=== PATIENT | female | born 1950 | race Caucasian/White ===

== ENCOUNTER → 2017-01-01 | Outpatient (CLI) | payer MEDICARE, OTHER ==
--- NOTE | 2017-01-01 13:15 | US ---
EXAMINATION TYPE: US gallbladder DATE OF EXAM: 01/01/2017 COMPARISON: CT 2016 CLINICAL HISTORY: RUQ Abd Pain R10.11. N/V EXAM MEASUREMENTS: Liver Length: 10.8 cm Gallbladder Wall: 0.1 cm CBD: 0.3 cm Right Kidney: 9.3 x 5.2 x 4.1 cm Liver is homogeneous. There are no gallstones. Pancreatic tail limited by bowel gas. Evidence for sonographic Finn's sign: no CBD: wnl Right Kidney: echogenic, shadowing foci in lateral right kidney = 0.5 cm IMPRESSION: 1. Nonobstructing 5 mm right renal calculus.
--- NOTE | 2017-01-01 14:54 | NM ---
Nuclear medicine hepatobiliary scan. HISTORY: Pain. Her graft comparison: 12/05/2014 FINDINGS: The patient received 8 ounces and sure plus and 5.3 mCi of Technetium 99m Choletec. There is normal hepatic extraction. The gallbladder is seen by 25 minutes. There is biliary to tony l clearance by 30 minutes. Ejection fraction is 89%. IMPRESSION: 1. No evidence of cholecystitis. 2. Ejection fraction of 89%. This can occasionally be seen with hyperdynamic gallbladder. Correlate gabriela brown
== END | disposition home or self-care (01) ==
LOC: RADUSMAIN 12:09
PROVIDERS: ATTEND Surgery
DX: N20.0 Calculus of kidney (principal)
CPT/HCPCS: 76705; 78226; A9537

== ENCOUNTER 2017-02-04 07:45 | Day surgery (SDC) | payer MEDICARE, OTHER ==
[2017-01-31 10:46] VITALS: BMI 13.6
[~2017-02-04 07:45] MED LIST: LACTATED RINGERS 1,000 ML IV SCH
[2017-02-04] MEDS ORDERED: LIDOCAINE 1% 20 ML VIAL (10MG/ML) FOR IV START INTRADERMA ONE (07:56)
[2017-02-04 07:59] VITALS: TEMP 98
[2017-02-04] MEDS ORDERED: LACTATED RINGERS 1,000 ML IV ONE (07:59)
[2017-02-04] MEDS ORDERED: PROPOFOL 10 MG/ML 20 ML VIAL IV ONE (08:54)
[2017-02-04] MEDS ORDERED: GLYCOPYRROLATE 0.2 MG/ML 2 ML VIAL ONE (08:54)
[2017-02-04] MEDS ORDERED: LIDOCAINE 1% INJ 10MG/ML (20 ML MDV) ONE (08:54)
--- NOTE | 2017-02-04 09:31 | P.PCN ---
Date of Procedure: 02/04/17 Preoperative Diagnosis: Postoperative Diagnosis: Procedure(s) Performed: Procedure: Esophagogastroduodenoscopy and biopsy. Preoperative diagnosis: Abdominal pain and weight loss. Postoperative diagnosis: 1. Small sliding hiatal hernia with no obvious esophagitis or complicated reflux disease. 2. Mild antral gastritis with no ulcers or gastric outlet obstruction. 3. Multiple biopsies obtained from the duodenum antrum and esophagus. Preparation sedation: Was provided by anesthesia. Brief clinical history: The patient is a 66-year-old female who is referred for this evaluation because of severe upper abdominal pains and weight loss. The patient has history of reflux and dysphagia. Her last upper endoscopy was in November 2013. Procedure: With the patient on her left lateral decubitus position and after informed consent and adequate sedation, I passed the Olympus-GIF 160 video upper endoscope through the cricopharyngeus down the esophagus. GE junction was around 39-40 cm from the incisors and there was a small sliding hiatal hernia. The esophagus did not show any obvious esophagitis or complicated reflux disease. The endoscope was then passed into the stomach which was insufflated with air and inspected in detail including the retroflex view in the cardia. There was minimal mottling and erythema in the antrum but no ulcers or erosions. Pyloric channel, duodenal bulb, post bulbar area and descending duodenum appeared within normal limits. I obtained multiple biopsies , antrum and esophagus then the endoscope was withdrawn. The patient tolerated the procedure well. Plan: The patient was reassured. Will await biopsy results. She will follow- up with you as planned and further plans can be made based on her course and biopsy results. Implants: Indications for Procedure: Operative Findings: Description of Procedure:
[2017-02-04 09:32] VITALS: BP 112/54; PULSE 66; RESP 15
== END 2017-02-04 09:50 | disposition home or self-care (01) ==
LOC: ORWHC2ENDO 07:45
DX: K29.50 Unspecified chronic gastritis without bleeding (principal); K21.0 Gastro-esophageal reflux disease with esophagitis; F17.200 Nicotine dependence, unspecified, uncomplicated; F41.9 Anxiety disorder, unspecified; K44.9 Diaphragmatic hernia without obstruction or gangrene; R63.4 Abnormal weight loss; Z79.899 Other long term (current) drug therapy; Z88.6 Allergy status to analgesic agent
CPT/HCPCS: 88305; 88342; 43239; J2001; J2704

== ENCOUNTER 2017-03-18 07:13 | Day surgery (SDC) | payer MEDICARE, OTHER ==
[2017-03-17 09:42] VITALS: BMI 14.0
[~2017-03-18 07:13] MED LIST changes: +LIDOCAINE 1% 20 ML VIAL (10MG/ML) FOR IV START INTRADERMA PRN
[2017-03-18 07:46] VITALS: TEMP 98.1
[2017-03-18] MEDS ORDERED: PROPOFOL 10 MG/ML 20 ML VIAL IV ONE (08:12)
--- NOTE | 2017-03-18 08:36 | P.OP ---
Date of Procedure: 03/18/17 Preoperative Diagnosis: Weight loss, constipation Postoperative Diagnosis: Normal colonoscopy Procedure(s) Performed: Colonoscopy Anesthesia: MAC Estimated Blood Loss (ml): 0 IV fluids (ml): 100 Pathology: none sent Condition: stable Disposition: PACU Indications for Procedure: Weight loss constipation Operative Findings: Normal colonoscopy Description of Procedure: Patient was taken to the endoscopy suite and following sedation rectal exam was performed. Patient was noted to have good sphincter tone no masses. Colonoscope was passed through the anus into the rectum. Was passed up through the sigmoid colon and left colon to the splenic flexure. Was passed through the transverse colon hepatic flexure right colon down to the area of the cecum. Circumferential observation mucosa did not reveal any lesions of concern in the cecum or right colon. No lesions of concern in the transverse colon. As the scope was withdrawn no lesions of concern were noted in the left colon or sigmoid colon. The scope was brought down to the rectum where it was retroflexed. No lesions of concern were identified. Some perianal internal skin tags were noted, but no lesions of concern. No space-occupying lesion in the colon to account for constipation was noted. Impression/plan: 1. Tortuous sigmoid colon Plan: 1. Repeat scope 7-10 years
--- NOTE | 2017-03-18 08:37 | P.DS ---
Providers Attending physician: Lizabeth Long Primary care physician: Nicolás Rose Plan - Discharge Summary New Discharge Prescriptions: No Action Levothyroxine Sodium [Synthroid] 50 mcg PO HS ALPRAZolam [Xanax] 0.5 mg PO BID PRN PRN Reason: Anxiety Estradiol [Estradiol] 1 patch TOPICAL MOFR Hydrocodone/Acetaminophen [[place] 7.5-325] 1 tab PO Q6HR PRN PRN Reason: Pain Omeprazole [PriLOSEC] 40 mg PO AC-BRKFST Multivit with Calcium,Iron,Min [Women's Daily Multivitamin] 1 each PO DAILY Cholecalciferol [Vitamin D3] 1,000 unit PO DAILY Bisacodyl [Dulcolax] 10 mg PO DAILY PRN PRN Reason: Constipation L.acidoph,Paracasei, B.lactis [Probiotic] 1 each PO DAILY Docusate [Colace] 100 mg PO TID Magnesium Oxide [Mag-Ox] 250 mg PO DAILY Discharge Medication List ALPRAZolam [Xanax] 0.5 mg PO BID PRN 11/26/13 [History] Levothyroxine Sodium [Synthroid] 50 mcg PO HS 11/26/13 [History] Estradiol [Estradiol] 1 patch TOPICAL MOFR 08/02/15 [History] Hydrocodone/Acetaminophen [[place] 7.5-325] 1 tab PO Q6HR PRN 09/12/15 [History] Multivit with Calcium,Iron,Min [Women's Daily Multivitamin] 1 each PO DAILY [History] Omeprazole [PriLOSEC] 40 mg PO AC-BRKFST 09/12/15 [History] Bisacodyl [Dulcolax] 10 mg PO DAILY PRN 01/31/17 [History] Cholecalciferol [Vitamin D3] 1,000 unit PO DAILY 01/31/17 [History] Docusate [Colace] 100 mg PO TID 01/31/17 [History] L.acidoph,Paracasei, B.lactis [Probiotic] 1 each PO DAILY 01/31/17 [History] Magnesium Oxide [Mag-Ox] 250 mg PO DAILY 03/17/17 [History] Discharge Disposition: HOME SELF-CARE
[2017-03-18 09:03] VITALS: BP 92/56; PULSE 49; RESP 18
== END 2017-03-18 09:09 | disposition home or self-care (01) ==
LOC: ORWHC2ENDO 07:13
PROVIDERS: ATTEND Surgery
DX: R10.9 Unspecified abdominal pain (principal); K59.00 Constipation, unspecified; R63.4 Abnormal weight loss; K56.2 Volvulus; F41.9 Anxiety disorder, unspecified; K64.4 Residual hemorrhoidal skin tags; F17.200 Nicotine dependence, unspecified, uncomplicated; Z88.6 Allergy status to analgesic agent; Z88.5 Allergy status to narcotic agent; K21.9 Gastro-esophageal reflux disease without esophagitis; M47.9 Spondylosis, unspecified; M19.90 Unspecified osteoarthritis, unspecified site; Z79.899 Other long term (current) drug therapy
CPT/HCPCS: 45378; J2704

== ENCOUNTER → 2017-04-02 | Outpatient (CLI) | payer MEDICARE, OTHER ==
--- NOTE | 2017-04-02 15:09 | US ---
EXAMINATION TYPE: US pelvis complete transvag DATE OF EXAM: 04/02/2017 COMPARISON: 05/21/2011 CT abdomen pelvis. CLINICAL HISTORY: R19.0 Pelvic Mass. known left pelvic mass x 6 years TECHNIQUE: TA/TV Date of LMP: 20+yrs ago EXAM MEASUREMENTS: Uterus: Surgically absent Endometrial Stripe: Surgically absent Right Ovary: not seen due to bowel gas Left Ovary: 2.3 x 1.5 x 1.9cm 1. Uterus: Surgically absent 2. Endometrium: Surgically absent 3. Right Ovary: not seen due to bowel gas 4. Left Ovary: possible ovarian tissue measuring 2.3 x 1.5 x 1.9cm, with 1.3cm cystic component 5. Bilateral Adnexa: 3.4cm solid appearing mass noted within left adnexa, unsure if related to ovary or just adjacent to 6. Posterior cul-de-sac: wnl IMPRESSION: 1. No interval increase in size of the known hypoechoic left adnexal mass measuring 2.3 x 1.5 x 1.9 c m and previously measuring up to 3.[address] abdomen pelvis dated 05/21/2011. This could represe nt a complex pelvic inclusion cyst in a patient with a history of hysterectomy or endometrioma. Other etiologies are possible however this is favored to be benign given its stability over time. 2. Nonvisualization of the right ovary. This may be surgically absent or obscured by overlying bowel gas.
== END | disposition home or self-care (01) ==
LOC: RADUSWWP 14:07
PROVIDERS: ATTEND Family Medicine
DX: R19.00 Intra-abdominal and pelvic swelling, mass and lump, unspecified site (principal)
CPT/HCPCS: 76830; 76856

== ENCOUNTER → 2017-10-08 | Outpatient (CLI) | payer MEDICARE, OTHER ==
--- NOTE | 2017-10-08 17:09 | US ---
EXAMINATION TYPE: US thyroid st tissue head/neck DATE OF EXAM: 10/08/2017 COMPARISON: NONE CLINICAL HISTORY: E04.1 THYROID NODULE. thyroidectomy, patients feel a lump mid neck superior to thyr oid bed, difficulty swallowing GLAND SIZE: Right Lobe: Surgically absent Left Lobe: Surgically absent NODULES RIGHT: # of nodules measured on right: surgically absent LEFT: # of nodules measured on left: surgically absent Possible homogeneous solid area within patient's area of concern (mid neck, superior to thyroid bed) = 2.6cm IMPRESSION: Patient has had a thyroidectomy. There is a elongated oval-shaped 2.5 x 1 cm solid area in the area o f a lump. Clinical significance is not clear. This could be some residual thyroid tissue. This could be an elongated lymph node.
== END | disposition home or self-care (01) ==
LOC: RADUSWWP 16:31
PROVIDERS: ATTEND Family Medicine
DX: E04.8 Other specified nontoxic goiter (principal)
CPT/HCPCS: 76536

== ENCOUNTER → 2017-10-24 | Outpatient (CLI) | payer MEDICARE, OTHER ==
[2017-10-24 08:25] LABS: Blood Urea Nitrogen 5 mg/dL (7-17)
--- NOTE | 2017-10-24 09:55 | CT ---
EXAMINATION TYPE: CT soft tissue neck w con DATE OF EXAM: 10/24/2017 COMPARISON: Ultrasound thyroid gland dated 10/08/2017 HISTORY: Thyroid nodule CT DLP: 340 mGycm CONTRAST: CT scan of the neck is performed with IV Contrast, patient injected with 100 ml mL of Isovue 300. Contrast enhanced CT of the neck was performed from the skull base through the lung apices. AIRWAY: The supraglottic, glottic, and subglottic portions of the airway appear patent and free of mass. SALIVARY GLANDS: The submandibular and parotid glands are free of mass or inflammatory process. THYROID GLAND: Noted are changes of thyroidectomy. Superior to the right thyroid fossa there is bryan gated enhancing tissue noted to measure 1.9 x 2.6 cm. Anteriorly within the subcutaneous region there is additional enhancing elongated nodule measuring approximately 2.6 x 1.1 cm. The nodules are outsi de of the thyroid fossae and therefore may reflect adenopathy. Lesions of other etiology not excluded . Within the thyroid fossa bilaterally there is trace tiny amount of residual thyroid tissue noted on the left measuring 10 x 3 mm and on the right measuring approximately 5 mm. LYMPH NODES: No adenopathy seen greater than 1cm. LUNG APICES: Upper lobe emphysematous changes identified. OTHER: Vascular structures are patent. No significant degenerative change of the cervical spine. N o abscess seen. IMPRESSION: 1. Changes of total thyroidectomy with small foci of residual thyroid tissue remaining within the thy roid fossa bilaterally. 2. Outside of the thyroid fossa there is elongated enhancing nodule seen which may reflect adenopathy . Lesions of other etiology are difficult to exclude.
== END | disposition home or self-care (01) ==
LOC: RADCTMAIN 07:52
PROVIDERS: ATTEND Surgery
DX: E04.1 Nontoxic single thyroid nodule (principal); E89.0 Postprocedural hypothyroidism
CPT/HCPCS: 82565; 84520; 70491; 36415; Q9967

== ENCOUNTER 2017-10-27 12:13 | Day surgery (SDC) | payer MEDICARE, OTHER ==
[2017-10-27 12:40] VITALS: BP 111/53; PULSE 73; RESP 20; TEMP 98.4
--- NOTE | 2017-10-27 13:35 | US ---
ULTRASOUND GUIDED FNA THYROID /neck BIOPSY: CLINICAL HISTORY: Right neck, thyroid mass FINDINGS: The procedure was explained to the patient. The risks, complications, benefits and alternatives were discussed and any questions were answered. Informed consent was obtained. Patient was placed supin e on the ultrasound table and prepped and draped in the usual sterile fashion. Utilizing a 25 gauge needle, five passes were made into the requested right neck mass. Patient was stable throughout the procedure. Pathology is pending. All elements of maximal barrier technique were utilized. IMPRESSION: 1. Successful ultrasound guided FNA thyroid, neck biopsy.
== END 2017-10-27 13:35 | disposition home or self-care (01) ==
LOC: RADPROMAIN 12:13
PROVIDERS: ATTEND Surgery
DX: E04.1 Nontoxic single thyroid nodule (principal)
CPT/HCPCS: 10022; 76942; 88173; 88305

== ENCOUNTER → 2018-01-15 | Outpatient (CLI) | payer MEDICARE, OTHER ==
--- NOTE | 2018-01-15 11:20 | BD ---
EXAMINATION TYPE: Axial Bone Density DATE OF EXAM: 01/15/2018 COMPARISON: 10.05.2012 CLINICAL HISTORY: 67 YR OLD FEMALE....ICD-10 CODE: Z78.0 ASYMPTOMATIC MENOPAUSAL STATE Height: 61.5 Weight: 74 FRAX RISK QUESTIONS: Current Tobacco Use: YES, PAC DAY RISK FACTORS HISTORY OF: Active: YES TRY TO BE Diet low in dairy products/other sources of calcium: YES Postmenopausal woman: YES AT AGE 45 Take estrogen and/or progesterone medications: IN PAST FOR 11 YRS, NONE NOW Lost more than 2 inches in height since high school: PT STATES YES MEDICATIONS: Thyroid Medications: YES, SYNTHROID FOR ABOUT 10 YRS Additional Medications: CLONOPIN, XANAX, VIT D, REFLUX MEDS, Additional History: ARTHRITIS, ANXIETY EXAM MEASUREMENTS: Bone mineral densitometry was performed using the [employer] System. Bone mineral density as measured about the Lumbar spine is: ----- L1-L4(G/cm2): 1.143 T Score Values are as follows: ----- L1: -1.8 ----- L2: -0.8 ----- L3: -0.7 ----- L4: 1.5 ----- L1-L4: -0.3 Bone mineral density has: Increased 0.7% since study of: 10.05.2012 Bone mineral density about the R hip (g/cm2): 0.683 Bone mineral density about the L hip (g/cm2): 0.689 T Score values are as follows: -----R Neck: -2.6 -----L Neck: -2.6 -----R Total: -2.6 -----L Total: -2.5 Bone mineral density has: Decreased -10.8% since study of: 10.05.2012 FRAX%s: THERE IS A 9.9% CHANCE OF A MAJOR OSTEOPOROTIC FX AND A 5.3% FOR HIP FX.....PROBABILITY OF FX IN 10 YRS TIME IMPRESSION: Osteoporosis (T Score less than -2.5). There is increased fracture risk and therapy is usually indicated based on age. Re-Screen 1-2 years. NOTE: T-SCORE=SD OF THE YOUNG ADULT MEAN.
--- NOTE | 2018-01-19 09:52 | MM ---
Reason for exam: screening (asymptomatic). Last mammogram was performed 5 years and 3 months ago. History: Patient is postmenopausal. Taking estrogen for 11 years. Physical Findings: A clinical breast exam by your physician is recommended on an annual basis and results should be correlated with mammographic findings. MG Screening Mammo w CAD Bilateral CC and MLO view(s) were taken. Prior study comparison: February 08, 2016, mammogram. October 05, 2012, bilateral digital screening mammo w/CAD. The breast tissue is extremely dense which could obscure a lesion on mammography. Benign appearing bilateral calcifications. No suspicious abnormality. Stable anterior depth medial right asymmetry back to 02/08/16. No significant changes when compared with prior studies. ASSESSMENT: Benign, BI-RAD 2 RECOMMENDATION: Routine screening mammogram of both breasts in 1 year.
== END | disposition home or self-care (01) ==
LOC: RADMAMWWP 10:17
PROVIDERS: ATTEND Family Medicine
DX: Z12.31 Encounter for screening mammogram for malignant neoplasm of breast (principal); M81.0 Age-related osteoporosis without current pathological fracture; Z78.0 Asymptomatic menopausal state
CPT/HCPCS: 77067; 77080

== ENCOUNTER → 2018-02-26 | Outpatient (CLI) | payer MEDICARE, OTHER ==
--- NOTE | 2018-02-26 10:59 | XR ---
EXAMINATION TYPE: XR chest 2V DATE OF EXAM: 02/26/2018 COMPARISON: 08/02/2015 TECHNIQUE: PA and lateral views submitted. HISTORY: Cough FINDINGS: The lungs are clear and there is no pneumothorax, pleural effusion, or focal pneumonia. Hyperinflati on suggests COPD. Is a vague nodular density in the left upper lobe. Hypertrophic change of the spine noted. IMPRESSION: 1. COPD with questionable 1 cm pulmonary nodule. Recommend CT scan of the chest..
== END | disposition home or self-care (01) ==
LOC: RADXRMAIN 10:12
PROVIDERS: ATTEND Family Medicine
DX: J44.1 Chronic obstructive pulmonary disease with (acute) exacerbation (principal)
CPT/HCPCS: 71046

== ENCOUNTER → 2018-03-05 | Outpatient (CLI) | payer MEDICARE, OTHER ==
[2018-03-05 08:45] LABS: Blood Urea Nitrogen 7 mg/dL (7-17)
--- NOTE | 2018-03-05 12:13 | CT ---
EXAMINATION TYPE: CT chest w con DATE OF EXAM: 03/05/2018 COMPARISON: Radiograph 02/26/2018 HISTORY: 67-year-old female solitary Pulmonary nodule TECHNIQUE: Contiguous axial scanning of the chest after the administration of 100 mL of Isovue 300. Coronal/sagittal reconstructions performed. CT DLP: 228mGycm. Automatic exposure control utilized for a dose reduction. FINDINGS: Heart normal size without pericardial effusion. Aorta normal caliber with conventional branching anatomy. No thoracic lymphadenopathy by CT size criteria. Biapical pleural parenchymal scarring with moderate centrilobular emphysema. There is some strandy at electasis or scarring at the anterior lung bases. No consolidation or pleural effusion. Mild diffuse bronchial wall thickening. Some retained secretions/debris in the lower lobe segmental branches. No s uspicious pulmonary nodule or mass. Visualized upper abdomen shows normal mottled enhancement of the spleen on arterial phase imaging. Bones: Mild degenerative disc disease mid to lower thoracic spine. IMPRESSION: 1. COPD with moderate emphysema. 2. Biapical pleural parenchymal scarring and some strandy scarring also at the anterior lung bases. N o suspicious pulmonary nodule or mass. If the patient qualifies, consider annual lung cancer screenin g CT.
== END | disposition home or self-care (01) ==
LOC: RADCTMAIN 08:08
PROVIDERS: ATTEND Family Medicine
DX: J43.9 Emphysema, unspecified (principal); J98.4 Other disorders of lung
CPT/HCPCS: 82565; 84520; 71260; 36415; Q9967

== ENCOUNTER 2018-03-24 02:07 | Emergency (ER) | payer MEDICARE, OTHER ==
[2018-03-24 02:15] VITALS: BP 123/62; PULSE 70; RESP 18; TEMP 97.9
[2018-03-24] MEDS ORDERED: KETOROLAC 30 MG/ML 1 ML VIAL IM STA (02:34)
[2018-03-24] MEDS ORDERED: ORPHENADRINE 30 MG/ML 2 ML VIAL IM STA (02:34)
--- NOTE | 2018-03-24 02:36 | ED ---
Neck Injury/Pain HPI - General Mode of arrival: ambulatory Limitations: no limitations <Kailee Carson - Last Filed: 03/24/18 03:33> <Christi Prasad - Last Filed: 03/24/18 03:53> - General Chief Complaint: Neck Pain/Injury Stated Complaint: neck pain,stiffness Time Seen by Provider: 03/24/18 02:28 - History of Present Illness Initial Comments: 67-year-old female patient presents to the emergency department today for evaluation of right-sided neck pain. Patient states that she woke from sleep this evening with the pain present. Patient states that the pain increases whenever she attempts to turn her head from [id number]. Patient states that when she turns her head the pain radiates down into her right shoulder. Patient denies any pain radiation down her arms. Denies any numbness or tingling to her arms. She denies any neck injury. Patient states that she does have degenerative disc disease and does take [place] at home for her pain control. States that the medicine is not helping. Patient denies any headache , blurred vision, double vision, fever, chills, or rash. Patient denies any recent shortness breath, chest pain, sweats, abdominal pain, nausea, vomiting, diarrhea, constipation, back pain, dizziness, weakness, hematuria, dysuria, urinary urgency, urinary frequency, headache, visual changes, or any other complaints. (Kailee Carson) - Related Data Home Medications Medication Instructions Recorded Confirmed ALPRAZolam [Xanax] 0.5 mg PO BID PRN 11/26/13 10/27/17 Levothyroxine Sodium [Synthroid] 50 mcg PO HS 11/26/13 10/27/17 Estradiol 1 patch TOPICAL MOFR 08/02/15 10/27/17 Hydrocodone/Acetaminophen [[place] 1 tab PO Q6HR PRN 09/12/15 10/27/17 7.5-325] Multivit with Calcium,Iron,Min 1 each PO DAILY 09/12/15 10/27/17 [Women's Daily Multivitamin] Omeprazole [PriLOSEC] 40 mg PO AC-BRKFST 09/12/15 10/27/17 Cholecalciferol [Vitamin D3] 1,000 unit PO DAILY 01/31/17 10/27/17 Docusate [Colace] 100 mg PO TID 01/31/17 10/27/17 Magnesium Oxide [Mag-Ox] 250 mg PO DAILY 03/17/17 10/27/17 Previous Rx's Medication Instructions Recorded Cyclobenzaprine [Flexeril] 5 mg PO TID #15 tablet 03/24/18 Ibuprofen 400 mg PO Q6H #30 tablet 03/24/18 Allergies Allergy/AdvReac Type Severity Reaction Status Date / Time acetaminophen Allergy Vomiting Verified 03/24/18 02:15 [From Tylenol-Codeine #3] codeine Allergy Vomiting Verified 03/24/18 02:15 [From Tylenol-Codeine #3] tramadol Allergy Vomiting Verified 03/24/18 02:15 ibuprofen AdvReac Nausea & Verified 03/24/18 02:15 Vomiting Review of Systems ROS Other: All systems not noted in ROS Statement are negative. <Kailee Carson M - Last Filed: 03/24/18 03:33> ROS Other: All systems not noted in ROS Statement are negative. <Christi Prasad - Last Filed: 03/24/18 03:53> ROS Statement: Those systems with pertinent positive or pertinent negative responses have been documented in the HPI. Past Medical History Past Medical History: Blood Disorder, Cancer, GERD/Reflux, Musculoskeletal Disorder, Osteoarthritis (OA), Thyroid Disorder Additional Past Medical History / Comment(s): tinnitus, weight loss unable to regain weight since thyroid removed, low BP, hiatal hernia, diverticulitis, constipation, degenerative disk in neck, anemia, thalassemia, osteoporosis, thyroid cancer, nodule is thyroid bed History of Any Multi-Drug Resistant Organisms: None Reported Past Surgical History: Appendectomy, Hysterectomy, Tubal Ligation Additional Past Surgical History / Comment(s): THYROIDECTOMY, Past Anesthesia/Blood Transfusion Reactions: No Reported Reaction Past Psychological History: No Psychological Hx Reported Smoking Status: Current every day smoker Past Alcohol Use History: Rare Past Drug Use History: None Reported - Past Family History Father Sister(s) Family Medical History: Unable to Obtain Father Family Medical History: Blood Disorder, Cancer Additional Family Medical History / Comment(s): thalassemia Son(s) Family Medical History: Pulmonary Embolus Brother(s) Family Medical History: Blood Disorder, Cancer Additional Family Medical History / Comment(s): THALASSEMIA Daughter(s) Family Medical History: Blood Disorder Additional Family Medical History / Comment(s): THALASSEMIA <AnnelJorge mejíaina M - Last Filed: 03/24/18 03:33> General Exam Limitations: no limitations General appearance: alert, in no apparent distress, other (This is a well- developed, thin appearing adult female patient in no acute distress. Vital signs upon presentation are temperature 97.9F, pulse 70, respirations 18, blood pressure 123/62, pulse ox 95% on room air.) Eye exam: Present: normal appearance, PERRL, EOMI. Absent: scleral icterus, conjunctival injection, periorbital swelling ENT exam: Present: normal exam, normal oropharynx, mucous membranes moist Neck exam: Present: normal inspection, tenderness (Right-sided muscular tenderness). Absent: meningismus, lymphadenopathy Respiratory exam: Present: normal lung sounds bilaterally. Absent: respiratory distress, wheezes, rales, rhonchi, stridor Cardiovascular Exam: Present: regular rate, normal rhythm, normal heart sounds. Absent: systolic murmur, diastolic murmur, rubs, gallop, clicks GI/Abdominal exam: Present: soft, normal bowel sounds. Absent: distended, tenderness, guarding, rebound, rigid Neurological exam: Present: alert, oriented X3, CN II-XII intact Psychiatric exam: Present: normal affect, normal mood Skin exam: Present: warm, dry, intact, normal color. Absent: rash <Kailee Carson M - Last Filed: 03/24/18 03:33> Vital Signs 03/24/18 02:12 Temperature 97.9 F Pulse Rate 70 Respiratory 18 Rate Blood Pressure 123/62 O2 Sat by Pulse 95 Oximetry Medical Decision Making <Kailee Carson M - Last Filed: 03/24/18 03:33> <Christi Prasad P - Last Filed: 03/24/18 03:53> - Medical Decision Making 67-year-old female patient presented to the emergency department today for evaluation of right-sided neck pain that worsens with any type of movement. Patient had no radiation of pain down her arms. No numbness or tingling to her arms. Patient denies any fevers or chills. Vital signs are stable. Patient symptoms are consistent with muscle spasm. She'll be treated with anti- inflammatories and muscle relaxers. She is instructed to apply warm moist he perform gentle range of motion exercises. She is instructed to follow-up with her primary care physician for recheck in 1-2 days. She verbalizes understanding and agrees with this plan. (Kailee Carson) I was available for consultation in the emergency department. The history and physical exam were done by the midlevel provider. I was consulted for this patient's care. I reviewed the case with the midlevel provider and based on their presentation of the patient, I agree with the assessment, medical decision making and plan of care as documented. (Christi Prasad) Disposition Is patient prescribed a controlled substance at d/c from ED?: No Time of Disposition: 02:36 <Kailee Carson - Last Filed: 03/24/18 03:33> <Christi Prasad - Last Filed: 03/24/18 03:53> Clinical Impression: Muscle spasms of neck Disposition: HOME SELF-CARE Condition: Good Instructions: Muscle Spasm (ED) Additional Instructions: Apply warm moist heat to the neck 20 minutes at a time at least 4 times daily. Perform gentle range of motion exercises. Take medications as directed. Take ibuprofen with food to prevent nausea. Return here immediately for any new, worsening, or concerning symptoms. Prescriptions: Cyclobenzaprine [Flexeril] 5 mg PO TID #15 tablet Ibuprofen 400 mg PO Q6H #30 tablet Referrals: Nicolás Rose MD [Primary Care Provider] - 1-2 days
== END 2018-03-24 02:44 | disposition home or self-care (01) ==
LOC: EC 02:07
DX: M62.838 Other muscle spasm (principal); K21.9 Gastro-esophageal reflux disease without esophagitis; E07.9 Disorder of thyroid, unspecified; D64.9 Anemia, unspecified; F17.200 Nicotine dependence, unspecified, uncomplicated; Z85.850 Personal history of malignant neoplasm of thyroid; Z79.3 Long term (current) use of hormonal contraceptives; Z79.899 Other long term (current) drug therapy; Z88.5 Allergy status to narcotic agent; Z88.6 Allergy status to analgesic agent
CPT/HCPCS: 99283; 96372 ×2; J2360; J1885

== ENCOUNTER → 2018-04-07 | Outpatient (CLI) | payer MEDICARE, OTHER ==
--- NOTE | 2018-04-07 12:13 | XR ---
Two-view spine HISTORY: Cervical disc displacement, back and neck pain Frontal and lateral views are obtained the cervical, thoracic, lumbar spine. 10 images. Correlation to plain film 11/29/2015, 10/13/2015, MR cervical spine 12/18/2012 Anterolisthesis grade 1 C3-4, C4-5, retrolisthesis grade 1 C6-7. Anterolisthesis grade 1 C7-T1. There is multilevel spondylosis. Cervical vertebral bodies show preserved height and bone mineralization. There is reversal of normal cervical lordosis. Multilevel facet arthropathy change present. There is spondylosis with loss of disc height greatest at C5-6 and C6-7. Carotid artery calcifications are todd pected. Thoracic spine shows vertebral bodies show preserved height and alignment. There is multilevel spondy losis. Mild loss of disc height at the intervertebral levels in the midthoracic spine. Gentle spinal curvature. Lumbar spine shows mild spinal curvature. Minimal retrolisthesis grade 1 L5-S1. There is associated l oss of disc height L5-S1, L4-5 with associated vacuum phenomenon. There is endplate sclerosis, multil evel spondylosis. Calcification is present in the aortoiliac distribution. Sclerosis present in the p osterior elements compatible with facet arthropathy. IMPRESSION: Degenerative disc disease. Reversal of normal cervical lordosis could be due to muscle sp asm. Facet arthropathy. Additional findings above.
== END | disposition home or self-care (01) ==
LOC: RADXRMAIN 09:47
PROVIDERS: ATTEND Family Medicine
DX: M43.13 Spondylolisthesis, cervicothoracic region (principal); M50.322 Other cervical disc degeneration at C5-C6 level; M47.812 Spondylosis without myelopathy or radiculopathy, cervical region; M46.92 Unspecified inflammatory spondylopathy, cervical region; M51.37 Other intervertebral disc degeneration, lumbosacral region; M47.814 Spondylosis without myelopathy or radiculopathy, thoracic region; M51.34 Other intervertebral disc degeneration, thoracic region; M47.816 Spondylosis without myelopathy or radiculopathy, lumbar region; M46.96 Unspecified inflammatory spondylopathy, lumbar region
CPT/HCPCS: 72082

== ENCOUNTER → 2018-04-13 | Outpatient (CLI) | payer MEDICARE, OTHER ==
--- NOTE | 2018-04-14 07:31 | US ---
EXAMINATION TYPE: US carotid duplex BILAT DATE OF EXAM: 04/13/2018 COMPARISON: NONE CLINICAL HISTORY: I65.23 Carotid Stenosis. EXAM MEASUREMENTS: RIGHT: Peak Systolic Velocity (PSV) cm/sec ----- Right CCA: 82.3 ----- Right ICA: 104.0 ----- Right ECA: 67.7 ICA/CCA ratio: 1.3 RIGHT: End Diastole cm/sec ----- Right CCA: 15.4 ----- Right ICA: 28.5 ----- Right ECA: 12.5 LEFT: Peak Systolic Velocity (PSV) cm/sec ----- Left CCA: 74.8 ----- Left ICA: 93.4 ----- Left ECA: 78.8 ICA/CCA ratio: 1.2 LEFT: End Diastole cm/sec ----- Left CCA: 12.7 ----- Left ICA: 27.2 ----- Left ECA: 8.7 VERTEBRALS (direction of flow): Right Vertebral: Antegrade Left Vertebral: Antegrade Rhythm: Normal Moderate amount of plaque visualized in bilateral bulbs, no elevated velocities, no significant steno sis. IMPRESSION: Moderate degree of grayscale atheromatous plaquing with no sonographically evident hemod ynamically significant stenosis within either visualized carotid arterial system.
== END | disposition home or self-care (01) ==
LOC: RADUSWWP 16:43
PROVIDERS: ATTEND Family Medicine
DX: I65.23 Occlusion and stenosis of bilateral carotid arteries (principal)
CPT/HCPCS: 93880

== ENCOUNTER → 2018-04-29 | Outpatient (CLI) | payer MEDICARE, OTHER ==
--- NOTE | 2018-04-29 07:32 | MR ---
EXAMINATION TYPE: MR lumbar spine wo con DATE OF EXAM: 04/29/2018 COMPARISON: Spine x-ray April 07, 2018 HISTORY: Intervertebral disc degeneration, lumbar per order. Pain for a long time in back causing sai n into bilateral thighs and buttocks per patient. TECHNIQUE: Multiplanar, multisequence imaging of the lumbar spine is performed without IV contrast. FINDINGS: Sagittal images of the lumbar spine show vertebral body heights to appear satisfactory. The re is subtle grade 1 retrolisthesis of L5 on S1 redemonstrated. Multilevel disc desiccation is presen t. There is fairly moderate multilevel disc space narrowing most prominent at L4-L5 and L5-S1 levels with heterogeneous Modic type I endplate changes. There is mild to moderate multilevel anterior spurr ing at these levels. Multilevel posterior disc herniations are seen on sagittal images most prominent L4-L5 level. The conus medullaris is normal in position and signal ending mid L1 level. Hemangioma noted at L3 vertebral body level anterior right aspect sagittal image 9. Axial images show the T12-L1 and L1-L2 levels to appear within normal limits. Axial images at L2-L3 level show mild broad based posterior disc protrusion mildly effacing anterior thecal sac, bilateral neural foramina are patent on axial image 18. Axial images at the L3-L4 level shows mild/moderate broad disc bulge mildly effacing anterior thecal sac with mild facet degenerative changes and ligamentum flavum hypertrophy mildly effacing posterior lateral thecal sac on axial image 13. There is mild bilateral anterior inferior neural foraminal narr owing, right greater than left. Axial images at L4-L5 level show moderate ligamentum flavum hypertrophy and facet degenerative change s bilaterally with effacement of posterior lateral thecal sac. There is moderate broad disc bulge wit h left foraminal/lateral broad-based disc protrusion component effacing anterior thecal sac. There is moderate to severe left-sided neural foraminal narrowing. There is mild to moderate right-sided neur al foraminal narrowing. Axial images at the L5-S1 level show mild to moderate right greater than left facet degenerative bender ges and ligamentum flavum hypertrophy with effacement of the posterior lateral thecal sac. There is s pondylolisthesis and mild broad disc bulge minimally effacing anterior thecal sac. There is advanced right and moderate left-sided neural foraminal narrowing. Encroachment on right L5 nerve is felt pres ent sagittal image 11. There is 9 mm T2 hyperintense lesion lateral left kidney axial image 18 and 5 mm T2 hyperintense lesi ons laterally right kidney axial image 8 favoring simple renal cysts. IMPRESSION: Multilevel degenerative changes in the mid to lower lumbar spine as detailed above, findi ngs most prominent at L4-L5 and L5-S1 levels.
== END | disposition home or self-care (01) ==
LOC: RADMRIMAIN 06:41
PROVIDERS: ATTEND Family Medicine
DX: M48.07 Spinal stenosis, lumbosacral region (principal); M99.73 Connective tissue and disc stenosis of intervertebral foramina of lumbar region; M51.26 Other intervertebral disc displacement, lumbar region; M43.17 Spondylolisthesis, lumbosacral region; M47.816 Spondylosis without myelopathy or radiculopathy, lumbar region
CPT/HCPCS: 72148

== ENCOUNTER → 2018-06-01 | Outpatient (CLI) | payer MEDICARE, OTHER ==
[2018-05-29 15:44] VITALS: BMI 13.2
[2018-06-01 13:14] VITALS: BP 117/74; PULSE 64; RESP 16
--- NOTE | 2018-06-01 13:59 | P.PAINCN ---
History of Present Illness - Reason for Consult Consult date: 06/01/18 Low back pain Requesting physician: Nicolás Rose - Chief Complaint Low back pain - History of Present Illness Caden is a 67-year-old female who presents today as a new patient consult from Dr. Rose. He is sent her over here for potential lumbar epidural steroid injection. Marilin reports she's had pain for many years in her lumbar spine. She reports over the past year her pain is becoming worse. She has been on narcotic therapy for a few years and is interested in continuing her medications. She reports that she has pain in her lumbar spine going into her buttocks and down her leg that time. She reports she is on disability for her cervical spine pain. She's not had any back or neck surgery. She reports that pain in her lumbar spine into her legs with very limited mobility in all ranges of motion. She denies any weakness in her lower extremities. She lives at home with her sister. She continues use Elverson 7.5 mg 3 times per day. She denies any side effects from the medication regimen. She is not in any physical therapy. She has not had any injections. Review of Systems 12 point review of systems is done is negative except as noted in the HPI Past Medical History Past Medical History: Blood Disorder, Cancer, GERD/Reflux, Musculoskeletal Disorder, Osteoarthritis (OA), Thyroid Disorder Additional Past Medical History / Comment(s): tinnitus, weight loss-unable to regain weight since thyroid removed, low BP, hiatal hernia, diverticulitis, constipation, degenerative disk in neck, anemia, thalassemia, osteoporosis, thyroid cancer, nodule in thyroid bed?, low back pain History of Any Multi-Drug Resistant Organisms: None Reported Past Surgical History: Appendectomy, Hysterectomy, Tubal Ligation Additional Past Surgical History / Comment(s): THYROIDECTOMY Past Anesthesia/Blood Transfusion Reactions: No Reported Reaction Smoking Status: Current every day smoker - Past Family History Father Sister(s) Family Medical History: Unable to Obtain Father Family Medical History: Blood Disorder, Cancer Additional Family Medical History / Comment(s): thalassemia Son(s) Family Medical History: Pulmonary Embolus Brother(s) Family Medical History: Blood Disorder, Cancer Additional Family Medical History / Comment(s): THALASSEMIA Daughter(s) Family Medical History: Blood Disorder Additional Family Medical History / Comment(s): THALASSEMIA Medications and Allergies Home Medications Medication Instructions Recorded Confirmed Type Levothyroxine Sodium [Synthroid] 25 mcg PO HS 11/26/13 06/01/18 History Estradiol 1 patch TOPICAL MOFR 08/02/15 06/01/18 History Hydrocodone/Acetaminophen [Elverson 1 tab PO Q6HR PRN 09/12/15 06/01/18 History 7.5-325] Multivit with Calcium,Iron,Min 1 each PO DAILY 09/12/15 06/01/18 History [Women's Daily Multivitamin] Omeprazole [PriLOSEC] 40 mg PO AC-BRKFST 09/12/15 06/01/18 History Cholecalciferol [Vitamin D3] 1,000 unit PO DAILY 01/31/17 06/01/18 History Docusate [Colace] 100 mg PO TID 01/31/17 06/01/18 History Magnesium Oxide [Mag-Ox] 250 mg PO DAILY 03/17/17 06/01/18 History clonazePAM [KlonoPIN] 0.5 mg PO BID PRN 05/29/18 06/01/18 History Allergies Allergy/AdvReac Type Severity Reaction Status Date / Time acetaminophen Allergy Vomiting Verified 06/01/18 12:53 [From Tylenol-Codeine #3] codeine Allergy Vomiting Verified 06/01/18 12:53 [From Tylenol-Codeine #3] tramadol Allergy Vomiting Verified 06/01/18 12:53 ibuprofen AdvReac Nausea & Verified 06/01/18 12:53 Vomiting Physical Exam Vitals: Vital Signs Pulse Resp BP Pulse Ox 06/01/18 13:10 64 16 117/74 94 L General: Cachectic, Awake and alert oriented 3 no distress Respiratory exam: No audible wheezing no accessory muscle usage Cardiovascular exam: regular rate, palpable bilateral pulses, no lower extremity edema Abdominal exam: No distention nontender to palpation Cervical spine: Normal alignment, Spurling's negative, facet loading negative Lumbar spine: Decreased lumbar lordosis, nontender to palpation, alignment is normal. Straight leg raise is positive bilateral. Facet loading is negative bilateral is very limited range of motion with flexion and extension as well as lateral sidebending in all planes Sacroiliac joints: Nontender to palpation, SARAH is negative, Gaenselon negative Neuro exam: Normal sensation in bilateral upper extremities, deep tendon reflexes are 1+ + bilateral upper extremities. Normal sensation in bilateral lower extremities. Deep tendon reflexes are 1+ + in lower extremities Psych exam: Cooperative, appropriate mood Results Comments: MRI lumbar spine shows multilevel degeneration as well as disc bulging. She has neuroforaminal stenosis at L4 5 and L5-S1 levels. Assessment and Plan Assessment: #1 lumbar radiculopathy #2 degenerative disc disease #3 neural foraminal stenosis Plan: I discussed the patient the risks benefits and alternatives to having epidural steroid injections. I advised the patient it the epidural steroid injection will likely not improve her overall function or long-term benefit spell may help in assisting her with pain. I advised the patient is continuing exercising regularly and should enter formal course of physical therapy. I advised that the injection may help with her pain temporarily and the patient is agreement and wants to move. We'll schedule patient for an L4-L5 lumbar epidural steroid injection forward with the injection PQRS Measure Charge Sheet PQRS Narrative: Smoking Status Current every day smoker Do You Want the Pneumonia Vaccine Up to Date Vaccine AT THIS TIME? Blood Pressure 117/74 Pain Intensity [Lower Medial 10 Back] Scale Used Numeric (1 - 10) Hx Alcohol Use (MH) Yes: RARE. Home Medications: Ambulatory Orders Levothyroxine Sodium [Synthroid] 25 mcg PO HS 11/26/13 Estradiol 1 patch TOPICAL MOFR 08/02/15 Hydrocodone/Acetaminophen [Elverson 7.5-325] 1 tab PO Q6HR PRN 09/12/15 Multivit with Calcium,Iron,Min [Women's Daily Multivitamin] 1 each PO DAILY Omeprazole [PriLOSEC] 40 mg PO AC-BRKFST 09/12/15 Cholecalciferol [Vitamin D3] 1,000 unit PO DAILY 01/31/17 Docusate [Colace] 100 mg PO TID 01/31/17 Magnesium Oxide [Mag-Ox] 250 mg PO DAILY 03/17/17 clonazePAM [KlonoPIN] 0.5 mg PO BID PRN 05/29/18
== END ==
LOC: PNWHC3 12:33
PROVIDERS: ATTEND Hospitalist
DX: M99.73 Connective tissue and disc stenosis of intervertebral foramina of lumbar region (principal); M51.16 Intervertebral disc disorders with radiculopathy, lumbar region; F17.200 Nicotine dependence, unspecified, uncomplicated; Z79.899 Other long term (current) drug therapy; Z88.8 Allergy status to other drugs, medicaments and biological substances; Z88.5 Allergy status to narcotic agent; Z88.6 Allergy status to analgesic agent; E07.9 Disorder of thyroid, unspecified
CPT/HCPCS: 99211

== ENCOUNTER 2018-06-09 07:52 | Day surgery (SDC) | payer MEDICARE, OTHER ==
[2018-06-09 08:52] VITALS: RESP 16; TEMP 97
[2018-06-09] MEDS: SODIUM CHLORIDE 0.9% 500 ML 500 ML IV SCH ×2 (08:54→08:56)
[2018-06-09] MEDS ORDERED: LIDOCAINE 1% 20 ML VIAL (10MG/ML) FOR IV START INTRADERMA ONE (08:55)
--- NOTE | 2018-06-09 09:38 | P.PCN ---
Date of Procedure: 06/09/18 Pathology: none sent Condition: stable Disposition: PACU Description of Procedure: PREOPERATIVE DIAGNOSIS: 1-Lumbar radiculopathy 2- Lumber Degenerative Disc Diseases. POSTOPERATIVE DIAGNOSIS: 1-Lumbar radiculopathy. 2-Lumbar Degenerative Disc Diseases PROCEDURE 1. Lumbar epidural steroid injection under fluoroscopic guidance at the L4- 5level. 2. Lumbar epidurogram. ANESTHESIA: Local with 1% lidocaine; and IV moderate conscious sedation with Versed 1 mg and fentanyl 50 mcg EBL: Minimal PROCEDURE INDICATION: The patient with low back pain and radiculitis symptoms unresponsive to conservative treatment. Fluoroscopy was used to optimize visualization of the needle placement and to maximize safety. PROCEDURE DESCRIPTION / TECHNIQUE: The patient was seen and identified in the preoperative area. Risks, benefits , complications including but not limited to infections ,bleeding ,allergic reaction to the medications ,nerve damage and not complete pain relief , and alternatives were discussed with the patient. The patient agreed to proceed with the procedure and signed the consent. IV was started, and vital signs were stable. Patient was taken to the OR and time out was completed. The patient was placed in the prone position on procedure table and a pillow was placed under the abdomen to reduce lumbar lordosis. The lumbosacral area was prepped and draped in the usual sterile fashion with ChloraPrep.Patient was closely monitored during the procedure. Conscious sedation was used during the procedure to decrease patients anxiety. Vital signs were monitered during the entire procedure. Using anterior-posterior fluoroscopy, the L4-5 interlaminar space was identified and the skin over this site was marked and then infiltrated with 1% lidocaine subcutaneously. Subsequently, a 20-gauge Tuohy epidural needle was inserted and advanced toward the epidural space using the Loss of resistance to air technique and guided by AP and lateral fluoroscopy. The epidural space was found at about 4.2 cm from skin .The correct needle position in the epidural space was verified with the injection of 1 mL of the water soluble contrast dye Omnipaque 180 contrast and observing an excellent epidurogram with the epidural spread of the dye, after negative aspiration for blood and CSF and in the absence of paresthesias. Again after negative aspiration, a 7 ml mixture containing 40 mg of Kenalog and 5 ml of preservative free Normal Saline , and 2 ml of preservative free ropivacaine 0.5% solution was injected and a washout of epidurogram was seen. Needle was withdrawn intact, skin was cleansed , and bandages were applied. patient tolerated procedure well and was transferred to PACU in stable condition. COMPLICATIONS: None
[2018-06-09] MEDS ORDERED: IV FLUID CONTINUATION 1,000 ML IV ONE (09:42)
[2018-06-09 10:00] VITALS: BP 119/52; PULSE 57
--- NOTE | 2018-06-09 13:11 | FL ---
Fluoroscopy HISTORY: Pain 5 seconds fluoroscopy time supplied to the referring clinician. 2 intraoperative C-arm images docume nt the procedure. See dictated report from anesthesia.
== END 2018-06-09 10:17 | disposition home or self-care (01) ==
LOC: ORPAIN 07:52
PROVIDERS: ATTEND Anesthesiology
DX: M51.16 Intervertebral disc disorders with radiculopathy, lumbar region (principal); Z88.6 Allergy status to analgesic agent; Z88.5 Allergy status to narcotic agent
CPT/HCPCS: 62323; J2250; J3301; J3010; Q9966

== ENCOUNTER 2018-07-01 08:58 | Day surgery (SDC) | payer MEDICARE, OTHER ==
[2018-06-25 14:09] VITALS: BMI 13.2
[~2018-07-01 08:58] MED LIST changes: -LACTATED RINGERS 1,000 ML IV SCH; -LIDOCAINE 1% 20 ML VIAL (10MG/ML) FOR IV START INTRADERMA PRN; +SODIUM CHLORIDE 0.9% 500 ML 500 ML IV SCH
[2018-07-01 09:46] VITALS: TEMP 97
[2018-07-01] MEDS ORDERED: LACTATED RINGERS 1,000 ML IV ONE (09:51)
[2018-07-01] MEDS ORDERED: LIDOCAINE 1% 20 ML VIAL (10MG/ML) FOR IV START INTRADERMA ONE (09:52)
--- NOTE | 2018-07-01 10:46 | P.PCN ---
Date of Procedure: 07/01/18 Surgeon: Maury Mcknight Pathology: none sent Condition: stable Disposition: PACU Description of Procedure: PREOPERATIVE DIAGNOSIS: Lumber Degenerative Disc Diseases. POSTOPERATIVE DIAGNOSIS: Lumbar Degenerative Disc Diseases PROCEDURE 1. Lumbar epidural steroid injection under fluoroscopic guidance at the L4- 5level. 2. Lumbar epidurogram. ANESTHESIA: Local with 1% lidocaine; and IV moderate conscious sedation with Versed 1 mg and fentanyl 50 mcg EBL: Minimal PROCEDURE INDICATION: The patient with low back pain and radiculitis symptoms unresponsive to conservative treatment. Fluoroscopy was used to optimize visualization of the needle placement and to maximize safety. PROCEDURE DESCRIPTION / TECHNIQUE: The patient was seen and identified in the preoperative area. Risks, benefits , complications including but not limited to infections ,bleeding ,allergic reaction to the medications ,nerve damage and not complete pain relief , and alternatives were discussed with the patient. The patient agreed to proceed with the procedure and signed the consent. IV was started, and vital signs were stable. Patient was taken to the OR and time out was completed. The patient was placed in the prone position on procedure table and a pillow was placed under the abdomen to reduce lumbar lordosis. The lumbosacral area was prepped and draped in the usual sterile fashion with ChloraPrep.Patient was closely monitored during the procedure. Conscious sedation was used during the procedure to decrease patients anxiety. Vital signs were monitered during the entire procedure. Using anterior-posterior fluoroscopy, the L4-5 interlaminar space was identified and the skin over this site was marked and then infiltrated with 1% lidocaine subcutaneously. Subsequently, a 20-gauge Tuohy epidural needle was inserted and advanced toward the epidural space using the Loss of resistance to air technique and guided by AP and lateral fluoroscopy. The epidural space was found at about 4.3 cm from skin .The correct needle position in the epidural space was verified with the injection of 1 mL of the water soluble contrast dye Omnipaque 180 contrast and observing an excellent epidurogram with the epidural spread of the dye, after negative aspiration for blood and CSF and in the absence of paresthesias. Again after negative aspiration, a 7 ml mixture containing 40 mg of Kenalog and 5 ml of preservative free Normal Saline , and 2 ml of preservative free ropivacaine 0.5% solution was injected and a washout of epidurogram was seen. Needle was withdrawn intact, skin was cleansed , and bandages were applied. patient tolerated procedure well and was transferred to PACU in stable condition. COMPLICATIONS: None
[2018-07-01] MEDS ORDERED: IV FLUID CONTINUATION 1,000 ML IV ONE (10:50)
[2018-07-01 10:56] VITALS: RESP 18
[2018-07-01 11:09] VITALS: BP 119/59; PULSE 67
--- NOTE | 2018-07-01 15:31 | FL ---
EXAMINATION TYPE: FL guided pain mgmt statistic DATE OF EXAM: 07/01/2018 HISTORY: Flouroscopy time 3 seconds of fluoroscopy provided. IMPRESSION: 1. Fluoroscopy time.
== END 2018-07-01 11:27 | disposition home or self-care (01) ==
LOC: ORPAIN 08:58
PROVIDERS: ATTEND Anesthesiology
DX: M51.16 Intervertebral disc disorders with radiculopathy, lumbar region (principal); E03.9 Hypothyroidism, unspecified; K21.9 Gastro-esophageal reflux disease without esophagitis; Z88.5 Allergy status to narcotic agent; Z88.6 Allergy status to analgesic agent
CPT/HCPCS: 62323; J2250; J3301; J3010; Q9966

== ENCOUNTER → 2018-08-07 | Outpatient (CLI) | payer MEDICARE ==
[2018-08-07 10:36] LABS: Blood Urea Nitrogen 7 mg/dL (7-17)
--- NOTE | 2018-08-07 12:19 | CT ---
EXAMINATION TYPE: CT soft tissue neck wo/w con DATE OF EXAM: 08/07/2018 HISTORY: Lump on throat marked by BB with difficulty swallowing COMPARISON: CT neck October 24, 2017 CT DLP: 645.8 mGycm. Automated Exposure Control for Dose Reduction was Utilized. TECHNIQUE: CT scan of the neck is performed without and with IV Contrast, patient injected with 100 mL of Isovue 300, axial images are obtained, coronal and sagittal reformatted images are reviewed. FINDINGS: Airway: Moderate underlying emphysematous change is present. There is mild to moderate biapical pleur al/parenchymal scarring. An azygos lobe/fissure is seen. Normal Thyroid gland is not identified simil ar to prior with similar residual tissue left and right thyroid lobe slightly larger on left axial im age 44. No significant change from prior. Metallic BP is placed at level of palpable abnormality with heterogeneous oval-shaped hyperdense enha ncing tissue measuring 1.2 x 0.8 x 1.4 cm axial image 49 and coronal image 19 not significantly mcdonough ed from prior exam. Adjacent smaller hyperdense enhancing lesions right neck are redemonstrated not s ignificantly changed. Parotid/submandibular glands: No gross abnormality seen. Carotid/Vascular Structures: Mild to moderate calcified plaque bilateral carotid bulb level is redemo nstrated. Osseous Structures: There is straightening of cervical spine with grade 1 retrolisthesis of C5 on C6 and C6 on C7 with moderate disc space narrowing at these levels redemonstrated. Other: No new greater than 1 cm adenopathy. There is more prominent blurring of fat planes on current study suggesting diffuse soft tissue anasarca. IMPRESSION: Overall stable findings from prior CT, suspicion for recurrent thyroid carcinoma with sup erior enhancing nodularity extending to right of midline relative to the level of the thyroid fossa w here there is stable tiny amount of residual tissue. Correlate clinically. Overall I see no significa nt change from prior CT.
== END | disposition home or self-care (01) ==
LOC: RADCTMAIN 10:07
PROVIDERS: ATTEND Family Medicine
DX: E04.1 Nontoxic single thyroid nodule (principal)
CPT/HCPCS: 82565; 84520; 70492; 36415; Q9967

== ENCOUNTER 2018-11-04 10:48 | Day surgery (SDC) | payer MEDICARE, OTHER ==
[2018-11-02 13:13] VITALS: BMI 13.8
[~2018-11-04 10:48] MED LIST changes: +DEXAMETHASONE SOD PHOSPHATE 4 MG/ML 1 ML VIAL IV ONE; +FAMOTIDINE 20 MG/2 ML VIAL IV ONE; +HYDROmorphone 0.5 MG/0.5 ML SYRINGE IVP PRN; +LACTATED RINGERS 1,000 ML IV SCH; +ONDANSETRON 4 MG/2 ML VIAL IVP ONE; +SCOPOLAMINE 1.5MG/72HR PATCH TRANSDERM ONE; -SODIUM CHLORIDE 0.9% 500 ML 500 ML IV SCH
[2018-11-04] MEDS ORDERED: LIDOCAINE 1% 20 ML VIAL (10MG/ML) FOR IV START INTRADERMA ONE (11:53)
[2018-11-04] MEDS ORDERED: PROPOFOL 10 MG/ML 20 ML VIAL IV ONE (13:35)
[2018-11-04] MEDS ORDERED: MIDAZOLAM 2 MG/2 ML VIAL ONE (13:35)
[2018-11-04] MEDS ORDERED: LIDOCAINE 1% INJ 10MG/ML (20 ML MDV) ONE (13:35)
[2018-11-04] MEDS ORDERED: ePHEDrine SULFATE/0.9% NACL/PF 50 MG/5 ML SYRINGE IV ONE (13:35)
[2018-11-04] MEDS ORDERED: fentaNYL (PF) 50 MCG/ML 2 ML AMP ONE (13:35)
[2018-11-04] MEDS ORDERED: SUCCINYLCHOLINE CHLORIDE 100 MG/5 ML SYR IV ONE (13:35)
[2018-11-04] MEDS ORDERED: LIDOCAINE 1%-EPI 1:100,000 20 ML VIAL SQ ONE (14:02)
[2018-11-04] MEDS ORDERED: BACITRACIN 500 UNIT/GM OINT 28.4 GM TUBE TOPICAL ONE (14:26)
--- NOTE | 2018-11-04 14:30 | P.OP ---
Date of Procedure: 11/04/18 Preoperative Diagnosis: Anterior neck mass/thyroid mass Postoperative Diagnosis: Same Procedure(s) Performed: Partial thyroidectomy Anesthesia: KEVIN Surgeon: Sonu Garcia Estimated Blood Loss (ml): 3 Pathology: other (Anterior neck nodule) Condition: stable Disposition: PACU Indications for Procedure: This 67-year-old white female with a remote history of thyroidectomy. She developed and anterior neck nodule in the midline above the thyroid over a year ago. Needle biopsy showed Hurthle cells with no malignant cells but she does feel that she is symptomatic and would like this excised Operative Findings: Midline subcutaneous nodule overlying the superior aspect of the thyroid cartilage consistent with thyroid tissue grossly which was well encapsulated, likely pyramidal lobe approximate 1.5 cm Description of Procedure: The patient was brought in after suite and placed in a supine position. Patient underwent induction of general anesthesia with oral endotracheal intubation with a NIM II nerve monitoring endotracheal tube without difficulty. The patient was prepped and draped in usual aseptic fashion. The nerve monitor was brought to the monitor itself and was working well with good waveforms and alarms on tapping the larynx bilaterally. 1% lidocaine with 1 100,000 epinephrine was infused use the overlying the lesion itself. This was left to work for 7 minutes vasoconstrictive effect. A midline transverse incision was made proximal by 2.5 cm directly over the nodule and carried through the skin and subcutaneous tissue to the strap muscles. The strap muscles were dissected from the lesion which was in the midline. The lesion itself was then dissected from the underlying tissue which was overlying the superior thyroid cartilage in the midline- this was dissected grossly entirely. This was located superior and medial to the suspensory ligament and therefore the recurrent laryngeal themselves were not directly dissected. There was no alerts from the nerve monitor throughout the case. The lesion was then excised from the surrounding tissue grossly entirely. There was excellent hemostasis and the wound was small as well as superficial therefore no drain was required. The strap muscles were reapproximated in the midline with 4-0 Vicryl suture subcutaneous layer were closed with inverted interrupted 4-0 Vicryl suture and the skin closed with running locking 5-0 Prolene suture. Bacitracin ointment and a sterile placed the patient was then allowed to emerge from anesthesia having tolerated procedure well was extubated operative suite and transferred to postop recovery area in satisfactory condition. Note that the nerve stimulator was utilized 0.5 mA to stimulate the recurrent laryngeal nerves prior to closure and the nerves stimulated well.
[2018-11-04 14:45] VITALS: TEMP 97.7
[2018-11-04 16:04] VITALS: BP 116/56; PULSE 82; RESP 18
== END 2018-11-04 16:19 | disposition home or self-care (01) ==
LOC: OR 10:48
PROVIDERS: ATTEND Otolaryngology
DX: E04.1 Nontoxic single thyroid nodule (principal); F17.210 Nicotine dependence, cigarettes, uncomplicated; M50.30 Other cervical disc degeneration, unspecified cervical region; K21.9 Gastro-esophageal reflux disease without esophagitis; G89.29 Other chronic pain; E07.9 Disorder of thyroid, unspecified; Z88.6 Allergy status to analgesic agent; Z88.5 Allergy status to narcotic agent; Z79.890 Hormone replacement therapy; Z79.891 Long term (current) use of opiate analgesic; Z79.899 Other long term (current) drug therapy; Z82.49 Family history of ischemic heart disease and other diseases of the circulatory system; Z84.89 Family history of other specified conditions
CPT/HCPCS: 88305

== ENCOUNTER → 2018-12-02 | Outpatient (CLI) | payer MEDICARE, OTHER ==
--- NOTE | 2018-12-02 13:03 | US ---
EXAMINATION TYPE: US pelvic complete DATE OF EXAM: 12/02/2018 COMPARISON: CT dated 05/21/2011 and pelvic ultrasound dated 04/02/2017 CLINICAL HISTORY: left ovarian cyst N83.0. History of left ovarian mass, 4, para 4, hysterect brendan TECHNIQUE: Transabdominal sonographic images of the pelvis were acquired. Transvaginal sonographic i mages were medically necessary to better assess the following anatomy: ovaries Date of LMP: 20+ years ago EXAM MEASUREMENTS: Uterus: surgically absent Endometrial Stripe: surgically absent Right Ovary: 1.9 x 1.2 x 1.2 cm Left Ovary: 1.5 x 1.0 x 1.0 cm 1. Uterus: surgically absent 2. Endometrium: surgically absent 3. Right Ovary: 1.1 x 0.8 x 0.8cm cystic area 4. Left Ovary: 1.0 x 0.7 x 0.8cm cystic area 5. Bilateral Adnexa: 2.8 x 2.8 x 3.2cm hypoechoic solid appearing mass within left adnexa, possible ovarian mass vs. adjacent to left ovary . This previously measured up to 3.4 cm on the exam of 017 and 3.6 cm in 2010. Overall this is stable given differences in technique and likely obliquity. 6. Posterior cul-de-sac: small amount of free fluid IMPRESSION: 1. Continued stability of the left adnexal mass dating back to 2010. Considerations are for endometri benjamín, dermoid, or complex pelvic inclusion cyst in this patient with a history of hysterectomy. 2. Surgical absence of the uterus. 3. Follicular changes of the ovaries.
== END | disposition home or self-care (01) ==
LOC: RADUSWWP 10:57
PROVIDERS: ATTEND Obstetrics & Gynecology
DX: N83.202 Unspecified ovarian cyst, left side (principal); Z90.710 Acquired absence of both cervix and uterus
CPT/HCPCS: 76830; 76856

== ENCOUNTER → 2019-09-10 | Outpatient (CLI) | payer MEDICARE, OTHER ==
--- NOTE | 2019-09-10 09:35 | US ---
EXAMINATION TYPE: US gallbladder DATE OF EXAM: 09/10/2019 COMPARISON: US, NM 01/01/17 CLINICAL HISTORY: Abd pain R10.9. Abdominal pain, Nausea/Vomiting x years EXAM MEASUREMENTS: Liver Length: 10.4 cm Gallbladder Wall: 0.1 cm CBD: 0.5 cm Right Kidney: 9.2 x 5.2 x 3.7 cm Pancreas: wnl Liver: wnl Gallbladder: No stones seen Evidence for sonographic Finn's sign: Yes CBD: wnl Right Kidney: Lower pole cyst = 0.8 x 0.7 x 0.6 cm, Lower/lateral renal calculus = 0.7 cm IMPRESSION: No sonographic evidence of cholelithiasis nor acute cholecystitis. Nonobstructing right r enal calculus measures 7 mm and incidental right renal cyst is seen.
== END ==
LOC: RADUSWWP 08:45
PROVIDERS: ATTEND Family Medicine
DX: N20.0 Calculus of kidney (principal)
CPT/HCPCS: 76705

== ENCOUNTER → 2019-09-23 | Outpatient (CLI) | payer MEDICARE, OTHER ==
--- NOTE | 2019-09-23 14:41 | NM ---
EXAMINATION TYPE: NM hepatobiliary w EF DATE OF EXAM: 09/23/2019 COMPARISON: Gallbladder US 09/10/2019. HISTORY: Diminished appetite and pain with heartburn and reflux-like symptoms for patient. Right uppe r quadrant pain per order. TECHNIQUE: After the intravenous administration of 4.75 mCi Tc 99m Mebrofenin hepatobiliary scintigra phy is performed. Immediate images post injection. FINDINGS: There is less than optimal initial accumulation of tracer by the liver. Reason uncertain. The gallbl adder is visualized within 20 minutes. The small bowel activity the body been well visualized even a fter 60 minutes. At one hour 8 ounces of oral ensure plus is given to mimic CCK and gallbladder ejec tion fraction is calculated at 91 %, not diminished from the normal range. Therefore there is no sci ntigraphic evidence of cystic or common bile duct obstruction to suggest acute cholecystitis or gallb ladder dyskinesia. IMPRESSION: Ejection fraction is 91%, some consider this abnormal or a hyperkinetic response.
== END | disposition home or self-care (01) ==
LOC: RADNMMAIN 12:36
PROVIDERS: ATTEND Family Medicine
DX: R10.11 Right upper quadrant pain (principal)
CPT/HCPCS: 78226; A9537

== ENCOUNTER → 2019-12-09 | Outpatient (CLI) | payer MEDICARE, OTHER ==
[2019-12-09 11:13] LABS: Basophils # (A) 0.1 k/uL (0-0.2); Basophils % (A) 1 %; Eosinophils # (A) 0.8 k/uL (0-0.7); Eosinophils % (A) 11 %; HCT 35.2 % (34.0-46.0); HGB 10.9 gm/dL (11.4-16.0); Hypochromasia Slight; Lymphocytes # (A) 1.6 k/uL (1.0-4.8); Lymphocytes % (A) 23 %; MCV 67.7 fL (80.0-100.0); Mean Platelet Volume 7.4; Microcytosis Marked; Monocytes # (A) 0.4 k/uL (0-1.0); Monocytes % (A) 5 %; Neutrophils % (A) 58 %; Platelet Count 242 k/uL (150-450); RBC 5.21 m/uL (3.80-5.40); RDW 15.7 % (11.5-15.5)
[2019-12-09 16:48] LABS: % Iron Saturation 24.07 (12.00-45.00); African American GFR (CKD) 87.8 (60.0-200.0); Albumin 4.5 g/dL (3.80-4.90); Albumin/Globulin Ratio 1.73 (1.60-3.17); Anion Gap 7.3 mmol/L (4.00-12.00); Calcium 9.5 mg/dL (8.7-10.3); Carbon Dioxide 24.7 mmol/L (21.6-31.8); Globulin 2.6 g/dL (1.6-3.3); Magnesium 1.9 mg/dL (1.5-2.4); Non-African American GFR(CKD) 75.8 (60.0-200.0); Potassium 4.6 mmol/L (3.5-5.5); Total Bilirubin 0.7 mg/dL (0.3-1.2); Total Protein 7.1 g/dL (6.2-8.2)
[2019-12-09 16:56] LABS: Ferritin 243.4 ng/mL (10.0-291.0)
== END | disposition home or self-care (01) ==
LOC: LABWHC1 10:51
PROVIDERS: ATTEND Internal Medicine Gastroenterology
DX: R11.2 Nausea with vomiting, unspecified (principal); D50.9 Iron deficiency anemia, unspecified; E03.9 Hypothyroidism, unspecified
CPT/HCPCS: 36415; 80053; 82728; 83540; 83550; 83735; 84439; 84443; 85025

== ENCOUNTER 2020-01-13 08:59 | Day surgery (SDC) | payer MEDICARE, OTHER ==
[2020-01-07 17:58] VITALS: BMI 14.5
[~2020-01-13 08:59] MED LIST changes: -DEXAMETHASONE SOD PHOSPHATE 4 MG/ML 1 ML VIAL IV ONE; -FAMOTIDINE 20 MG/2 ML VIAL IV ONE; -HYDROmorphone 0.5 MG/0.5 ML SYRINGE IVP PRN; -ONDANSETRON 4 MG/2 ML VIAL IVP ONE; -SCOPOLAMINE 1.5MG/72HR PATCH TRANSDERM ONE
[2020-01-13 09:26] VITALS: TEMP 98
[2020-01-13] MEDS ORDERED: LIDOCAINE 1% (10MG/ML) FOR IV START INTRADERMA ONE (09:29)
[2020-01-13] MEDS ORDERED: LIDOCAINE 1% INJ 10MG/ML (20 ML MDV) ONE (09:53)
[2020-01-13] MEDS ORDERED: PROPOFOL 10 MG/ML 20 ML VIAL IV ONE (09:53)
--- NOTE | 2020-01-13 10:14 | P.PCN ---
Date of Procedure: 01/13/20 Description of Procedure: BRIEF HISTORY: Patient is a 69-year-old female presenting for outpatient esophagogastroduodenoscopy for evaluation of nausea and vomiting. Previous EGD with findings of gastritis and small hiatal hernia. Reports frequent episodes of nausea and vomiting. PROCEDURE PERFORMED: Esophagogastroduodenoscopy with biopsy. PREOPERATIVE DIAGNOSIS: Nausea and vomiting. ESTIMATED BLOOD LOSS: Minimal. IV sedation per anesthesia. PROCEDURE: After informed consent was obtained, the patient was brought into the endoscopy unit. IV sedation was administered by Anesthesia under continuous monitoring. Initially the Olympus GIF-190 video endoscope was inserted into the mouth. Esophagus intubated without any difficulty. It was gradually advanced into the stomach and duodenum and carefully examined. The bulb and the second part of the duodenum appeared normal, with biopsies taken to rule out celiac sprue. The scope at this time was withdrawn to the stomach, adequately insufflated with air, and upon careful examination, mucosa of the antrum, body, cardia and the fundus appeared normal, except for some erythema and irritation in the antrum and body suggestive of moderate gastritis with biopsies taken. The scope was then withdrawn into the esophagus. The GE junction was located at 39 cm from the incisors, with a 2 cm hiatal hernia noted. Z line appeared somewhat irregular with biopsies taken of the GE junction to rule out Mckeon's esophagus and of the midesophagus taken to rule out reflux esophagitis. The esophagus appeared normal. There were no erosions or ulcerations seen and the patient tolerated the procedure well. IMPRESSION: 1. Moderate gastritis of antrum body, biopsied. 2. Irregular Z line, GE junction biopsy to rule out short segment Mckeon's esophagus. 3. Biopsies of the duodenum and midesophagus. 4. Small hiatal hernia. RECOMMENDATIONS: The findings of this examination were discussed with the patient. Okay to resume diet. Continue PPI therapy. Okay to resume other medications. Await pathology from biopsies. Follow up in the gastroenterology clinic on 01/20/2020 as previously scheduled.
[2020-01-13 10:19] VITALS: RESP 16
[2020-01-13 10:31] VITALS: BP 115/60; PULSE 63
== END 2020-01-13 10:51 | disposition home or self-care (01) ==
LOC: ORWHC2ENDO 08:59
PROVIDERS: ATTEND Internal Medicine
DX: K44.9 Diaphragmatic hernia without obstruction or gangrene (principal); K29.50 Unspecified chronic gastritis without bleeding; E89.0 Postprocedural hypothyroidism; K21.9 Gastro-esophageal reflux disease without esophagitis; D56.9 Thalassemia, unspecified; Z88.5 Allergy status to narcotic agent; Z79.890 Hormone replacement therapy; Z79.899 Other long term (current) drug therapy; Z79.891 Long term (current) use of opiate analgesic; Z90.710 Acquired absence of both cervix and uterus; Z90.49 Acquired absence of other specified parts of digestive tract; Z98.890 Other specified postprocedural states; Z88.6 Allergy status to analgesic agent; Z87.891 Personal history of nicotine dependence; Z87.442 Personal history of urinary calculi; Z85.850 Personal history of malignant neoplasm of thyroid; Z85.44 Personal history of malignant neoplasm of other female genital organs
CPT/HCPCS: 88305; 43239; J2001; J2704

== ENCOUNTER 2020-01-20 08:19 | Day surgery (SDC) | payer MEDICARE, OTHER ==
[2020-01-18 15:35] VITALS: BMI 14.5
[~2020-01-20 08:19] MED LIST changes: +Pre Op ABX Message 1 EACH MISC MISCELLANE ONE; +fentaNYL (PF) 50 MCG/ML 2 ML AMP IV PRN
--- NOTE | 2020-01-20 08:38 | P.GSHP ---
History of Present Illness H&P Date: 01/20/20 CHIEF COMPLAINT: Painful lesions along the left groin HISTORY OF PRESENT ILLNESS: The patient is a 69 year-old female with history of cystic mass along the left groin. She presents for excision. PAST MEDICAL HISTORY: Please see list. PAST SURGICAL HISTORY: Please see list. MEDICATIONS: Please see list. ALLERGIES: Please see list. SOCIAL HISTORY: No illicit drug use FAMILY HISTORY: No reports of Crohn disease or ulcerative colitis. REVIEW OF ORGAN SYSTEMS: CONSTITUTIONAL: No reports of fevers or chills. GI: Denies any blood in stools or constipation. PHYSICAL EXAM: VITAL SIGNS: Stable Musculoskeletal: Approximately 3 cm mass along the left groin. GENERAL: Well developed and in no acute distress. Pleasant. HEENT: No sclera icterus. Extraocular movements grossly intact. Moist buccal mucosa. Head is atraumatic, normocephalic. Hears conversational speech. No nasal drainage. NECK: Supple without lymphadenopathy. No JV distention. CHEST: Non-labored respirations and equal bilateral excursions. CARDIOVASCULAR: Regular rate and rhythm. Palpable 2+ radial pulses. ABDOMEN: Soft. Non-tender. Nondistended. NEUROLOGIC: No focal or lateralizing signs. PSYCH: Appropriate affect. Alert and oriented to person, place and time. ASSESSMENT: 1. Left groin mass PLAN: 1. Will proceed of excision of left groin mass. Benefits and risks of infection due to location of lesion also reviewed 2. DVT prophylaxis. 3. Antibiotic prophylaxis. 4. Time of recovery, at least 2 weeks Past Medical History Past Medical History: Blood Disorder, Cancer, GERD/Reflux, Musculoskeletal Disorder, Osteoarthritis (OA), Thyroid Disorder Additional Past Medical History / Comment(s): Weight loss-unable to regain weight since thyroid removed, low BP, hiatal hernia, constipation, DDD in neck & spine, anemia, thalassemia, osteoporosis, thyroid cancer 2010. Cyst on kidney, and kidney stone. Lt ovarian mass. Cancer lt vulva, recurrent. C/O abd pain, N/V, sl dysphagia. History of Any Multi-Drug Resistant Organisms: None Reported Past Surgical History: Appendectomy, Hysterectomy, Tubal Ligation Additional Past Surgical History / Comment(s): THYROIDECTOMY, x2. EGD, Colonoscopy. Exc cancer vulva Rt side. Past Anesthesia/Blood Transfusion Reactions: Motion Sickness Smoking Status: Current every day smoker - Past Family History Father Sister(s) Family Medical History: Unable to Obtain Father Family Medical History: Blood Disorder, Cancer Additional Family Medical History / Comment(s): thalassemia Son(s) Family Medical History: Pulmonary Embolus Brother(s) Family Medical History: Blood Disorder, Cancer Additional Family Medical History / Comment(s): THALASSEMIA Daughter(s) Family Medical History: Blood Disorder Additional Family Medical History / Comment(s): THALASSEMIA Medications and Allergies Home Medications Medication Instructions Recorded Confirmed Type Levothyroxine Sodium [Synthroid] 50 mcg PO HS 11/26/13 01/18/20 History estradioL [Estradiol] 1 patch TOPICAL SUWE 08/02/15 01/18/20 History Omeprazole [PriLOSEC] 40 mg PO AC-BRKFST 09/12/15 01/18/20 History Cholecalciferol [Vitamin D3] 2,000 unit PO DAILY 01/31/17 01/18/20 History Magnesium Oxide [Mag-Ox] 400 mg PO DAILY 03/17/17 01/18/20 History clonazePAM [KlonoPIN] 0.5 mg PO DAILY 05/29/18 01/18/20 History Levothyroxine Sodium [Levoxyl] 100 mcg PO SA 06/25/18 01/18/20 History Dicyclomine [Bentyl] 20 mg PO QID PRN 11/02/18 01/18/20 History Docusate Sodium [Dok] 100 mg PO TID 01/07/20 01/18/20 History HYDROcodone/APAP 10-325MG [[place] 1 tab PO QID PRN 01/07/20 01/18/20 History 10-325] Multivitamin [Multivitamins Adult 3 each PO DAILY 01/07/20 01/18/20 History Gummies] [place]-3 Fatty Acids/Fish Oil [Fish 1 each PO DAILY 01/07/20 01/18/20 History Oil 1,000 mg Softgel] Ondansetron HCl [Zofran] 4 mg PO Q8H PRN 01/07/20 01/18/20 History Allergies Allergy/AdvReac Type Severity Reaction Status Date / Time acetaminophen Allergy Vomiting Verified 01/18/20 15:11 [From Tylenol-Codeine #3] codeine Allergy Vomiting Verified 01/18/20 15:11 [From Tylenol-Codeine #3] tramadol Allergy Vomiting Verified 01/18/20 15:11 ibuprofen AdvReac Nausea & Verified 01/18/20 15:11 Vomiting
[2020-01-20] MEDS ORDERED: ACETAMINOPHEN TAB 325 MG TAB PO STA (08:40)
[2020-01-20] MEDS ORDERED: ACETAMINOPHEN TAB 325 MG TAB ONE (09:21)
[2020-01-20] MEDS ORDERED: ePHEDrine SULFATE/0.9% NACL/PF 50 MG/5 ML SYRINGE IV ONE (09:58)
[2020-01-20] MEDS ORDERED: PROPOFOL 10 MG/ML 20 ML VIAL IV ONE (09:58)
[2020-01-20] MEDS ORDERED: fentaNYL (PF) 50 MCG/ML 2 ML AMP ONE (09:58)
[2020-01-20] MEDS ORDERED: LIDOCAINE 1% INJ 10MG/ML (20 ML MDV) ONE (09:58)
[2020-01-20] MEDS ORDERED: SUCCINYLCHOLINE CHLORIDE 100 MG/5 ML SYR IV ONE (09:58)
[2020-01-20] MEDS ORDERED: MIDAZOLAM 2 MG/2 ML VIAL ONE (09:58)
[2020-01-20] MEDS ORDERED: BUPIVACAIN-EPI 0.25%-1:200,000 30 ML VIAL SQ ONE (10:31)
[2020-01-20] MEDS ORDERED: LACTATED RINGERS 1,000 ML IV ONE (10:57)
[2020-01-20 11:17] VITALS: TEMP 97
[2020-01-20 11:41] VITALS: RESP 16
--- NOTE | 2020-01-20 11:41 | P.OP ---
Date of Procedure: 01/20/20 Description of Procedure: SURGEON: ELVIA JEFF MD CHISELER HEAD: NONE. PREOPERATIVE DIAGNOSES: 1. Left inner thigh subcutaneous tumor, 6 cm 2. Underweight, BMI 14.6 3. Chronic pain syndrome 4. Generalized anxiety disorder 5. Gastroesophageal reflux disease 6. Hypothyroidism POSTOPERATIVE DIAGNOSES: 1. Left inner thigh subcutaneous tumor, 6 cm x 3 cm 2. Underweight, BMI 14.6 3. Chronic pain syndrome 4. Generalized anxiety disorder 5. Gastroesophageal reflux disease 6. Hypothyroidism OPERATION: 1. Excision of left inner thigh subcutaneous tumor, 6 x 3 cm. 2. Intermediate closure of left groin incision, 6 cm. ANESTHESIA: MAC with local ESTIMATED BLOOD LOSS: 5 mL. SPECIMENS REMOVED: 1. Left inner thigh subcutaneous tumor COMPLICATIONS: None. INDICATIONS: The patient is a 69-year-old female who presents with left inner thigh subcutaneous tumor. Surgical options, including excision was discussed. Benefits and risks were described. Informed consent was obtained. DESCRIPTION OF PROCEDURE: Patient was brought into the operating room, laid in left lateral decubitus position. After adequate IV sedation, the left lower leg was prepped and draped in standard sterile fashion using ChloraPrep. A timeout protocol was confirmed with the surgical team regarding patient's name including procedures to be performed. Preoperative medications was administered. Next, a local field block was administered. The left inner thigh mass was measured using a ruler with borders marked with indelible marker. A longitudinal incision along the skin tension lines of 6 cm in size was made into the dermis followed by circumferential dissection using electro-Bovie cautery into the subcutaneous tissue. The tumor was expressed from the wound and dissected free from surrounding tissues. Hemostasis was checked with electrocautery cautery. The skin was cleansed. The wound was closed in multiple layers including 3-0 Vicryl for the deep subcutaneous tissue in interrupted fashion. The skin was closed using 4-0 Monocryl. Exofin tape including liquid glue was used as the final third layer. Optifoam dressing was placed. At the end of the procedure, needle, sponge, and instrument count had been verified correct by the nursing surgical services director. The patient was taken to the postanesthesia care unit in stable condition. FINDINGS: 1. Left inner thigh excision, 6 x 3 cm subcutaneous tissue Plan - Discharge Summary Discharge Rx Participant: No New Discharge Prescriptions: Continue RX: Levothyroxine Sodium [Synthroid] 50 mcg PO HS RX: estradioL [Estradiol 0.025 MG Patch] 1 patch TOPICAL RX: Omeprazole [PriLOSEC] 40 mg PO [facility] RX: Cholecalciferol [Vitamin D3 (25 Mcg = 1000 Iu)] 2,000 unit PO DAILY RX: Magnesium Oxide [Mag-Ox] 400 mg PO DAILY RX: clonazePAM [KlonoPIN] 0.5 mg PO DAILY RX: Levothyroxine Sodium [Levoxyl] 100 mcg PO SA RX: Dicyclomine [Bentyl] 20 mg PO QID PRN PRN Reason: abdominal pain RX: HYDROcodone/APAP 10-325MG [[place] 10-325] 1 tab PO QID PRN PRN Reason: Pain RX: [place]-3 Fatty Acids/Fish Oil [Fish Oil 1,000 mg Softgel] 1 each PO DAILY RX: Multivitamin [Multivitamins Adult Gummies] 3 each PO DAILY RX: Docusate Sodium [Dok] 100 mg PO TID RX: Ondansetron HCl [Zofran] 4 mg PO Q8H PRN PRN Reason: Nausea And Vomiting Discharge Medication List RX: Levothyroxine Sodium [Synthroid] 50 mcg PO HS 11/26/13 [History] RX: estradioL [Estradiol 0.025 MG Patch] 1 patch TOPICAL SUWE 08/02/15 [History] RX: Omeprazole [PriLOSEC] 40 mg PO [facility] 09/12/15 [History] RX: Cholecalciferol [Vitamin D3 (25 Mcg = 1000 Iu)] 2,000 unit PO DAILY 01/31/17 [History] RX: Magnesium Oxide [Mag-Ox] 400 mg PO DAILY 03/17/17 [History] RX: clonazePAM [KlonoPIN] 0.5 mg PO DAILY 05/29/18 [History] RX: Levothyroxine Sodium [Levoxyl] 100 mcg PO SA 06/25/18 [History] RX: Dicyclomine [Bentyl] 20 mg PO QID PRN 11/02/18 [History] RX: Docusate Sodium [Dok] 100 mg PO TID 01/07/20 [History] RX: HYDROcodone/APAP 10-325MG [[place] 10-325] 1 tab PO QID PRN 01/07/20 [History] RX: Multivitamin [Multivitamins Adult Gummies] 3 each PO DAILY 01/07/20 [History] RX: [place]-3 Fatty Acids/Fish Oil [Fish Oil 1,000 mg Softgel] 1 each PO DAILY 01/07/20 [History] RX: Ondansetron HCl [Zofran] 4 mg PO Q8H PRN 01/07/20 [History] Follow up Appointment(s)/Referral(s): Elvia Jeff MD [STAFF PHYSICIAN] - 01/27/20 Patient Instructions/Handouts: Excision of Skin Lesion (DC) Activity/Diet/Wound Care/Special Instructions: Take your [place] as needed for pain. DO NOT REMOVE DRESSING!. Keep area dry. Pat dry after showering. NO BATH TUB SOAKS! DRESSING TO BE REMOVED IN THE OFFICE, FridayDecember Discharge Disposition: HOME SELF-CARE
[2020-01-20 12:12] VITALS: BP 131/60; PULSE 60
== END 2020-01-20 12:30 | disposition home or self-care (01) ==
LOC: OR 08:19
PROVIDERS: ATTEND Surgery Plastic and Reconstructive Surgery
DX: D17.24 Benign lipomatous neoplasm of skin and subcutaneous tissue of left leg (principal); F41.1 Generalized anxiety disorder; G89.4 Chronic pain syndrome; K21.9 Gastro-esophageal reflux disease without esophagitis; R63.6 Underweight; M19.90 Unspecified osteoarthritis, unspecified site; D64.9 Anemia, unspecified; D56.9 Thalassemia, unspecified; M81.0 Age-related osteoporosis without current pathological fracture; E89.0 Postprocedural hypothyroidism; F17.200 Nicotine dependence, unspecified, uncomplicated; M50.30 Other cervical disc degeneration, unspecified cervical region; Z68.1 Body mass index [BMI] 19.9 or less, adult; Z88.5 Allergy status to narcotic agent; Z88.6 Allergy status to analgesic agent; Z90.710 Acquired absence of both cervix and uterus; Z79.890 Hormone replacement therapy; Z79.899 Other long term (current) drug therapy; Z85.850 Personal history of malignant neoplasm of thyroid; Z87.442 Personal history of urinary calculi; Z85.44 Personal history of malignant neoplasm of other female genital organs; Z98.51 Tubal ligation status; Z90.49 Acquired absence of other specified parts of digestive tract; Z80.9 Family history of malignant neoplasm, unspecified; Z82.49 Family history of ischemic heart disease and other diseases of the circulatory system
CPT/HCPCS: 88304; 27337; J2250; J0690; J2001; J3010; J0330; J2704

== ENCOUNTER → 2020-02-15 | Day surgery (SDC) | payer MEDICARE, OTHER ==
[2020-02-08 12:59] VITALS: BMI 14.5
[~2020-02-15] MED LIST changes: +BUPIVACAINE (PF) 0.25% 30 ML VIAL SQ ONE; +DEXAMETHASONE SOD PHOSPHATE 10 MG/ML 1 ML VIAL IV ONE; +HYDROmorphone 0.5 MG/0.5 ML SYRINGE IVP PRN; +LACTATED RINGERS 1,000 ML IV ONE; +LIDOCAINE 1% (10MG/ML) FOR IV START INTRADERMA PRN; +MIDAZOLAM 2 MG/2 ML VIAL IV PRN; +MIDAZOLAM 2 MG/2 ML VIAL ONE; +ONDANSETRON 4 MG/2 ML VIAL IVP ONE; +ONDANSETRON 4 MG/2 ML VIAL ONE; +PROPOFOL 10 MG/ML 20 ML VIAL IV ONE; +ePHEDrine SULFATE/0.9% NACL/PF 50 MG/5 ML SYRINGE IV ONE; -fentaNYL (PF) 50 MCG/ML 2 ML AMP IV PRN; +fentaNYL (PF) 50 MCG/ML 2 ML AMP ONE
--- NOTE | 2020-02-15 07:26 | P.HPOB ---
History of Present Illness H&P Date: 02/15/20 Chief Complaint: Vulvar intraepithelial lesion Caden is a 69-year-old female with history of vulvar intraepithelial neoplasia. She is had several biopsies done and was referred to [facility] oncology but she refused to continue going. Recurrence has been noted previously and she was tried on Aldara in an attempt to eliminate the disease process, but this also did not work well as she did not tolerate the medication. We are planning to do a local excision of this lesion at approximately 5:00 on her vulvar area to hopefully eradicate it. Risks including bleeding and infection as well as potential for further surgery. She is aware amniotic [place] oncologist and I am going to do the best I can to try and eliminate the disease process but as I had previously done I recommended her going to [place] oncologist she simply declines. On physical exam vital signs are stable and afebrile. She was cleared by her primary care provider for surgery yesterday. She is a very pleasant 69-year-old female who appears older than her stated age. Her heart otherwise was regular, lungs clear and her abdomen was soft. No other BATTERY CHARGER issues have been identified beyond the MARY at approximately 5:00. Assessment MARY Plan local excision. Past Medical History Past Medical History: Blood Disorder, Cancer, GERD/Reflux, Musculoskeletal Disorder, Osteoarthritis (OA), Thyroid Disorder Additional Past Medical History / Comment(s): tinnitus, weight loss-unable to regain weight since thyroid removed, low BP, hiatal hernia, constipation, degenerative disk in neck, anemia, thalassemia, osteoporosis, thyroid cancer 8 yrs. ago, nodule in thyroid bed?, dysphagia due to this nodule/lump per pt., low back pain, VULVA CANCER History of Any Multi-Drug Resistant Organisms: None Reported Past Surgical History: Appendectomy, Hysterectomy, Tubal Ligation Additional Past Surgical History / Comment(s): THYROIDECTOMY, EGD-01/13/20, EXCISION 6X3 CM SUBQ TUMOR LT INNER THIGH Past Anesthesia/Blood Transfusion Reactions: No Reported Reaction Smoking Status: Current every day smoker - Past Family History Father Sister(s) Family Medical History: Unable to Obtain Father Family Medical History: Blood Disorder, Cancer Additional Family Medical History / Comment(s): thalassemia Son(s) Family Medical History: Pulmonary Embolus Brother(s) Family Medical History: Blood Disorder, Cancer Additional Family Medical History / Comment(s): THALASSEMIA Daughter(s) Family Medical History: Blood Disorder Additional Family Medical History / Comment(s): THALASSEMIA Medications and Allergies Home Medications Medication Instructions Recorded Confirmed Type Levothyroxine Sodium [Synthroid] 50 mcg PO SUMOTUWETHFR 11/26/13 02/15/20 History estradioL [Estradiol 0.025 MG 1 patch TOPICAL SUWE 08/02/15 02/15/20 History Patch] Omeprazole [PriLOSEC] 40 mg PO AC-BRKFST 09/12/15 02/15/20 History Cholecalciferol [Vitamin D3 (25 2,000 unit PO DAILY 01/31/17 02/15/20 History Mcg = 1000 Iu)] clonazePAM [KlonoPIN] 0.5 mg PO HS 05/29/18 02/15/20 History Levothyroxine Sodium [Levoxyl] 100 mcg PO SA 06/25/18 02/15/20 History Dicyclomine [Bentyl] 20 mg PO QID PRN 11/02/18 02/15/20 History Docusate Sodium [Dok] 100 mg PO TID 01/07/20 02/15/20 History HYDROcodone/APAP 10-325MG [[place] 1 tab PO QID PRN 01/07/20 02/15/20 History 10-325] Multivitamin [Multivitamins Adult 3 each PO DAILY 01/07/20 02/15/20 History Gummies] [place]-3 Fatty Acids/Fish Oil [Fish 1 each PO DAILY 01/07/20 02/15/20 History Oil 1,000 mg Softgel] Ondansetron HCl [Zofran] 4 mg PO Q8H PRN 01/07/20 02/15/20 History Allergies Allergy/AdvReac Type Severity Reaction Status Date / Time codeine Allergy Vomiting Verified 02/15/20 06:53 [From Tylenol-Codeine #3] tramadol Allergy Vomiting Verified 02/15/20 06:53 ibuprofen AdvReac Nausea & Verified 02/15/20 06:53 Vomiting Exam Osteopathic Statement: *. No significant issues noted on an osteopathic structural exam other than those noted in the History and Physical/Consult. Vital Signs Temp Pulse Resp BP Pulse Ox 02/15/20 07:12 97.0 F L 63 15 122/56 94 L Intake and Output 02/14/20 02/15/20 02/15/20 22:59 06:59 14:59 Other: Weight 37.21 kg
--- NOTE | 2020-02-15 08:13 | P.OP ---
Date of Procedure: 02/15/20 Preoperative Diagnosis: Vulvar intraepithelial neoplasia Postoperative Diagnosis: Same Procedure(s) Performed: Wide local excision Anesthesia: MAC Surgeon: Faustino Manley Estimated Blood Loss (ml): 2 Pathology: other (Vulvar excision) Condition: stable Disposition: same day Operative Findings: Pathology pending Description of Procedure: Lucas was taken to the operating suite where a general anesthetic was found be adequate. She was prepped and draped in the normal sterile fashion placed in the dorsal lithotomy position. Initially quarter percent lidocaine was injected under the area at 5:00 and using a 15 blade and a elliptical excision technique making sure we were outside the boundaries of the lesion a wide local excision was done. As she's had previous excisions the skin was not very stretchy so she very wide margin was not really able to be done. Once the excision was completed 4-0 Vicryl was used to reapproximate skin in a running fashion. Plan - Discharge Summary Discharge Rx Participant: No New Discharge Prescriptions: No Action Levothyroxine Sodium [Synthroid] 50 mcg PO SUMOTUWETHFR estradioL [Estradiol 0.025 MG Patch] 1 patch TOPICAL SUWE Omeprazole [PriLOSEC] 40 mg PO AC-BRKFST Cholecalciferol [Vitamin D3 (25 Mcg = 1000 Iu)] 2,000 unit PO DAILY clonazePAM [KlonoPIN] 0.5 mg PO HS Levothyroxine Sodium [Levoxyl] 100 mcg PO SA Dicyclomine [Bentyl] 20 mg PO QID PRN PRN Reason: abdominal pain HYDROcodone/APAP 10-325MG [[place] 10-325] 1 tab PO QID PRN PRN Reason: Pain [place]-3 Fatty Acids/Fish Oil [Fish Oil 1,000 mg Softgel] 1 each PO DAILY Multivitamin [Multivitamins Adult Gummies] 3 each PO DAILY Docusate Sodium [Dok] 100 mg PO TID Ondansetron HCl [Zofran] 4 mg PO Q8H PRN PRN Reason: Nausea And Vomiting Discharge Medication List Levothyroxine Sodium [Synthroid] 50 mcg PO SUMOTUWETHFR 11/26/13 [History] estradioL [Estradiol 0.025 MG Patch] 1 patch TOPICAL SUWE 08/02/15 [History] Omeprazole [PriLOSEC] 40 mg PO AC-BRKFST 09/12/15 [History] Cholecalciferol [Vitamin D3 (25 Mcg = 1000 Iu)] 2,000 unit PO DAILY 01/31/17 [History] clonazePAM [KlonoPIN] 0.5 mg PO HS 05/29/18 [History] Levothyroxine Sodium [Levoxyl] 100 mcg PO SA 06/25/18 [History] Dicyclomine [Bentyl] 20 mg PO QID PRN 11/02/18 [History] Docusate Sodium [Dok] 100 mg PO TID 01/07/20 [History] HYDROcodone/APAP 10-325MG [[place] 10-325] 1 tab PO QID PRN 01/07/20 [History] Multivitamin [Multivitamins Adult Gummies] 3 each PO DAILY 01/07/20 [History] [place]-3 Fatty Acids/Fish Oil [Fish Oil 1,000 mg Softgel] 1 each PO DAILY 01/07/20 [History] Ondansetron HCl [Zofran] 4 mg PO Q8H PRN 01/07/20 [History] Follow up Appointment(s)/Referral(s): Faustino Manley DO [Doctor of Osteopathic Medicine] - 1 Week Activity/Diet/Wound Care/Special Instructions: Pelvic rest. Wash and pat dry area 1-2 times per day Discharge Disposition: HOME SELF-CARE
[2020-02-15 08:18] VITALS: TEMP 97
[2020-02-15 08:51] VITALS: PULSE 62
[2020-02-15 09:02] VITALS: BP 131/62; RESP 16
--- NOTE | 2020-02-17 07:44 | CDI ---
Date: 02/17/2020 CDS/Label Press Operator Name: Gus Sherman Phone: If you have question, contact Audra Newell, Youth Nutritional Monitor at [phone] M-F 8:30 am to 6pm. Patient Name: FRAN ADEN Admit Date: 02/15/2020 Discharge Date: 02/15/2020 ATTENTION: The Clinical Documentation Specialists (CDI) and [facility] Coding Staff appreciate your assistance in clarifying documentation. Please respond to the clarification below the line at the bottom and electronically sign. The CDI & [facility] Coding staff will review the response and follow-up if needed. Please note: Queries are made part of the Legal Health Record. If you have any questions, please contact the author of this message via ITS or call the Youth Nutritional Monitor. Dear Faustino Virk DO, As per your Operative note documentation Excision of vulvar lesion was performed. Please document the size of the excised lesion to select the appropriate CPT based on the measurement. ____x_ Place X here if this finding has no clinical significance, is not applicable or if you are not able to provide any additional documentation. [facility]
== END | disposition home or self-care (01) ==
LOC: OR 06:13
PROVIDERS: ATTEND Obstetrics & Gynecology
DX: R23.8 Other skin changes (principal); D07.1 Carcinoma in situ of vulva; K21.9 Gastro-esophageal reflux disease without esophagitis; E89.0 Postprocedural hypothyroidism; M19.90 Unspecified osteoarthritis, unspecified site; D56.9 Thalassemia, unspecified; D64.9 Anemia, unspecified; Z82.49 Family history of ischemic heart disease and other diseases of the circulatory system; M81.0 Age-related osteoporosis without current pathological fracture; F17.200 Nicotine dependence, unspecified, uncomplicated; Z85.44 Personal history of malignant neoplasm of other female genital organs; Z88.5 Allergy status to narcotic agent; Z88.6 Allergy status to analgesic agent; Z90.710 Acquired absence of both cervix and uterus; Z90.49 Acquired absence of other specified parts of digestive tract; Z98.51 Tubal ligation status; Z98.890 Other specified postprocedural states; Z85.850 Personal history of malignant neoplasm of thyroid; Z79.890 Hormone replacement therapy; Z79.3 Long term (current) use of hormonal contraceptives; Z79.891 Long term (current) use of opiate analgesic; Z79.899 Other long term (current) drug therapy; Z80.9 Family history of malignant neoplasm, unspecified
CPT/HCPCS: 11422; 88305; J2250; J1100; J2405; J3010; J2704

== ENCOUNTER 2020-07-14 06:55 | Day surgery (SDC) | payer MEDICARE, OTHER ==
[2020-07-10 09:40] VITALS: BMI 14.0
--- NOTE | 2020-07-13 18:59 | P.GSHP ---
History of Present Illness H&P Date: 07/14/20 CHIEF COMPLAINT: Cholecystitis HISTORY OF PRESENT ILLNESS: The patient is a 69-year-old female who presents with history of epigastric including right upper quadrant abdominal pain. She underwent diagnostic studies for her gallbladder. Separately her clinical picture was consistent with cholecystitis. Now she presents for surgical intervention. PAST MEDICAL HISTORY: Please see list PAST SURGICAL HISTORY: Please see list MEDICATIONS: Please see list ALLERGIES: Please see list SOCIAL HISTORY: Please see list FAMILY HISTORY: Please see list REVIEW OF ORGAN SYSTEMS: CONSTITUTIONAL: No reports of fevers or chills. HEENT: Denies any troubles with the vision or hearing. SKIN: No skin cancer. PHYSICAL EXAM: VITAL SIGNS: Afebrile vital signs stable GENERAL: Well-developed pleasant in no acute distress. HEENT: No scleral icterus. Extraocular movements grossly intact. Moist buccal mucosa. NECK: Supple without lymphadenopathy. CHEST: Unlabored respirations. Equal bilateral excursions. CARDIOVASCULAR: Regular rate regular rhythm rhythm. Distal 2+ pulses. ABDOMEN: Soft, nondistended. Tender along the epigastrium and right upper quadrant. MUSCULOSKELETAL: No clubbing, cyanosis, or edema. NEURO: Cranial nerves II to XII within normal limits. No focal or lateralizing signs. PSYCH: Alert and oriented to person, place and time. SKIN: Well-perfused good skin turgor. ASSESSMENT: 1. Epigastric and right upper quadrant abdominal pain 2. Chronic cholecystitis PLAN: 1. Will need a robotic cholecystectomy possible open. Benefits and risks were described. 2. Heparin for DVT prophylaxis 5000 units. 3. Antibiotic prophylaxis. Past Medical History Past Medical History: Blood Disorder, Cancer, GERD/Reflux, Musculoskeletal Disorder, Osteoarthritis (OA), Thyroid Disorder Additional Past Medical History / Comment(s): Weight loss-unable to regain weight since thyroid removed, low BP, hiatal hernia, constipation, DDD in neck & spine, anemia, thalassemia, osteoporosis, thyroid cancer 2010. Cyst on kidney, and kidney stone. Lt ovarian mass. Hx of Cancer puneet vulva, recurrent. C/O abd pain, N/V, sl dysphagia. History of Any Multi-Drug Resistant Organisms: None Reported Past Surgical History: Appendectomy, Hysterectomy, Tubal Ligation Additional Past Surgical History / Comment(s): THYROIDECTOMY, x2. EGD, Colonoscopy. Exc cancer vulva puneet side. Past Anesthesia/Blood Transfusion Reactions: Motion Sickness Smoking Status: Current every day smoker - Past Family History Father Sister(s) Family Medical History: Unable to Obtain Father Family Medical History: Blood Disorder, Cancer Additional Family Medical History / Comment(s): thalassemia Son(s) Family Medical History: Pulmonary Embolus Brother(s) Family Medical History: Blood Disorder, Cancer Additional Family Medical History / Comment(s): THALASSEMIA Daughter(s) Family Medical History: Blood Disorder Additional Family Medical History / Comment(s): THALASSEMIA Medications and Allergies Home Medications Medication Instructions Recorded Confirmed Type Levothyroxine Sodium [Synthroid] 50 mcg PO MOTUWETHFRSA 11/26/13 07/10/20 History estradioL [Estradiol 0.025 MG 1 patch TOPICAL SUWE 08/02/15 07/10/20 History Patch] Omeprazole [PriLOSEC] 40 mg PO AC-BRKFST 09/12/15 07/10/20 History Cholecalciferol [Vitamin D3 (25 2,000 unit PO DAILY 01/31/17 07/10/20 History Mcg = 1000 Iu)] clonazePAM [KlonoPIN] 0.5 mg PO HS 05/29/18 07/10/20 History Levothyroxine Sodium [Levoxyl] 100 mcg PO MUSA 06/25/18 07/10/20 History Dicyclomine [Bentyl] 20 mg PO QID PRN 11/02/18 07/10/20 History Docusate Sodium [Dok] 100 mg PO TID 01/07/20 07/10/20 History HYDROcodone/APAP 10-325MG [[place] 1 tab PO QID PRN 01/07/20 07/10/20 History 10-325] Multivitamin [Multivitamins Adult 3 each PO DAILY 01/07/20 07/10/20 History Gummies] [place]-3 Fatty Acids/Fish Oil [Fish 1 each PO DAILY 01/07/20 07/10/20 History Oil 1,000 mg Softgel] Ondansetron HCl [Zofran] 4 mg PO Q8H PRN 01/07/20 07/10/20 History Allergies Allergy/AdvReac Type Severity Reaction Status Date / Time codeine Allergy Vomiting Verified 07/10/20 09:33 [From Tylenol-Codeine #3] tramadol Allergy Vomiting Verified 07/10/20 09:33 ibuprofen AdvReac Nausea & Verified 07/10/20 09:33 Vomiting
[~2020-07-14 06:55] MED LIST changes: -BUPIVACAINE (PF) 0.25% 30 ML VIAL SQ ONE; -DEXAMETHASONE SOD PHOSPHATE 10 MG/ML 1 ML VIAL IV ONE; +HEPARIN SODIUM,PORCINE 5,000 UNIT/ML 1 ML VIAL SQ PRN; -HYDROmorphone 0.5 MG/0.5 ML SYRINGE IVP PRN; -LACTATED RINGERS 1,000 ML IV ONE; -LACTATED RINGERS 1,000 ML IV SCH; -LIDOCAINE 1% (10MG/ML) FOR IV START INTRADERMA PRN; -MIDAZOLAM 2 MG/2 ML VIAL IV PRN; -MIDAZOLAM 2 MG/2 ML VIAL ONE; -ONDANSETRON 4 MG/2 ML VIAL IVP ONE; -ONDANSETRON 4 MG/2 ML VIAL ONE; -PROPOFOL 10 MG/ML 20 ML VIAL IV ONE; -Pre Op ABX Message 1 EACH MISC MISCELLANE ONE; -ePHEDrine SULFATE/0.9% NACL/PF 50 MG/5 ML SYRINGE IV ONE; -fentaNYL (PF) 50 MCG/ML 2 ML AMP ONE
[2020-07-14] MEDS ORDERED: GABAPENTIN 300 MG CAP PO STA (07:38)
[2020-07-14] MEDS ORDERED: INDOCYANINE GREEN 25 MG VIAL IV STA (07:38)
[2020-07-14] MEDS ORDERED: HYDROmorphone 0.5 MG/0.5 ML SYRINGE IVP PRN (07:38)
[2020-07-14] MEDS ORDERED: ACETAMINOPHEN TAB 325 MG TAB PO STA (07:38)
[2020-07-14] MEDS ORDERED: ONDANSETRON 4 MG/2 ML VIAL IVP ONE (07:38)
[2020-07-14] MEDS ORDERED: DEXAMETHASONE SOD PHOSPHATE 4 MG/ML 1 ML VIAL IV ONE (07:38)
[2020-07-14] MEDS: LACTATED RINGERS 1,000 ML IV SCH ×2 (08:00→12:43)
[2020-07-14] MEDS ORDERED: LIDOCAINE 1% (10MG/ML) FOR IV START INTRADERMA ONE (08:00)
[2020-07-14 08:16] LABS: Basophils # (A) 0.1 k/uL (0-0.2); Basophils % (A) 1 %; Eosinophils # (A) 0.8 k/uL (0-0.7); Eosinophils % (A) 15 %; HCT 37.1 % (34.0-46.0); HGB 11.8 gm/dL (11.4-16.0); Lymphocytes # (A) 1.1 k/uL (1.0-4.8); Lymphocytes % (A) 20 %; MCH 21.5 pg (25.0-35.0); MCHC 31.9 g/dL (31.0-37.0); MCV 67.4 fL (80.0-100.0); Mean Platelet Volume 6.3; Microcytosis Marked; Monocytes # (A) 0.2 k/uL (0-1.0); Monocytes % (A) 4 %; Neutrophils # (A) 3.3 k/uL (1.3-7.7); Neutrophils % (A) 59 %; Platelet Count 236 k/uL (150-450); Poikilocytosis Slight; RDW 15.6 % (11.5-15.5); WBC 5.7 k/uL (3.8-10.6)
[2020-07-14 08:22] LABS: ALT 12 U/L (4-34); AST 28 U/L (14-36); African American GFR (CKD) >90 (>60 ml/min/1.73 sqM); Albumin 4.3 g/dL (3.5-5.0); Alkaline Phosphatase 39 U/L (38-126); Anion Gap 4 mmol/L; Blood Urea Nitrogen 7 mg/dL (7-17); Calcium 9.4 mg/dL (8.4-10.2); Carbon Dioxide 29 mmol/L (22-30); Chloride 102 mmol/L (98-107); Glucose 78 mg/dL (74-99); Non-African American GFR(CKD) 82 (>60 ml/min/1.73 sqM); Potassium 4.7 mmol/L (3.5-5.1); Sodium 135 mmol/L (137-145); Total Bilirubin 0.9 mg/dL (0.2-1.3); Total Protein 7.6 g/dL (6.3-8.2)
[2020-07-14] MEDS ORDERED: LIDOCAINE 1% INJ 10MG/ML (20 ML MDV) ONE (08:45)
[2020-07-14] MEDS ORDERED: ePHEDrine SULFATE/0.9% NACL/PF 50 MG/5 ML SYRINGE IV ONE (08:45)
[2020-07-14] MEDS ORDERED: GLYCOPYRROLATE 0.2 MG/ML 2 ML VIAL ONE (08:45)
[2020-07-14] MEDS ORDERED: MIDAZOLAM 2 MG/2 ML VIAL ONE (08:45)
[2020-07-14] MEDS ORDERED: PROPOFOL 10 MG/ML 20 ML VIAL IV ONE (08:45)
[2020-07-14] MEDS ORDERED: HYDROmorphone (PF) 1 MG/ML ONE (08:45)
[2020-07-14] MEDS ORDERED: ROCURONIUM 10 MG/ML (10 ML VIAL) IV ONE (08:45)
[2020-07-14] MEDS ORDERED: fentaNYL (PF) 50 MCG/ML 2 ML AMP ONE (08:45)
[2020-07-14] MEDS ORDERED: INDOCYANINE GREEN 25 MG VIAL IV ONE (08:45)
[2020-07-14] MEDS ORDERED: WATER FOR INJECTION, STERILE 10 ML VIAL IV ONE (08:45)
[2020-07-14] MEDS ORDERED: NEOSTIGMINE 1 MG/ML 10 ML VIAL ONE (08:45)
[2020-07-14] MEDS ORDERED: SUCCINYLCHOLINE CHLORIDE 100 MG/5 ML SYR IV ONE (08:45)
[2020-07-14] MEDS ORDERED: LIDOCAINE 1%-EPI 1:100,000 20 ML VIAL SQ ONE (08:52)
[2020-07-14] MEDS ORDERED: SIMETHICONE 80 MG CHEWABLE PO PRN (10:00)
--- NOTE | 2020-07-14 10:06 | P.OP ---
Date of Procedure: 07/14/20 Description of Procedure: SURGEON: ELVIA JEFF MD PREOPERATIVE DIAGNOSES: 1. Chronic cholecystitis 2. Right upper quadrant abdominal pain 3. Chronic pain syndrome 4. Vulvular cancer 5. Hypothyroidism 6. Thalassemia 7. Thyroid cancer history 8. Osteoporosis 9. Underweight, BMI 14.2 10. Hypotension. 11. Family history gallbladder disease. POSTOPERATIVE DIAGNOSES: 1. Chronic cholecystitis 2. Right upper quadrant abdominal pain 3. Chronic pain syndrome 4. Vulvular cancer 5. Hypothyroidism 6. Thalassemia 7. Thyroid cancer history 8. Osteoporosis 9. Underweight, BMI 14.2 10. Hypotension. 11. Peritoneal, pericholecystitc adhesions, right upper quadrant 12. Family history gallbladder disease. OPERATION: 1. Robotic-assisted da Brandon Xi laparoscopic cholecystectomy, multiport with FIREFLY 2. Robotic-assisted da Brandon Xi laparoscopic lysis of adhesions ESTIMATED BLOOD LOSS: 5 mL. SPECIMENS REMOVED: Gallbladder. COMPLICATIONS: None. OPERATIVE FINDINGS: 1. Moderate scarring over entire gallbladder with peritoneal adhesions, pericholecystic with features of chronic cholecystitis INDICATIONS: The patient is a 69-year-old female who presents with right upper quadrant abdominal pain and chronic cholecystitis. Robotic assisted laparoscopic approach was described. Benefits and risks of the procedure including but not limited to bleeding, infection, injury to the biliary tree was described. Informed consent was obtained. DESCRIPTION OF PROCEDURE: Patient was brought to the operating room, placed in supine position. After general induction, the abdomen had been prepped and draped in standard sterile fashion. The robotic da Brandon XI system was primed. After a timeout protocol was performed, the patient had been prepped and draped in standard sterile fashion. The patient was injected with indocyanine green. A 5 mm 0 degrees laparoscopic trocar entry was performed along the left upper quadrant. The abdomen insufflated to 15 mmHg pressure which was tolerated well. Diagnostic laparoscopy demonstrated no injury to bowel viscera or mesentery. The liver surface was unremarkable. Next, two 8 mm robotic ports were placed along the right upper abdomen. The camera 8-mm port was maintained along the epigastrium. Another 8 mm port was placed along the left upper abdominal wall after exchanging the 5 mm port. Please note that the ports were placed at least 10 to 15 cm away from the target anatomy of the gallbladder. The robot was docked along the left lateral abdomen. The patient was repositioned in reverse Trendelenburg position. Using a grasper for arm 3, a grasper for arm 4, including hook cautery for arm 1, the robotic system was docked and primed as described. Instruments were interchanged by the rehabilitation assistant including hook cautery, Bovie cautery and clip appliers. I had sat at the console. The gallbladder was scarred with peritoneal adhesions. Lysis of adhesions was performed to free the gallbladder from the surrounding tissues. Next attention was brought to the infundibulum and cystic structures. The infundibulum and cystic duct were dissected free from surrounding tissues. The cystic duct was isolated. FIREFLY was used to identify the cystic artery and cystic structures. A critical view of safety was obtained. Large PLASTIC clips were used throughout the entire case. Using a clip temperature control inspector, 2 clips were placed at the junction of the infundibulum and cystic duct. The cystic duct was divided between clips. Next, the cystic artery was similarly clipped and cauterized. Electro-Bovie cautery was used to remove the gallbladder from the hepatic fossa. Hemostasis was checked and found to be adequate. The robot was undocked. I re-scrubbed into the case. Using a 10 mm Endo Catch bag via the left upper quadrant incision, the specimen was removed from the abdominal cavity. All pneumoperitoneum instruments were evacuated from the abdominal cavity. The incisions were reapproximated using 4-0 Monocryl in an interrupted subcuticular fashion. Fascial defect at the left upper quadrant was closed with 0-Vicryl and Kavon Olson. Please note along the trocar sites, local anesthetic was placed as a field block prior to insertion of all instruments. Liquid glue was applied to the skin. At the end of the procedure needle, sponge, and instrument count had been verified correct by the assembler surgical garment. The patient was transferred to postanesthesia care unit in stable condition. Intraoperative films were shared with the patient's family. Plan - Discharge Summary Discharge Rx Participant: Yes New Discharge Prescriptions: New Acetaminophen [Tylenol] 650 mg PO Q4H #30 tab Simethicone [Gas-X] 125 mg PO AC-TID PRN #20 capsule PRN Reason: Abdominal Distention Continue Levothyroxine Sodium [Synthroid] 50 mcg PO MOTUWETHFRSA estradioL [Estradiol 0.025 MG Patch] 1 patch TOPICAL SUWE Omeprazole [PriLOSEC] 40 mg PO AC-BRKFST Cholecalciferol [Vitamin D3 (25 Mcg = 1000 Iu)] 2,000 unit PO DAILY clonazePAM [KlonoPIN] 0.5 mg PO HS Levothyroxine Sodium [Levoxyl] 100 mcg PO MUSA Dicyclomine [Bentyl] 20 mg PO QID PRN PRN Reason: abdominal pain HYDROcodone/APAP 10-325MG [[place] 10-325] 1 tab PO QID PRN PRN Reason: Pain [place]-3 Fatty Acids/Fish Oil [Fish Oil 1,000 mg Softgel] 1 each PO DAILY Multivitamin [Multivitamins Adult Gummies] 3 each PO DAILY Docusate Sodium [Dok] 100 mg PO TID Ondansetron HCl [Zofran] 4 mg PO Q8H PRN PRN Reason: Nausea And Vomiting Discharge Medication List Levothyroxine Sodium [Synthroid] 50 mcg PO MOTUWETHFRSA 11/26/13 [History] estradioL [Estradiol 0.025 MG Patch] 1 patch TOPICAL SUWE 08/02/15 [History] Omeprazole [PriLOSEC] 40 mg PO AC-BRKFST 09/12/15 [History] Cholecalciferol [Vitamin D3 (25 Mcg = 1000 Iu)] 2,000 unit PO DAILY 01/31/17 [History] clonazePAM [KlonoPIN] 0.5 mg PO HS 05/29/18 [History] Levothyroxine Sodium [Levoxyl] 100 mcg PO MUSA 06/25/18 [History] Dicyclomine [Bentyl] 20 mg PO QID PRN 11/02/18 [History] Docusate Sodium [Dok] 100 mg PO TID 01/07/20 [History] HYDROcodone/APAP 10-325MG [[place] 10-325] 1 tab PO QID PRN 01/07/20 [History] Multivitamin [Multivitamins Adult Gummies] 3 each PO DAILY 01/07/20 [History] [place]-3 Fatty Acids/Fish Oil [Fish Oil 1,000 mg Softgel] 1 each PO DAILY 01/07/20 [History] Ondansetron HCl [Zofran] 4 mg PO Q8H PRN 01/07/20 [History] Acetaminophen [Tylenol] 650 mg PO Q4H #30 tab 07/14/20 [Rx] Simethicone [Gas-X] 125 mg PO AC-TID PRN #20 capsule 07/14/20 [Rx] Follow up Appointment(s)/Referral(s): Elvia Jeff MD [STAFF PHYSICIAN] - 07/18/20 Patient Instructions/Handouts: Laparoscopic Cholecystectomy (DC), Low Fat Diet (DC), *[facility] - Managing Your Pain After Surgery Without Opioids Activity/Diet/Wound Care/Special Instructions: Recommend low-fat diet for the next 2 days. No lifting over 10 pounds in 2 weeks until Jul 28October shower. No bath tub soaks for two weeks until Jul 28 Diet as tolerated. Use Tylenol and ibuprofen or Aleve scheduled for the next 24-48 hours for best pain relief. Use ice along incisions for the today to prevent swelling. Discharge Disposition: HOME SELF-CARE
[2020-07-14 10:19] VITALS: TEMP 97.7
[2020-07-14 11:06] VITALS: RESP 16
[2020-07-14 11:30] VITALS: BP 130/58
[2020-07-14] MEDS ORDERED: HYDROcodone/APAP 10-325MG 1 EACH TAB ONE (11:37)
[2020-07-14] MEDS ORDERED: HYDROcodone/APAP 10-325MG 1 EACH TAB PO ONE (11:40)
[2020-07-14 11:55] VITALS: PULSE 48
== END 2020-07-14 13:07 | disposition home or self-care (01) ==
LOC: OR 06:55
PROVIDERS: ATTEND Surgery Plastic and Reconstructive Surgery
DX: K81.1 Chronic cholecystitis (principal); K66.0 Peritoneal adhesions (postprocedural) (postinfection); G89.4 Chronic pain syndrome; C51.9 Malignant neoplasm of vulva, unspecified; D56.9 Thalassemia, unspecified; M81.0 Age-related osteoporosis without current pathological fracture; R63.6 Underweight; I95.9 Hypotension, unspecified; K21.9 Gastro-esophageal reflux disease without esophagitis; M19.90 Unspecified osteoarthritis, unspecified site; E89.0 Postprocedural hypothyroidism; K44.9 Diaphragmatic hernia without obstruction or gangrene; M50.30 Other cervical disc degeneration, unspecified cervical region; M51.9 Unspecified thoracic, thoracolumbar and lumbosacral intervertebral disc disorder; D64.9 Anemia, unspecified; N28.1 Cyst of kidney, acquired; F17.210 Nicotine dependence, cigarettes, uncomplicated; Z85.850 Personal history of malignant neoplasm of thyroid; Z68.1 Body mass index [BMI] 19.9 or less, adult; Z87.19 Personal history of other diseases of the digestive system; Z87.442 Personal history of urinary calculi; Z87.42 Personal history of other diseases of the female genital tract; Z90.49 Acquired absence of other specified parts of digestive tract; Z90.710 Acquired absence of both cervix and uterus; Z98.51 Tubal ligation status; Z98.890 Other specified postprocedural states; Z87.898 Personal history of other specified conditions; Z79.890 Hormone replacement therapy; Z79.899 Other long term (current) drug therapy; Z79.891 Long term (current) use of opiate analgesic; Z88.5 Allergy status to narcotic agent; Z88.6 Allergy status to analgesic agent; Z83.79 Family history of other diseases of the digestive system; Z83.2 Family history of diseases of the blood and blood-forming organs and certain disorders involving the immune mechanism; Z80.9 Family history of malignant neoplasm, unspecified; Z82.5 Family history of asthma and other chronic lower respiratory diseases
CPT/HCPCS: 88304; 80053; 85025; 47562; J2250; J1644; J1100; J2710; J0690; J2405; J2001; J3010; J1170 ×2; J0330; J2704

== ENCOUNTER 2020-09-21 07:34 | Day surgery (SDC) | payer MEDICARE, OTHER ==
[2020-09-18 14:48] VITALS: BMI 14.0
[~2020-09-21 07:34] MED LIST changes: -HEPARIN SODIUM,PORCINE 5,000 UNIT/ML 1 ML VIAL SQ PRN; +LACTATED RINGERS 1,000 ML IV SCH; +LIDOCAINE 1% (10MG/ML) FOR IV START INTRADERMA PRN
--- NOTE | 2020-09-21 07:38 | P.GSHP ---
History of Present Illness H&P Date: 09/21/20 CHIEF COMPLAINT: Colon screen HISTORY OF PRESENT ILLNESS: The patient is a 69-year-old female who presents for colon screen. Lower endoscopy was offered for further evaluation and management. PAST MEDICAL HISTORY: Please see list. PAST SURGICAL HISTORY: Please see list. MEDICATIONS: Please see list. ALLERGIES: Please see list. SOCIAL HISTORY: No illicit drug use FAMILY HISTORY: No reports of Crohn disease or ulcerative colitis. REVIEW OF ORGAN SYSTEMS: CONSTITUTIONAL: No reports of fevers or chills. PHYSICAL EXAM: VITAL SIGNS: Stable GENERAL: Well-developed pleasant in no acute distress. HEENT: No scleral icterus. Extraocular movements grossly intact. Moist buccal mucosa. NECK: Supple without lymphadenopathy. CHEST: Unlabored respirations. Equal bilateral excursions. CARDIOVASCULAR: Regular rate and rhythm. Distal 2+ pulses. ABDOMEN: Soft, nontender, nondistended. MUSCULOSKELETAL: No clubbing, cyanosis, or edema. ASSESSMENT: 1. Colon screen. PLAN: 1. Recommend proceeding with a lower endoscopy Past Medical History Past Medical History: Blood Disorder, Cancer, GERD/Reflux, Musculoskeletal Disorder, Osteoarthritis (OA), Thyroid Disorder Additional Past Medical History / Comment(s): Weight loss-unable to regain weight since thyroid removed, low BP, hiatal hernia, constipation, DDD in neck & spine, anemia, thalassemia, osteoporosis, thyroid cancer 2010. Cyst on kidney, and kidney stone. Lt ovarian mass. Hx of Cancer puneet vulva, recurrent. C/O abd pain, N/V, sl dysphagia. History of Any Multi-Drug Resistant Organisms: None Reported Past Surgical History: Appendectomy, Cholecystectomy, Hysterectomy, Tubal Ligation Additional Past Surgical History / Comment(s): THYROIDECTOMY, x2. EGD, Colonoscopy. Exc cancer vulva puneet side. Past Anesthesia/Blood Transfusion Reactions: No Reported Reaction Smoking Status: Current every day smoker - Past Family History Father Sister(s) Family Medical History: Unable to Obtain Father Family Medical History: Blood Disorder, Cancer Additional Family Medical History / Comment(s): thalassemia Son(s) Family Medical History: Pulmonary Embolus Brother(s) Family Medical History: Blood Disorder, Cancer Additional Family Medical History / Comment(s): THALASSEMIA Daughter(s) Family Medical History: Blood Disorder Additional Family Medical History / Comment(s): THALASSEMIA Medications and Allergies Home Medications Medication Instructions Recorded Confirmed Type Levothyroxine Sodium [Synthroid] 50 mcg PO MOTUWETHFRSA 11/26/13 09/18/20 History estradioL [Estradiol 0.025 MG 1 patch TOPICAL SUWE 08/02/15 09/18/20 History Patch] Omeprazole [PriLOSEC] 40 mg PO AC-BRKFST 09/12/15 09/18/20 History Cholecalciferol [Vitamin D3 (25 2,000 unit PO DAILY 01/31/17 09/18/20 History Mcg = 1000 Iu)] clonazePAM [KlonoPIN] 0.5 mg PO HS 05/29/18 09/18/20 History Levothyroxine Sodium [Levoxyl] 100 mcg PO MUSA 06/25/18 09/18/20 History Dicyclomine [Bentyl] 20 mg PO QID PRN 11/02/18 09/18/20 History Docusate Sodium [Dok] 100 mg PO TID 01/07/20 09/18/20 History HYDROcodone/APAP 10-325MG [[place] 1 tab PO QID PRN 01/07/20 09/18/20 History 10-325] Multivitamin [Multivitamins Adult 2 each PO DAILY 01/07/20 09/18/20 History Gummies] [place]-3 Fatty Acids/Fish Oil [Fish 1 each PO DAILY 01/07/20 09/18/20 History Oil 1,000 mg Softgel] Ondansetron HCl [Zofran] 4 mg PO Q8H PRN 01/07/20 09/18/20 History Simethicone [Gas-X] 125 mg PO AC-TID PRN #20 capsule 07/14/20 09/18/20 Rx Allergies Allergy/AdvReac Type Severity Reaction Status Date / Time codeine Allergy Vomiting Verified 09/18/20 14:35 [From Tylenol-Codeine #3] tramadol Allergy Vomiting Verified 09/18/20 14:35 ibuprofen AdvReac Nausea & Verified 09/18/20 14:35 Vomiting
[2020-09-21] MEDS ORDERED: LIDOCAINE 1% INJ 10MG/ML (20 ML MDV) ONE (08:25)
[2020-09-21] MEDS ORDERED: PROPOFOL 10 MG/ML 20 ML VIAL IV ONE (08:25)
[2020-09-21 08:27] VITALS: RESP 16; TEMP 98.3
[2020-09-21 09:10] VITALS: BP 141/65; PULSE 56
--- NOTE | 2020-09-21 09:21 | P.PCN ---
Date of Procedure: 09/21/20 Description of Procedure: PREOPERATIVE DIAGNOSIS: Change in bowel habits with constipation and diarrhea Unintentional weight loss Underweight POSTOPERATIVE DIAGNOSIS: Transverse colon polyp Diverticulosis, sigmoid Instrument colonic volvulus OPERATION: Colonoscopy to the ileocecal valve and appendiceal orifice, cecum Colonoscopy with cold forceps biopsy SURGEON: Elvia Jeff MD. ANESTHESIA: MAC. INDICATIONS: The patient is an 68-year-old male who presents with change in bowel habits. Benefits and risks were described and informed consent was obtained. DESCRIPTION OF PROCEDURE: The patient had undergone Suprep. The patient had been brought into the operating room and laid in the left lateral decubitus position. After adequate intravenous sedation, the rectum was examined with 2% lidocaine jelly. External hemorrhoids were encountered. The rectal tone was within normal limits. No le sions were palpated in the rectal vault. An Olympus colonoscope was advanced until the cecum, ileocecal valve and appendiceal orifice were clearly viewed. The prep was fair. Sigmoid diverticulosis was encountered. Colonic polyps were found and removed. No evidence of focal colitis was found. Retroflexion of the scope demonstrated grade 2 internal hemorrhoids without active bleeding or inflammation. The colon was desufflated. The patient had tolerated the procedure well. Withdrawal time was over 6 minutes. FINDINGS: Aronchick preparation quality scale 1 (1-5) Internal hemorrhoids, grade 2 External hemorrhoids, grade 2 No arteriovenous malformations. Sigmoid diverticulosis Removal of 1 polyp: - Cold forceps biopsy distal transverse colon, 5 mm polyp. No focal colitis. RECOMMENDATIONS: Repeat colonoscopy 5 years, 2025 Plan - Discharge Summary Discharge Rx Participant: No New Discharge Prescriptions: Continue Levothyroxine Sodium [Synthroid] 50 mcg PO MOTUWETHFRSA estradioL [Estradiol 0.025 MG Patch] 1 patch TOPICAL SUWE Omeprazole [PriLOSEC] 40 mg PO AC-BRKFST Cholecalciferol [Vitamin D3 (25 Mcg = 1000 Iu)] 2,000 unit PO DAILY clonazePAM [KlonoPIN] 0.5 mg PO HS Levothyroxine Sodium [Levoxyl] 100 mcg PO MUSA Dicyclomine [Bentyl] 20 mg PO QID PRN PRN Reason: abdominal pain HYDROcodone/APAP 10-325MG [[place] 10-325] 1 tab PO QID PRN PRN Reason: Pain [place]-3 Fatty Acids/Fish Oil [Fish Oil 1,000 mg Softgel] 1 each PO DAILY Multivitamin [Multivitamins Adult Gummies] 2 each PO DAILY Docusate Sodium [Dok] 100 mg PO TID Ondansetron HCl [Zofran] 4 mg PO Q8H PRN PRN Reason: Nausea And Vomiting Simethicone [Gas-X] 125 mg PO AC-TID PRN #20 capsule PRN Reason: Abdominal Distention Discharge Medication List Levothyroxine Sodium [Synthroid] 50 mcg PO MOTUWETHFRSA 11/26/13 [History] estradioL [Estradiol 0.025 MG Patch] 1 patch TOPICAL SUWE 08/02/15 [History] Omeprazole [PriLOSEC] 40 mg PO AC-BRKFST 09/12/15 [History] Cholecalciferol [Vitamin D3 (25 Mcg = 1000 Iu)] 2,000 unit PO DAILY 01/31/17 [History] clonazePAM [KlonoPIN] 0.5 mg PO HS 05/29/18 [History] Levothyroxine Sodium [Levoxyl] 100 mcg PO MUSA 06/25/18 [History] Dicyclomine [Bentyl] 20 mg PO QID PRN 11/02/18 [History] Docusate Sodium [Dok] 100 mg PO TID 01/07/20 [History] HYDROcodone/APAP 10-325MG [[place] 10-325] 1 tab PO QID PRN 01/07/20 [History] Multivitamin [Multivitamins Adult Gummies] 2 each PO DAILY 01/07/20 [History] [place]-3 Fatty Acids/Fish Oil [Fish Oil 1,000 mg Softgel] 1 each PO DAILY 01/07/20 [History] Ondansetron HCl [Zofran] 4 mg PO Q8H PRN 01/07/20 [History] Simethicone [Gas-X] 125 mg PO AC-TID PRN #20 capsule 07/14/20 [Rx] Follow up Appointment(s)/Referral(s): Elvia Jeff MD [STAFF PHYSICIAN] - 09/26/20 Patient Instructions/Handouts: *[facility] - (Anesthesia) Endoscopy Discharge Instructions, Diverticulosis (DC), Colorectal Polyps (DC), Diverticulosis Diet (GEN), Colonoscopy (DC) Activity/Diet/Wound Care/Special Instructions: Repeat colonoscopy in 5 years, 2025 Discharge Disposition: HOME SELF-CARE
== END 2020-09-21 09:35 | disposition home or self-care (01) ==
LOC: ORWHC2ENDO 07:34
PROVIDERS: ATTEND Surgery Plastic and Reconstructive Surgery
DX: K63.5 Polyp of colon (principal); K57.30 Diverticulosis of large intestine without perforation or abscess without bleeding; K64.1 Second degree hemorrhoids; K21.9 Gastro-esophageal reflux disease without esophagitis; K56.2 Volvulus; R63.6 Underweight; Z68.1 Body mass index [BMI] 19.9 or less, adult; M19.90 Unspecified osteoarthritis, unspecified site; I95.9 Hypotension, unspecified; K46.9 Unspecified abdominal hernia without obstruction or gangrene; M50.30 Other cervical disc degeneration, unspecified cervical region; F17.200 Nicotine dependence, unspecified, uncomplicated; D56.9 Thalassemia, unspecified; M81.0 Age-related osteoporosis without current pathological fracture; Z85.850 Personal history of malignant neoplasm of thyroid; Z87.442 Personal history of urinary calculi; Z87.448 Personal history of other diseases of urinary system; Z85.89 Personal history of malignant neoplasm of other organs and systems; Z90.49 Acquired absence of other specified parts of digestive tract; Z90.710 Acquired absence of both cervix and uterus; Z98.51 Tubal ligation status; Z90.89 Acquired absence of other organs; E89.0 Postprocedural hypothyroidism; Z83.2 Family history of diseases of the blood and blood-forming organs and certain disorders involving the immune mechanism; Z82.49 Family history of ischemic heart disease and other diseases of the circulatory system; Z80.9 Family history of malignant neoplasm, unspecified; Z79.890 Hormone replacement therapy; Z79.891 Long term (current) use of opiate analgesic; Z79.899 Other long term (current) drug therapy; Z88.6 Allergy status to analgesic agent; Z88.5 Allergy status to narcotic agent
CPT/HCPCS: 88305; 45380; J2001; J2704

== ENCOUNTER → 2020-10-06 | Outpatient (CLI) | payer MEDICARE, OTHER ==
--- NOTE | 2020-10-06 15:49 | FL ---
EXAMINATION TYPE: FL barium enema DATE OF EXAM: 10/06/2020 COMPARISON: None HISTORY: Volvulus TECHNIQUE: Single contrast technique is performed utilizing barium. FINDINGS: Fluoroscopy time: 1 minute 8 seconds Images: 25 Shift Engineer view: Abundant air is present through the bowel. There is good postevacuation response. Contrast refluxes through the colon to the the apparent cecum. The appendix is not identified. Reflux into the terminal ileum is not clearly identified. There is some redundancy within the sigmoid colon and within the transverse colon. No suspicious area of circumferential narrowing is evident. No persistent filling defects are identif ied. IMPRESSION: 1. Normal-appearing single contrast lower GI
== END | disposition home or self-care (01) ==
LOC: RADFLMAIN 10:18
PROVIDERS: ATTEND Surgery Plastic and Reconstructive Surgery
DX: K56.2 Volvulus (principal)
CPT/HCPCS: 74270

== ENCOUNTER → 2020-12-12 | Outpatient (CLI) | payer MEDICARE, OTHER ==
[2020-12-12 11:23] LABS: HCT 30.4 % (34.0-46.0); HGB 9.5 gm/dL (11.4-16.0); Hypochromasia Slight; MCHC 31.3 g/dL (31.0-37.0); Mean Platelet Volume 6.4; Microcytosis Marked; Platelet Count 278 k/uL (150-450); Poikilocytosis Slight; RBC 4.54 m/uL (3.80-5.40); RDW 15.3 % (11.5-15.5); WBC 6.9 k/uL (3.8-10.6)
[2020-12-12 11:51] LABS: ALT 10 U/L (4-34); AST 25 U/L (14-36); African American GFR (CKD) >90 (>60 ml/min/1.73 sqM); Albumin 4.1 g/dL (3.5-5.0); Alkaline Phosphatase 42 U/L (38-126); Anion Gap 6 mmol/L; Blood Urea Nitrogen 9 mg/dL (7-17); Calcium 9.3 mg/dL (8.4-10.2); Carbon Dioxide 29 mmol/L (22-30); Chloride 92 mmol/L (98-107); Glucose 61 mg/dL (74-99); Non-African American GFR(CKD) >90 (>60 ml/min/1.73 sqM); Potassium 4.7 mmol/L (3.5-5.1); Sodium 127 mmol/L (137-145); Total Bilirubin 0.4 mg/dL (0.2-1.3)
== END | disposition home or self-care (01) ==
LOC: LABPAT 10:29
PROVIDERS: ATTEND Surgery Plastic and Reconstructive Surgery
DX: Z01.812 Encounter for preprocedural laboratory examination (principal)
CPT/HCPCS: 36415; 80053; 85027

== ENCOUNTER 2020-12-18 16:13 | Inpatient (IN) | payer MEDICARE, OTHER ==
--- NOTE | 2020-12-18 19:23 | XR ---
EXAMINATION TYPE: XR KUB DATE OF EXAM: 12/18/2020 COMPARISON: NONE HISTORY: Abdominal pain TECHNIQUE: Single view FINDINGS: There is no sign of intestinal obstruction or pneumoperitoneum. Fecal pattern is normal. Th ere is no evidence of a mass. There are no pathologic calcifications over the kidneys. Lung bases are clear. IMPRESSION: Nonacute abdomen.
[2020-12-18] MEDS ORDERED: NALOXONE 0.4 MG/ML 1 ML VIAL IV PRN (19:29)
[2020-12-18] MEDS ORDERED: ONDANSETRON 4 MG/2 ML VIAL IVP PRN (19:29)
[2020-12-18] MEDS ORDERED: HYDROmorphone 2 MG TAB PO PRN (19:29)
--- NOTE | 2020-12-18 19:29 | ED ---
Abdominal Pain HPI - General Chief Complaint: Abdominal Pain Stated Complaint: Sent by /Bowel Impaction Time Seen by Provider: 12/18/20 17:42 Source: patient, RN notes reviewed Mode of arrival: ambulatory Limitations: no limitations - History of Present Illness Initial Comments: This is a 68-year-old female who presents with complaints of intermittent abdominal pain decreased appetite and decreased oral intake some weakness. She was seen by Dr. Becker and sent here for further evaluation. There is a planned surgery in 4 days. She denies any fevers chills or sweats she is demonstrating failure to thrive. MD Complaint: abdominal pain - Related Data Home Medications Medication Instructions Recorded Confirmed Levothyroxine Sodium [Synthroid] 50 mcg PO MOTUWETHFRSA 11/26/13 09/21/20 estradioL [Estradiol 0.025 MG 1 patch TOPICAL SUWE 08/02/15 09/21/20 Patch] Omeprazole [PriLOSEC] 40 mg PO AC-BRKFST 09/12/15 09/21/20 Cholecalciferol [Vitamin D3 (25 2,000 unit PO DAILY 01/31/17 09/21/20 Mcg = 1000 Iu)] clonazePAM [KlonoPIN] 0.5 mg PO HS 05/29/18 09/21/20 Levothyroxine Sodium [Levoxyl] 100 mcg PO MUSA 06/25/18 09/21/20 Dicyclomine [Bentyl] 20 mg PO QID PRN 11/02/18 09/21/20 Docusate Sodium [Dok] 100 mg PO TID 01/07/20 09/21/20 HYDROcodone/APAP 10-325MG [[place] 1 tab PO QID PRN 01/07/20 09/21/20 10-325] Multivitamin [Multivitamins Adult 2 each PO DAILY 01/07/20 09/21/20 Gummies] [place]-3 Fatty Acids/Fish Oil [Fish 1 each PO DAILY 01/07/20 09/21/20 Oil 1,000 mg Softgel] Ondansetron HCl [Zofran] 4 mg PO Q8H PRN 01/07/20 09/21/20 Previous Rx's Medication Instructions Recorded Simethicone [Gas-X] 125 mg PO AC-TID PRN #20 capsule 01/15/21 Allergies Allergy/AdvReac Type Severity Reaction Status Date / Time codeine Allergy Vomiting Verified 12/18/20 17:18 [From Tylenol-Codeine #3] tramadol Allergy Vomiting Verified 12/18/20 17:18 ibuprofen AdvReac Nausea & Verified 12/18/20 17:18 Vomiting Review of Systems ROS Statement: Those systems with pertinent positive or pertinent negative responses have been documented in the HPI. ROS Other: All systems not noted in ROS Statement are negative. Past Medical History Past Medical History: Blood Disorder, Cancer, GERD/Reflux, Musculoskeletal Disorder, Osteoarthritis (OA), Thyroid Disorder Additional Past Medical History / Comment(s): Weight loss-unable to regain weight since thyroid removed, low BP, hiatal hernia, constipation, DDD in neck & spine, anemia, thalassemia, osteoporosis, thyroid cancer 2010. Cyst on kidney, and kidney stone. Lt ovarian mass. Hx of Cancer puneet vulva, recurrent. C/O abd pain, N/V, sl dysphagia. History of Any Multi-Drug Resistant Organisms: None Reported Past Surgical History: Appendectomy, Cholecystectomy, Hysterectomy, Tubal Ligation Additional Past Surgical History / Comment(s): THYROIDECTOMY, x2. EGD, Colonoscopy. Exc cancer vulva puneet side. Past Anesthesia/Blood Transfusion Reactions: No Reported Reaction Past Psychological History: No Psychological Hx Reported Smoking Status: Current every day smoker - Past Family History Father Sister(s) Family Medical History: Unable to Obtain Father Family Medical History: Blood Disorder, Cancer Additional Family Medical History / Comment(s): thalassemia Son(s) Family Medical History: Pulmonary Embolus Brother(s) Family Medical History: Blood Disorder, Cancer Additional Family Medical History / Comment(s): THALASSEMIA Daughter(s) Family Medical History: Blood Disorder Additional Family Medical History / Comment(s): THALASSEMIA General Exam - General Exam Comments Initial Comments: This is a well-developed asthenic appearing female was awake alert oriented 3 Limitations: no limitations General appearance: alert, in no apparent distress Head exam: Present: atraumatic, normocephalic, normal inspection Eye exam: Present: normal appearance, PERRL, EOMI. Absent: scleral icterus, conjunctival injection, periorbital swelling ENT exam: Present: mucous membranes dry Neck exam: Present: normal inspection. Absent: tenderness, meningismus, lymphadenopathy Respiratory exam: Present: normal lung sounds bilaterally. Absent: respiratory distress, wheezes, rales, rhonchi, stridor Cardiovascular Exam: Present: regular rate, normal rhythm, normal heart sounds. Absent: systolic murmur, diastolic murmur, rubs, gallop, clicks GI/Abdominal exam: Present: soft, tenderness (Mild tenderness palpation no guarding rebound masses or bruits), normal bowel sounds. Absent: distended, guarding, rebound, rigid Rectal exam: Present: deferred Extremities exam: Present: normal inspection, full ROM, normal capillary refill. Absent: tenderness, pedal edema, joint swelling, calf tenderness Back exam: Present: normal inspection Neurological exam: Present: alert, oriented X3, CN II-XII intact Psychiatric exam: Present: normal affect, normal mood Skin exam: Present: warm, dry, intact, normal color. Absent: rash Course Vital Signs 12/18/20 17:14 Temperature 98.0 F Pulse Rate 67 Respiratory 18 Rate Blood Pressure 109/64 O2 Sat by Pulse 98 Oximetry Medical Decision Making - Medical Decision Making I did discuss [employer] the patient she'll be admitted for inpatient evaluation and treatment IV fluids pain control. The case as previously discussed with Dr. Becker - Radiology Data Radiology results: report reviewed (Imaging reviewed no acute findings at this time.), image reviewed Disposition Clinical Impression: Abdominal pain, Failure to thrive, Intermittent small bowel obstruction, Dehydration Disposition: ADMITTED IP TO THIS [facility] Condition: Fair Referrals: Nicolás Rose MD [Primary Care Provider] - 1-2 days
[2020-12-18] MEDS: SODIUM CHLORIDE 0.9% 1,000 ML IV SCH (20:27)
[2020-12-18 20:33] LABS: Basophils # (A) 0.1 k/uL (0-0.2); Basophils % (A) 1 %; Eosinophils # (A) 1.3 k/uL (0-0.7); Eosinophils % (A) 16 %; HCT 25.8 % (34.0-46.0); HGB 8.6 gm/dL (11.4-16.0); Lymphocytes # (A) 1.9 k/uL (1.0-4.8); Lymphocytes % (A) 23 %; MCH 21.7 pg (25.0-35.0); MCHC 33.4 g/dL (31.0-37.0); MCV 65.1 fL (80.0-100.0); Mean Platelet Volume 6.4; Microcytosis Marked; Monocytes # (A) 0.3 k/uL (0-1.0); Monocytes % (A) 4 %; Neutrophils # (A) 4.7 k/uL (1.3-7.7); Neutrophils % (A) 57 %; Platelet Count 227 k/uL (150-450); RBC 3.95 m/uL (3.80-5.40); WBC 8.3 k/uL (3.8-10.6)
[2020-12-18 20:44] LABS: ALT 10 U/L (4-34); AST 30 U/L (14-36); African American GFR (CKD) >90 (>60 ml/min/1.73 sqM); Albumin 3.7 g/dL (3.5-5.0); Alkaline Phosphatase 37 U/L (38-126); Amylase 106 U/L (30-110); Anion Gap 5 mmol/L; Blood Urea Nitrogen 20 mg/dL (7-17); Carbon Dioxide 29 mmol/L (22-30); Chloride 96 mmol/L (98-107); Creatine Kinase 37 U/L (30-135); Glucose 90 mg/dL (74-99); Lipase 78 U/L (23-300); Non-African American GFR(CKD) >90 (>60 ml/min/1.73 sqM); Potassium 4.5 mmol/L (3.5-5.1); Sodium 130 mmol/L (137-145); Total Bilirubin 0.5 mg/dL (0.2-1.3); Total Protein 6.6 g/dL (6.3-8.2)
[2020-12-18 21:12] LABS: INR 0.9 (<1.2); Partial Thromboplastin Time 25.4 sec (22.0-30.0); Prothrombin Time 9.9 sec (9.0-12.0)
[2020-12-19] MEDS: SODIUM CHLORIDE 0.9% 1,000 ML IV SCH ×3 (02:44→21:05)
[2020-12-19] MEDS: LEVOTHYROXINE 50 MCG TAB PO SCH (05:17)
[2020-12-19] MEDS: HYDROmorphone 1 MG/ML 1 ML SYRINGE IVP PRN ×5 (06:01→21:06)
--- NOTE | 2020-12-19 07:22 | P.GSHP ---
History of Present Illness H&P Date: 12/18/20 CHIEF COMPLAINT: Abdominal pain HISTORY OF PRESENT ILLNESS: The patient is a 69 year old female with pre- existing history of large bowel obstruction due to sigmoid volvuls who presents with increased abdominal distention including diffuse abdominal pain. She reports moderate to severe constipation. She has been taking laxatives daily without any output. She comes in extremely underweight BMI of less than 15. She reports intractable nausea and vomiting with attempt of eating food. Her appetite is suppressed. She reports minimal passage of flatus. She takes chronic pain meds. Due to the severe pain and worsening symptoms, patient has been admitted for abdominal pain with large bowel obstruction. PAST MEDICAL HISTORY: See list and reviewed PAST SURGICAL HISTORY: See list and reviewed MEDICATIONS: See list and reviewed ALLERGIES: See list and reviewed SOCIAL HISTORY: See list and reviewed FAMILY HISTORY: See list and reviewed REVIEW OF ORGAN SYSTEMS: CONSTITUTIONAL: No fevers or chills. Underweight EYES: Denies any trouble with vision. No glasses. HEENT: No difficulties with hearing. No nosebleeds. Has difficulty swallowing. RESPIRATORY: Has tobacco abuse disorder. CARDIOVASCULAR: History of palpitations. Recent cardiac risk assessment less than 1 month ago. GASTROINTESTINAL: Has severe constipation. No change in bowel habits. GENITOURINARY: History of valvular cancer. History of ovarian mass. NEUROLOGICAL: Denies any numbness or tingling along the distal extremities. No seizure disorders MUSCULOSKELETAL: Has back pain, stiffness or joint arthritis. Has chronic pain. SKIN: No current skin cancer. PSYCHIATRIC: Has depression. Has anxiety ENDOCRINE: Has hypothyroidism disorders. Denies any blood sugar glucose intolerance. HEME/LYMPHATIC: Denies any lumps and bumps around the neck. No recent deep venous thrombosis. Has thalassemia with anemia ALLERGY/IMMUNOLOGY: No immunoglobulin therapy. No immune deficiencies. BREAST: Denies current breast lumps, pain or nipple discharge. PHYSICAL EXAM: VITALS: Reviewed CONSTITUTIONAL: Well developed and in no acute distress. Cachectic. EYES: Conjuctivae without sclera icterus. Extraocular movements grossly intact. HEAD, EARS, NOSE, THROAT: Moist buccal mucosa. Head is atraumatic, n ormocephalic. Hears conversational speech. No nasal drainage. NECK: Supple. No JV distention. No thyroidomegaly. RESPIRATORY: Non-labored respirations and equal bilateral excursions. No gross wheezes. CARDIOVASCULAR: Regular rate and rhythm. Palpable 2+ radial pulses. ABDOMEN: Distended. Diffusely tender. No peritonitis. LYMPH: No neck lymphadenopathy. MUSCULOSKELETAL: Nail and fingers with good capillary refill. No clubbing cyanosis or edema SKIN: Warm and well perfused with good skin turgor. NEUROLOGIC: Cranial nerves II through XII grossly intact. Sensation upper and extremities intact. No focal or lateralizing signs. PSYCH: Appropriate affect. Alert and oriented to person, place and time. Displays appropriate insight. CLINCAL LABS: Reviewed. Hemoglobin less than 10.0 and recent preop labs. Sodium with hyponatremia 130 ASSESSMENT: 1. Diffuse abdominal pain 2. History of large bowel obstruction due to volvulus 3. Hyponatremia 4. Severe constipation 5. Anemia with thalassemia PLAN: 1. Recommend admission due to abdominal pain and large bowel obstruction 2. For anemia, iron panel ordered 3. Type and screen obtained 4. Cardiac risk assessment obtained 5. Recommend CT of abdomen and pelvis were worsening symptoms and large bowel obstruction 6. Medicine consultation for hyponatremia 7. May need enema pending results of computed tomography scan Past Medical History Past Medical History: Blood Disorder, Cancer, GERD/Reflux, Musculoskeletal Disorder, Osteoarthritis (OA), Thyroid Disorder Additional Past Medical History / Comment(s): Weight loss-unable to regain weight since thyroid removed, low BP, hiatal hernia, constipation, DDD in neck & spine, anemia, thalassemia, osteoporosis, thyroid cancer 2010. Cyst on kidney, and kidney stone. Lt ovarian mass. Hx of Cancer puneet vulva, recurrent. C/O abd pain, N/V, sl dysphagia. History of Any Multi-Drug Resistant Organisms: None Reported Past Surgical History: Appendectomy, Cholecystectomy, Hysterectomy, Tubal Ligation Additional Past Surgical History / Comment(s): THYROIDECTOMY, x2. EGD, Colonoscopy. Exc cancer vulva puneet side. Past Anesthesia/Blood Transfusion Reactions: No Reported Reaction Past Psychological History: No Psychological Hx Reported Smoking Status: Current every day smoker - Past Family History Father Sister(s) Family Medical History: Unable to Obtain Father Family Medical History: Blood Disorder, Cancer Additional Family Medical History / Comment(s): thalassemia Son(s) Family Medical History: Pulmonary Embolus Brother(s) Family Medical History: Blood Disorder, Cancer Additional Family Medical History / Comment(s): THALASSEMIA Daughter(s) Family Medical History: Blood Disorder Additional Family Medical History / Comment(s): THALASSEMIA Medications and Allergies Home Medications Medication Instructions Recorded Confirmed Type Levothyroxine Sodium [Synthroid] 50 mcg PO DAILY 11/26/13 12/18/20 History estradioL [Estradiol 0.025 MG 1 patch TOPICAL SUWE 08/02/15 12/18/20 History Patch] Omeprazole [PriLOSEC] 40 mg PO AC-BRKFST 09/12/15 12/18/20 History clonazePAM [KlonoPIN] 0.5 mg PO HS 05/29/18 12/18/20 History HYDROcodone/APAP 10-325MG [[place] 1 tab PO QID PRN 01/07/20 12/18/20 History 10-325] Ondansetron HCl [Zofran] 4 mg PO BID PRN 01/07/20 12/18/20 History Fluticasone Propionate [Flonase 2 spray EA NOSTRIL DAILY 12/18/20 12/18/20 History Allergy Relief] Allergies Allergy/AdvReac Type Severity Reaction Status Date / Time codeine Allergy Vomiting Verified 12/18/20 19:59 [From Tylenol-Codeine #3] tramadol Allergy Vomiting Verified 12/18/20 19:59 ibuprofen AdvReac Nausea & Verified 12/18/20 19:59 Vomiting Surgical - Exam Vital Signs Temp Pulse Resp BP Pulse Ox 98.0 F 67 18 109/64 98 12/18/20 17:14 12/18/20 17:14 12/18/20 17:14 12/18/20 17:14 12/18/20 17:14 Results - Labs 12/18/20 20:19 12/18/20 20:19 Assessment and Plan (1) Large bowel obstruction Current Visit: Yes Status: Acute Code(s): K56.609 - UNSP INTESTNL OBST, UNSP TO PARTIAL VERSUS COMPLETE OBST SNOMED Code(s): 773467861 (2) Anemia Current Visit: Yes Status: Acute Code(s): D64.9 - ANEMIA, UNSPECIFIED SNO MED Code(s): 390690821 (3) Thalassemia Current Visit: Yes Status: Acute Code(s): D56.9 - THALASSEMIA, UNSPECIFIED SNOMED Code(s): 16809540 (4) Constipation Current Visit: Yes Status: Acute Code(s): K59.00 - CONSTIPATION, UNSPECIFIED SNOMED Code(s): 58092112 (5) Generalized abdominal pain Current Visit: Yes Status: Acute Code(s): R10.84 - GENERALIZED ABDOMINAL PAIN SNOMED Code(s): 566929912 (6) Underweight Current Visit: Yes Status: Acute Code(s): R63.6 - UNDERWEIGHT SNOMED Code(s): 643147766 (7) Hyponatremia Current Visit: Yes Status: Acute Code(s): E87.1 - HYPO-OSMOLALITY AND HYPONATREMIA SNOMED Code(s): 19720166
[2020-12-19] MEDS: FLUTICASONE 50MCG/SPRAY NASAL 16GM EA NOSTRIL SCH (08:40)
[2020-12-19] MEDS ORDERED: PANTOPRAZOLE 40 MG/10 ML VIAL IV SCH (09:00)
--- NOTE | 2020-12-19 09:00 | CT ---
EXAMINATION TYPE: CT abdomen pelvis w con DATE OF EXAM: 12/19/2020 COMPARISON: 08/12/2015 HISTORY: Intermittent bowel obstruction, abdominal pain CT DLP: 385.2 mGycm CONTRAST: CT scan of the abdomen and pelvis is performed without Oral Contrast and with IV Contrast, patient in jected with 80 mL of Isovue 300. FINDINGS: LUNG BASES-: No visible nodule. No infiltrate. LIVER/GB: No calcified gallstones. No space occupying hepatic lesion. Biliary tree is of normal ca liber. PANCREAS: No inflammation. No distinct mass. SPLEEN: No splenic enlargement. No lesion seen. ADRENALS: No nodule. No thickening. KIDNEYS/BLADDER: No hydronephrosis. No nephrolithiasis. No distinct renal mass. Urinary bladder g rossly unremarkable. BOWEL: The appendix is surgically absent. Distended loops of jejunum measuring up to 2.[address] ileus. No evidence for small bowel greater than 3 cm. Moderate fecal stasis identified. GENITAL ORGANS: Atrophic uterus versus hysterectomy change. Left ovarian mass persists and is unchang ed and measures 3.5 cm versus 3.7 cm previously. Right ovarian cyst measures 2.2 cm. Consider pelvic ultrasound for further evaluation. LYMPH NODES: No greater than 1cm abdominal or pelvic lymph nodes are appreciated. AORTA: Dense atheromatous change of the abdominal aorta with the distal obstruction difficult to excl ude at the level of the aortic bifurcation. OSSEOUS STRUCTURES: No significant abnormality is seen. OTHER: Small amount of free fluid within the pelvis. IMPRESSION: 1. No evidence for small bowel obstruction. Distended small bowel as noted may reflect ileus of uncer tain etiology. 2. Moderate fecal stasis. 3. Ovarian lesions as discussed above. Consider pelvic ultrasound. 4.Dense atheromatous change of the abdominal aorta with the distal obstruction difficult to exclude a t the level of the aortic bifurcation.
[2020-12-19 14:15] VITALS: BMI 13.8
[2020-12-19 14:38] LABS: Basophils % (A) 1 %; Eosinophils # (A) 0.8 k/uL (0-0.7); Eosinophils % (A) 13 %; HCT 24.1 % (34.0-46.0); Hypochromasia Slight; Lymphocytes # (A) 1.3 k/uL (1.0-4.8); Lymphocytes % (A) 21 %; MCH 22.2 pg (25.0-35.0); MCHC 33.3 g/dL (31.0-37.0); MCV 66.9 fL (80.0-100.0); Mean Platelet Volume 6.9; Microcytosis Marked; Monocytes # (A) 0.3 k/uL (0-1.0); Monocytes % (A) 5 %; Neutrophils # (A) 3.6 k/uL (1.3-7.7); Neutrophils % (A) 59 %; Platelet Count 211 k/uL (150-450); RBC 3.61 m/uL (3.80-5.40); RDW 15.3 % (11.5-15.5)
--- NOTE | 2020-12-19 15:07 | P.PN ---
Subjective Progress Note Date: 12/19/20 CHIEF COMPLAINT: Abdominal pain HISTORY OF PRESENT ILLNESS: The patient is a 69 year old female with pre- existing history of large bowel obstruction due to sigmoid volvuls who presents with increased abdominal distention including diffuse abdominal pain. She reports moderate to severe constipation. She has been taking laxatives daily without any output. She comes in extremely underweight BMI of less than 15. Patient complaining of abdominal pain. She denies any flatus or BM. Denies any nausea or vomiting. She had computed tomography scan of the abdomen and pelvis showing no evidence for small bowel obstruction. Distended small bowel as noted may reflect ileus. Moderate fecal stasis. Ovarian lesions. Patient reports feeling hungry. She's afebrile. WBC 6.0 hemoglobin 8.0 platelets 211 PHYSICAL EXAM: VITAL SIGNS: Reviewed GENERAL: Well-developed in no acute distress. HEENT: No sclera icterus. Extraocular movements grossly intact. Moist buccal mucosa. Head is atraumatic, normocephalic. Hears conversational speech. No nasal drainage. NECK: Supple without lymphadenopathy. CHEST: Non-labored respirations and equal bilateral excursions. CARDIOVASCULAR: Palpable 2+ radial pulses. ABDOMEN: Soft. Mildly distended. Diffuse tenderness. MUSCULOSKELETAL: No clubbing or cyanosis. NEUROLOGIC: No focal or lateralizing signs. Cranial nerves II through XII grossly intact. PSYCH: Appropriate affect. Alert and oriented to person, place and time. SKIN: Well perfused. Good skin turgor. ASSESSMENT: 1. Diffuse abdominal pain likely secondary to constipation and fecal stasis 2. History of large bowel obstruction due to volvulus 3. Hyponatremia 4. Severe constipation 5. Anemia with thalassemia PLAN: -Start patient on lactulose 30 g by mouth daily -Start simethicone drops 4 times a day -Start patient on high protein diet -Continue pain medication as needed -Medicine for management of hyponatremia Physician Brewery Representative note has been reviewed by physician. Signing provider agrees with the documented findings, assessment, and plan of care. Objective - Vital Signs Vital signs: Vital Signs Temp 97.8 F 12/19/20 14:00 Pulse 62 12/19/20 14:00 Resp 19 12/19/20 14:00 BP 125/56 12/19/20 14:00 Pulse Ox 96 12/19/20 14:00 Intake & Output 12/18/20 12/19/2021 18:59 06:59 18:59 Intake Total 1040 Balance 1040 Weight 35.38 kg 35.38 kg 35.38 kg Intake: Intake, IV Titration 1040 Amount Sodium Chloride 0.9% 1, 1040 000 ml @ 130 mls/hr IV . Q7H42M [facility] Rx#:[id number] Other: # Voids 2 - Labs CBC & Chem 7: 12/19/20 13:49 12/18/20 20:19 Labs: Abnormal Lab Results - Last 24 Hours (Table) 12/18/20 12/18/20 12/19/20 Range/Units 20:19 20:19 13:49 RBC 3.61 L (3.80-5.40) m/uL Hgb 8.6 L 8.0 L (11.4-16.0) gm/dL Hct 25.8 L 24.1 L (34.0-46.0) % MCV 65.1 L 66.9 L (80.0-100.0) fL MCH 21.7 L 22.2 L (25.0-35.0) pg Eosinophils # 1.3 H 0.8 H (0-0.7) k/uL Sodium 130 L (137-145) mmol/L Chloride 96 L (98-107) mmol/L BUN 20 H (7-17) mg/dL Alkaline Phosphatase 37 L (38-126) U/L
[2020-12-19 16:20] LABS: Ferritin 328.8 ng/mL (10.0-291.0)
[2020-12-19] MEDS: LACTULOSE 20 GM/30 ML CUP PO SCH (17:09)
[2020-12-19] MEDS: SIMETHICONE 40 MG/0.6 ML DROPS 2,000 MG/30 ML BOTTLE PO SCH ×3 (17:09→21:05)
--- NOTE | 2020-12-19 18:48 | P.CON ---
Consult Note - . Consult date: 12/19/20 Assessment/Plan:: Medical consult-Medical management for hyponatremia HPI- 69-year-old female admitted to the hospital with severe abdominal pain with associated constipation for acute on chronic duration. Patient has significant medical history of pre-existing history of large bowel obstruction due to the sigmoid volvulus. Upon exam this morning, patient complaint of abdominal pain, unable to have a bowel movement. Patient denies fever, chills, shortness of breath, chest pain, palpitations, nausea or diarrhea. Patient continues to endorse abdominal discomfort with constipation. PHYSICAL EXAM: GENERAL: Malnourished, cooperative, and no acute signs of stress HEENT: PERRLA, EOMI, and mucous membranes moist Head is atraumatic, normocephalic. NECK: Supple CHEST:Even and not and unlabored respirations clear auscultation anterior and posterior CARDIOVASCULAR: Palpable 2+ radial pulses. ABDOMEN: Mildly distended. Diffuse tenderness. MUSCULOSKELETAL: Strength 5 out of 5 and all extremities. NEUROLOGIC: No focal deficits Cranial nerves II through XII grossly intact. PSYCH: Appropriate affect. Alert and oriented to person, place and time. SKIN: Skin intact, good turgor, and well perfused Assessment: abdominal pain, ileus constipation blood disorder cancer Gerd osteoarthritis hypothyroidism anemia, thalassemia history of thyroidectomy, from thyroid CA current everyday smoker full code Plan: Hyponatremia, normal saline 75 ML's in our will trend with a.m. labs continue to monitor vitals and diagnostic testing further recommendations to come based on patient's clinical condition thank you for the consult will continue to follow
[2020-12-20] MEDS: clonazePAM 0.5 MG TAB PO PRN (00:03)
[2020-12-20] MEDS: SODIUM CHLORIDE 0.9% 1,000 ML IV SCH (00:52)
[2020-12-20] MEDS: LEVOTHYROXINE 50 MCG TAB PO SCH (06:32)
[2020-12-20] MEDS ORDERED: SODIUM CHLORIDE 0.9% 1,000 ML IV SCH (07:00)
--- NOTE | 2020-12-20 07:18 | XR ---
EXAMINATION TYPE: XR chest 1V portable DATE OF EXAM: 12/20/2020 COMPARISON: 02/26/2018 HISTORY: Short of breath TECHNIQUE: Single frontal view of the chest is obtained. FINDINGS: The lungs are hyperinflated with prominence of the interstitium which appears similar to the prior ex amination. Cardiac silhouette is not enlarged. IMPRESSION: No acute process.
[2020-12-20 07:22] LABS: HCT 23.8 % (34.0-46.0); HGB 7.5 gm/dL (11.4-16.0); Hypochromasia Moderate; MCH 21.4 pg (25.0-35.0); MCHC 31.4 g/dL (31.0-37.0); MCV 68.4 fL (80.0-100.0); Mean Platelet Volume 6.8; Microcytosis Marked; Platelet Count 216 k/uL (150-450); RBC 3.48 m/uL (3.80-5.40); RDW 15.6 % (11.5-15.5); WBC 6.1 k/uL (3.8-10.6)
[2020-12-20] MEDS: HYDROmorphone 1 MG/ML 1 ML SYRINGE IVP PRN ×5 (08:05→22:43)
[2020-12-20] MEDS: LACTULOSE 20 GM/30 ML CUP PO SCH (08:06)
[2020-12-20] MEDS: LORATADINE 10 MG TAB PO SCH (08:06)
[2020-12-20] MEDS: PANTOPRAZOLE 40 MG TABLET PO SCH (08:06)
[2020-12-20 08:07] LABS: ALT 25 U/L (4-34); AST 40 U/L (14-36); African American GFR (CKD) >90 (>60 ml/min/1.73 sqM); Albumin/Globulin Ratio 1.1; Alkaline Phosphatase 62 U/L (38-126); Anion Gap 4 mmol/L; Blood Urea Nitrogen 7 mg/dL (7-17); Calcium 8.2 mg/dL (8.4-10.2); Carbon Dioxide 22 mmol/L (22-30); Chloride 108 mmol/L (98-107); Globulin 2.7 g/dL; Glucose 82 mg/dL (74-99); Magnesium 1.7 mg/dL (1.6-2.3); Non-African American GFR(CKD) >90 (>60 ml/min/1.73 sqM); Potassium 4.3 mmol/L (3.5-5.1); Sodium 134 mmol/L (137-145); Total Bilirubin 0.4 mg/dL (0.2-1.3); Total Protein 5.7 g/dL (6.3-8.2)
[2020-12-20] MEDS: FLUTICASONE 50MCG/SPRAY NASAL 16GM EA NOSTRIL SCH (08:08)
[2020-12-20] MEDS: SIMETHICONE 40 MG/0.6 ML DROPS 2,000 MG/30 ML BOTTLE PO SCH ×4 (08:08→20:29)
[2020-12-20] MEDS: IPRATROPIUM-ALBUTEROL 3 ML NEB INHALATION SCH ×4 (08:10→20:03)
[2020-12-20 09:00] LABS: C Reactive Protein 1.8 mg/dL (<1.0)
[2020-12-20] MEDS ORDERED: FUROSEMIDE 10 MG/ML 2 ML VIAL IV ONE (09:00)
[2020-12-20] MEDS: LACTATED RINGERS 1,000 ML IV SCH (12:22)
--- NOTE | 2020-12-20 13:01 | P.PN ---
Subjective Progress Note Date: 12/20/20 CHIEF COMPLAINT: Abdominal pain HISTORY OF PRESENT ILLNESS: The patient is a 69 year old female with pre- existing history of large bowel obstruction due to sigmoid volvuls who presents with increased abdominal distention including diffuse abdominal pain. Patient reports having a small loose bowel movement and flatus. She denies any nausea or vomiting. She still complaining of abdominal pain. Her pain is controlled. She had some shortness of breath over the night. Chest x-ray has shown concerns for possible fluid overload and atelectasis. Patient did receive a dose of IV Lasix and fluids were decreased per medicine service. They also had a DuoNeb updrafts. She is on 2 L of oxygen satting at 92%. She also reports some nausea. She had decrease in appetite this morning. However, later in the morning she requested food. She is on a regular diet. Afebrile. WBC 6.1 hemoglobin 7.5 platelets 216 sodium 134 magnesium 1.7 CRE1.8 PHYSICAL EXAM: VITAL SIGNS: Reviewed GENERAL: Well-developed in no acute distress. HEENT: No sclera icterus. Extraocular movements grossly intact. Moist buccal mucosa. Head is atraumatic, normocephalic. Hears conversational speech. No nasal drainage. NECK: Supple without lymphadenopathy. CHEST: Non-labored respirations and equal bilateral excursions. CARDIOVASCULAR: Palpable 2+ radial pulses. ABDOMEN: Soft. Mildly distended. Diffuse tenderness. MUSCULOSKELETAL: No clubbing or cyanosis. NEUROLOGIC: No focal or lateralizing signs. Cranial nerves II through XII grossly intact. PSYCH: Appropriate affect. Alert and oriented to person, place and time. SKIN: Well perfused. Good skin turgor. ASSESSMENT: 1. Diffuse abdominal pain likely secondary to constipation and fecal stasis, possible ileus 2. History of large bowel obstruction due to volvulus 3. Hyponatremia 4. Severe constipation 5. Anemia with thalassemia PLAN: -Continue lactulose 30 g by mouth daily -Continue simethicone drops 4 times a day -Continue high protein diet -Continue pain medication as needed -Medicine for management of hyponatremia -Further recommendations forthcoming for surgeon Physician Cracking Still Operator note has been reviewed by physician. Signing provider agrees with the documented findings, assessment, and plan of care. Objective - Vital Signs Vital signs: Vital Signs Temp 97.6 F 12/20/20 07:42 Pulse 91 12/20/20 08:21 Resp 20 12/20/20 08:00 BP 163/67 12/20/20 07:42 Pulse Ox 92 L 12/20/20 07:42 Intake & Output 12/19/20 12/20/20 12/20/20 18:59 06:59 18:59 Intake Total 950 Output Total 1350 Balance 950 -1350 Weight 35.38 kg Intake: Intake, IV Titration 600 Amount Sodium Chloride 0.9% 1, 600 000 ml @ 130 mls/hr IV . Q7H42M [facility] Rx#:[id number] Oral 350 Output: Urine 1350 Other: Voiding Method Toilet Toilet # Voids 3 2 # Bowel Movements 1 - Labs CBC & Chem 7: 12/20/20 06:02 12/20/20 06:02 Labs: Abnormal Lab Results - Last 24 Hours (Table) 12/18/20 12/19/20 12/20/20 Range/Units 20:19 13:49 06:02 RBC 3.61 L 3.48 L (3.80-5.40) m/uL Hgb 8.0 L 7.5 L (11.4-16.0) gm/dL Hct 24.1 L 23.8 L (34.0-46.0) % MCV 66.9 L 68.4 L (80.0-100.0) fL MCH 22.2 L 21.4 L (25.0-35.0) pg RDW 15.6 H (11.5-15.5) % Eosinophils # 0.8 H (0-0.7) k/uL Sodium (137-145) mmol/L Chloride (98-107) mmol/L Calcium (8.4-10.2) mg/dL Iron 43 L (50-170) ug/dL Ferritin 328.8 H (10.0-291.0) ng/mL AST (14-36) U/L C-Reactive Protein (<1.0) mg/dL Total Protein (6.3-8.2) g/dL Albumin (3.5-5.0) g/dL 12/20/20 Range/Units 06:02 RBC (3.80-5.40) m/uL Hgb (11.4-16.0) gm/dL Hct (34.0-46.0) % MCV (80.0-100.0) fL MCH (25.0-35.0) pg RDW (11.5-15.5) % Eosinophils # (0-0.7) k/uL Sodium 134 L (137-145) mmol/L Chloride 108 H (98-107) mmol/L Calcium 8.2 L (8.4-10.2) mg/dL Iron (50-170) ug/dL Ferritin (10.0-291.0) ng/mL AST 40 H (14-36) U/L C-Reactive Protein 1.8 H (<1.0) mg/dL Total Protein 5.7 L (6.3-8.2) g/dL Albumin 3.0 L (3.5-5.0) g/dL
--- NOTE | 2020-12-20 20:24 | P.CON ---
Consult Note - . Consult date: 12/20/20 Assessment/Plan:: Medical consult-Medical management for hyponatremia HPI- 69-year-old female admitted to the hospital with severe abdominal pain with associated constipation for acute on chronic duration. Patient has significant medical history of pre-existing history of large bowel obstruction due to the sigmoid volvulus. Upon evaluation this a.m., patient complaint of dyspnea at rest and exertion with mild to moderate increase in respirations, with associated chest discomfort and fatigue. PHYSICAL EXAM: GENERAL: Malnourished, cooperative, Mild distress noted HEENT: PERRLA, EOMI, and mucous membranes moist Head is atraumatic, normocephalic. NECK: Supple CHEST:Mild labored respirations, course rails throughout anterior and posterior lung christopher CARDIOVASCULAR: Palpable 2+ radial pulses. ABDOMEN: Mildly distended. Diffuse tenderness. MUSCULOSKELETAL: Strength 5 out of 5 and all extremities. NEUROLOGIC: No focal deficits Cranial nerves II through XII grossly intact. PSYCH: Appropriate affect. Alert and oriented to person, place and time. SKIN: Skin intact, Palin diaphoretic Assessment: Dyspnea, possible fluid overload abdominal pain, ileus constipation blood disorder cancer Gerd osteoarthritis hypothyroidism anemia, thalassemia history of thyroidectomy, from thyroid CA current everyday smoker full code Plan: Hyponatremia, Resolving dyspnea hospital fluid overload, reduce IV hydration to 50 ML's/hr, one-time dos e of Lasix 20 mg IV push Repeat a.m. labs, And chest x-ray continue to monitor vitals and diagnostic testing further recommendations to come based on patient's clinical condition thank you for the consult will continue to follow
[2020-12-21] MEDS: clonazePAM 0.5 MG TAB PO PRN (01:13)
[2020-12-21] MEDS: LEVOTHYROXINE 50 MCG TAB PO SCH (05:34)
[2020-12-21 06:02] LABS: Basophils % (A) 1 %; Eosinophils # (A) 0.8 k/uL (0-0.7); Eosinophils % (A) 13 %; HCT 22.8 % (34.0-46.0); HGB 7.5 gm/dL (11.4-16.0); Lymphocytes # (A) 1.3 k/uL (1.0-4.8); Lymphocytes % (A) 21 %; MCH 21.6 pg (25.0-35.0); MCHC 33.1 g/dL (31.0-37.0); MCV 65.2 fL (80.0-100.0); Mean Platelet Volume 6.5; Microcytosis Marked; Monocytes # (A) 0.4 k/uL (0-1.0); Monocytes % (A) 6 %; Neutrophils # (A) 3.6 k/uL (1.3-7.7); Neutrophils % (A) 58 %; Platelet Count 221 k/uL (150-450); Poikilocytosis Slight; RBC 3.49 m/uL (3.80-5.40); RDW 15.8 % (11.5-15.5); WBC 6.2 k/uL (3.8-10.6)
[2020-12-21 06:17] LABS: ALT 19 U/L (4-34); AST 29 U/L (14-36); African American GFR (CKD) >90 (>60 ml/min/1.73 sqM); Albumin/Globulin Ratio 1.2; Alkaline Phosphatase 53 U/L (38-126); Anion Gap 5 mmol/L; Blood Urea Nitrogen 5 mg/dL (7-17); Calcium 8.5 mg/dL (8.4-10.2); Carbon Dioxide 25 mmol/L (22-30); Chloride 105 mmol/L (98-107); Globulin 2.6 g/dL; Glucose 81 mg/dL (74-99); Magnesium 1.6 mg/dL (1.6-2.3); Non-African American GFR(CKD) >90 (>60 ml/min/1.73 sqM); Potassium 3.6 mmol/L (3.5-5.1); Sodium 135 mmol/L (137-145); Total Bilirubin 0.6 mg/dL (0.2-1.3); Total Protein 5.6 g/dL (6.3-8.2)
[2020-12-21] MEDS: HYDROmorphone 1 MG/ML 1 ML SYRINGE IVP PRN ×5 (06:17→20:59)
[2020-12-21] MEDS: FLUTICASONE 50MCG/SPRAY NASAL 16GM EA NOSTRIL SCH (07:42)
[2020-12-21] MEDS: SIMETHICONE 40 MG/0.6 ML DROPS 2,000 MG/30 ML BOTTLE PO SCH ×4 (07:45→21:01)
[2020-12-21] MEDS: LORATADINE 10 MG TAB PO SCH (07:45)
[2020-12-21] MEDS: PANTOPRAZOLE 40 MG TABLET PO SCH (07:45)
[2020-12-21] MEDS: IPRATROPIUM-ALBUTEROL 3 ML NEB INHALATION SCH ×4 (08:05→20:57)
--- NOTE | 2020-12-21 08:19 | XR ---
EXAMINATION TYPE: XR chest 2V DATE OF EXAM: 12/21/2020 COMPARISON: Chest x-ray 12/20/2020, CT 08/07/2018 HISTORY: Shortness of breath TECHNIQUE: Frontal and lateral views of the chest are obtained. FINDINGS: There is no significant interval change. Cardiac mediastinal silhouette shows a similar ap pearance. Interstitium is increased. There is blunting the right costophrenic angle. No evident pneum othorax. Aorta is dense. There are overlying artifacts, suspect an underlying pectus deformity. There is underlying emphysema. IMPRESSION: Correlate for pulmonary venous hypertension and interstitial edema in a patient with pre -existing COPD.
[2020-12-21 08:46] LABS: Anabasine Urine <2.0 ng/mL (<2.0)
[2020-12-21] MEDS: guaiFENesin-DM 600/30MG 1 EACH TAB.ER.12H PO SCH ×2 (10:52→21:01)
[2020-12-21] MEDS: LACTULOSE 20 GM/30 ML CUP PO SCH (10:52)
[2020-12-21] MEDS ORDERED: LIDOCAINE 1% INJ 10MG/ML (20 ML MDV) ONE (12:42)
[2020-12-21] MEDS ORDERED: PROPOFOL 10 MG/ML 20 ML VIAL IV ONE (12:42)
[2020-12-21] MEDS ORDERED: IV FLUID CONTINUATION 1,000 ML IV ONE (12:53)
--- NOTE | 2020-12-21 12:59 | P.PCN ---
Date of Procedure: 12/21/20 Description of Procedure: PREOPERATIVE DIAGNOSIS: Gastrointestinal bleeding Anemia POSTOPERATIVE DIAGNOSIS: Diaphragmatic hiatal hernia Anemia OPERATION: Esophagogastroduodenoscopy SURGEON: Elvia Jeff MD ANESTHESIA: MAC. INDICATIONS: The patient is a 69-year-old female who presents with anemia with acute drop of hemoglobin from 9.6-7.6. Benefits and risks of the procedure were described. Informed consent was obtained. DESCRIPTION: The patient was brought into the endoscopy suite and laid in the left lateral decubitus position. An Olympus gastroscope was passed along the posterior oropharynx down to the distal esophagus where the squamocolumnar junction was encountered at 40 cm from the incisors. The stomach was entered and bile reflux was found. Additional findings are listed below. The first through third portion of the duodenum was examined and unremarkable. Retroflexion of the scope confirmed Hill grade 2 lower esophageal valve. The squamocolumnar junction demonstrated LA grade A erosive esophagitis. The stomach was desufflated. The patient tolerated the procedure well. FINDINGS: Squamocolumnar junction 39 cm from the incisors. Diaphragmatic hiatus at 40 cm. Hiatal hernia, 1 cm Hill grade 3 lower esophageal valve. LA grade A erosive esophagitis. No active duodenitis. Chronic gastritis RECOMMENDATIONS: Upper endoscopy as needed.
[2020-12-21] MEDS ORDERED: HEPARIN SODIUM,PORCINE/PF 5,000 UNIT/0.5 ML SYRINGE SQ STA (13:01)
[2020-12-21] MEDS ORDERED: Antibiotics per Pharmacy 1 EACH MISC MISCELLANE PRN (13:01)
--- NOTE | 2020-12-21 13:05 | P.CON ---
Consult Note - . Consult date: 12/21/20 Assessment/Plan:: Medical consult-Medical management for hyponatremia HPI- 69-year-old female admitted to the hospital with severe abdominal pain with associated constipation for acute on chronic duration. Patient has significant medical history of pre-existing history of large bowel obstruction due to the sigmoid volvulus. Upon evaluation this a.m., patient complaint Resting comfortably in bed, continues to require 2 L of oxygen nasal cannula to keep oxygen saturation's greater than 92%, chest x-rays are consistent with mild fluid overload and hyperinflation consistent with COPD; will continue Breathing treatments [id number], and continue to monitor fluid status. PHYSICAL EXAM: GENERAL: Malnourished, cooperative, Mild distress noted HEENT: PERRLA, EOMI, and mucous membranes moist Head is atraumatic, normocephalic. NECK: Supple CHEST:Even and unlabored respirations, diminished throughout anterior and posterior lung christopher CARDIOVASCULAR: Palpable 2+ radial pulses. ABDOMEN: Mildly distended. Diffuse tenderness. MUSCULOSKELETAL: Strength 5 out of 5 and all extremities. NEUROLOGIC: No focal deficits Cranial nerves II through XII grossly intact. PSYCH: Appropriate affect. Alert and oriented to person, place and time. SKIN: Skin intact, Normal perfusion noted Assessment: Dyspnea, possible fluid overload, Resolving abdominal pain, ileus constipation blood disorder cancer Gerd osteoarthritis hypothyroidism anemia, thalassemia history of thyroidectomy, from thyroid CA current everyday smoker full code Plan: Hyponatremia, Resolving dyspnea hospital fluid overload, Resolving with one-time dose of Lasix and disco ntinue isotonic IV fluids Possible COPD, continue [id number] breathing treatments Consistent anemia with a hemoglobin of 7.5, hyponatremia resolving. continue to monitor vitals and diagnostic testing further recommendations to come based on patient's clinical condition thank you for the consult will continue to follow
[2020-12-21 13:59] LABS: Glucose,Whole Blood 55 mg/dL (75-99)
[2020-12-21] MEDS ORDERED: DEXTROSE 50% SYRINGE 50 ML IVP ONE ×2 (13:59→14:14)
[2020-12-21 14:13] LABS: Glucose,Whole Blood 54 mg/dL (75-99)
[2020-12-21] MEDS ORDERED: LIDOCAINE 1% (10MG/ML) FOR IV START INTRADERMA PRN (14:15)
--- NOTE | 2020-12-21 14:20 | P.CNPUL ---
History of Present Illness Consult date: 12/21/20 History of present illness: This is a 69-year-old white female patient of Dr. Rose with history of large bowel obstruction due to volvulus, severe constipation, chronic anemia with thalassemia, chronic cholecystitis with history of lap cholecystectomy, chronic every day smoker, history of thyroid cancer with surgical removal on Synthroid, history of vulvar cancer. Patient came into the emergency department on 12/18/2020 for evaluation of increased abdominal distention, and diffuse abdominal pain. She reported moderate to severe constipation, she has been taking laxatives daily without any outputs. Patient reported intractable nausea and vomiting, poor appetite. Patient takes medications for chronic pain. KUB X-ray CT of the abdomen and pelvis showed no evidence for small bowel obstruction with the possibility of ileus of uncertain etiology, moderate fecal stasis, and left ovarian mass persistence and this was compared the most previous CT of the abdomen and pelvis from 08/12/2015. Patient reported increased shortness of breath related to abdominal distention, pain, and nausea and vomiting. She carries over 50 years of smoking history, currently smoking half a pack a day. She denies a previous diagnosis of COPD, not on any maintenance inhalers on a regular basis. Never seen a denial resolution specialist before. Patient underwent EGD today in view of an acute drop in hemoglobin from 9.6-7.6 from 12/12/2020 to 12/20/2020. Patient was found to have LA grade A erosive esophagitis, no active duodenitis, hiatal hernia, chronic gastritis. Patient reports being more short of breath today, and increased coughing. Her cough is congested, lung sounds reveal a few mild rhonchi, she is on 2 L of oxygen her pulse ox is 96-97%. She is awake and alert, in no acute distress, resting comfortably in bed, follow-up chest x-ray shows pulmonary venous hypertension, interstitial edema, and tiny right pleural effusion. No fever, patient is receiving, she was given 1 dose of IV Lasix yesterday, she is receiving Mucinex DM, and breathing treatments. Review of Systems All systems: negative Constitutional: Denies chills, Denies fever Eyes: denies blurred vision, denies pain Ears, nose, mouth and throat: Denies headache, Denies sore throat Cardiovascular: Denies chest pain, Denies shortness of breath Respiratory: Reports cough, Reports dyspnea Gastrointestinal: Reports change in bowel habits, Reports constipation, Reports nausea, Reports vomiting, Denies abdominal pain, Denies diarrhea Genitourinary: Denies dysuria, Denies hematuria Musculoskeletal: Denies myalgias Integumentary: Denies pruritus, Denies rash Neurological: Denies numbness, Denies weakness Psychiatric: Denies anxiety, Denies depression Endocrine: Denies fatigue, Denies weight change Past Medical History Past Medical History: Blood Disorder, Cancer, GERD/Reflux, Musculoskeletal Disorder, Osteoarthritis (OA), Thyroid Disorder Additional Past Medical History / Comment(s): Weight loss-unable to regain weight since thyroid removed, low BP, hiatal hernia, constipation, DDD in neck & spine, anemia, thalassemia, osteoporosis, thyroid cancer 2010. Cyst on kidney, and kidney stone. Lt ovarian mass. Hx of Cancer puneet vulva, recurrent. C/O abd pain, N/V, sl dysphagia. History of Any Multi-Drug Resistant Organisms: None Reported Past Surgical History: Appendectomy, Cholecystectomy, Hysterectomy, Tubal Ligation Additional Past Surgical History / Comment(s): THYROIDECTOMY, x2. EGD, Colonoscopy. Exc cancer vulva puneet side. Past Anesthesia/Blood Transfusion Reactions: No Reported Reaction Past Psychological History: No Psychological Hx Reported Smoking Status: Current every day smoker - Past Family History Father Sister(s) Family Medical History: Unable to Obtain Father Family Medical History: Blood Disorder, Cancer Additional Family Medical History / Comment(s): thalassemia Son(s) Family Medical History: Pulmonary Embolus Brother(s) Family Medical History: Blood Disorder, Cancer Additional Family Medical History / Comment(s): THALASSEMIA Daughter(s) Family Medical History: Blood Disorder Additional Family Medical History / Comment(s): THALASSEMIA Medications and Allergies Home Medications Medication Instructions Recorded Confirmed Type Levothyroxine Sodium [Synthroid] 50 mcg PO DAILY 11/26/13 12/18/20 History estradioL [Estradiol 0.025 MG 1 patch TOPICAL SUWE 08/02/15 12/18/20 History Patch] Omeprazole [PriLOSEC] 40 mg PO AC-BRKFST 09/12/15 12/18/20 History clonazePAM [KlonoPIN] 0.5 mg PO HS 05/29/18 12/18/20 History HYDROcodone/APAP 10-325MG [[place] 1 tab PO QID PRN 01/07/20 12/18/20 History 10-325] Ondansetron HCl [Zofran] 4 mg PO BID PRN 01/07/20 12/18/20 History Fluticasone Propionate [Flonase 2 spray EA NOSTRIL DAILY 12/18/20 12/18/20 History Allergy Relief] Allergies Allergy/AdvReac Type Severity Reaction Status Date / Time codeine Allergy Vomiting Verified 12/18/20 19:59 [From Tylenol-Codeine #3] tramadol Allergy Vomiting Verified 12/18/20 19:59 ibuprofen AdvReac Nausea & Verified 12/18/20 19:59 Vomiting Physical Exam Vitals: Vital Signs Temp Pulse Pulse Resp BP Pulse Ox 12/21/20 11:38 68 12/21/20 11:29 67 12/21/20 08:19 78 12/21/20 08:09 79 12/21/20 08:00 100 16 12/21/20 07:15 97.8 F 100 16 160/81 97 12/21/20 01:11 98.3 F 82 16 128/84 96 12/20/20 20:14 78 12/20/20 20:03 84 12/20/20 19:00 97.8 F 66 15 142/56 95 12/20/20 16:55 85 12/20/20 16:42 88 12/20/20 14:05 83 12/20/20 14:00 98.4 F 69 18 125/65 99 12/20/20 13:49 60 Intake and Output 12/20/20 12/21/20 12/21/20 22:59 06:59 14:59 Intake Total 200 50 Output Total 1200 Balance -1000 50 Intake: IV 200 50 Sodium Chloride 0.9% 1, 200 000 ml @ 50 mls/hr IV . Q20H [facility] Rx#:[id number] Output: Urine 1200 Other: Voiding Method Toilet Toilet # Voids 4 GENERAL EXAM: Alert, very pleasant, cachectic-looking 69-year-old white female, resting comfortably in bed, on 2 L of oxygen her pulse ox is 97% comfortable in no apparent distress. Patient has cough that sounds congested, nonproductive HEAD: Normocephalic/atraumatic. EYES: Normal reaction of pupils, equal size. Conjunctiva pink, sclera white. NOSE: Clear with pink turbinates. THROAT: No erythema or exudates. NECK: No masses, no JVD, no thyroid enlargement, no adenopathy. CHEST: No chest wall deformity. Symmetrical expansion. LUNGS: Equal air entry with diffuse rhonchi, but equal air entry noted bilaterally CVS: Regular rate and rhythm, normal S1 and S2, no gallops, no murmurs, no rubs ABDOMEN: Soft, nontender. No hepatosplenomegaly, normal bowel sounds, no guarding or rigidity. EXTREMITIES: No clubbing, no edema, no cyanosis, 2+ pulses and upper and lower extremities. MUSCULOSKELETAL: Muscle strength and tone normal. SPINE: No scoliosis or deformity SKIN: No rashes CENTRAL NERVOUS SYSTEM: Alert and oriented -3. No focal deficits, tone is normal in all 4 extremities. PSYCHIATRIC: Alert and oriented -3. Appropriate affect. Intact judgment and insight. Results - Laboratory Findings CBC and BMP: 12/21/20 04:58 12/21/20 04:58 PT/INR, D-dimer PT 9.9 sec (9.0-12.0) 12/18/20 20:50 INR 0.9 (<1.2) 12/18/20 20:50 Abnormal lab findings: Abnormal Labs 12/18/20 12/18/20 12/18/20 20:19 20:19 20:19 RBC Hgb 8.6 L Hct 25.8 L MCV 65.1 L MCH 21.7 L RDW Eosinophils # 1.3 H Sodium 130 L Chloride 96 L BUN 20 H Creatinine Calcium Iron 43 L Ferritin 328.8 H AST Alkaline Phosphatase 37 L C-Reactive Protein Total Protein Albumin Urine Cotinine Urine Nicotine 12/19/20 12/19/20 12/20/20 13:15 13:49 06:02 RBC 3.61 L 3.48 L Hgb 8.0 L 7.5 L Hct 24.1 L 23.8 L MCV 66.9 L 68.4 L MCH 22.2 L 21.4 L RDW 15.6 H Eosinophils # 0.8 H Sodium Chloride BUN Creatinine Calcium Iron Ferritin AST Alkaline Phosphatase C-Reactive Protein Total Protein Albumin Urine Cotinine 355.4 H Urine Nicotine 14.2 H 12/20/20 12/21/20 12/21/20 06:02 04:58 04:58 RBC 3.49 L Hgb 7.5 L Hct 22.8 L MCV 65.2 L MCH 21.6 L RDW 15.8 H Eosinophils # 0.8 H Sodium 134 L 135 L Chloride 108 H BUN 5 L Creatinine 0.49 L Calcium 8.2 L Iron Ferritin AST 40 H Alkaline Phosphatase C-Reactive Protein 1.8 H Total Protein 5.7 L 5.6 L Albumin 3.0 L 3.0 L Urine Cotinine Urine Nicotine - Diagnostic Findings Chest x-ray: report reviewed, image reviewed Additional studies: CT of the abdomen and pelvis reviewed, EKG reviewed Assessment and Plan Plan: Assessment: #1. Shortness of breath, related to acute exacerbation of COPD, and mild fluid overload #2. Nausea, vomiting, abdominal distention and abdominal pain secondary to constipation and fecal stasis, and possible ileus #3. History of large bowel obstruction due to volvulus #4. Severe constipation #5. Suspect underlying COPD, the severity which is unknown #6. [id number] smoking history, chronic and ongoing, currently down to half a pack a day #7. Chronic anemia with thalassemia #8. Hypothyroidism #9. History of thyroid cancer with surgical removal, on thyroid hormone replacement therapy #10. Osteoporosis #11. History of left ovarian mass, actually appears to be slightly smaller on the CT of the abdomen and pelvis from this admission #12. History of recurrent vulvar cancer #13. Chronic pancreatitis status post laparoscopic cholecystectomy Plan: Continue breathing treatments Continue Mucinex Patient has a slightly congestive cough, no significant wheezing No need for steroids right now Patient has been diuresed We'll continue to follow I performed a history & physical examination of the patient and discussed their management with my nurse practitioner, Navya Puente. I reviewed the nurse practitioner's note and agree with the documented findings and plan of care. Lung sounds are positive for diffuse rhonchi throughout the lung christopher. The findings and the impression was discussed with the patient. I attest to the documentation by the nurse practitioner. Time with Patient: Greater than 30
[2020-12-21] MEDS ORDERED: IPRATROPIUM-ALBUTEROL 3 ML NEB INHALATION PRN (14:27)
[2020-12-21 14:33] LABS: Glucose,Whole Blood 164 mg/dL (75-99)
[2020-12-21] MEDS ORDERED: NA PHOS,M-B/NA PHOS,DI-BA 133 ML ENEMA RECTAL ONE (15:06)
[2020-12-21] MEDS: LACTATED RINGERS 1,000 ML IV SCH ×2 (15:55)
[2020-12-21] MEDS: NEOMYCIN 500 MG TAB PO SCH ×2 (15:55→21:57)
[2020-12-21] MEDS: metroNIDAZOLE 500 MG TAB PO SCH ×2 (16:01→21:57)
[2020-12-21] MEDS ORDERED: clonazePAM 0.5 MG TAB PO PRN (17:25)
[2020-12-21] MEDS ORDERED: SUPREP BOWEL PREP PO ONE (18:00)
[2020-12-21] MEDS ORDERED: TEMAZEPAM 15 MG CAP PO ONE (21:00)
[2020-12-21] MEDS ORDERED: NON FORMULARY DRUG PO ONE (22:00)
[2020-12-22] MEDS: HYDROmorphone 1 MG/ML 1 ML SYRINGE IVP PRN ×7 (00:07→22:44)
[2020-12-22] MEDS ORDERED: HEPARIN SODIUM,PORCINE/PF 5,000 UNIT/0.5 ML SYRINGE SQ PRN (05:00)
[2020-12-22] MEDS ORDERED: metroNIDAZOLE-NS PMX 500 MG in SALINE 1 100ML.BAG IVPB PRN (05:00)
[2020-12-22] MEDS: LEVOTHYROXINE 50 MCG TAB PO SCH (05:30)
[2020-12-22] MEDS ORDERED: ACETAMINOPHEN TAB 500 MG TAB PO PRN (07:00)
[2020-12-22] MEDS ORDERED: ALVIMOPAN 12 MG CAPSULE PO PRN (07:00)
[2020-12-22 07:08] LABS: Anisocytosis Slight; Basophils % (A) 1 %; Eosinophils # (A) 0.9 k/uL (0-0.7); Eosinophils % (A) 17 %; HCT 22.6 % (34.0-46.0); HGB 7.2 gm/dL (11.4-16.0); Hypochromasia Slight; Lymphocytes # (A) 0.9 k/uL (1.0-4.8); Lymphocytes % (A) 17 %; MCH 21.3 pg (25.0-35.0); MCV 66.5 fL (80.0-100.0); Mean Platelet Volume 6.3; Microcytosis Marked; Monocytes # (A) 0.3 k/uL (0-1.0); Monocytes % (A) 6 %; Neutrophils # (A) 3.1 k/uL (1.3-7.7); Neutrophils % (A) 58 %; Platelet Count 213 k/uL (150-450); Poikilocytosis Slight; RDW 16.7 % (11.5-15.5); WBC 5.3 k/uL (3.8-10.6)
[2020-12-22] MEDS: LACTULOSE 20 GM/30 ML CUP PO SCH (07:17)
[2020-12-22] MEDS: PANTOPRAZOLE 40 MG TABLET PO SCH (07:18)
[2020-12-22] MEDS: LORATADINE 10 MG TAB PO SCH (07:18)
[2020-12-22] MEDS: guaiFENesin-DM 600/30MG 1 EACH TAB.ER.12H PO SCH ×2 (07:18→20:24)
[2020-12-22] MEDS: FLUTICASONE 50MCG/SPRAY NASAL 16GM EA NOSTRIL SCH (07:19)
[2020-12-22] MEDS: SIMETHICONE 40 MG/0.6 ML DROPS 2,000 MG/30 ML BOTTLE PO SCH ×4 (07:21→20:24)
[2020-12-22 07:25] LABS: ALT 18 U/L (4-34); AST 27 U/L (14-36); African American GFR (CKD) >90 (>60 ml/min/1.73 sqM); Albumin 3.1 g/dL (3.5-5.0); Albumin/Globulin Ratio 1.2; Alkaline Phosphatase 47 U/L (38-126); Anion Gap 8 mmol/L; Blood Urea Nitrogen 6 mg/dL (7-17); Calcium 8.5 mg/dL (8.4-10.2); Carbon Dioxide 25 mmol/L (22-30); Chloride 105 mmol/L (98-107); Globulin 2.6 g/dL; Glucose 126 mg/dL (74-99); Non-African American GFR(CKD) >90 (>60 ml/min/1.73 sqM); Potassium 3.1 mmol/L (3.5-5.1); Sodium 138 mmol/L (137-145); Total Bilirubin 0.5 mg/dL (0.2-1.3); Total Protein 5.7 g/dL (6.3-8.2)
[2020-12-22] MEDS: IPRATROPIUM-ALBUTEROL 3 ML NEB INHALATION SCH ×4 (07:44→20:43)
[2020-12-22] MEDS ORDERED: Potassium Replacement Protocol 1 EACH MISC MISCELLANE PRN (07:46)
[2020-12-22] MEDS ORDERED: POTASSIUM CHLORIDE ER 20 MEQ TAB.ER PO STA (07:54)
--- NOTE | 2020-12-22 07:57 | P.HPADDEND ---
H&P Addendum H&P Addendum Date: 12/22/20 Benefits and risks of sigmoid colectomy for into the involvement was described. Patient seen by multiple consultants. Will proceed with robotic sigmoid colectomy
[2020-12-22] MEDS: POTASSIUM CHLORIDE 10 MEQ in WATER FOR INJECTION 1 100ML.BAG IVPB SCH ×6 (08:46→16:49)
--- NOTE | 2020-12-22 08:51 | XR ---
EXAMINATION TYPE: XR chest 2V DATE OF EXAM: 12/22/2020 COMPARISON: Chest x-ray 12/21/2020 HISTORY: Shortness of breath TECHNIQUE: Frontal and lateral views of the chest are obtained. FINDINGS: Blunting the costophrenic angles is noted. Cardiac mediastinal silhouette is stable. There is no evident pneumothorax. Interstitium is increased. Prominent lung volumes are consistent with un derlying COPD. IMPRESSION: Correlate for possible pulmonary venous hypertension and interstitial edema, pleural eff usions in a patient with pre-existing COPD.
[2020-12-22] MEDS ORDERED: IV FLUID CONTINUATION 100 ML IV ONE (11:25)
[2020-12-22] MEDS ORDERED: IV FLUID CONTINUATION 1,000 ML IV ONE (11:25)
[2020-12-22] MEDS ORDERED: LIDOCAINE 1% (10MG/ML) FOR IV START INTRADERMA ONE (11:55)
--- NOTE | 2020-12-22 12:14 | P.PN ---
Subjective Progress Note Date: 12/22/20 Principal diagnosis: Exacerbation of COPD, nausea vomiting, abdominal distention, constipation or fecal status This is a 69-year-old white female patient of Dr. Rose with history of large bowel obstruction due to volvulus, severe constipation, chronic anemia with thalassemia, chronic cholecystitis with history of lap cholecystectomy, chronic every day smoker, history of thyroid cancer with surgical removal on Synthroid, history of vulvar cancer. Patient came into the emergency department on 12/18/2020 for evaluation of increased abdominal distention, and diffuse abdominal pain. She reported moderate to severe constipation, she has been taking laxatives daily without any outputs. Patient reported intractable nausea and vomiting, poor appetite. Patient takes medications for chronic pain. KUB X-ray CT of the abdomen and pelvis showed no evidence for small bowel ob struction with the possibility of ileus of uncertain etiology, moderate fecal stasis, and left ovarian mass persistence and this was compared the most previous CT of the abdomen and pelvis from 08/12/2015. Patient reported increased shortness of breath related to abdominal distention, pain, and nausea and vomiting. She carries over 50 years of smoking history, currently smoking half a pack a day. She denies a previous diagnosis of COPD, not on any maintenance inhalers on a regular basis. Never seen a healthcare science specialist before. Patient underwent EGD today in view of an acute drop in hemoglobin from 9.6-7.6 from 12/12/2020 to 12/20/2020. Patient was found to have LA grade A erosive esophagitis, no active duodenitis, hiatal hernia, chronic gastritis. Patient reports being more short of breath today, and increased coughing. Her cough is congested, lung sounds reveal a few mild rhonchi, she is on 2 L of oxygen her pulse ox is 96-97%. She is awake and alert, in no acute distress, resting comfortably in bed, follow-up chest x-ray shows pulmonary venous hypertension, interstitial edema, and tiny right pleural effusion. No fever, patient is receiving, she was given 1 dose of IV Lasix yesterday, she is receiving Mucinex DM, and breathing treatments. On 12/22/2020 patient seen in follow-up on medical surgical floor. She states her breathing has improved, she is breathing comfortably, she is on 2-3/2 L of oxygen her pulse ox of 94%, she is afebrile, hemodynamics stable, no worsening coughing or wheezing. No complaints of chest discomfort. Follow-up chest x-ray today shows possible pulmonary venous hypertension and interstitial edema, small pleural effusions. However patient is breathing comfortably, she remains on nebulized bronchodilators, she was given a dose of Lasix the day before yesterday. We did not think she needed any steroids at this time. She remains on antibiotics in the form of cefazolin and Flagyl. She remains on lactulose for fecal stasis, constipation. Surgery is following, and patient is scheduled for sigmoid colectomy for sigmoid volvulus today. Today's labs have been reviewed, her white blood cell count is 5.3, hemoglobin is 7.2, potassium is 3.1 this was replaced per protocol, the rest of electrolytes are within normal limits, BUN is 6 creatinine 0.48 Objective - Vital Signs Vital signs: Vital Signs Temp 98.2 F 12/22/20 11:51 Pulse 68 12/22/20 11:51 Resp 16 12/22/20 11:51 BP 153/70 12/22/20 11:51 Pulse Ox 94 L 12/22/20 07:44 Intake & Output 12/21/20 12/22/20 12/22/20 18:59 06:59 18:59 Intake Total 50 Balance 50 Weight 35.38 kg 35.38 kg Intake: IV 50 Other: Voiding Method Toilet Toilet Toilet # Voids 2 3 # Bowel Movements 7 - Exam GENERAL EXAM: Alert, very pleasant, cachectic-looking 69-year-old white female, resting comfortably in bed, on 2 L of oxygen her pulse ox is 97% comfortable in no apparent distress. Patient has cough that sounds congested, nonproductive HEAD: Normocephalic/atraumatic. EYES: Normal reaction of pupils, equal size. Conjunctiva pink, sclera white. NOSE: Clear with pink turbinates. THROAT: No erythema or exudates. NECK: No masses, no JVD, no thyroid enlargement, no adenopathy. CHEST: No chest wall deformity. Symmetrical expansion. LUNGS: Equal air entry with diffuse rhonchi, but equal air entry noted bilateral ly CVS: Regular rate and rhythm, normal S1 and S2, no gallops, no murmurs, no rubs ABDOMEN: Soft, nontender. No hepatosplenomegaly, normal bowel sounds, no guarding or rigidity. EXTREMITIES: No clubbing, no edema, no cyanosis, 2+ pulses and upper and lower extremities. MUSCULOSKELETAL: Muscle strength and tone normal. SPINE: No scoliosis or deformity SKIN: No rashes CENTRAL NERVOUS SYSTEM: Alert and oriented -3. No focal deficits, tone is normal in all 4 extremities. PSYCHIATRIC: Alert and oriented -3. Appropriate affect. Intact judgment and insight. - Labs CBC & Chem 7: 12/22/20 06:46 12/22/20 06:46 Labs: Abnormal Lab Results - Last 24 Hours (Table) 12/21/20 12/21/20 12/21/20 Range/Units 13:55 14:12 14:30 RBC (3.80-5.40) m/uL Hgb (11.4-16.0) gm/dL Hct (34.0-46.0) % MCV (80.0-100.0) fL MCH (25.0-35.0) pg RDW (11.5-15.5) % Lymphocytes # (1.0-4.8) k/uL Eosinophils # (0-0.7) k/uL Potassium (3.5-5.1) mmol/L BUN (7-17) mg/dL Creatinine (0.52-1.04) mg/dL Glucose (74-99) mg/dL POC Glucose (mg/dL) 55 L 54 L 164 H (75-99) mg/dL Total Protein (6.3-8.2) g/dL Albumin (3.5-5.0) g/dL 12/22/20 12/22/20 Range/Units 06:46 06:46 RBC 3.40 L (3.80-5.40) m/uL Hgb 7.2 L (11.4-16.0) gm/dL Hct 22.6 L (34.0-46.0) % MCV 66.5 L (80.0-100.0) fL MCH 21.3 L (25.0-35.0) pg RDW 16.7 H (11.5-15.5) % Lymphocytes # 0.9 L (1.0-4.8) k/uL Eosinophils # 0.9 H (0-0.7) k/uL Potassium 3.1 L (3.5-5.1) mmol/L BUN 6 L (7-17) mg/dL Creatinine 0.48 L (0.52-1.04) mg/dL Glucose 126 H (74-99) mg/dL POC Glucose (mg/dL) (75-99) mg/dL Total Protein 5.7 L (6.3-8.2) g/dL Albumin 3.1 L (3.5-5.0) g/dL Microbiology - Last 24 Hours (Table) 12/20/20 07:59 Blood Culture - Preliminary Blood No Growth after 48 hours 12/20/20 07:54 Blood Culture - Preliminary Blood No Growth after 48 hours Assessment and Plan Plan: Assessment: #1. Shortness of breath, related to acute exacerbation of COPD, and mild fluid overload. Received a dose of Lasix, patient is on nebulized bronchodilators, breathing has improved #2. Nausea, vomiting, abdominal distention and abdominal pain secondary to constipation and fecal stasis, and possible ileus #3. History of large bowel obstruction due to volvulus, patient is being scheduled for robotic-assisted sigmoid colectomy today on 12/22/2020 #4. Severe constipation #5. Suspect underlying COPD, the severity which is unknown #6. [id number] smoking history, chronic and ongoing, currently down to half a pack a day #7. Chronic anemia with thalassemia #8. Hypothyroidism #9. History of thyroid cancer with surgical removal, on thyroid hormone replacement therapy #10. Osteoporosis #11. History of left ovarian mass, actually appears to be slightly smaller on the CT of the abdomen and pelvis from this admission #12. History of recurrent vulvar cancer #13. Chronic pancreatitis status post laparoscopic cholecystectomy Plan: Breathing has improved, stable Continue nebulized bronchodilators Today's chest x-ray has been reviewed showing pulmonary venous congestion, small pleural effusions Patient is going to surgery sometime this afternoon Clinically her breathing has improved we'll hold on diuretics Provide incentive spirometer after surgery We'll continue to follow in the postoperative period I performed a history & physical examination of the patient and discussed their management with my nurse practitioner, Navya Puente. I reviewed the nurse practitioner's note and agree with the documented findings and plan of care. Lung sounds are positive for diffuse rhonchi throughout the lung christopher. The findings and the impression was discussed with the patient. I attest to the documentation by the nurse practitioner. Time with Patient: Less than 30
[2020-12-22] MEDS ORDERED: MIDAZOLAM 2 MG/2 ML VIAL IV ONE ×6 (12:19→12:20)
[2020-12-22] MEDS ORDERED: DEXAMETHASONE SOD PHOSPHATE 4 MG/ML 1 ML VIAL IV ONE (12:41)
[2020-12-22] MEDS ORDERED: ONDANSETRON 4 MG/2 ML VIAL IVP ONE (12:42)
[2020-12-22] MEDS ORDERED: LIDOCAINE 1% INJ 10MG/ML (20 ML MDV) ONE (13:45)
[2020-12-22] MEDS ORDERED: ROCURONIUM 10 MG/ML (5 ML VIAL) IV ONE (13:45)
[2020-12-22] MEDS ORDERED: SUCCINYLCHOLINE CHLORIDE 100 MG/5 ML SYR IV ONE (13:45)
[2020-12-22] MEDS ORDERED: PROPOFOL 10 MG/ML 20 ML VIAL IV ONE (13:45)
[2020-12-22] MEDS ORDERED: SUGAMMADEX SODIUM 500 MG/5 ML SDV IV ONE (13:45)
[2020-12-22] MEDS ORDERED: fentaNYL (PF) 50 MCG/ML 2 ML AMP ONE (13:45)
[2020-12-22] MEDS ORDERED: LIDOCAINE 1%-EPI 1:100,000 20 ML VIAL SQ ONE (13:50)
[2020-12-22] MEDS ORDERED: ROPIVACAINE 250 MG, HYDROMORPHONE (PF) 5 MG in SODIUM CHLORIDE 0.9% 200 ML EPIDURAL PRN (14:04)
[2020-12-22] MEDS ORDERED: NALOXONE 0.4 MG/ML 1 ML VIAL IV PRN (14:04)
--- NOTE | 2020-12-22 15:39 | P.OP ---
Date of Procedure: 12/22/20 Description of Procedure: SURGEON: BREE DUARTE MD PREOPERATIVE DIAGNOSES: 1. History of large bowel obstruction due to sigmoid volvulus 2. Chronic constipation 3. Chronic obstructive pulmonary disease 4. Tobacco abuse disorder 5. Underweight, BMI 13.8 6. Chronic pain syndrome with fibromyalgia 7. Anemia 8. Thalassemia 9. Hypothyroidism 10. Osteoporosis 11. History of vulvular cancer POSTOPERATIVE DIAGNOSES: 1. History of large bowel obstruction due to sigmoid volvulus 2. Chronic constipation 3. Chronic obstructive pulmonary disease, severe 4. Tobacco abuse disorder 5. Underweight, BMI 13.8 6. Chronic pain syndrome with fibromyalgia 7. Anemia 8. Thalassemia 9. Hypothyroidism 10. Osteoporosis 11. History of vulvular cancer 12. Peritoneal and pelvic adhesions 13. Ascites 14. Pulmonary congestion OPERATION: 1. Robotic-assisted daVinci Xi laparoscopic with sigmoid colectomy aborted for laparoscopic lysis of adhesions Anesthesia: GETA, epidural, local Estimated Blood Loss (ml): 1 Pathology: none sent Condition: stable Disposition: floor COMPLICATIONS: None. Operative Findings: 1. Adhesions of sigmoid colon to pelvis identified and lysed with vessel sealer. 2. Highly redundant sigmoid colon without bowel ischemia 3. Abdominal ascites drained 4. Case aborted due to intolerance of pneumoperitoneum as uncontrolled pCO2 levels noted by anesthesia team despite adjustment of vent, insufflation of the abdomen INDICATIONS: The patient is a 70-year-old female with chronic constipation and large bowel obstruction due to sigmoid volvulus. Surgical intervention was described. Benefits and risks, including infection, bowel injury, ureteral injury, colostomy creation and possibility for additional surgery was discussed at length. Pulmonary including cardiac risk assessment was obtained. Informed consent was obtained. All questions of the patient and family were answered. DESCRIPTION: Earlier the patient had undergone a bowel prep using the enhanced colon recovery program. The patient was transferred to the operating room onto a split leg table and repositioned to modified lithotomy following intubation. A Bartlett catheter was placed. The abdomen was then prepped and draped in standard sterile fashion as Ioban was placed along the abdomen to minimize any contamination of skin floor. After a timeout protocol was performed, attention was then brought to the left upper quadrant whereby a 0 degree 5 mm laparoscopic trocar entry was performed. The abdominal cavity was entered and insufflated to 15 mmHg pressure, which was tolerated. Diagnostic laparoscopy confirmed adhesions omentum to pelvis. Next trocars were placed 20 cm superior from the pelvis. A 12-mm trocar was placed along the right lateral abdominal wall. A 8 mm port was placed along the right upper quadrant. Ports were placed 10 cm apart from each other including 15-20 cm away from the target anatomy of the left pelvis. An 8-mm port was was placed along the left upper quadrant. The stapler 12-mm port was arranged along the left lateral abdominal wall. The patient was then placed in Trendelenburg position, at least 21. The robotic da Brandon XI system was primed. The robot was docked from the right side of the patient. Using atraumatic graspers and vessel sealer, the robotic system was docked and primed as described. Instruments were interchanged by the clerical administrative assistant including needle automation driver, clip copy operator, hook cautery, robotic stapler and vessel sealer. The robot stapler was prepared along the right lateral abdominal wall. Initial attention was brought to lysis of adhesions involving the sigmoid colon to pelvis. Lysis of adhesions was performed using vessel sealer. Next, attention was brought to sigmoid colon. At this time, anesthesia team identified elevated CO2 pressures. Insufflation was adjusted to 12 mm then 10 mmHg pressure. Despite adjustment, patient still had elevated CO2 level. The robot was undocked. The patient was leveled from Trendelenburg. Due to intolerance of pneumoperitoneum, case was aborted as patient explicitly did not open laparotomy. Next all pneumoperitoneum was evacuated from the abdominal cavity. All incisions were cleansed using dilute normal saline and hydrogen peroxide mixture. The 8-mm trocar sites were reapproximated using 4-0 Monocryl in an interrupted subcuticular fashion. Local anesthetic was infiltrated to all wounds for postop analgesia. All incisions were also cleansed with diluted hydrogen peroxide. Exofin was applied to the rest of the skin incisions. The patient was extubated successfully. The patient was transferred to the postanesthesia care unit in stable condition.
[2020-12-22] MEDS ORDERED: ACETAMINOPHEN IV (For NPO) 500 MG in EMPTY BAG 1 BAG IVPB ONE (15:53)
[2020-12-22] MEDS: NEOMYCIN 500 MG TAB PO SCH (16:32)
[2020-12-22] MEDS: metroNIDAZOLE 500 MG TAB PO SCH (16:33)
[2020-12-22] MEDS: LACTATED RINGERS 1,000 ML IV SCH ×2 (16:50→16:51)
[2020-12-22] MEDS ORDERED: FUROSEMIDE 10 MG/ML 2 ML VIAL IV STA (18:54)
--- NOTE | 2020-12-22 18:58 | P.PN ---
Progress Note - Text Progress Note Date: 12/22/20 Findings of surgery discussed with patient where surgery aborted due to lung intolerance for insufflation with moderate pulmonary venous congestions. Patient agreed that she did not want an open exploration. Otherwise, for volume overload, lasix. Will correct anemia with iron. Switch diet to high protein/high carb as she is underweight.
--- NOTE | 2020-12-22 21:27 | P.CON ---
Consult Note - . Consult date: 12/22/20 Assessment/Plan:: Medical consult-Medical management for hyponatremia HPI- 69-year-old female admitted to the hospital with severe abdominal pain with associated constipation for acute on chronic duration. Patient has significant medical history of pre-existing history of large bowel obstruction due to the sigmoid volvulus. Upon evaluation this a.m., patient complaint Resting comfortably in bed, continues to require 2 L of oxygen nasal cannula to keep oxygen saturation's greater than 92%, chest x-rays are consistent with mild fluid overload and hyperinflation consistent with COPD; will continue Breathing treatments [id number], and continue to monitor fluid status. PHYSICAL EXAM: GENERAL: Malnourished, cooperative, Mild distress noted HEENT: PERRLA, EOMI, and mucous membranes moist Head is atraumatic, normocephalic. NECK: Supple CHEST:Even and unlabored respirations, diminished throughout anterior and posterior lung christopher CARDIOVASCULAR: Palpable 2+ radial pulses. ABDOMEN: Mildly distended. Diffuse tenderness. MUSCULOSKELETAL: Strength 5 out of 5 and all extremities. NEUROLOGIC: No focal deficits Cranial nerves II through XII grossly intact. PSYCH: Appropriate affect. Alert and oriented to person, place and time. SKIN: Skin intact, Normal perfusion noted Assessment: Dyspnea, possible fluid overload, Resolving abdominal pain, ileus constipation blood disorder cancer Gerd osteoarthritis hypothyroidism anemia, thalassemia history of thyroidectomy, from thyroid CA current everyday smoker full code Plan: Hyponatremia, Resolving dyspnea hospital fluid overload, Resolving with one-time dose of Lasix and disco ntinue isotonic IV fluids Possible COPD, continue [id number] breathing treatments Consistent anemia with 8.6 to 7.2; contacted surgeon regarding possible blood transfusion, will hold hyponatremia resolving. continue to monitor vitals and diagnostic testing further recommendations to come based on patient's clinical condition thank you for the consult will continue to follow
[2020-12-23] MEDS: HYDROmorphone 1 MG/ML 1 ML SYRINGE IVP PRN ×8 (01:42→23:52)
[2020-12-23] MEDS: LEVOTHYROXINE 50 MCG TAB PO SCH (05:31)
[2020-12-23] MEDS: LACTULOSE 20 GM/30 ML CUP PO SCH (07:46)
[2020-12-23] MEDS: FLUTICASONE 50MCG/SPRAY NASAL 16GM EA NOSTRIL SCH (07:46)
[2020-12-23] MEDS: PANTOPRAZOLE 40 MG TABLET PO SCH (07:47)
[2020-12-23] MEDS: LORATADINE 10 MG TAB PO SCH (07:47)
[2020-12-23] MEDS: SIMETHICONE 40 MG/0.6 ML DROPS 2,000 MG/30 ML BOTTLE PO SCH ×3 (07:47→20:36)
[2020-12-23] MEDS: IPRATROPIUM-ALBUTEROL 3 ML NEB INHALATION SCH ×4 (08:47→19:12)
[2020-12-23 10:15] LABS: African American GFR (CKD) 101.7 (60.0-200.0); Anion Gap 9.5 mmol/L (4.00-12.00); BUN/Creat Ratio 14.29 Ratio (12.00-20.00); Calcium 8.2 mg/dL (8.7-10.3); Carbon Dioxide 22.5 mmol/L (21.6-31.8); Non-African American GFR(CKD) 87.8 (60.0-200.0); Potassium 3.9 mmol/L (3.5-5.5)
[2020-12-23] MEDS: SODIUM FERRIC GLUCONAT-SUCROSE 125 MG in SODIUM CHLORIDE 0.9% 100 ML IVPB SCH (10:50)
[2020-12-23] MEDS: guaiFENesin-DM 600/30MG 1 EACH TAB.ER.12H PO SCH ×2 (11:48→20:34)
--- NOTE | 2020-12-23 12:25 | P.PN ---
Subjective Progress Note Date: 12/23/20 Principal diagnosis: COPD exacerbation, abdominal distention, and fecal stasis This is a 69-year-old white female patient of Dr. Rose with history of large bowel obstruction due to volvulus, severe constipation, chronic anemia with thalassemia, chronic cholecystitis with history of lap cholecystectomy, chronic every day smoker, history of thyroid cancer with surgical removal on Synthroid, history of vulvar cancer. Patient came into the emergency department on 12/18/2020 for evaluation of increased abdominal distention, and diffuse abdominal pain. She reported moderate to severe constipation, she has been taking laxatives daily without any outputs. Patient reported intractable nausea and vomiting, poor appetite. Patient takes medications for chronic pain. KUB X-ray CT of the abdomen and pelvis showed no evidence for small bowel obstruction with the possibility of ileus of uncertain etiology, moderate fecal stasis, and left ovarian mass persistence and this was compared the most previous CT of the abdomen and pelvis from 08/12/2015. Patient reported increas ed shortness of breath related to abdominal distention, pain, and nausea and vomiting. She carries over 50 years of smoking history, currently smoking half a pack a day. She denies a previous diagnosis of COPD, not on any maintenance inhalers on a regular basis. Never seen a retail performance specialist before. Patient underwent EGD today in view of an acute drop in hemoglobin from 9.6-7.6 from 12/12/2020 to 12/20/2020. Patient was found to have LA grade A erosive esophagitis, no active duodenitis, hiatal hernia, chronic gastritis. Patient reports being more short of breath today, and increased coughing. Her cough is congested, lung sounds reveal a few mild rhonchi, she is on 2 L of oxygen her pulse ox is 96-97%. She is awake and alert, in no acute distress, resting comfortably in bed, follow-up chest x-ray shows pulmonary venous hypertension, interstitial edema, and tiny right pleural effusion. No fever, patient is receiving, she was given 1 dose of IV Lasix yesterday, she is receiving Mucinex DM, and breathing treatments. On 12/22/2020 patient seen in follow-up on medical surgical floor. She states her breathing has improved, she is breathing comfortably, she is on 2-3/2 L of oxygen her pulse ox of 94%, she is afebrile, hemodynamics stable, no worsening coughing or wheezing. No complaints of chest discomfort. Follow-up chest x-ray today shows possible pulmonary venous hypertension and interstitial edema, small pleural effusions. However patient is breathing comfortably, she remains on nebulized bronchodilators, she was given a dose of Lasix the day before yesterday. We did not think she needed any steroids at this time. She remains on antibiotics in the form of cefazolin and Flagyl. She remains on lactulose for fecal stasis, constipation. Surgery is following, and patient is scheduled for sigmoid colectomy for sigmoid volvulus today. Today's labs have been reviewed, her white blood cell count is 5.3, hemoglobin is 7.2, potassium is 3.1 this was replaced per protocol, the rest of electrolytes are within normal limits, BUN is 6 creatinine 0.48 The patient is seen today 12/23/2020 in follow-up on the regular medical floor. She is currently resting comfortably in bed. Awake and alert in no acute distress. Maintaining O2 saturations in the 90s on 2 L/m per nasal cannula. She's afebrile. Hemodynamically stable. The patient did go to the OR yesterday however the surgery was unable to be completed due to intolerance for insufflation. She is having some complaints of abdominal discomfort. Blood cultures reveal no growth to date. Sodium 138. Potassium 3.9. Creatinine 0.7. She remains on DuoNeb inhalations. Objective - Vital Signs Vital signs: Vital Signs Temp 97.6 F 12/23/20 08:00 Pulse 64 12/23/20 11:51 Resp 17 12/23/20 08:00 BP 150/64 12/23/20 08:00 Pulse Ox 90 L 12/23/20 08:00 Intake & Output 12/22/20 12/23/20 12/23/20 18:59 06:59 18:59 Intake Total 1000 Output Total 151 1200 1200 Balance 849 -1200 -1200 Weight 35.38 kg Intake: IV 1000 Output: Urine 150 1200 1200 Estimated Blood Loss 1 Other: Voiding Method Toilet Indwelling Catheter Indwelling Catheter # Voids 2 2 # Bowel Movements 3 - Exam GENERAL EXAM: Alert, pleasant frail 70-year-old female patient, on 2 L nasal cannula, fairly comfortable in no apparent distress. HEAD: Normocephalic. EYES: Normal reaction of pupils, equal size. NOSE: Clear with pink turbinates. THROAT: No erythema or exudates. NECK: No masses, no JVD. CHEST: No chest wall deformity. LUNGS: Equal air entry with end expiratory wheeze, diminished. CVS: S1 and S2 normal with no audible murmur, regular rhythm. ABDOMEN: Surgical sites clean dry well approximated. Tender to palpation. SPINE: No scoliosis or deformity SKIN: No rashes CENTRAL NERVOUS SYSTEM: No focal deficits, tone is normal in all 4 extremities. EXTREMITIES: There is no peripheral edema. No clubbing, no cyanosis. Peripheral pulses are intact. - Labs CBC & Chem 7: 12/22/20 06:46 12/23/20 06:05 Labs: Abnormal Lab Results - Last 24 Hours (Table) 12/23/20 Range/Units 06:05 Calcium 8.2 L (8.7-10.3) mg/dL Microbiology - Last 24 Hours (Table) 12/20/20 07:59 Blood Culture - Preliminary Blood No Growth after 72 hours 12/20/20 07:54 Blood Culture - Preliminary Blood No Growth after 72 hours Assessment and Plan Assessment: 1 Shortness of breath, related to acute exacerbation of COPD, and mild fluid overload. Received a dose of Lasix, patient is on nebulized bronchodilators, breathing has improved 2 Nausea, vomiting, abdominal distention and abdominal pain secondary to constipation and fecal stasis, and possible ileus 3 History of large bowel obstruction due to volvulus, she did go for a robotic- assisted sigmoid colectomy on 12/22/2020 however the surgery was aborted due to intolerance to insufflation 4 Severe constipation 5 Suspect underlying COPD, the severity which is unknown 6 [id number] smoking history, chronic and ongoing, currently down to half a pack a day 7 Chronic anemia with thalassemia 8 Hypothyroidism 9 History of thyroid cancer with surgical removal, on thyroid hormone replacement therapy 10 Osteoporosis 11 History of left ovarian mass, actually appears to be slightly smaller on the CT of the abdomen and pelvis from this admission 12 History of recurrent vulvar cancer 13 Chronic pancreatitis status post laparoscopic cholecystectomy Plan: The patient was seen and evaluated by Dr. Tello Abel from the pulmonary standpoint Surgical services are on the case regarding the volvulus Continue bronchodilators Continue incentive spirometer We will continue to follow I, the cosigning physician, performed a history & physical examination of the patient. Lungs sounds with faint end expiratory wheeze, diminished. Maintaining good O2 saturations in the 90s on 2 L/m per nasal cannula. I discussed the assessment and plan of care with my nurse practitioner, Gilda Tompkins. I attest to the above note as dictated by her.
[2020-12-23] MEDS: LACTATED RINGERS 1,000 ML IV SCH ×2 (13:34→17:09)
--- NOTE | 2020-12-23 15:15 | P.PN ---
Subjective Progress Note Date: 12/23/20 Patient doing much better following additional lasix today. She is not as congested. Additional incentive spirometer teaching done at bediside. She feels better. Will discontinue epidural, martinez. Repeat stat chest xray to monitor lung condition. Strict tobacco cessation described. Objective - Vital Signs Vital signs: Vital Signs Temp 98.0 F 12/23/20 13:35 Pulse 71 12/23/20 13:35 Resp 17 12/23/20 13:35 BP 159/55 12/23/20 13:35 Pulse Ox 96 12/23/20 13:35 Intake & Output 12/22/20 12/23/20 12/23/20 18:59 06:59 18:59 Intake Total 1000 Output Total 151 1200 1200 Balance 849 -1200 -1200 Weight 35.38 kg Intake: IV 1000 Output: Urine 150 1200 1200 Estimated Blood Loss 1 Other: Voiding Method Toilet Indwelling Catheter Indwelling Catheter # Voids 2 2 # Bowel Movements 3 - Labs CBC & Chem 7: 12/22/20 06:46 12/23/20 06:05 Labs: Abnormal Lab Results - Last 24 Hours (Table) 12/23/20 Range/Units 06:05 Calcium 8.2 L (8.7-10.3) mg/dL Microbiology - Last 24 Hours (Table) 12/20/20 07:59 Blood Culture - Preliminary Blood No Growth after 72 hours 12/20/20 07:54 Blood Culture - Preliminary Blood No Growth after 72 hours Assessment and Plan (1) Large bowel obstruction Current Visit: Yes Status: Acute Code(s): K56.609 - UNSP INTESTNL OBST, UNSP TO PARTIAL VERSUS COMPLETE OBST SNOMED Code(s): 937823528 (2) Anemia Current Visit: Yes Status: Acute Code(s): D64.9 - ANEMIA, UNSPECIFIED SNOMED Code(s): 621305550 (3) Thalassemia Current Visit: Yes Status: Acute Code(s): D56.9 - THALASSEMIA, UNSPECIFIED SNOMED Code(s): 23627583 (4) Constipation Current Visit: Yes Status: Acute Code(s): K59.00 - CONSTIPATION, UNSPECIFIED SNOMED Code(s): 20920727 (5) Generalized abdominal pain Current Visit: Yes Status: Acute Code(s): R10.84 - GENERALIZED ABDOMINAL PAIN SNOMED Code(s): 486712105 (6) Underweight Current Visit: Yes Status: Acute Code(s): R63.6 - UNDERWEIGHT SNOMED Code (s): 696957500 (7) Hyponatremia Current Visit: Yes Status: Acute Code(s): E87.1 - HYPO-OSMOLALITY AND HYPONATREMIA SNOMED Code(s): 22017389
--- NOTE | 2020-12-23 16:33 | XR ---
EXAMINATION TYPE: XR chest 2V DATE OF EXAM: 12/23/2020 COMPARISON: 12/22/2020 HISTORY: Short of breath TECHNIQUE: FINDINGS: There is some blunting of the costophrenic angles. Heart size is normal. There is mild pulm onary congestion. There are no hilar masses. The bony thorax is intact. IMPRESSION: COPD. Bilateral pleural effusions. Mild pulmonary congestion. This could be some atypical congestive heart failure. No adverse change compared to yesterday.
[2020-12-23] MEDS ORDERED: FUROSEMIDE 10 MG/ML 2 ML VIAL IV STA (17:58)
[2020-12-23] MEDS: DOCUSATE 100 MG CAP PO SCH (20:34)
--- NOTE | 2020-12-23 21:10 | P.PN ---
Progress Note - Text 12/23/202041 -year-old female status post attempted robotically assisted sigmoid colectomy, the the procedure was canceled admitted with the surgery. Patient had an epidural catheter for postop pain control with the solution running at 4 mL an hour. The epidural catheter was DC'd by the surgeon. Patient seen this evening, has a VAS of 0 as long as she had the epidural.
--- NOTE | 2020-12-23 21:18 | P.ANPRN ---
Procedure Note - Anesthesia - Epidural/Spinal Epidural Continuous Time Out Performed: Yes Date of Procedure: 12/22/20 Procedure Start Time: 12: Procedure Stop Time: :25 Location of Patient: PreOp Indication: Acute Post-Operative Pain, Requested by Surgeon Sedation Type: Sedate with meaningful contact maintained Preparation: Sterile Dressing Position: Sitting Catheter: Indwelling Needle Guage: 18 Injectate: Test Dose Lidocaine1.5% w/1:200,000 epi Blood Aspirated: No Pain Paresthesia on Injection Noted: No Events: Uneventful and Well Tolerated (Test dose given no adverse effect noted)
[2020-12-24] MEDS: HYDROmorphone 1 MG/ML 1 ML SYRINGE IVP PRN ×4 (02:59→12:15)
[2020-12-24 03:57] VITALS: RESP 18
[2020-12-24] MEDS: LEVOTHYROXINE 50 MCG TAB PO SCH (05:50)
[2020-12-24] MEDS ORDERED: LEVOTHYROXINE 50 MCG TAB PO ONE (06:30)
[2020-12-24] MEDS: IPRATROPIUM-ALBUTEROL 3 ML NEB INHALATION SCH ×3 (08:04→15:10)
[2020-12-24] MEDS: PANTOPRAZOLE 40 MG TABLET PO SCH (08:23)
[2020-12-24] MEDS: FLUTICASONE 50MCG/SPRAY NASAL 16GM EA NOSTRIL SCH (08:23)
[2020-12-24] MEDS: guaiFENesin-DM 600/30MG 1 EACH TAB.ER.12H PO SCH (08:23)
[2020-12-24] MEDS: DOCUSATE 100 MG CAP PO SCH (08:24)
[2020-12-24] MEDS: SIMETHICONE 40 MG/0.6 ML DROPS 2,000 MG/30 ML BOTTLE PO SCH (08:24)
[2020-12-24] MEDS: LORATADINE 10 MG TAB PO SCH (08:24)
[2020-12-24] MEDS: LACTULOSE 20 GM/30 ML CUP PO SCH (08:28)
[2020-12-24] MEDS: SODIUM FERRIC GLUCONAT-SUCROSE 125 MG in SODIUM CHLORIDE 0.9% 100 ML IVPB SCH (09:06)
[2020-12-24 09:30] LABS: HCT 24.4 % (37.2-46.3); HGB 7.6 g/dL (12.0-15.0); MCH 20.9 pg (27.0-32.0); MCHC 31.1 g/dL (32.0-37.0); Mean Platelet Volume 10.1 fL (9.5-12.2); Platelet Count 237 X 10*3/uL (140-440); RBC 3.64 X 10*6/uL (4.10-5.20); RDW 16.2 % (11.5-14.5); WBC 6.08 X 10*3/uL (4.50-10.00)
[2020-12-24 10:41] LABS: BUN/Creat Ratio 16.67 Ratio (12.00-20.00); Calcium 8.1 mg/dL (8.7-10.3); Non-African American GFR(CKD) 92.4 (60.0-200.0); Potassium 3.4 mmol/L (3.5-5.5)
[2020-12-24 10:46] LABS: Basophils # (A) 0.07 X 10*3/uL (0.00-0.10); Basophils % (A) 1.2 %; Eosinophils # (A) 1.13 X 10*3/uL (0.04-0.35); Eosinophils % (A) 18.6 %; Lymphocytes # (A) 1.34 X 10*3/uL (0.90-5.00); Monocytes # (A) 0.47 X 10*3/uL (0.20-1.00); Monocytes % (A) 7.7 %; Neutrophils # (A) 3.05 X 10*3/uL (1.80-7.70); Neutrophils % (A) 50.2 %
[2020-12-24 10:47] LABS: Hypochromasia (M) 2+; Schistocytes 2+
--- NOTE | 2020-12-24 12:27 | P.PN ---
Subjective Progress Note Date: 12/24/20 Principal diagnosis: COPD exacerbation, abdominal distention, and fecal stasis This is a 69-year-old white female patient of Dr. Rose with history of large bowel obstruction due to volvulus, severe constipation, chronic anemia with thalassemia, chronic cholecystitis with history of lap cholecystectomy, chronic every day smoker, history of thyroid cancer with surgical removal on Synthroid, history of vulvar cancer. Patient came into the emergency department on 12/18/2020 for evaluation of increased abdominal distention, and diffuse abdominal pain. She reported moderate to severe constipation, she has been taking laxatives daily without any outputs. Patient reported intractable nausea and vomiting, poor appetite. Patient takes medications for chronic pain. KUB X-ray CT of the abdomen and pelvis showed no evidence for small bowel obstruction with the possibility of ileus of uncertain etiology, moderate fecal stasis, and left ovarian mass persistence and this was compared the most previous CT of the abdomen and pelvis from 08/12/2015. Patient reported increas ed shortness of breath related to abdominal distention, pain, and nausea and vomiting. She carries over 50 years of smoking history, currently smoking half a pack a day. She denies a previous diagnosis of COPD, not on any maintenance inhalers on a regular basis. Never seen a hair specialist before. Patient underwent EGD today in view of an acute drop in hemoglobin from 9.6-7.6 from 12/12/2020 to 12/20/2020. Patient was found to have LA grade A erosive esophagitis, no active duodenitis, hiatal hernia, chronic gastritis. Patient reports being more short of breath today, and increased coughing. Her cough is congested, lung sounds reveal a few mild rhonchi, she is on 2 L of oxygen her pulse ox is 96-97%. She is awake and alert, in no acute distress, resting comfortably in bed, follow-up chest x-ray shows pulmonary venous hypertension, interstitial edema, and tiny right pleural effusion. No fever, patient is receiving, she was given 1 dose of IV Lasix yesterday, she is receiving Mucinex DM, and breathing treatments. On 12/22/2020 patient seen in follow-up on medical surgical floor. She states her breathing has improved, she is breathing comfortably, she is on 2-3/2 L of oxygen her pulse ox of 94%, she is afebrile, hemodynamics stable, no worsening coughing or wheezing. No complaints of chest discomfort. Follow-up chest x-ray today shows possible pulmonary venous hypertension and interstitial edema, small pleural effusions. However patient is breathing comfortably, she remains on nebulized bronchodilators, she was given a dose of Lasix the day before yesterday. We did not think she needed any steroids at this time. She remains on antibiotics in the form of cefazolin and Flagyl. She remains on lactulose for fecal stasis, constipation. Surgery is following, and patient is scheduled for sigmoid colectomy for sigmoid volvulus today. Today's labs have been reviewed, her white blood cell count is 5.3, hemoglobin is 7.2, potassium is 3.1 this was replaced per protocol, the rest of electrolytes are within normal limits, BUN is 6 creatinine 0.48 The patient is seen today 12/23/2020 in follow-up on the regular medical floor. She is currently resting comfortably in bed. Awake and alert in no acute distress. Maintaining O2 saturations in the 90s on 2 L/m per nasal cannula. She's afebrile. Hemodynamically stable. The patient did go to the OR yesterday however the surgery was unable to be completed due to intolerance for insufflation. She is having some complaints of abdominal discomfort. Blood cultures reveal no growth to date. Sodium 138. Potassium 3.9. Creatinine 0.7. She remains on DuoNeb inhalations. The patient is seen today 12/24/2020 in follow-up on the regular medical floor. She is awake and alert in no acute distress. She is maintaining O2 saturations in the 90s on room air. She's been afebrile. Hemodynamically stable. She was having ongoing issues with abdominal discomfort. Anesthesia placed a epidural catheter. Her pain is well controlled this morning. She continues to work well with the incentive spirometer. Chest x-ray revealed bilateral pleural effusions with mild pulmonary congestion. Some atypical congestive heart failure. No change compared to previous. Blood cultures reveal no growth. White count 6.0. Hemoglobin 7.6. Sodium 141. Potassium 3.4. Bicarb 26. Creatinine 0.6. She remains on bronchodilators. Objective - Vital Signs Vital signs: Vital Signs Temp 97.9 F 12/24/20 07:53 Pulse 70 12/24/20 11:57 Resp 18 12/24/20 08:00 BP 150/58 12/24/20 07:53 Pulse Ox 93 L 12/24/20 08:05 Intake & Output 12/23/20 12/24/20 12/24/20 18:59 06:59 18:59 Intake Total 236 236 Output Total 1600 Balance -1364 236 Intake: Oral 236 236 Output: Urine 1600 Uretheral (Bartlett) 250 Other: Voiding Method Indwelling Catheter # Voids 2 3 - Exam GENERAL EXAM: Alert, pleasant frail 70-year-old female patient, on room air, fairly comfortable in no apparent distress. HEAD: Normocephalic. EYES: Normal reaction of pupils, equal size. NOSE: Clear with pink turbinates. THROAT: No erythema or exudates. NECK: No masses, no JVD. CHEST: No chest wall deformity. LUNGS: Equal air entry with end expiratory wheeze, diminished. CVS: S1 and S2 normal with no audible murmur, regular rhythm. ABDOMEN: Surgical sites clean dry well approximated. Tender to palpation. SPINE: No scoliosis or deformity SKIN: No rashes CENTRAL NERVOUS SYSTEM: No focal deficits, tone is normal in all 4 extremities. EXTREMITIES: There is no peripheral edema. No clubbing, no cyanosis. Peripheral pulses are intact. - Labs CBC & Chem 7: 12/24/20 05:41 12/24/20 05:41 Labs: Abnormal Lab Results - Last 24 Hours (Table) 12/24/20 12/24/20 Range/Units 05:41 05:41 RBC 3.64 L (4.10-5.20) X 10*6/uL Hgb 7.6 L (12.0-15.0) g/dL Hct 24.4 L (37.2-46.3) % MCV 67.0 L (80.0-97.0) fL MCH 20.9 L (27.0-32.0) pg MCHC 31.1 L (32.0-37.0) g/dL RDW 16.2 H (11.5-14.5) % Absolute Nucleated RBC 0.03 H (0.00-0.00) X 10*3/uL Eosinophils # 1.13 H (0.04-0.35) X 10*3/uL NRBC/100 WBC Diff 0.5 H (0.0-0.0) /100 WBCS Potassium 3.4 L (3.5-5.5) mmol/L Glucose 59 L (70-110) mg/dL Calcium 8.1 L (8.7-10.3) mg/dL Microbiology - Last 24 Hours (Table) 12/20/20 07:54 Blood Culture - Preliminary Blood No Growth after 96 hours 12/20/20 07:59 Blood Culture - Preliminary Blood No Growth after 96 hours Assessment and Plan Assessment: 1 Shortness of breath, related to acute exacerbation of COPD, and mild fluid overload. Received a dose of Lasix, patient is on nebulized bronchodilators, breathing has improved her on room air 2 Nausea, vomiting, abdominal distention and abdominal pain secondary to constipation and fecal stasis, and possible ileus 3 History of large bowel obstruction due to volvulus, she did go for a robotic-assisted sigmoid colectomy on 12/22/2020 however the surgery was aborted due to intolerance to insufflation 4 Severe constipation 5 Suspect underlying COPD, the severity which is unknown 6 49-[id number] smoking history, chronic and ongoing, currently down to half a pack a day 7 Chronic anemia with thalassemia 8 Hypothyroidism 9 History of thyroid cancer with surgical removal, on thyroid hormone replacement therapy 10 Osteoporosis 11 History of left ovarian mass, actually appears to be slightly smaller on the CT of the abdomen and pelvis from this admission 12 History of recurrent vulvar cancer 13 Chronic pancreatitis status post laparoscopic cholecystectomy Plan: The patient was seen and evaluated by Dr. Javed Improved from the pulmonary standpoint, on room air Continue bronchodilators Continue incentive spirometer Increase her activity as tolerated We will continue to follow I, the cosigning physician, performed a history & physical examination of the patient. Lungs sounds with faint end expiratory wheeze, diminished. Maintaining good O2 saturations in the 90s on room air. I discussed the assessment and plan of care with my nurse practitioner, Gilda Tompkins. I attest to the above note as dictated by her.
[2020-12-24] MEDS: LACTATED RINGERS 1,000 ML IV SCH (12:40)
--- NOTE | 2020-12-24 14:26 | P.DS ---
Providers Date of admission: 12/18/20 19:32 Expected date of discharge: 12/24/20 Attending physician: Elvia Jeff Consults: 12/19/20 07:07 Consult Physician Routine Consulting Provider: Nicolás Rose Consult Reason/Comments: Hyponatremia Do you want consulting provider notified?: Yes 12/21/20 13:17 Consult Physician Urgent Consulting Provider: Bart Stallworth Consult Reason/Comments: COPD exacerbation Do you want consulting provider notified?: Yes Primary care physician: Nicolás Rose - Discharge Diagnosis(es) (1) Large bowel obstruction Status: Acute (2) Anemia Status: Acute (3) Thalassemia Status: Acute (4) Constipation Status: Acute (5) Generalized abdominal pain Status: Acute (6) Underweight Status: Acute (7) Hyponatremia Status: Acute Hospital Course: POSTOPERATIVE DIAGNOSES: 1. History of large bowel obstruction due to sigmoid volvulus 2. Chronic constipation 3. Chronic obstructive pulmonary disease, severe 4. Tobacco abuse disorder 5. Underweight, BMI 13.8 6. Chronic pain syndrome with fibromyalgia 7. Anemia 8. Thalassemia 9. Hypothyroidism 10. Osteoporosis 11. History of vulvular cancer 12. Peritoneal and pelvic adhesions 13. Ascites 14. Pulmonary congestion COURSE: The patient is a 70-year-old female with chronic constipation and large bowel obstruction due to sigmoid volvulus. Patient presented with bowel obstruction. She developed pulmonary venous congestion. Pulmonary team including hospitalist team were consulted. Patient underwent attempted sigmoid colectomy however surgery aborted due to poor lung capacity. Patient remained in the hospital until pulmonary venous congestion improved from prior to toro rgery. She was breathing well. She had anemia which upper endoscopy was negative for acute ulcers. Strict tobacco cessation described. Follow-up as outpatient. Overall, patient clinically improved prior to discharge. Incentive spirometer education performed. Procedures: OPERATION: 1. Robotic-assisted daVinci Xi laparoscopic with sigmoid colectomy aborted for laparoscopic lysis of adhesions Anesthesia: GETA, epidural, local Estimated Blood Loss (ml): 1 Pathology: none sent Condition: stable Disposition: floor COMPLICATIONS: None. Operative Findings: 1. Adhesions of sigmoid colon to pelvis identified and lysed with vessel sealer . 2. Highly redundant sigmoid colon without bowel ischemia 3. Abdominal ascites drained 4. Case aborted due to intolerance of pneumoperitoneum as uncontrolled pCO2 levels noted by anesthesia team despite adjustment of vent, insufflation of the abdomen Patient Condition at Discharge: Good Plan - Discharge Summary Discharge Rx Participant: No New Discharge Prescriptions: New Loratadine-Pseudoeph 5-120 mg [Claritin-D 12 HR] 1 each PO Q12HR #20 tab Docusate [Colace] 100 mg PO BID #20 capsule Continue Levothyroxine Sodium [Synthroid] 50 mcg PO DAILY estradioL [Estradiol 0.025 MG Patch] 1 patch TOPICAL SUWE Omeprazole [PriLOSEC] 40 mg PO AC-BRKFST clonazePAM [KlonoPIN] 0.5 mg PO HS HYDROcodone/APAP 10-325MG [Combs 10-325] 1 tab PO QID PRN PRN Reason: Pain Ondansetron HCl [Zofran] 4 mg PO BID PRN PRN Reason: Nausea And Vomiting Fluticasone Propionate [Flonase Allergy Relief] 2 spray EA NOSTRIL DAILY Discharge Medication List Levothyroxine Sodium [Synthroid] 50 mcg PO DAILY 11/26/13 [History] estradioL [Estradiol 0.025 MG Patch] 1 patch TOPICAL SUWE 08/02/15 [History] Omeprazole [PriLOSEC] 40 mg PO AC-BRKFST 09/12/15 [History] clonazePAM [KlonoPIN] 0.5 mg PO HS 05/29/18 [History] HYDROcodone/APAP 10-325MG [Combs 10-325] 1 tab PO QID PRN 01/07/20 [History] Ondansetron HCl [Zofran] 4 mg PO BID PRN 01/07/20 [History] Fluticasone Propionate [Flonase Allergy Relief] 2 spray EA NOSTRIL DAILY 12/18/20 [History] Docusate [Colace] 100 mg PO BID #20 capsule 12/24/20 [Rx] Loratadine-Pseudoeph 5-120 mg [Claritin-D 12 HR] 1 each PO Q12HR #20 tab 12/24/20 [Rx] Follow up Appointment(s)/Referral(s): Nicolás Rose MD [Primary Care Provider] - 1-2 days Elvia Jeff MD [STAFF PHYSICIAN] - 12/26/20 (Please call to confirm time) Con Javed MD [STAFF PHYSICIAN] - 1 Week Patient Instructions/Handouts: How to Use an Incentive Spirometer (DC), Acute Abdominal Pain (DC), Bowel Obstruction (DC) Activity/Diet/Wound Care/Special Instructions: No lifting over 10 pounds in 2 weeks, January 05. October shower. No bath tub soaks for two weeks. Diet as tolerated. No driving while on narcotics. Discharge Disposition: HOME SELF-CARE
[2020-12-24 14:27] VITALS: BP 167/69; PULSE 81; TEMP 97.8
--- NOTE | 2020-12-24 19:24 | P.PN ---
Subjective Progress Note Date: 12/24/20 69-year-old white female patient of Dr. Rose with history of large bowel obstruction due to volvulus, severe constipation, chronic anemia with thalassemia, chronic cholecystitis with history of lap cholecystectomy, chronic every day smoker, history of thyroid cancer with surgical removal on Synthroid, history of vulvar cancer. Patient came into the emergency department on 12/18/2020 for evaluation of increased abdominal distention, and diffuse abdominal pain. She reported moderate to severe constipation, she has been taking laxatives daily without any outputs. Patient reported intractable nausea and vomiting, poor appetite. Patient takes medications for chronic pain. KUB X-ray CT of the abdomen and pelvis showed no evidence for small bowel obstruction with the possibility of ileus of uncertain etiology, moderate fecal stasis, and left ovarian mass persistence and this was compared the most previous CT of the abdomen and pelvis from 08/12/2015. Patient reported increased shortness of breath related to abdominal distention, pain, and nausea and vomiting. She carries over 50 years of smoking history, currently smoking half a pack a day. She denies a previous diagnosis of COPD, not on any maintenance inhalers on a regular basis. Never seen a business employment specialist before. Patient underwent EGD today in view of an acute drop in hemoglobin from 9.6-7.6 from 12/12/2020 to 12/20/2020. Patient was found to have LA grade A erosive esophagitis, no active duodenitis, hiatal hernia, chronic gastritis. Patient reports being more short of breath today, and increased coughing. Her c ough is congested, lung sounds reveal a few mild rhonchi, she is on 2 L of oxygen her pulse ox is 96-97%. She is awake and alert, in no acute distress, resting comfortably in bed, follow-up chest x-ray shows pulmonary venous hypertension, interstitial edema, and tiny right pleural effusion. No fever, patient is receiving, she was given 1 dose of IV Lasix yesterday, she is receiving Mucinex DM, and breathing treatments. 12/24/2020 in follow-up on the regular medical floor. She is awake and alert in no acute distress. She is maintaining O2 saturations in the 90s on room air. She's been afebrile. Hemodynamically stable. She was having ongoing issues with abdominal discomfort. Anesthesia placed a epidural catheter. Her pain is well controlled this morning. She continues to work well with the incentive spirometer. Chest x-ray revealed bilateral pleural effusions with mild pulmonar y congestion. Some atypical congestive heart failure. No change compared to previous. Blood cultures reveal no growth. White count 6.0. Hemoglobin 7.6. Sodium 141. Potassium 3.4. Bicarb 26. Creatinine 0.6. She remains on bronchodilators. Objective - Vital Signs Vital signs: Vital Signs Temp 97.9 F 12/24/20 07:53 Pulse 72 12/24/20 08:23 Resp 18 12/24/20 08:00 BP 150/58 12/24/20 07:53 Pulse Ox 93 L 12/24/20 08:05 Intake & Output 12/23/20 12/24/20 12/24/20 18:59 06:59 18:59 Intake Total 236 236 Output Total 1600 Balance -1364 236 Intake: Oral 236 236 Output: Urine 1600 Uretheral (Bartlett) 250 Other: Voiding Method Indwelling Catheter # Voids 2 3 - Exam GENERAL EXAM: Alert, pleasant frail 70-year-old female patient, on room air, fairly comfortable in no apparent distress. HEAD: Normocephalic. EYES: Normal reaction of pupils, equal size. NOSE: Clear with pink turbinates. THROAT: No erythema or exudates. NECK: No masses, no JVD. CHEST: No chest wall deformity. LUNGS: Equal air entry with end expiratory wheeze, diminished. CVS: S1 and S2 normal with no audible murmur, regular rhythm. ABDOMEN: Surgical sites clean dry well approximated. Tender to palpation. SPINE: No scoliosis or deformity SKIN: No rashes - Labs CBC & Chem 7: 12/24/20 05:41 12/24/20 05:41 Labs: Abnormal Lab Results - Last 24 Hours (Table) 12/24/20 Range/Units 05:41 RBC 3.64 L (4.10-5.20) X 10*6/uL Hgb 7.6 L (12.0-15.0) g/dL Hct 24.4 L (37.2-46.3) % MCV 67.0 L (80.0-97.0) fL MCH 20.9 L (27.0-32.0) pg MCHC 31.1 L (32.0-37.0) g/dL RDW 16.2 H (11.5-14.5) % Absolute Nucleated RBC 0.03 H (0.00-0.00) X 10*3/uL NRBC/100 WBC Diff 0.5 H (0.0-0.0) /100 WBCS Microbiology - Last 24 Hours (Table) 12/20/20 07:54 Blood Culture - Preliminary Blood No Growth after 96 hours 12/20/20 07:59 Blood Culture - Preliminary Blood No Growth after 96 hours Assessment and Plan Assessment: 1 Shortness of breath, related to acute exacerbation of COPD, and mild fluid overload. Received a dose of Lasix, patient is on nebulized bronchodilators, breathing has improved her on room air 2 Nausea, vomiting, abdominal distention and abdominal pain secondary to constipation and fecal stasis, and possible ileus 3 History of large bowel obstruction due to volvulus, she did go for a robotic- assisted sigmoid colectomy on 12/22/2020 however the surgery was aborted due to intolerance to insufflation 4 Severe constipation 5 Suspect underlying COPD, the severity which is unknown 6 12-nwki-jmvh smoking history, chronic and ongoing, currently down to half a pack a day 7 Chronic anemia with thalassemia 8 Hypothyroidism 9 History of thyroid cancer with surgical removal, on thyroid hormone replacement therapy 10 Osteoporosis 11 History of left ovarian mass, actually appears to be slightly smaller on the CT of the abdomen and pelvis from this admission 12 History of recurrent vulvar cancer 13 Chronic pancreatitis status post laparoscopic cholecystectomy
== END 2020-12-24 15:30 | disposition home or self-care (01) | DRG 335 ==
LOC: EC 16:13 → 4SSUR 19:32
PROVIDERS: ADMIT Surgery Plastic and Reconstructive Surgery; ATTEND Surgery Plastic and Reconstructive Surgery
PROC: 0DJ08ZZ Inspection of Upper Intestinal Tract, Via Natural or Artificial Opening Endoscopic (ICD-10-PCS; 2020-12-21)
PROC: 8E0W4CZ Robotic Assisted Procedure of Trunk Region, Percutaneous Endoscopic Approach (ICD-10-PCS; principal; 2020-12-22 14:40)
PROC: 0DNN4ZZ Release Sigmoid Colon, Percutaneous Endoscopic Approach (ICD-10-PCS; principal; 2020-12-22 14:40)
DX: K56.50 Intestinal adhesions [bands], unspecified as to partial versus complete obstruction (principal); K22.11 Ulcer of esophagus with bleeding; R64 Cachexia; E87.1 Hypo-osmolality and hyponatremia; J44.1 Chronic obstructive pulmonary disease with (acute) exacerbation; Q43.8 Other specified congenital malformations of intestine; Z68.1 Body mass index [BMI] 19.9 or less, adult; K86.1 Other chronic pancreatitis; R18.8 Other ascites; K56.2 Volvulus; R62.7 Adult failure to thrive; I50.9 Heart failure, unspecified; R63.6 Underweight; Z20.822 Contact with and (suspected) exposure to COVID-19; E86.0 Dehydration; D56.9 Thalassemia, unspecified; E89.0 Postprocedural hypothyroidism; G89.4 Chronic pain syndrome; M79.7 Fibromyalgia; N73.6 Female pelvic peritoneal adhesions (postinfective); Z53.9 Procedure and treatment not carried out, unspecified reason; K29.50 Unspecified chronic gastritis without bleeding; K21.9 Gastro-esophageal reflux disease without esophagitis; K44.9 Diaphragmatic hernia without obstruction or gangrene; R13.10 Dysphagia, unspecified; M81.0 Age-related osteoporosis without current pathological fracture; M19.90 Unspecified osteoarthritis, unspecified site; F17.210 Nicotine dependence, cigarettes, uncomplicated; Z71.6 Tobacco abuse counseling; Z79.890 Hormone replacement therapy; Z79.899 Other long term (current) drug therapy; Z85.850 Personal history of malignant neoplasm of thyroid; Z85.44 Personal history of malignant neoplasm of other female genital organs; Z87.442 Personal history of urinary calculi; Z90.710 Acquired absence of both cervix and uterus; Z98.51 Tubal ligation status; Z90.49 Acquired absence of other specified parts of digestive tract; Z98.890 Other specified postprocedural states; Z88.6 Allergy status to analgesic agent; Z88.5 Allergy status to narcotic agent; Z83.2 Family history of diseases of the blood and blood-forming organs and certain disorders involving the immune mechanism
CPT/HCPCS: 43235; 71045; 71046; 72050; 72100; 74018; 74177; 80048; 80053; 80323; 82150; 82550; 82728; 83540; 83550; 83605; 83690; 83735; 83880; 84132; 84145; 84484; 85025; 85027; 85610; 85652; 85730; 86140; 86850; 86900; 86901; 87040; 87635; 93005; 94640; 94760; 99285

== ENCOUNTER → 2020-12-18 | Outpatient (CLI) | payer MEDICARE, OTHER ==
--- NOTE | 2020-12-18 13:25 | XR ---
Cervical spine HISTORY: Pain 5 views of the cervical spine, comparison to prior spine 04/07/2019 There is multilevel facet arthropathy. Anterolisthesis grade 1 C2-3, C3-4, C4-5 and C7-T1, retrolisth esis grade 1 C6-7. There is multilevel spondylosis with loss of disc height greatest at C5-6 and C6-7 , similar to prior. Cervical vertebral bodies show preserved height. Prevertebral soft tissues are no rmal. There is reversal the normal cervical lordosis. Oblique images show foraminal encroachment at C 2-3, C4-5 and C5-6 and C6-7 bilaterally. IMPRESSION: Degenerative disc disease and facet arthropathy, multilevel foraminal encroachment and ad ditional findings above. Findings are similar to prior exam.
--- NOTE | 2020-12-18 13:44 | XR ---
Lumbar spine HISTORY: M [age] 3 views the lumbar spine, correlation to prior spine dated 04/07/2018 There is slight spinal curvature. Loss of disc height is greatest at L5-S1 with associated vacuum phe nomenon, minimal retrolisthesis grade 1 L5-S1. Lumbar vertebral bodies show preserved height. Bone mi neralization is reduced. Vacuum phenomenon also present at L4-5 as on prior with loss of disc height L4-5, L3-4, L2-3. Sclerosis present in the posterior elements. Apical scarring vascular calcification s are noted. IMPRESSION: Degenerative disc disease, facet arthropathy, osteopenia. There is a slight spinal curvat ure as on prior.
== END | disposition home or self-care (01) ==
LOC: RADXRMAIN 11:13
PROVIDERS: ATTEND Family Medicine
DX: M12.88 Other specific arthropathies, not elsewhere classified, other specified site (principal); M50.323 Other cervical disc degeneration at C6-C7 level; M47.812 Spondylosis without myelopathy or radiculopathy, cervical region; M51.36 Other intervertebral disc degeneration, lumbar region; M85.88 Other specified disorders of bone density and structure, other site; Z53.9 Procedure and treatment not carried out, unspecified reason
CPT/HCPCS: 72050; 72100

== ENCOUNTER → 2021-01-18 | Outpatient (CLI) | payer MEDICARE, OTHER ==
--- NOTE | 2021-01-18 18:00 | ECHOF ---
Referral Reason:I10 Hypertention; I50 Heart failure MEASUREMENTS -------- HEIGHT: 160.0 cm WEIGHT: 36.3 kg BP: IVSd: 1.1 cm (0.6 - 1.1) LVIDd: 3.7 cm (3.9 - 5.3) LVPWd: 0.9 cm (0.6 - 1.1) IVSs: 1.6 cm LVIDs: 1.5 cm LVPWs: 1.4 cm Ao Diam: 2.8 cm (2.0 - 3.7) AV Cusp: 1.4 cm (1.5 - 2.6) LA Diam: 2.3 cm (2.7 - 3.8) MV EXCURSION: 26.117 mm (> 18.000) MV EF SLOPE: 151 mm/s (70 - 150) EPSS: 2.2 cm MV E Thuan: 0.72 m/s MV DecT: 205 ms MV A Thuan: 0.92 m/s MV E/A Ratio: 0.78 AR PHT: 1162 ms RAP: 5.00 mmHg RVSP: 19.14 mmHg FINDINGS -------- This was a technically adequate study. The left ventricular size is normal. Left ventricular wall thickness is normal. Overall left vent ricular systolic function is normal with, an EF between 55 - 60 %. The right ventricle is normal in size. The left atrial size is normal. The right atrial size is normal. Aortic valve is trileaflet and is mildly thickened. Trace amount of aortic regurgitation. The mitral valve is normal. There is trace mitral regurgitation. The tricuspid valve appears structurally normal. Mild tricuspid regurgitation present. Right vent ricular systolic pressure is normal at < 35 mmHg. There is no pulmonic regurgitation present. The aortic root size is normal. Normal inferior vena cava with normal inspiratory collapse consistent with estimated right atrial pre ssure of 5 mmHg. There is a small, generalized pericardial effusion present. CONCLUSIONS -------- 1. The left ventricular size is normal. 2. Left ventricular wall thickness is normal. 3. Overall left ventricular systolic function is normal with, an EF between 55 - 60 %. 4. Aortic valve is trileaflet and is mildly thickened. 5. Trace amount of aortic regurgitation. 6. There is trace mitral regurgitation. 7. Mild tricuspid regurgitation present. 8. There is a small, generalized pericardial effusion present. IMMIGRATION COORDINATOR: Sarah Arnold RDCS
== END | disposition home or self-care (01) ==
LOC: RADECHMAIN 14:50
PROVIDERS: ATTEND Family Medicine
DX: I50.9 Heart failure, unspecified (principal); I08.3 Combined rheumatic disorders of mitral, aortic and tricuspid valves; I31.3 Pericardial effusion (noninflammatory)
CPT/HCPCS: 93306

== ENCOUNTER → 2021-03-01 | Outpatient (CLI) | payer MEDICARE, OTHER ==
[2021-03-01 12:24] LABS: ALT 15 U/L (4-34); AST 30 U/L (14-36); African American GFR (CKD) >90 (>60 ml/min/1.73 sqM); Albumin 4.1 g/dL (3.5-5.0); Alkaline Phosphatase 46 U/L (38-126); Anion Gap 8 mmol/L; Blood Urea Nitrogen 10 mg/dL (7-17); Calcium 9.6 mg/dL (8.4-10.2); Carbon Dioxide 24 mmol/L (22-30); Chloride 98 mmol/L (98-107); Glucose 104 mg/dL (74-99); Non-African American GFR(CKD) 88 (>60 ml/min/1.73 sqM); Sodium 130 mmol/L (137-145); Total Bilirubin 0.3 mg/dL (0.2-1.3); Total Protein 7.1 g/dL (6.3-8.2)
[2021-03-01 12:35] LABS: HCT 29.3 % (34.0-46.0); MCH 22.8 pg (25.0-35.0); MCHC 34.1 g/dL (31.0-37.0); Mean Platelet Volume 7.1; Microcytosis Marked; Platelet Count 269 k/uL (150-450); RBC 4.37 m/uL (3.80-5.40); RDW 14.7 % (11.5-15.5); WBC 6.1 k/uL (3.8-10.6)
== END | disposition home or self-care (01) ==
LOC: LABPAT 11:00
PROVIDERS: ATTEND Surgery Plastic and Reconstructive Surgery
DX: Z01.810 Encounter for preprocedural cardiovascular examination (principal)
CPT/HCPCS: 80053; 85027

== ENCOUNTER 2021-03-08 11:30 | Inpatient (IN) | payer MEDICARE, OTHER ==
--- NOTE | 2021-03-08 10:08 | P.GSHP ---
History of Present Illness H&P Date: 03/08/21 CHIEF COMPLAINT: Sigmoid volvulus HISTORY OF PRESENT ILLNESS: The patient is a 70-year-old female with long- standing history of chronic constipation including large bowel obstruction secondary to sigmoid volvulus. She completed a colonoscopy which excluded underlying neoplasm. Now she presents for sigmoid colon resection. PAST MEDICAL HISTORY: Please see list. PAST SURGICAL HISTORY: Please see list. MEDICATIONS: Please see list. ALLERGIES: Please see list. SOCIAL HISTORY: No illicit drug use FAMILY HISTORY: No reports of Crohn disease or ulcerative colitis. REVIEW OF ORGAN SYSTEMS: CONSTITUTIONAL: Denies any fever or chills. Underweight, BMI 14.0 HEENT: Denies any trouble with vision or nosebleeds. No difficulty swallowing. LYMPHATIC: The patient denies any lumps and bumps around the neck. ENDOCRINE: Has hypothyroidism. RESPIRATORY: Has chronic obstructive pulmonary disease CARDIOVASCULAR: Patient has cardiac risk assessment. GASTROINTESTINAL: Has constipation and recent colonoscopy 1 week ago. GENITOURINARY: Has increased urinary frequency. MUSCULOSKELETAL: Has back pain, stiffness, joint arthritis. NEUROLOGIC: Denies any numbness or tingling along the distal extremities. No seizure disorders or headaches. PSYCHIATRIC: Denies depression or suidical ideation. HEMATOLOGIC: Denies any abnormal bleeding or bruising. PHYSICAL EXAM: VITAL SIGNS: Stable GENERAL: Well-developed pleasant in no acute distress. HEENT: No scleral icterus. Extraocular movements grossly intact. Moist buccal mucosa. He is hard of hearing. NECK: Supple without lymphadenopathy. CHEST: Unlabored respirations. Equal bilateral excursions. CARDIOVASCULAR: Regular rate and rhythm. Distal 2+ pulses. ABDOMEN: Soft, nontender, nondistended. MUSCULOSKELETAL: No clubbing, cyanosis, or edema. NERUO: Regular 2-12 grossly intact. PSYCH: Alert and oriented to person place and time. ASSESSMENT: 1. History of previous large bowel obstruction. 2. Sigmoid volvulus. 3. Chronic obstructive pulmonary disease 4. Underweight, BMI 14.0 PLAN: 1. Benefits and risks of surgical intervention particular sigmoid volvulus reviewed in detail. Robotic-assisted approach was also described. 2. She has completed an enhanced colon recovery program. 3. DVT prophylaxis. 4. Antibiotic prophylaxis. Past Medical History Past Medical History: Blood Disorder, Cancer, COPD, GERD/Reflux, Musculoskeletal Disorder, Osteoarthritis (OA), Thyroid Disorder Additional Past Medical History / Comment(s): Wgt loss-unable to regain weight since thyroid removed, low BP, hiatal hernia, constipation w/ bowel obstruction, DDD neck & spine, anemia, thalassemia, osteoporosis, thyroid cancer 2010. Cyst on kidney, and kidney stone. Lt ovarian mass. Hx of Cancer puneet vulva, recurrent 2019. c/o abd pain, N/V, sl dysphagia. History of Any Multi-Drug Resistant Organisms: None Reported Past Surgical History: Appendectomy, Cholecystectomy, Hysterectomy, Tubal Li gation Additional Past Surgical History / Comment(s): THYROIDECTOMY, x2. EGD, Colonoscopy. Exc cancer vulva puneet side. 12/22/20 sigmoid colectomy attempted. Past Anesthesia/Blood Transfusion Reactions: Motion Sickness Smoking Status: Current every day smoker - Past Family History Father Sister(s) Family Medical History: Unable to Obtain Father Family Medical History: Blood Disorder, Cancer Additional Family Medical History / Comment(s): thalassemia. bone cancer Son(s) Family Medical History: Pulmonary Embolus Brother(s) Family Medical History: Blood Disorder, Cancer Additional Family Medical History / Comment(s): THALASSEMIA. Leukemia Daughter(s) Family Medical History: Blood Disorder Additional Family Medical History / Comment(s): THALASSEMIA Medications and Allergies Home Medications Medication Instructions Recorded Confirmed Type Levothyroxine Sodium [Synthroid] 50 mcg PO DAILY 11/26/13 03/01/21 History estradioL [Estradiol 0.025 MG 1 patch TOPICAL SUWE 08/02/15 03/01/21 History Patch] Omeprazole [PriLOSEC] 40 mg PO AC-BRKFST 09/12/15 03/01/21 History clonazePAM [KlonoPIN] 0.5 mg PO HS 05/29/18 03/01/21 History HYDROcodone/APAP 10-325MG [[place] 1 tab PO QID PRN 01/07/20 03/01/21 History 10-325] Ondansetron HCl [Zofran] 4 mg PO BID PRN 01/07/20 03/01/21 History Fluticasone Propionate [Flonase 2 spray EA NOSTRIL DAILY 12/18/20 03/01/21 History Allergy Relief] Docusate [Colace] 100 mg PO BID #20 capsule 12/24/20 03/01/21 Rx Cholecalciferol [Vitamin D3 (25 50 mcg PO DAILY 03/01/21 03/01/21 History Mcg = 1000 Iu)] Loratadine-Pseudoeph 5-120 mg 1 each PO Q12HR PRN 03/01/21 03/01/21 History [Claritin-D 12 HR] Multivitamins, Thera [Multivitamin 1 tab PO DAILY 03/01/21 03/01/21 History (formulary)] Nicotine 7Mg/24Hr Patch [Habitrol] 1 patch TRANSDERM DAILY 03/01/21 03/01/21 History Allergies Allergy/AdvReac Type Severity Reaction Status Date / Time codeine Allergy Vomiting Verified 03/01/21 09:49 [From Tylenol-Codeine #3] tramadol Allergy Vomiting Verified 03/01/21 09:49 ibuprofen AdvReac Nausea & Verified 03/01/21 09:49 Vomiting
[~2021-03-08 11:30] MED LIST changes: +ACETAMINOPHEN TAB 500 MG TAB PO PRN; +ALVIMOPAN 12 MG CAPSULE PO PRN; +Antibiotics per Pharmacy 1 EACH MISC MISCELLANE PRN; +DEXAMETHASONE SOD PHOSPHATE 4 MG/ML 1 ML VIAL IV ONE; +HEPARIN SODIUM,PORCINE/PF 5,000 UNIT/0.5 ML SYRINGE SQ PRN; -LACTATED RINGERS 1,000 ML IV SCH; -LIDOCAINE 1% (10MG/ML) FOR IV START INTRADERMA PRN; +ONDANSETRON 4 MG/2 ML VIAL IVP ONE; +metroNIDAZOLE-NS PMX 500 MG in SALINE 1 100ML.BAG IVPB PRN
[2021-03-08] MEDS ORDERED: LIDOCAINE 1% (10MG/ML) FOR IV START INTRADERMA ONE ×2 (13:08→13:10)
[2021-03-08 13:11] LABS: Glucose,Whole Blood 80 mg/dL (75-99)
[2021-03-08] MEDS: LACTATED RINGERS 1,000 ML IV SCH (13:12)
[2021-03-08 13:33] LABS: Basophils % (A) 1 %; Eosinophils # (A) 0.8 k/uL (0-0.7); Eosinophils % (A) 15 %; HCT 29.3 % (34.0-46.0); Lymphocytes # (A) 1.1 k/uL (1.0-4.8); Lymphocytes % (A) 20 %; MCH 22.7 pg (25.0-35.0); MCHC 34.2 g/dL (31.0-37.0); MCV 66.5 fL (80.0-100.0); Mean Platelet Volume 6.9; Microcytosis Marked; Monocytes # (A) 0.3 k/uL (0-1.0); Monocytes % (A) 5 %; Neutrophils # (A) 3.2 k/uL (1.3-7.7); Neutrophils % (A) 57 %; Platelet Count 242 k/uL (150-450); RDW 14.5 % (11.5-15.5); WBC 5.6 k/uL (3.8-10.6)
[2021-03-08 13:51] LABS: Calcium 9.1 mg/dL (8.4-10.2); Potassium 3.9 mmol/L (3.5-5.1); Total Bilirubin 0.4 mg/dL (0.2-1.3)
[2021-03-08] MEDS ORDERED: fentaNYL (PF) 50 MCG/ML 2 ML AMP IVP ONE (14:55)
[2021-03-08] MEDS ORDERED: SODIUM CHLORIDE 0.9% 1,000 ML IV ONE (14:55)
[2021-03-08 15:29] LABS: Glucose,Whole Blood 80 mg/dL (75-99)
[2021-03-08] MEDS ORDERED: MIDAZOLAM 2 MG/2 ML VIAL IVP ONE (15:41)
[2021-03-08] MEDS ORDERED: ePHEDrine SULFATE/0.9% NACL/PF 50 MG/5 ML SYRINGE IV ONE (16:12)
[2021-03-08] MEDS ORDERED: ROCURONIUM 10 MG/ML (5 ML VIAL) IV ONE (16:12)
[2021-03-08] MEDS ORDERED: fentaNYL (PF) 50 MCG/ML 2 ML AMP ONE (16:12)
[2021-03-08] MEDS ORDERED: MIDAZOLAM 2 MG/2 ML VIAL ONE (16:12)
[2021-03-08] MEDS ORDERED: PROPOFOL 10 MG/ML 20 ML VIAL IV ONE (16:12)
[2021-03-08] MEDS ORDERED: GLYCOPYRROLATE 0.2 MG/ML 2 ML VIAL ONE (16:12)
[2021-03-08] MEDS ORDERED: SUCCINYLCHOLINE CHLORIDE 100 MG/5 ML SYR IV ONE (16:12)
[2021-03-08] MEDS ORDERED: NEOSTIGMINE 1 MG/ML 10 ML VIAL ONE (16:12)
[2021-03-08] MEDS ORDERED: NALOXONE 0.4 MG/ML 1 ML VIAL IV PRN (16:37)
[2021-03-08] MEDS ORDERED: ROPIVACAINE 250 MG, HYDROMORPHONE (PF) 5 MG in SODIUM CHLORIDE 0.9% 200 ML EPIDURAL PRN (16:37)
[2021-03-08] MEDS ORDERED: LIDOCAINE 1%-EPI 1:100,000 20 ML VIAL SQ ONE (16:55)
[2021-03-08] MEDS ORDERED: LACTATED RINGERS 1,000 ML IV ONE (19:17)
[2021-03-08] MEDS ORDERED: ONDANSETRON 4 MG/2 ML VIAL IVP PRN (19:37)
[2021-03-08] MEDS ORDERED: LORATADINE-PSEUDOEPH 5-120 MG 1 EACH TAB.ER.12H PO PRN (19:39)
--- NOTE | 2021-03-08 19:47 | P.OP ---
Date of Procedure: 03/08/21 Description of Procedure: SURGEON: BREE DUARTE MD PREOPERATIVE DIAGNOSES: 1. Sigmoid volvulus with intermittent large bowel obstruction 2. Chronic constipation 3. Underweight, BMI 14.1 4. Chronic obstructive pulmonary disease 5. Hypertensive heart disease 6. Hypothyroidism 7. Generalized anxiety disorder 8. Cystocele 9. Pre-existing chronic anemia 10. History of vulvar cancer 11. Tobacco abuse disorder, in remission POSTOPERATIVE DIAGNOSES: 1. Sigmoid volvulus with intermittent large bowel obstruction 2. Chronic constipation 3. Underweight, BMI 14.1 4. Chronic obstructive pulmonary disease 5. Hypertensive heart disease 6. Hypothyroidism 7. Generalized anxiety disorder 8. Cystocele 9. Pre-existing chronic anemia 10. History of vulvar cancer 11. Tobacco abuse disorder, in remission OPERATION: 1. Robotic-assisted daVinci Xi laparoscopic with sigmoid colectomy and low anterior resection using 29mm EEA Ethicon powered stapler 2. Intraoperative colonoscopy for flexible sigmoidoscopy Anesthesia: GETA, local, epidural Estimated Blood Loss (ml): 10 Pathology: other (Sigmoid colon, anastomosis) Condition: stable Disposition: floor COMPLICATIONS: None. Operative Findings: 1. Sigmoid volvulus with redundant sigmoid resected for low anterior resection sigmoid colon 2. Dominant left ovary, 3 cm simple cyst INDICATIONS: The patient is a 70-year-old female with intermittent sigmoid volvulus. Surgical intervention was described. Benefits and risks, including infection, bowel injury, ureteral injury, colostomy creation and possibility for additional surgery was discussed at length. Informed consent was obtained. All questions of the patient and family were answered. DESCRIPTION: Earlier the patient had undergone a bowel prep using the enhanced colon recovery program. The patient was transferred to the operating room onto a split leg table and repositioned to modified lithotomy following intubation. A Bartlett catheter was placed. The abdomen was then prepped and draped in standard sterile fashion as Ioban was placed along the abdomen to minimize any contamination of skin floor. After a timeout protocol was performed, attention was then brought to the left upper quadrant whereby a 0 degree 5 mm laparoscopic trocar entry was performed. The abdominal cavity was entered and insufflated to 12 mmHg pressure and set to 20 mm of pressure consistent flow, which was tolerated well due to her small body habitus. Diagnostic laparoscopy confirmed redundant sigmoid colon. Next trocars were placed 20 cm superior from the pelvis. A 12-mm trocar was placed along the right lateral abdominal wall. A 8 mm port was placed along the right upper quadrant. Ports were placed 10 cm apart from each other including 15-20 cm away from the target anatomy of the left pelvis. An 8-mm port was was placed along the left upper quadrant. The stapler 12-mm port was arranged along the left lateral abdominal wall. The patient was then placed in Trendelenburg position, at least 14. The robotic da Brandon XI system was primed. The robot was docked from the right side of the patient. Using atraumatic graspers and vessel sealer, the robotic system was docked and primed as described. Instruments were interchanged by the hardware sales assistant including needle fuel oil truck driver, clip anodize machine operator, hook cautery, robotic stapler and vessel sealer. The robot stapler was prepared along the right lateral abdominal wall. Attention was brought to sigmoid colon. The sigmoid mesentery was mobilized using a vessel sealer. Using robot stapler 60 mm green loads, the descending colon was divided. Mobilization of the colon was performed to the pelvic brim along the sacral promontory. The mesentery of the sigmoid colon was mobilized towards the descending colon using a vessel sealer. Next, the top of the rectum was divided using robotic stapler 60 mm green loads. The rest of the sigmoid colon mesentery was mobilized using vessel sealer. Additionally, the sigmoid colon was mobilized onto the colon to minimize injury to the ureters. I went to the foot of the bed for selection of a sizer. A colorectal colon anastomosis with an EEA 29-mm was selected after using a sizer along the rectum. For the proximal sigmoid colon, a 29-mm anvil was placed after creating a colotomy then closed using a stapler at the distal end. The robot arms were temporarily undocked. A stapler was entered along the rectum and mated to the anvil for 1 minute. The anastomosis was created. The donuts were thick on the rectum side and then on the colon side. I then performed a bedside flexible sigmoidoscopy using colonoscope where no leaks or defects were confirmed as the hardware sales assistant placed normal saline along the pelvis. I re-scrubbed into the case. Irrigation fluid was suctioned from the abdomen. The robot was undocked. All needles were removed from the abdominal cavity. Via the left lateral 12-mm trocar site, the resected colon was retrieved after widening the skin incision to 4-cm. The fascial defect was oversewn using 0 Vicryl and a Kavon Olson. All incisions were cleansed using dilute normal saline and hydrogen peroxide mixture. Next all pneumoperitoneum was evacuated from the abdominal cavity. The 8-mm trocar sites were reapproximated using 4-0 Monocryl in an interrupted subcuticular fashion. Local anesthetic was infiltrated to all wounds for postop analgesia. All incisions were also cleansed with diluted hydrogen peroxide. An Optifoam surgical dressing was placed over the colon extraction site. Exofin was applied to the rest of the skin incisions. The patient was extubated successfully. An abdominal binder was placed. The patient was transferred to the postanesthesia care unit in stable condition.
[2021-03-08] MEDS: HYDROmorphone 0.5 MG/0.5 ML SYRINGE IVP PRN ×2 (20:02→20:14)
[2021-03-08] MEDS ORDERED: ALVIMOPAN 12 MG CAPSULE PO SCH (21:00)
[2021-03-08] MEDS: HEPARIN SODIUM,PORCINE/PF 5,000 UNIT/0.5 ML SYRINGE SQ SCH (21:59)
[2021-03-08] MEDS: clonazePAM 0.5 MG TAB PO SCH (21:59)
[2021-03-09] MEDS: SODIUM CHLORIDE 0.9% 1,000 ML IV SCH ×2 (00:50→16:45)
[2021-03-09] MEDS: metroNIDAZOLE-NS PMX 500 MG in SALINE 1 100ML.BAG IVPB SCH ×3 (00:50→15:02)
[2021-03-09] MEDS: HYDROmorphone 0.5 MG/0.5 ML SYRINGE IVP PRN ×2 (05:07→17:40)
[2021-03-09] MEDS: LEVOTHYROXINE 50 MCG TAB PO SCH (05:41)
[2021-03-09] MEDS: LACTATED RINGERS 1,000 ML IV SCH (07:02)
--- NOTE | 2021-03-09 07:08 | P.ANPRN ---
Procedure Note - Anesthesia - Epidural/Spinal Epidural Continuous Time Out Performed: Yes Date of Procedure: 03/08/21 Procedure Start Time: 15:40 Procedure Stop Time: 15:49 Location of Patient: PreOp Indication: Acute Post-Operative Pain, Requested by Surgeon Sedation Type: Sedate with meaningful contact maintained Preparation: Sterile Dressing Position: Sitting Catheter: Indwelling Needle Guage: 18 Injectate: Test Dose Lidocaine1.5% w/1:200,000 epi Blood Aspirated: No Pain Paresthesia on Injection Noted: No Events: Uneventful and Well Tolerated (test 3cc given , no adverse side effects)
--- NOTE | 2021-03-09 07:13 | P.PN ---
Progress Note - Text 03/09/21 659am 70 year old female s/p sigmoid colectomy. pt has an epidural for post op pain control with solution running at 8cc/hr . iwas called last night by the nurse as the patient was having break thru pain. i increased the rate to 8cc and also ordered iv dilaudid, pt has a h/o of norco use at home.i saw her today and she is no better, i increased the rate to 10cc, hopefully this should be adequate.
[2021-03-09] MEDS: ALVIMOPAN 12 MG CAPSULE PO SCH ×2 (08:00→21:04)
[2021-03-09] MEDS: HEPARIN SODIUM,PORCINE/PF 5,000 UNIT/0.5 ML SYRINGE SQ SCH ×2 (08:01→21:06)
[2021-03-09] MEDS ORDERED: TAMSULOSIN 0.4 MG CAP.ER.24H PO STA (09:28)
[2021-03-09] MEDS: HYDROcodone/APAP 10-325MG 1 EACH TAB PO PRN ×2 (10:08→15:01)
[2021-03-09] MEDS: FLUTICASONE 50MCG/SPRAY NASAL 16GM EA NOSTRIL SCH (10:11)
[2021-03-09] MEDS: SIMETHICONE 40 MG/0.6 ML DROPS 2,000 MG/30 ML BOTTLE PO SCH ×4 (10:30→21:05)
[2021-03-09 11:38] LABS: Basophils # (A) 0.04 X 10*3/uL (0.00-0.10); Basophils % (A) 0.6 %; HCT 24.7 % (37.2-46.3); HGB 7.7 g/dL (12.0-15.0); Lymphocytes # (A) 0.98 X 10*3/uL (0.90-5.00); Lymphocytes % (A) 14.7 %; MCH 21.1 pg (27.0-32.0); MCHC 31.2 g/dL (32.0-37.0); MCV 67.7 fL (80.0-97.0); Mean Platelet Volume 10.5 fL (9.5-12.2); Monocytes # (A) 0.46 X 10*3/uL (0.20-1.00); Monocytes % (A) 6.9 %; Neutrophils # (A) 4.97 X 10*3/uL (1.80-7.70); Neutrophils % (A) 74.4 %; Platelet Count 229 X 10*3/uL (140-440); RBC 3.65 X 10*6/uL (4.10-5.20); WBC 6.68 X 10*3/uL (4.50-10.00)
[2021-03-09] MEDS ORDERED: ACETAMINOPHEN IV (For NPO) 500 MG in EMPTY BAG 1 BAG IVPB SCH (12:00)
--- NOTE | 2021-03-09 12:56 | P.PN ---
<CiaraEtelvina warren - Last Filed: 03/09/21 12:48> Subjective Progress Note Date: 03/09/21 CHIEF COMPLAINT: Sigmoid volvulus HISTORY OF PRESENT ILLNESS: Patient is status post Robotic-assisted daVinci Xi laparoscopic with sigmoid colectomy and low anterior resection. Patient currently has epidural in place. She was complaining of abdominal pain and gas pains. She did also have nausea. No vomiting. Denies any flatus. Afebrile. WBC 6.68 hemoglobin did drop from 10-7.7 PHYSICAL EXAM: VITAL SIGNS: Reviewed GENERAL: Well-developed in no acute distress. HEENT: No sclera icterus. Extraocular movements grossly intact. Moist buccal mucosa. Head is atraumatic, normocephalic. Hears conversational speech. No nasal drainage. NECK: Supple without lymphadenopathy. CHEST: Non-labored respirations and equal bilateral excursions. CARDIOVASCULAR: Palpable 2+ radial pulses. ABDOMEN: Soft. Nondistended. Incision sites clean dry and intact MUSCULOSKELETAL: No clubbing or cyanosis. NEUROLOGIC: No focal or lateralizing signs. Cranial nerves II through XII grossly intact. PSYCH: Appropriate affect. Alert and oriented to person, place and time. SKIN: Well perfused. Good skin turgor. ASSESSMENT: 1. Sigmoid volvulus with intermittent large bowel obstruction 2. Chronic constipation 3. Underweight, BMI 14.1 4. Chronic obstructive pulmonary disease 5. Hypertensive heart disease 6. Hypothyroidism 7. Generalized anxiety disorder 8. Cystocele 9. Pre-existing chronic anemia 10. History of vulvar cancer 11. Tobacco abuse disorder, in remission PLAN: -Initially added IV Tylenol and Toradol to help with pain control. Patient refusing these 2 medications. She reports that she will use her [facility]. -Mylicon gas drops added for gas pain -Epidural and Bartlett catheter will be discontinued today -Give 1 dose of Flomax prior to removal of Bartlett catheter -Continue Entereg -Continue IV fluids -Continue clear liquid diet -Continue antiemetics -Encourage patient ambulates -Encourage incentive spirometer use -DVT prophylaxis subcu heparin and GI prophylaxis Protonix Physician Perfect Binder Operator note has been reviewed by physician. Signing provider agrees with the documented findings, assessment, and plan of care. Objective - Vital Signs Vital signs: Vital Signs Temp 97.9 F 03/09/21 12:13 Pulse 60 03/09/21 12:14 Resp 18 03/09/21 12:13 BP 120/55 03/09/21 12:13 Pulse Ox 94 L 03/09/21 12:13 Intake & Output 03/08/21 03/09/21 03/09/21 18:59 06:59 18:59 Intake Total 1250 300 Output Total 240 Balance 1250 60 Weight 36.2 kg 36.2 kg Intake: IV 1250 300 Output: Urine 230 Estimated Blood Loss 10 Other: Voiding Method Indwelling Catheter - Labs CBC & Chem 7: 03/09/21 06:54 03/08/21 13:00 Labs: Abnormal Lab Results - Last 24 Hours (Table) 03/08/21 03/08/21 03/09/21 Range/Units 13:00 13:00 06:54 RBC 3.65 L (4.10-5.20) X 10*6/uL Hgb 10.0 L 7.7 L (11.4-16.0) gm/dL Hct 29.3 L 24.7 L (34.0-46.0) % MCV 66.5 L 67.7 L (80.0-100.0) fL MCH 22.7 L 21.1 L (25.0-35.0) pg MCHC 31.2 L (32.0-37.0) g/dL RDW 15.0 H (11.5-14.5) % Absolute Nucleated RBC 0.02 H (0.00-0.00) X 10*3/uL Eosinophils # 0.8 H (0-0.7) k/uL NRBC/100 WBC Diff 0.3 H (0.0-0.0) /100 WBCS Sodium 131 L (137-145) mmol/L Chloride 97 L (98-107) mmol/L <Elvia Jeff N - Last Filed: 03/09/21 23:30> Subjective Patient seen and evaluated with above and re-evaluated this evening. CHIEF COMPLAINT: Sigmoid volvulus HISTORY OF PRESENT ILLNESS: The patient is a 70-year-old female status post low anterior resection for sigmoid volvulus. Epidural is removed. Her pain is tolerable with [facility]. She is voiding. She did receive lasix for mild pulmonary congestion and dilutional anemia. ROS: No reports of nausea and vomiting. No bowel movements. No fevers or chills. No new chest pain. No productive sputum PHYSICAL EXAM: VITAL SIGNS: Reviewed CONSTITUTIONAL: Well developed and in no acute distress. EYES: Conjuctivae without sclera icterus. Extraocular movements grossly intact. HEAD, EARS, NOSE, THROAT: Moist buccal mucosa. Head is atraumatic, normocepha lic. Hears conversational speech. No nasal drainage. RESPIRATORY: Non-labored respirations and equal bilateral excursions. CARDIOVASCULAR: Palpable 2+ radial pulses. ABDOMEN: Incisions clean dry and intact. No peritonitis. MUSCULOSKELETAL: No gross deformity of the lower extremities noted. No clubbing. No cyanosis. SKIN: Good skin turgor. Well perfused. NEUROLOGIC: Cranial nerves II through XII grossly intact. No focal or lateralizing signs. PSYCH: Appropriate affect. Alert and oriented to person, place and time. CLINICAL LABS: Reviewed. Hgb 7.7 ASSESSMENT: 1. Sigmoid volvulus 2. Chronic anemia 3. Chronic pain PLAN: 1. Patient re-assured of expected post-operative care including diet, bowel habits and bowel function. 2. May discharge tomorrow when stable for discharge. 3. Continue full liquid diet upon discharge until seen in office in 3 days. Objective - Vital Signs Vital signs: Vital Signs Temp 97.9 F 03/09/21 12:13 Pulse 60 03/09/21 12:14 Resp 18 03/09/21 12:13 BP 120/55 03/09/21 12:13 Pulse Ox 94 L 03/09/21 12:13 Intake & Output 03/09/21 03/09/21 03/10/21 06:59 18:59 06:59 Intake Total 300 Output Total 240 600 Balance 60 -600 Weight 36.2 kg 36.2 kg Intake: IV 300 Output: Urine 230 600 Estimated Blood Loss 10 Other: Voiding Method Indwelling Catheter # Voids 1 - Labs CBC & Chem 7: 03/09/21 06:54 03/09/21 06:54 Labs: Abnormal Lab Results - Last 24 Hours (Table) 03/09/21 03/09/21 Range/Units 06:54 06:54 RBC 3.65 L (4.10-5.20) X 10*6/uL Hgb 7.7 L (12.0-15.0) g/dL Hct 24.7 L (37.2-46.3) % MCV 67.7 L (80.0-97.0) fL MCH 21.1 L (27.0-32.0) pg MCHC 31.2 L (32.0-37.0) g/dL RDW 15.0 H (11.5-14.5) % Absolute Nucleated RBC 0.02 H (0.00-0.00) X 10*3/uL NRBC/100 WBC Diff 0.3 H (0.0-0.0) /100 WBCS Carbon Dioxide 20.6 L (21.6-31.8) mmol/L BUN/Creatinine Ratio 11.25 L (12.00-20.00) Ratio Glucose 62 L (70-110) mg/dL Calcium 8.2 L (8.7-10.3) mg/dL Assessment and Plan (1) Sigmoid volvulus Current Visit: Yes Status: Acute Code(s): K56.2 - VOLVULUS SNOMED Code(s): 951959698
[2021-03-09] MEDS: PANTOPRAZOLE 40 MG TABLET PO SCH (13:44)
[2021-03-09 14:45] VITALS: BMI 14.1
[2021-03-09] MEDS ORDERED: SODIUM FERRIC GLUCONAT-SUCROSE 125 MG in SODIUM CHLORIDE 0.9% 100 ML IVPB ONE (15:19)
[2021-03-09] MEDS ORDERED: FUROSEMIDE 10 MG/ML 2 ML VIAL IV STA (17:44)
[2021-03-09] MEDS: clonazePAM 0.5 MG TAB PO SCH (21:04)
[2021-03-09 21:49] LABS: African American GFR (CKD) 86.6 (60.0-200.0); Anion Gap 10.4 mmol/L (4.00-12.00); BUN/Creat Ratio 11.25 Ratio (12.00-20.00); Calcium 8.2 mg/dL (8.7-10.3); Carbon Dioxide 20.6 mmol/L (21.6-31.8); Non-African American GFR(CKD) 74.7 (60.0-200.0); Potassium 4.1 mmol/L (3.5-5.5)
[2021-03-10] MEDS: HYDROcodone/APAP 10-325MG 1 EACH TAB PO PRN ×2 (05:09→10:17)
[2021-03-10] MEDS: LEVOTHYROXINE 50 MCG TAB PO SCH (05:10)
[2021-03-10] MEDS: ALVIMOPAN 12 MG CAPSULE PO SCH (08:37)
[2021-03-10] MEDS: SIMETHICONE 40 MG/0.6 ML DROPS 2,000 MG/30 ML BOTTLE PO SCH ×2 (08:37→13:00)
[2021-03-10] MEDS: PANTOPRAZOLE 40 MG TABLET PO SCH (08:37)
[2021-03-10] MEDS: HEPARIN SODIUM,PORCINE/PF 5,000 UNIT/0.5 ML SYRINGE SQ SCH (08:37)
[2021-03-10] MEDS: FLUTICASONE 50MCG/SPRAY NASAL 16GM EA NOSTRIL SCH (08:37)
[2021-03-10 09:22] LABS: Basophils # (A) 0.03 X 10*3/uL (0.00-0.10); Basophils % (A) 0.5 %; Eosinophils # (A) 1.13 X 10*3/uL (0.04-0.35); Eosinophils % (A) 18.7 %; HCT 24.8 % (37.2-46.3); HGB 7.8 g/dL (12.0-15.0); Lymphocytes # (A) 0.73 X 10*3/uL (0.90-5.00); Lymphocytes % (A) 12.1 %; MCH 20.7 pg (27.0-32.0); MCHC 31.5 g/dL (32.0-37.0); MCV 65.8 fL (80.0-97.0); Mean Platelet Volume 10.3 fL (9.5-12.2); Monocytes # (A) 0.34 X 10*3/uL (0.20-1.00); Monocytes % (A) 5.6 %; Neutrophils # (A) 3.78 X 10*3/uL (1.80-7.70); Neutrophils % (A) 62.6 %; Platelet Count 220 X 10*3/uL (140-440); RBC 3.77 X 10*6/uL (4.10-5.20); RDW 14.6 % (11.5-14.5); WBC 6.04 X 10*3/uL (4.50-10.00)
[2021-03-10 09:33] VITALS: BP 117/50; PULSE 64; RESP 18; TEMP 99
--- NOTE | 2021-03-10 09:56 | P.PN ---
Subjective Progress Note Date: 03/10/21 Principal diagnosis: Status post colectomy Patient doing well today. No nausea or vomiting. Tolerating liquid diet. T- max 99.8. White blood cell count normal. Hemoglobin 7.7 which appears to be close to her baseline from 1-2 months ago. No rectal bleeding. Objective - Vital Signs Vital signs: Vital Signs Temp 99.0 F 03/10/21 08:00 Pulse 64 03/10/21 08:00 Resp 18 03/10/21 08:00 BP 117/50 03/10/21 08:00 Pulse Ox 92 L 03/10/21 08:00 Intake & Output 03/09/21 03/10/21 03/10/21 18:59 06:59 18:59 Output Total 600 Balance -600 Weight 36.2 kg Output: Urine 600 Other: Voiding Method Indwelling Catheter Indwelling Catheter # Voids 1 - Exam Abdomen: Soft, nondistended, incisions clean and dry, minimal tenderness - Labs CBC & Chem 7: 03/10/21 05:44 03/09/21 06:54 Labs: Abnormal Lab Results - Last 24 Hours (Table) 03/09/21 03/09/21 03/10/21 Range/Units 06:54 06:54 05:44 RBC 3.65 L 3.77 L (4.10-5.20) X 10*6/uL Hgb 7.7 L 7.8 L (12.0-15.0) g/dL Hct 24.7 L 24.8 L (37.2-46.3) % MCV 67.7 L 65.8 L (80.0-97.0) fL MCH 21.1 L 20.7 L (27.0-32.0) pg MCHC 31.2 L 31.5 L (32.0-37.0) g/dL RDW 15.0 H 14.6 H (11.5-14.5) % Absolute Nucleated RBC 0.02 H (0.00-0.00) X 10*3/uL Lymphocytes # 0.73 L (0.90-5.00) X 10*3/uL Eosinophils # 1.13 H (0.04-0.35) X 10*3/uL NRBC/100 WBC Diff 0.3 H (0.0-0.0) /100 WBCS Carbon Dioxide 20.6 L (21.6-31.8) mmol/L BUN/Creatinine Ratio 11.25 L (12.00-20.00) Ratio Glucose 62 L (70-110) mg/dL Calcium 8.2 L (8.7-10.3) mg/dL Assessment and Plan (1) Sigmoid volvulus Narrative/Plan: Patient appears to be doing well today. She wants to go home. Hemoglobin did drop but that may be related to hydration. No signs of bleeding at this time. Begin increasing diet to full. May discharge later today if doing well. Outpatient CBC advised. Current Visit: Yes Status: Acute Code(s): K56.2 - VOLVULUS SNOMED Code(s): 530462416
[2021-03-10] MEDS: SODIUM CHLORIDE 0.9% 1,000 ML IV SCH (13:00)
--- NOTE | 2021-03-11 14:19 | P.DS ---
Providers Date of admission: 03/08/21 11:41 Expected date of discharge: 03/10/21 Attending physician: Elvia Jeff Primary care physician: Nicolás Rose - Discharge Diagnosis(es) (1) Sigmoid volvulus Status: Acute Hospital Course: POSTOPERATIVE DIAGNOSES: 1. Sigmoid volvulus with intermittent large bowel obstruction 2. Chronic constipation 3. Underweight, BMI 14.1 4. Chronic obstructive pulmonary disease 5. Hypertensive heart disease 6. Hypothyroidism 7. Generalized anxiety disorder 8. Cystocele 9. Pre-existing chronic anemia 10. History of vulvar cancer 11. Tobacco abuse disorder, in remission COURSE: The patient is a 70-year-old female with intermittent sigmoid volvulus. She is status post low anterior resection. She is doing well post-op. Discharge instructions were reviewed. Patient tolerated diet and stable for discharge. Procedures: OPERATION: 1. Robotic-assisted daVinci Xi laparoscopic with sigmoid colectomy and low anterior resection using 29mm EEA Ethicon powered stapler 2. Intraoperative colonoscopy for flexible sigmoidoscopy Anesthesia: GETA, local, epidural Estimated Blood Loss (ml): 10 Pathology: other (Sigmoid colon, anastomosis) Condition: stable Disposition: floor COMPLICATIONS: None. Operative Findings: 1. Sigmoid volvulus with redundant sigmoid resected for low anterior resection sigmoid colon 2. Dominant left ovary, 3 cm simple cyst Patient Condition at Discharge: Stable Plan - Discharge Summary Discharge Rx Participant: Yes New Discharge Prescriptions: New Simethicone 40 mg/0.6 ml Drops [Mylicon Drops] 40 mg PO Q6HR PRN #30 ml PRN Reason: Abdominal Distention Acetaminophen Tab [Tylenol Tab] 500 mg PO Q6H PRN #30 tablet PRN Reason: Pain Continue Levothyroxine Sodium [Synthroid] 50 mcg PO DAILY estradioL [Estradiol 0.025 MG Patch] 1 patch TOPICAL SUWE Omeprazole [PriLOSEC] 40 mg PO AC-BRKFST clonazePAM [KlonoPIN] 0.5 mg PO HS HYDROcodone/APAP 10-325MG [[place] 10-325] 1 tab PO QID PRN PRN Reason: Pain Ondansetron HCl [Zofran] 4 mg PO BID PRN PRN Reason: Nausea And Vomiting Fluticasone Propionate [Flonase Allergy Relief] 2 spray EA NOSTRIL DAILY Loratadine-Pseudoeph 5-120 mg [Claritin-D 12 Hour] 1 each PO Q12HR PRN PRN Reason: allergy sx Docusate [Colace] 100 mg PO BID #20 capsule Nicotine 7Mg/24Hr Patch [Habitrol] 1 patch TRANSDERM DAILY Discontinued Cholecalciferol [Vitamin D3 (25 Mcg = 1000 Iu)] 50 mcg PO DAILY Multivitamins, Thera [Multivitamin (formulary)] 1 tab PO DAILY Discharge Medication List Levothyroxine Sodium [Synthroid] 50 mcg PO DAILY 11/26/13 [History] estradioL [Estradiol 0.025 MG Patch] 1 patch TOPICAL SUWE 08/02/15 [History] Omeprazole [PriLOSEC] 40 mg PO AC-BRKFST 09/12/15 [History] clonazePAM [KlonoPIN] 0.5 mg PO HS 05/29/18 [History] HYDROcodone/APAP 10-325MG [[place] 10-325] 1 tab PO QID PRN 01/07/20 [History] Ondansetron HCl [Zofran] 4 mg PO BID PRN 01/07/20 [History] Fluticasone Propionate [Flonase Allergy Relief] 2 spray EA NOSTRIL DAILY 12/18/20 [History] Docusate [Colace] 100 mg PO BID #20 capsule 12/24/20 [Rx] Loratadine-Pseudoeph 5-120 mg [Claritin-D 12 Hour] 1 each PO Q12HR PRN 03/01/21 [History] Nicotine 7Mg/24Hr Patch [Habitrol] 1 patch TRANSDERM DAILY 03/01/21 [History] Acetaminophen Tab [Tylenol Tab] 500 mg PO Q6H PRN #30 tablet 03/09/21 [Rx] Simethicone 40 mg/0.6 ml Drops [Mylicon Drops] 40 mg PO Q6HR PRN #30 ml 03/09/21 [Rx] Follow up Appointment(s)/Referral(s): Elvia Jeff MD [STAFF PHYSICIAN] - 03/13/21 Patient Instructions/Handouts: *[facility] - Managing Your Pain After Surgery Without Opioids, Colectomy (DC), Laparoscopic Bowel Resection (IP), Full Liquid Diet (DC), Colectomy Diet (DC) Activity/Diet/Wound Care/Special Instructions: Wear abdominal binder at all times for comfort. Please notify your pain specialist for narcotic pain meds. No lifting over 4 pounds in 4 weeks until April 07. October shower. No bath tub soaks for two weeks until Mar 22 Avoid steak, tough meats and seeds such as raspberry seeds. No driving while on narcotics. Use Tylenol and ibuprofen scheduled for the next 24-48 hours for best pain relief. Use ice along incisions for today to prevent swelling. Discharge Disposition: HOME SELF-CARE
== END 2021-03-10 13:15 | disposition home or self-care (01) | DRG 330 ==
LOC: 2ORMAIN 11:41 → 4SSUR 19:33
PROVIDERS: ADMIT Surgery Plastic and Reconstructive Surgery; ATTEND Surgery Plastic and Reconstructive Surgery
PROC: 0DTN0ZZ Resection of Sigmoid Colon, Open Approach (ICD-10-PCS; 2021-03-08)
PROC: 0DJD8ZZ Inspection of Lower Intestinal Tract, Via Natural or Artificial Opening Endoscopic (ICD-10-PCS; 2021-03-08)
PROC: 8E0W4CZ Robotic Assisted Procedure of Trunk Region, Percutaneous Endoscopic Approach (ICD-10-PCS; 2021-03-08)
PROC: 0DTP4ZZ Resection of Rectum, Percutaneous Endoscopic Approach (ICD-10-PCS; principal; 2021-03-08 13:50)
DX: K56.2 Volvulus (principal); Z68.1 Body mass index [BMI] 19.9 or less, adult; R63.6 Underweight; J44.9 Chronic obstructive pulmonary disease, unspecified; G89.29 Other chronic pain; E89.0 Postprocedural hypothyroidism; K21.9 Gastro-esophageal reflux disease without esophagitis; M19.90 Unspecified osteoarthritis, unspecified site; F17.210 Nicotine dependence, cigarettes, uncomplicated; I11.9 Hypertensive heart disease without heart failure; F41.1 Generalized anxiety disorder; D64.9 Anemia, unspecified; K59.09 Other constipation; Z79.890 Hormone replacement therapy; Z87.442 Personal history of urinary calculi; Z85.44 Personal history of malignant neoplasm of other female genital organs; Z88.5 Allergy status to narcotic agent; Z88.6 Allergy status to analgesic agent
CPT/HCPCS: 80048; 80053; 85025; 86850; 86900; 86901; 88307; 94760

== ENCOUNTER → 2021-05-25 | Outpatient (CLI) | payer MEDICARE, OTHER ==
[2021-05-25 10:34] LABS: Basophils % (A) 1 %; Eosinophils # (A) 0.9 k/uL (0-0.7); Eosinophils % (A) 15 %; HCT 29.3 % (34.0-46.0); HGB 9.4 gm/dL (11.4-16.0); Hypochromasia Slight; Lymphocytes # (A) 1.5 k/uL (1.0-4.8); Lymphocytes % (A) 25 %; MCHC 31.9 g/dL (31.0-37.0); Mean Platelet Volume 7.2; Microcytosis Marked; Monocytes # (A) 0.2 k/uL (0-1.0); Monocytes % (A) 4 %; Neutrophils # (A) 3.2 k/uL (1.3-7.7); Neutrophils % (A) 54 %; Platelet Count 234 k/uL (150-450); RBC 4.25 m/uL (3.80-5.40); RDW 15.3 % (11.5-15.5); WBC 5.9 k/uL (3.8-10.6)
[2021-05-25 11:02] LABS: Calcium 9.3 mg/dL (8.4-10.2); Potassium 4.3 mmol/L (3.5-5.1)
== END | disposition home or self-care (01) ==
LOC: LABPAT 09:29
PROVIDERS: ATTEND Obstetrics & Gynecology
DX: Z01.812 Encounter for preprocedural laboratory examination (principal)
CPT/HCPCS: 80048; 85025; 86850; 86900; 86901

== ENCOUNTER 2021-06-04 06:14 | Day surgery (SDC) | payer MEDICARE, OTHER ==
[2021-05-31 10:48] VITALS: BMI 14.1
[~2021-06-04 06:14] MED LIST changes: -ACETAMINOPHEN TAB 500 MG TAB PO PRN; -ALVIMOPAN 12 MG CAPSULE PO PRN; -Antibiotics per Pharmacy 1 EACH MISC MISCELLANE PRN; -HEPARIN SODIUM,PORCINE/PF 5,000 UNIT/0.5 ML SYRINGE SQ PRN; -metroNIDAZOLE-NS PMX 500 MG in SALINE 1 100ML.BAG IVPB PRN
[2021-06-04] MEDS ORDERED: LACTATED RINGERS 1,000 ML IV ONE (06:56)
[2021-06-04] MEDS ORDERED: HYDROmorphone 0.5 MG/0.5 ML SYRINGE IVP PRN (07:00)
[2021-06-04] MEDS ORDERED: PROPOFOL 10 MG/ML 20 ML VIAL IV ONE (07:36)
[2021-06-04] MEDS ORDERED: BACITRACIN ZINC 500 UNIT/GM OINT 28.4 GM TUBE TOPICAL ONE (08:14)
[2021-06-04] MEDS ORDERED: KETOROLAC 15 MG/ML 1 ML VIAL IVP PRN (08:29)
[2021-06-04] MEDS ORDERED: ONDANSETRON 4 MG/2 ML VIAL IVP PRN (08:29)
--- NOTE | 2021-06-04 08:35 | P.OP ---
Date of Procedure: 06/04/21 Preoperative Diagnosis: MARY 2 and rectocele Postoperative Diagnosis: Same: Possible the VAIN Procedure(s) Performed: Posterior repair with wide local excision of vaginal and vulvar lesion Anesthesia: spinal Surgeon: Faustino Manley Estimated Blood Loss (ml): 10 IV fluids (ml): 300 Pathology: other (Vaginal mucosa and wide local excision of right labia) Condition: stable Disposition: floor Operative Findings: Pathology is pending Description of Procedure: Patient was taken to the operating suite where a spinal anesthetic was found be adequate. She was prepped and draped in normal sterile fashion and placed in the dorsal lithotomy position. Initially cornu of the posterior vagina were grasped elevated and dilute epinephrine solution was injected subcuticularly. Knife was then used to incise this tissue and then nicked in the midline. Metastases scissors were then used to dissect superiorly into the vagina under the vaginal mucosa to the apex of the rectocele. Boundaries were marked with Allis clamps. Once at the apex blunt and minimal sharp dissection the rectocele off of the vaginal Barros was performed and 7 Agnes plication sutures were placed underneath the mucosa to bring the tissue together. Excess vaginal mucosa was then excised and the incision was closed with 0 Vicryl suture in a running locking fashion. Once this was completed identification of abnormal area and just inside the vaginal margin was noted with history of MARY suspect VAI and dilute epinephrine solution was then injected again underneath these tissues and using elliptical incision and a 15 blade the wide local excision around the areas of abnormality were once this was accomplished using 3-0 Vicryl in an interrupted fashion the entire repair was closed. Once this was completed sponge, lap, needle counts were all correct 2. Patient was then taken to the recovery room in stable and satisfactory condition.
--- NOTE | 2021-06-04 08:50 | P.HPOB ---
History of Present Illness H&P Date: 06/04/21 Chief Complaint: MARY and and and rectocele Caden is a 70-year-old female with a history of MARY 3 in the past which she has had excision biopsies a wide local excision and [facility] cancer [place] for. She did not tolerate the medication to try and keep her from having recurrence and she presents for MARY 2 on the opposite side at this time. She also is noted to have a grade 2 rectocele and grade 1 cystocele. The cystocele will not be repaired as it is not bothering her at this time. She does have a pessary that we will remove prior to surgery and will allow her to take this home and likely she will have to use this once the rectocele is completed. Risks/benefits/al ternatives to this procedure were reviewed with the patient in detail all questions were answered for her prior to proceeding to the operative room. On exam preoperatively it is noted that she has what appears to be lesion within the margin of her vagina as well so this may be VAIN but we will await final tissue pathology. All questions were answered for her prior to proceeding to the operative room and we will plan to keep her overnight as a precaution following surgery. Past Medical History Past Medical History: Blood Disorder, Cancer, GERD/Reflux, Musculoskeletal Disorder, Osteoarthritis (OA), Thyroid Disorder Additional Past Medical History / Comment(s): Weight loss-unable to regain weight since thyroidectomy. Low BP. Hiatal hernia, constipation w/ bowel obstruction. 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 Chronic Anemia, Thalassemia. Osteoporosis. Hx thyroid cancer(2009). Cyst on kidney. Hx kidney stone. Left ovarian mass. Hx of bilateral vulvar cancer, recurrent 2019. Abdominal pain, nausea, vomiting and slight dysphagia. Varicose veins. History of Any Multi-Drug Resistant Organisms: None Reported Past Surgical History: Appendectomy, Bowel Resection, Cholecystectomy, Hysterectomy, Tubal Ligation Additional Past Surgical History / Comment(s): THYROIDECTOMY X2 (thyroid grew back, had second surgery). EGD, Colonoscopy, excision of bilateral vuvlar cancer. 12/18 sigmoid colectomy attempted (had to stop unknown why), sigmoid colectomy 03/20. Past Anesthesia/Blood Transfusion Reactions: No Reported Reaction Additional Past Anesthesia/Blood Transfusion Reaction / Comment(s): No reaction from previous blood transfusion. Past Psychological History: No Psychological Hx Reported Smoking Status: Current every day smoker Past Alcohol Use History: None Reported Additional Past Alcohol Use History / Comment(s): Smoker since age 17, smoked less than <1/2 PPD, using nicotine patch, down to 3 cigarettes per day. Past Drug Use History: None Reported - Past Family History Father Sister(s) Family Medical History: Unable to Obtain Father Family Medical History: Blood Disorder, Cancer Additional Family Medical History / Comment(s): Thalassemia, bone cancer. Son(s) Family Medical History: Pulmonary Embolus Brother(s) Family Medical History: Blood Disorder, Cancer Additional Family Medical History / Comment(s): THALASSEMIA, Leukemia. Daughter(s) Family Medical History: Blood Disorder Additional Family Medical History / Comment(s): THALASSEMIA. Medications and Allergies Home Medications Medication Instructions Recorded Confirmed Type Levothyroxine Sodium [Synthroid] 50 mcg PO MOTUWETHFRSA 11/26/13 05/31/21 History estradioL [Estradiol 0.025 MG 1 patch TOPICAL SUWE 08/02/15 05/31/21 History Patch] Omeprazole [PriLOSEC] 40 mg PO AC-BRKFST 09/12/15 05/31/21 History clonazePAM [KlonoPIN] 0.5 mg PO HS 05/29/18 05/31/21 History HYDROcodone/APAP 10-325MG [[place] 1 tab PO QID PRN 01/07/20 05/31/21 History 10-325] Ondansetron HCl [Zofran] 4 mg PO BID PRN 01/07/20 05/31/21 History Fluticasone Propionate [Flonase 2 spray EA NOSTRIL DAILY 12/18/20 05/31/21 History Allergy Relief] Docusate [Colace] 100 mg PO BID #20 capsule 12/24/20 05/31/21 Rx Nicotine 7Mg/24Hr Patch [Habitrol] 1 patch TRANSDERM DAILY 03/01/21 05/31/21 History Levothyroxine Sodium [Synthroid] 100 mcg PO MUSA 05/31/21 05/31/21 History Allergies Allergy/AdvReac Type Severity Reaction Status Date / Time codeine Allergy Vomiting Verified 05/31/21 10:19 [From Tylenol-Codeine #3] tramadol Allergy Vomiting Verified 05/31/21 10:19 ibuprofen AdvReac Nausea & Verified 05/31/21 10:19 Vomiting Exam Osteopathic Statement: *. No significant issues noted on an osteopathic structural exam other than those noted in the History and Physical/Consult. Vital Signs Temp Pulse Resp BP Pulse Ox 06/04/21 06:59 97.8 F 72 18 124/78 98 Intake and Output 06/03/21 06/04/21 06/04/21 22:59 06:59 14:59 Intake Total 100 350 Output Total 10 Balance 100 340 Intake: IV 100 350 Output: Estimated Blood Loss 10 Other: Weight 38 kg - OBG Physical Exam Breast: both: normal (no masses) Abdomen: bowel sounds normal, no diffuse tenderness, no bruit present, no guarding noted, no hepatomegaly, no splenomegaly, no mass Vulva: right: pigmented lesion, both: normal Vagina: normal moisture, no discharge, rectocele (Grade 2), cystocele (Grade 1) Cervix: no lesion, no discharge, absent Uterus: normal size, normal contour, absent Adnexa: both: normal Anus/Rectum: normal perianal skin, no rectal mass, no hemorrhoids, heme negative
[2021-06-04] MEDS ORDERED: LEVOTHYROXINE 50 MCG TAB PO SCH (09:00)
[2021-06-04 11:31] LABS: Basophils % (A) 1 %; Eosinophils # (A) 0.2 k/uL (0-0.7); Eosinophils % (A) 4 %; HCT 29.1 % (34.0-46.0); HGB 9.2 gm/dL (11.4-16.0); Hypochromasia Slight; Lymphocytes # (A) 0.6 k/uL (1.0-4.8); Lymphocytes % (A) 13 %; MCH 21.4 pg (25.0-35.0); MCHC 31.6 g/dL (31.0-37.0); MCV 67.6 fL (80.0-100.0); Mean Platelet Volume 6.6; Microcytosis Marked; Monocytes # (A) 0.1 k/uL (0-1.0); Monocytes % (A) 1 %; Neutrophils # (A) 3.9 k/uL (1.3-7.7); Neutrophils % (A) 80 %; Platelet Count 210 k/uL (150-450); RBC 4.31 m/uL (3.80-5.40); RDW 14.9 % (11.5-15.5); WBC 4.8 k/uL (3.8-10.6)
[2021-06-04 11:32] VITALS: RESP 16
[2021-06-04] MEDS ORDERED: HYDROmorphone 0.5 MG/0.5 ML SYRINGE IM STA (11:36)
[2021-06-04 11:47] LABS: ALT 12 U/L (4-34); AST 28 U/L (14-36); African American GFR (CKD) >90 (>60 ml/min/1.73 sqM); Albumin 3.8 g/dL (3.5-5.0); Alkaline Phosphatase 32 U/L (38-126); Anion Gap 5 mmol/L; Blood Urea Nitrogen 11 mg/dL (7-17); Calcium 9.3 mg/dL (8.4-10.2); Carbon Dioxide 26 mmol/L (22-30); Chloride 105 mmol/L (98-107); Glucose 98 mg/dL (74-99); Non-African American GFR(CKD) 81 (>60 ml/min/1.73 sqM); Potassium 5.2 mmol/L (3.5-5.1); Sodium 136 mmol/L (137-145); Total Bilirubin 0.5 mg/dL (0.2-1.3); Total Protein 7.1 g/dL (6.3-8.2)
[2021-06-04] MEDS: HYDROcodone/APAP 10-325MG 1 EACH TAB PO PRN ×2 (13:54→17:54)
[2021-06-04] MEDS: LACTATED RINGERS 1,000 ML IV SCH ×2 (13:56→19:17)
--- NOTE | 2021-06-04 15:33 | P.CONS ---
History of Present Illness - Reason for Consult Consult date: 06/04/21 Medical Management - Chief Complaint Status post repair with wide local excision of vaginal and vulvar lesion - History of Present Illness Patient is a 70-year-old female with a known history of bilateral vulvar cancer recurrence and 2019, left ovarian mass, history of thyroid cancer status post resection and 2010, sigmoid colectomy 03/20, history of bowel obstruction, osteoarthritis, GERD and currently able day smoker was admitted to the hospital for posterior repair with wide local excision of vaginal and vulvar lesion. Patient does have history of brain 3 in the past for which she had excisional biopsies and wide local excision. She also noted to have grade 2 rectocele and grade 1 cystocele as per [facility]ELDER. Patient tolerated the procedure. Currently complains of lower abdominal pain an d pain at the surgical site. Blood pressure is elevated with SBP 160s. Medicine service was consulted for medical management. Laboratory data showed WBC 4.8 hemoglobin 9.2 and platelets 210 Sodium 136 potassium 5.2, chloride 105 BUN 11 and creatinine 0.75 Coronary 19 PCR not detected. Review of Systems Constitutional: Patient denies any fever or chills . No generalized weakness or weight loss. Abdomen: Patient denied nausea vomiting and diarrhea and abdominal pain. Cardiovascular: Patient denies any chest pain or short of breath no palpitatio ns. Respiratory: patient denied any cough is from production. No shortness of breath Neurologic: Patient denied any numbness or tingling headache. Musculoskeletal: Patient denies any complaints of joint swelling or deformity. Skin: Negative Psychiatric: Negative Endocrine: No heat or cold intolerance. No recent weight gain. Genitourinary: No dysuria or hematuria. Patient does have pain at the surgical site at Vulvar region and lower abdominal pain. All other 14 point ROS negative except the above Past Medical History Past Medical History: Blood Disorder, Cancer, GERD/Reflux, Musculoskeletal Disorder, Osteoarthritis (OA), Thyroid Disorder Additional Past Medical History / Comment(s): Weight loss-unable to regain weight since thyroidectomy. Low BP. Hiatal hernia, constipation w/ bowel obstruction. 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 Chronic Anemia, Thalassemia. Osteoporosis. Hx thyroid cancer(2009). Cyst on kidney. Hx kidney stone. Left ovarian mass. Hx of bilateral vulvar cancer, recurrent 2019. Abdominal pain, nausea, vomiting and slight dysphagia. Varicose veins. History of Any Multi-Drug Resistant Organisms: None Reported Past Surgical History: Appendectomy, Bowel Resection, Cholecystectomy, Hysterectomy, Tubal Ligation Additional Past Surgical History / Comment(s): THYROIDECTOMY X2 (thyroid grew back, had second surgery). EGD, Colonoscopy, excision of bilateral vuvlar cancer. 12/18 sigmoid colectomy attempted (had to stop unknown why), sigmoid colectomy 03/20. Past Anesthesia/Blood Transfusion Reactions: No Reported Reaction Additional Past Anesthesia/Blood Transfusion Reaction / Comm: No reaction from previous blood transfusion. Past Psychological History: No Psychological Hx Reported Smoking Status: Current every day smoker Past Alcohol Use History: None Reported Additional Past Alcohol Use History / Comment(s): Smoker since age 17, smoked less than <1/2 PPD, using nicotine patch, down to 3 cigarettes per day. Past Drug Use History: None Reported - Past Family History Father Sister(s) Family Medical History: Unable to Obtain Father Family Medical History: Blood Disorder, Cancer Additional Family Medical History / Comment(s): Thalassemia, bone cancer. Son(s) Family Medical History: Pulmonary Embolus Brother(s) Family Medical History: Blood Disorder, Cancer Additional Family Medical History / Comment(s): THALASSEMIA, Leukemia. Daughter(s) Family Medical History: Blood Disorder Additional Family Medical History / Comment(s): THALASSEMIA. Medications and Allergies Home Medications Medication Instructions Recorded Confirmed Type Levothyroxine Sodium [Synthroid] 50 mcg PO MOTUWETHFRSA 11/26/13 05/31/21 History estradioL [Estradiol 0.025 MG 1 patch TOPICAL SUWE 08/02/15 05/31/21 History Patch] Omeprazole [PriLOSEC] 40 mg PO AC-BRKFST 09/12/15 05/31/21 History clonazePAM [KlonoPIN] 0.5 mg PO HS 05/29/18 05/31/21 History HYDROcodone/APAP 10-325MG [[place] 1 tab PO QID PRN 01/07/20 05/31/21 History 10-325] Ondansetron HCl [Zofran] 4 mg PO BID PRN 01/07/20 05/31/21 History Fluticasone Propionate [Flonase 2 spray EA NOSTRIL DAILY 12/18/20 05/31/21 History Allergy Relief] Docusate [Colace] 100 mg PO BID #20 capsule 12/24/20 05/31/21 Rx Nicotine 7Mg/24Hr Patch [Habitrol] 1 patch TRANSDERM DAILY 03/01/21 05/31/21 History Levothyroxine Sodium [Synthroid] 100 mcg PO MUSA 05/31/21 05/31/21 History Allergies Allergy/AdvReac Type Severity Reaction Status Date / Time codeine Allergy Vomiting Verified 06/04/21 10:49 [From Tylenol-Codeine #3] tramadol Allergy Vomiting Verified 06/04/21 10:49 ibuprofen AdvReac Nausea & Verified 06/04/21 10:49 Vomiting Physical Exam Vitals: Vital Signs Temp Pulse Resp BP Pulse Ox 06/04/21 09:45 52 L 12 150/71 97 06/04/21 09:30 59 L 12 141/66 97 06/04/21 09:15 55 L 12 156/68 100 06/04/21 09:00 61 12 134/69 100 06/04/21 08:45 54 L 12 131/64 100 06/04/21 08:33 97.5 F L 58 L 12 132/58 98 06/04/21 06:59 97.8 F 72 18 124/78 98 Intake and Output 06/03/21 06/04/21 06/04/21 22:59 06:59 14:59 Intake Total 100 650 Output Total 10 Balance 100 640 Intake: IV 100 650 Output: Estimated Blood Loss 10 Other: Weight 38 kg PHYSICAL EXAMINATION: Patient is lying in the bed comfortably, no acute distress, awake alert and oriented.. HEENT: Normocephalic. Neck is supple. Pupils reactive. Nostrils clear. Oral cavity is moist. Neck reveals no JVD, carotid bruits, or thyromegaly. CHEST EXAMINATION: Trachea is central. Symmetrical expansion. Lung christopher clear to auscultation and percussion. CARDIAC: Normal S1, S2 with no gallops. No murmurs ABDOMEN: Soft. Bowel sounds normal. No organomegaly. No abdominal bruits. Extremities: reveal no edema. No clubbing or cyanosis Neurologically awake, alert, oriented x3 with well-coordinated movements. No focal deficits noted Skin: No rash or skin lesions. Psychiatric: Coperative. Nonsuicidal, anxious. Musculoskeletal: No joint swelling or deformity. Normal range of motion. Results CBC & Chem 7: 06/04/21 11:04 06/04/21 11:04 Assessment and Plan Assessment: Status post wide local excision of vaginal and vulvar lesion. MARY 2. Postoperative day 0. Elevated blood pressure likely due to pain. No prior history of hypertension. Rectocele and cystocele. History of bilateral lower cancer recurrence and 2019. . Chronic anemia/thalassemia trait History of thyroid cancer status post resection in 2009 Currently hypothyroidism Osteoarthritis GERD History of left ovarian mass. 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 DVT prophylaxis Currently everyday smoker Plan: Patient will be continued on IV hydration and pain management with [place] and one time Dilaudid IV 0.5 mg will be given. Monitor blood pressure closely and will add medications as needed. Encourage incentive spirometry and ambulation. Continue with GI and DVT prophylaxis as per primary team. Continue with levothyroxine. We will continue to follow and further recommendations based on the clinical course. Thank you for your consult.
[2021-06-04] MEDS: SENNOSIDES-DOCUSATE SODIUM 1 EACH TAB PO SCH ×2 (19:17→20:02)
[2021-06-04] MEDS: FLUTICASONE 50MCG/SPRAY NASAL 16GM EA NOSTRIL SCH (20:02)
[2021-06-04] MEDS ORDERED: clonazePAM 0.5 MG TAB PO SCH (21:00)
[2021-06-04] MEDS: NICOTINE 7MG/24HR PATCH TRANSDERM SCH (21:15)
[2021-06-05] MEDS: HYDROcodone/APAP 10-325MG 1 EACH TAB PO PRN ×2 (00:16→05:43)
[2021-06-05] MEDS ORDERED: LEVOTHYROXINE 50 MCG TAB PO SCH (06:30)
[2021-06-05 06:56] LABS: Calcium 8.6 mg/dL (8.4-10.2)
[2021-06-05] MEDS ORDERED: PANTOPRAZOLE 40 MG TABLET PO SCH (07:30)
[2021-06-05] MEDS: NICOTINE 7MG/24HR PATCH TRANSDERM SCH (07:47)
[2021-06-05] MEDS: FLUTICASONE 50MCG/SPRAY NASAL 16GM EA NOSTRIL SCH (07:47)
[2021-06-05] MEDS: SENNOSIDES-DOCUSATE SODIUM 1 EACH TAB PO SCH (07:47)
[2021-06-05 08:00] VITALS: BP 114/57; PULSE 71; TEMP 97.5
[2021-06-05] MEDS ORDERED: ACETAMINOPHEN TAB 325 MG TAB PO PRN (08:30)
--- NOTE | 2021-06-05 08:31 | P.DS ---
Providers Expected date of discharge: 06/05/21 Attending physician: Faustino Manley Consults: 06/04/21 08:45 Consult Physician Urgent Consulting Provider: Nicolás Rose Consult Reason/Comments: medical management Do you want consulting provider notified?: Yes Primary care physician: Nicolás Rose [facility] Course: Caden is doing very well postop day 1. She is involuting, voiding and she is tolerating her diet. She voices no complaints. Vital signs are stable and afebrile. She will follow up with me in approximately 1 week. No prescriptions are sent as she has pain contract with her primary care provider. She is aware to have no heavy lifting, limit stairs and driving as well as pelvic rest. She is aware that she will have some spotting over the next few weeks. She is also aware to try and keep her stool softer so that she reduces her pressure sensation and need for pushing. All other questions are answered for her at this time. Her heart is regular, lungs are clear, extremities are without pain. Abdomen soft bowel sounds are noted. Assessment postop day 1. Plan discharged home follow up with me in 1 week. Patient Condition at Discharge: Good Plan - Discharge Summary Discharge Rx Participant: Yes New Discharge Prescriptions: Continue Levothyroxine Sodium [Synthroid] 50 mcg PO MOTUWETHFRSA estradioL [Estradiol 0.025 MG Patch] 1 patch TOPICAL SUWE Omeprazole [PriLOSEC] 40 mg PO AC-BRKFST clonazePAM [KlonoPIN] 0.5 mg PO HS HYDROcodone/APAP 10-325MG [[place] 10-325] 1 tab PO QID PRN PRN Reason: Pain Ondansetron HCl [Zofran] 4 mg PO BID PRN PRN Reason: Nausea And Vomiting Fluticasone Propionate [Flonase Allergy Relief] 2 spray EA NOSTRIL DAILY Docusate [Colace] 100 mg PO BID #20 capsule Nicotine 7Mg/24Hr Patch [Habitrol] 1 patch TRANSDERM DAILY Levothyroxine Sodium [Synthroid] 100 mcg PO MUSA Discharge Medication List Levothyroxine Sodium [Synthroid] 50 mcg PO MOTUWETHFRSA 11/26/13 [History] estradioL [Estradiol 0.025 MG Patch] 1 patch TOPICAL SUWE 08/02/15 [History] Omeprazole [PriLOSEC] 40 mg PO AC-BRKFST 09/12/15 [History] clonazePAM [KlonoPIN] 0.5 mg PO HS 05/29/18 [History] HYDROcodone/APAP 10-325MG [[place] 10-325] 1 tab PO QID PRN 01/07/20 [History] Ondansetron HCl [Zofran] 4 mg PO BID PRN 01/07/20 [History] Fluticasone Propionate [Flonase Allergy Relief] 2 spray EA NOSTRIL DAILY 12/18/20 [History] Docusate [Colace] 100 mg PO BID #20 capsule 12/24/20 [Rx] Nicotine 7Mg/24Hr Patch [Habitrol] 1 patch TRANSDERM DAILY 03/01/21 [History] Levothyroxine Sodium [Synthroid] 100 mcg PO MUSA 05/31/21 [History] Follow up Appointment(s)/Referral(s): Faustino Manley DO [Doctor of Osteopathic Medicine] - 1 Week Activity/Diet/Wound Care/Special Instructions: Heavy lifting, limit stairs and driving and complete pelvic rest. If any high temperatures, heavy bleeding, or severe pain call my office. No tub baths for 2 weeks. Showering is fine. Expect some spotting over next couple of weeks due to friction on incision line. Discharge Disposition: HOME SELF-CARE
--- NOTE | 2021-06-05 10:51 | P.PN ---
Subjective Progress Note Date: 06/05/21 Patient is a 70-year-old female with a known history of bilateral vulvar cancer recurrence and 2019, left ovarian mass, history of thyroid cancer status post resection and 2009, sigmoid colectomy 03/20, history of bowel obstruction, osteoarthritis, GERD and currently able day smoker was admitted to the hospital for posterior repair with wide local excision of vaginal and vulvar lesion. Patient does have history of brain 3 in the past for which she had excisional biopsies and wide local excision. She also noted to have grade 2 rectocele and grade 1 cystocele as per PHYSICAL THERAPY TEACHER. Patient tolerated the procedure. Currently complains of lower abdominal pain and pain at the surgical site. Blood pressure is elevated with SBP 160s. Medicine service was consulted for medical management. Laboratory data showed WBC 4.8 hemoglobin 9.2 and platelets 210 Sodium 136 potassium 5.2, chloride 105 BUN 11 and creatinine 0.75 Coronary 19 PCR not detected. 06/04/2021 Patient is currently standing on the side of the bed. Denied any complaints of pain today. No fever no chills. Blood pressure is normalized. Patient did have a bowel movement. No complaints of abdominal pain. No nausea vomiting. No complaints of chest pain or shortness of breath. Patient is being discharged home today. Discharge medication reconciliation was done. Current medications reviewed. Objective - Vital Signs Vital signs: Vital Signs Temp 97.5 F L 06/05/21 07:54 Pulse 71 06/05/21 07:54 Resp 16 06/05/21 07:54 BP 114/57 06/05/21 07:54 Pulse Ox 97 06/05/21 07:54 Intake & Output 06/04/21 06/05/21 06/05/21 18:59 06:59 18:59 Intake Total 650 Output Total 1610 1400 Balance -960 -1400 Weight 38 kg Intake: IV 650 Output: Urine 1600 1400 Estimated Blood Loss 10 Other: # Voids 1 - Exam PHYSICAL EXAMINATION: Patient is lying in the bed comfortably, no acute distress, awake alert and oriented.. HEENT: Normocephalic. Neck is supple. Pupils reactive. Nostrils clear. Oral cavity is moist. Neck reveals no JVD, carotid bruits, or thyromegaly. CHEST EXAMINATION: Trachea is central. Symmetrical expansion. Lung christopher clear to auscultation and percussion. CARDIAC: Normal S1, S2 with no gallops. No murmurs ABDOMEN: Soft. Bowel sounds normal. No organomegaly. No abdominal bruits. Extremities: reveal no edema. No clubbing or cyanosis Neurologically awake, alert, oriented x3 with well-coordinated movements. No focal deficits noted Skin: No rash or skin lesions. Psychiatric: Coperative. Nonsuicidal Musculoskeletal: No joint swelling or deformity. Normal range of motion. - Labs CBC & Chem 7: 06/04/21 11:04 12 06:24 Labs: Abnormal Lab Results - Last 24 Hours (Table) 06/04/21 06/04/21 06/05/21 Range/Units 11:04 11:04 06:24 Hgb 9.2 L (11.4-16.0) gm/dL Hct 29.1 L (34.0-46.0) % MCV 67.6 L (80.0-100.0) fL MCH 21.4 L (25.0-35.0) pg Lymphocytes # 0.6 L (1.0-4.8) k/uL Sodium 136 L 136 L (137-145) mmol/L Potassium 5.2 H (3.5-5.1) mmol/L Alkaline Phosphatase 32 L (38-126) U/L Assessment and Plan Assessment: Status post wide local excision of vaginal and vulvar lesion. MARY 2. Postoperative day 1. Elevated blood pressure likely due to pain. No prior history of hypertension. Blood pressure is normalized now. Rectocele and cystocele. History of bilateral lower cancer recurrence and 2019. . Chronic anemia/thalassemia trait History of thyroid cancer status post resection in 2009 Currently hypothyroidism Osteoarthritis GERD History of left ovarian mass. 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 DVT prophylaxis Currently everyday smoker Plan: Patient will be continued on IV hydration and pain management with [place] and one time Dilaudid IV 0.5 mg will be given. Pain is much improved now. Patient will be started on [place] when necessary at home. Patient was to follow with primary care physician and PHYSICAL THERAPY TEACHER in the clinic. Blood pressure is normalized pain. Continue with GI and DVT prophylaxis as per primary team. Continue with levothyroxine. Discharge medication reconciliation was done. Time with Patient: Greater than 30
--- NOTE | 2021-06-07 11:10 | CDI ---
[facility] [address] [place] [address] Date: 06/07/2021 11:05:53 AM From: Grecia Junior Phone: Admit Date: 06/04/2021 06:14:00 AM Patient Name: Marilin Aldana Visit Number: [id number] Discharge Date: Payor: MEDICARE Dear Dr Manley History/Risk Factors: Clinical Indicators: Vulvar Lesion Treatment: In order to accurately reflect this patients severity of illness, would you please clarify: Other Please identify the size of the vulvar lesion excised. Thank You GLORIA Crowe, [facility], Outpatient Coding Lead Undetermined can not really say for certain. following office biopsy I am not sure how large the area of concern was. MTDD
== END 2021-06-05 10:35 | disposition home or self-care (01) ==
LOC: OR 06:14 → 4FBP 08:33 → OR 06-05 10:35
PROVIDERS: ATTEND Obstetrics & Gynecology
DX: N90.1 Moderate vulvar dysplasia (principal); K21.9 Gastro-esophageal reflux disease without esophagitis; M19.90 Unspecified osteoarthritis, unspecified site; D64.9 Anemia, unspecified; D56.9 Thalassemia, unspecified; E89.0 Postprocedural hypothyroidism; Y83.8 Other surgical procedures as the cause of abnormal reaction of the patient, or of later complication, without mention of misadventure at the time of the procedure; M50.30 Other cervical disc degeneration, unspecified cervical region; F17.210 Nicotine dependence, cigarettes, uncomplicated; Z85.89 Personal history of malignant neoplasm of other organs and systems; Z20.822 Contact with and (suspected) exposure to COVID-19; Z85.850 Personal history of malignant neoplasm of thyroid; Z80.8 Family history of malignant neoplasm of other organs or systems; Z80.6 Family history of leukemia; Z79.899 Other long term (current) drug therapy; Z88.6 Allergy status to analgesic agent; Z88.5 Allergy status to narcotic agent
CPT/HCPCS: 57250; 88305; 80053; 80048; 85025; 88302; 87635; 11420; S4990; J0171; J1100; J0690; J2405; J2704; J1170

== ENCOUNTER → 2021-09-07 | Outpatient (CLI) | payer MEDICARE, OTHER ==
--- NOTE | 2021-09-08 13:03 | CT ---
EXAMINATION TYPE: CT abdomen pelvis w con DATE OF EXAM: 09/07/2021 COMPARISON: 12/19/2020 HISTORY: Possible volvulus. HX colon sx. CT DLP: 321.90 mGycm Automated exposure control for dose reduction was used. CONTRAST: CT scan of the abdomen pelvis is performed with IV Contrast, patient injected with 100 mL of Isovue 3 00. FINDINGS- LUNG BASES-consolidation or mass partially included within the left lung measuring [address] chest rec ommended. Small pericardial effusion noted. COPD and chronic interstitial lung disease suspected. LIVER/GB- No gross abnormality is appreciated. PANCREAS- No gross abnormality is seen. SPLEEN- No gross abnormality is seen. ADRENALS- No gross abnormality is seen. KIDNEYS/BLADDER- no hydronephrosis or nephrolithiasis. Simple bilateral renal cyst noted there is cor tical loss involving the right kidney. Correlate for chronic medical renal disease. 2 mm nonobstructi ng right renal calculus. BOWEL-bowel gas pattern nonspecific with no obstruction correlate for constipation.. LYMPH NODES- No greater than 1cm abdominal or pelvic lymph nodes areappreciated. OSSEOUS STRUCTURES-hypertrophic and degenerative change of the spine. OTHER- there is a 4.4 cm left adnexal mass in 3.3 cm right adnexal mass. Pelvic ultrasound is recomm ended to exclude adnexal mass is. Correlate with CA 125. Bladder is distended. Small amount of free f luid in the pelvis is suggested. Incidental note made of a retroaortic left renal vein. There is robinson re atherosclerotic disease of the distal abdominal aorta with near complete aortic occlusion at leve l of the aortic bifurcation.. Correlate for previous hysterectomy. IMPRESSION- 1. Bowel gas pattern nonspecific with no obstruction. 2. There is a area of consolidation or mass in the left lung base. Neoplasm in the differential diagn osis measuring 4.[address] of the chest is recommended given this is only partially included in the fi eld-of-view. 3. Bilateral adnexal masses which appear in the region of the ovaries. Ovarian neoplasms are in the differential diagnosis. Correlate with pelvic ultrasound and CA 125 or Ova 1 serum tumor markers. Ad enopathy also in the differential diagnosis. Correlate for previous hysterectomy. 4. nonobstructing right renal calculus 5. There is severe atherosclerotic disease of the distal abdominal aorta with near complete aortic o cclusion at level of the aortic bifurcation.
== END | disposition home or self-care (01) ==
LOC: RADCTMAIN 13:54
PROVIDERS: ATTEND Surgery Plastic and Reconstructive Surgery
DX: N83.8 Other noninflammatory disorders of ovary, fallopian tube and broad ligament (principal); N20.0 Calculus of kidney; I74.09 Other arterial embolism and thrombosis of abdominal aorta; J98.4 Other disorders of lung
CPT/HCPCS: 82565; 84520; 74177; 36415; Q9967

== ENCOUNTER 2021-09-24 11:05 | Inpatient (IN) | payer MEDICARE, OTHER ==
[2021-09-24] MEDS ORDERED: SODIUM CHLORIDE 0.9% 500 ML 500 ML IV STA (11:51)
[2021-09-24 12:42] LABS: Basophils % (A) 0 %; Eosinophils # (A) 0.2 k/uL (0-0.7); Eosinophils % (A) 2 %; HCT 26.1 % (34.0-46.0); HGB 8.2 gm/dL (11.4-16.0); Hypochromasia Moderate; Lymphocytes # (A) 0.6 k/uL (1.0-4.8); Lymphocytes % (A) 4 %; MCH 20.2 pg (25.0-35.0); MCHC 31.4 g/dL (31.0-37.0); MCV 64.6 fL (80.0-100.0); Mean Platelet Volume 6.2; Microcytosis Marked; Monocytes # (A) 0.4 k/uL (0-1.0); Monocytes % (A) 3 %; Neutrophils # (A) 12.4 k/uL (1.3-7.7); Neutrophils % (A) 90 %; Platelet Count 618 k/uL (150-450); Poikilocytosis Slight; RBC 4.05 m/uL (3.80-5.40); RDW 15.7 % (11.5-15.5); WBC 13.7 k/uL (3.8-10.6)
[2021-09-24 12:51] LABS: ALT 7 U/L (4-34); AST 20 U/L (14-36); African American GFR (CKD) >90 (>60 ml/min/1.73 sqM); Albumin 3.1 g/dL (3.5-5.0); Alkaline Phosphatase 100 U/L (38-126); Amylase 60 U/L (30-110); Anion Gap 9 mmol/L; Blood Urea Nitrogen 8 mg/dL (7-17); Calcium 8.5 mg/dL (8.4-10.2); Carbon Dioxide 24 mmol/L (22-30); Chloride 92 mmol/L (98-107); Glucose 108 mg/dL (74-99); Lipase 43 U/L (23-300); Non-African American GFR(CKD) 86 (>60 ml/min/1.73 sqM); Potassium 4.5 mmol/L (3.5-5.1); Sodium 125 mmol/L (137-145); Total Bilirubin 0.7 mg/dL (0.2-1.3); Total Protein 6.9 g/dL (6.3-8.2)
[2021-09-24 12:58] LABS: Partial Thromboplastin Time 28.4 sec (22.0-30.0); Prothrombin Time 10.8 sec (9.0-12.0)
[2021-09-24 13:15] LABS: Appearance,Urine Cloudy (Clear); Bilirubin,Urine Negative (Negative); Blood,Urine Negative (Negative); Color,Urine Yellow; Glucose,Urine (UA) Negative (Negative); Hyaline Casts,Urine 1 /lpf (0-2); Ketones,Urine Negative (Negative); Leukocyte Esterase,Urine Negative (Negative); Mucus,Urine Rare /hpf; Nitrite,Urine Negative (Negative); Protein,Urine 1+ (Negative); RBC,Urine 1 /hpf (0-5); Specific Gravity,Urine 1.019 (1.001-1.035); Squamous Epithelial Cell,Urine 7 /hpf (0-4); Urobilinogen,Urine <2.0 mg/dL (<2.0); WBC,Urine 4 /hpf (0-5)
--- NOTE | 2021-09-24 13:36 | ED ---
Abdominal Pain HPI - General Chief Complaint: Abdominal Pain Stated Complaint: Possible Bowel Obstruction Time Seen by Provider: 09/24/21 11:37 Source: patient, family, RN notes reviewed Mode of arrival: ambulatory Limitations: no limitations - History of Present Illness Initial Comments: This a 70-year-old female presents emergency Department from PCPs office for evaluation of abdominal pain, shortness of breath. Patient states that she's been having increasing abdominal pain with last one week. She has a history of bowel obstruction last November states that she had surgery at that time. Patient states that this feels very similar she did admit that she had some stool output but very little. Patient states that the pain is so intense at times it makes her feel short of breath though she has an order from outpatient for CT the chest, abdomen for lung mass, ovarian mass. Patient is not very clear on her history she has no dysuria no hematuria no complaints of chest pain - Related Data Home Medications Medication Instructions Recorded Confirmed Levothyroxine Sodium [Synthroid] 50 mcg PO MOTUWETHFRSA 11/26/13 09/24/21 Omeprazole [PriLOSEC] 40 mg PO AC-BRKFST 09/12/15 09/24/21 clonazePAM [KlonoPIN] 0.5 mg PO HS 05/29/18 09/24/21 HYDROcodone/APAP 10-325MG [Hugo 1 tab PO QID PRN 01/07/20 09/24/21 10-325] ondansetron HCL [Zofran] 4 mg PO BID PRN 01/07/20 09/24/21 Fluticasone Propionate [Flonase 2 spray EA NOSTRIL DAILY 12/18/20 09/24/21 Allergy Relief] Levothyroxine Sodium [Synthroid] 100 mcg PO MUSA 05/31/21 09/24/21 Dicyclomine [Bentyl] 20 mg PO QID 09/24/21 09/24/21 Docusate [Colace] 100 mg PO TID 09/24/21 09/24/21 Simethicone Chew [Mylicon Chew] 80 mg PO Q6H PRN 09/24/21 09/24/21 Previous Rx's Medication Instructions Recorded Simethicone 40 mg/0.6 ml Drops 40 mg PO Q6HR PRN #30 ml 09/13/21 [Mylicon Drops] Allergies Allergy/AdvReac Type Severity Reaction Status Date / Time codeine AdvReac Nausea & Verified 09/24/21 14:02 [From Tylenol-Codeine #3] Vomiting ibuprofen AdvReac Nausea & Verified 09/24/21 14:02 Vomiting Milk Containing Products AdvReac Nausea & Verified 09/24/21 14:02 [Dairy] Vomiting tramadol AdvReac Nausea & Verified 09/24/21 14:02 Vomiting Review of Systems ROS Statement: Those systems with pertinent positive or pertinent negative responses have been documented in the HPI. ROS Other: All systems not noted in ROS Statement are negative. Past Medical History Past Medical History: Blood Disorder, Cancer, COPD, GERD/Reflux, Musculoskeletal Disorder, Osteoarthritis (OA), Thyroid Disorder Additional Past Medical History / Comment(s): Wgt loss-unable to regain weight since thyroid removed, low BP, hiatal hernia, constipation w/ bowel obstruction, DDD neck & spine, anemia, thalassemia, osteoporosis, thyroid cancer 2009. Cyst on kidney, and kidney stone. Lt ovarian mass. Hx of Cancer puneet vulva, recurrent 2018. c/o abd pain, N/V, sl dysphagia. History of Any Multi-Drug Resistant Organisms: None Reported Past Surgical History: Appendectomy, Cholecystectomy, Hysterectomy, Tubal Ligation Additional Past Surgical History / Comment(s): THYROIDECTOMY, x2. EGD, Colonoscopy. Exc cancer vulva puneet side. 12/22/20 sigmoid colectomy attempted. Past Anesthesia/Blood Transfusion Reactions: Motion Sickness Additional Past Anesthesia/Blood Transfusion Reaction / Comment(s): No reaction from previous blood transfusion. Past Psychological History: No Psychological Hx Reported Smoking Status: Current every day smoker Past Alcohol Use History: None Reported Past Drug Use History: None Reported - Past Family History Father Sister(s) Family Medical History: Unable to Obtain Father Family Medical History: Blood Disorder, Cancer Additional Family Medical History / Comment(s): Thalassemia, bone cancer. Son(s) Family Medical History: Pulmonary Embolus Brother(s) Family Medical History: Blood Disorder, Cancer Additional Family Medical History / Comment(s): THALASSEMIA, Leukemia. Daughter(s) Family Medical History: Blood Disorder Additional Family Medical History / Comment(s): THALASSEMIA. General Exam Limitations: no limitations General appearance: alert, in no apparent distress Head exam: Present: atraumatic, normocephalic, normal inspection Eye exam: Present: normal appearance, PERRL, EOMI. Absent: scleral icterus, conjunctival injection, periorbital swelling ENT exam: Present: normal exam, normal oropharynx, mucous membranes moist Neck exam: Present: normal inspection, full ROM. Absent: tenderness, meningismus, lymphadenopathy Respiratory exam: Present: normal lung sounds bilaterally. Absent: respiratory distress, wheezes, rales, rhonchi, stridor Cardiovascular Exam: Present: normal rhythm, tachycardia, normal heart sounds. Absent: systolic murmur, diastolic murmur, rubs, gallop, clicks GI/Abdominal exam: Present: soft, distended, tenderness, normal bowel sounds. Absent: guarding, rebound, rigid Back exam: Absent: CVA tenderness (R), CVA tenderness (L) Neurological exam: Present: alert Skin exam: Present: warm, dry, intact, normal color. Absent: rash Course Vital Signs 09/24/21 11:25 Temperature 97.6 F Pulse Rate 105 H Respiratory 18 Rate Blood Pressure 97/67 O2 Sat by Pulse 86 L Oximetry Medical Decision Making - Medical Decision Making 70-year-old presented for abdominal pain, shortness of breath. Patient found to be 86% CT of the chest does not show any evidence of PE discharged large pleural effusion mass versus infection. Patient to do that and pelvis does show ovarian cysts though there is no evidence of obstruction. I did discuss case with . she was covering for Dr. Rose patient will be admitted with pulmonary, ALLERGY consults - Lab Data Result diagrams: 09/24/21 12:12 09/24/21 12:12 Lab Results 09/24/21 09/24/21 09/24/21 Range/Units 12:12 12:12 12:12 WBC 13.7 H (3.8-10.6) k/uL RBC 4.05 (3.80-5.40) m/uL Hgb 8.2 L (11.4-16.0) gm/dL Hct 26.1 L (34.0-46.0) % MCV 64.6 L (80.0-100.0) fL MCH 20.2 L (25.0-35.0) pg MCHC 31.4 (31.0-37.0) g/dL RDW 15.7 H (11.5-15.5) % Plt Count 618 H (150-450) k/uL MPV 6.2 Neutrophils % 90 % Lymphocytes % 4 % Monocytes % 3 % Eosinophils % 2 % Basophils % 0 % Neutrophils # 12.4 H (1.3-7.7) k/uL Lymphocytes # 0.6 L (1.0-4.8) k/uL Monocytes # 0.4 (0-1.0) k/uL Eosinophils # 0.2 (0-0.7) k/uL Basophils # 0.0 (0-0.2) k/uL Hypochromasia Moderate Poikilocytosis Slight Microcytosis Marked PT 10.8 (9.0-12.0) sec INR 1.0 (<1.2) APTT 28.4 (22.0-30.0) sec Sodium 125 L (137-145) mmol/L Potassium 4.5 (3.5-5.1) mmol/L Chloride 92 L (98-107) mmol/L Carbon Dioxide 24 (22-30) mmol/L Anion Gap 9 mmol/L BUN 8 (7-17) mg/dL Creatinine 0.72 (0.52-1.04) mg/dL Est GFR (CKD-EPI)AfAm >90 (>60 ml/min/1.73 sqM) Est GFR (CKD-EPI)NonAf 86 (>60 ml/min/1.73 sqM) Glucose 108 H (74-99) mg/dL Plasma Lactic Acid Maurizio (0.7-2.0) mmol/L Calcium 8.5 (8.4-10.2) mg/dL Total Bilirubin 0.7 (0.2-1.3) mg/dL AST 20 (14-36) U/L ALT 7 (4-34) U/L Alkaline Phosphatase 100 (38-126) U/L Troponin I (0.000-0.034) ng/mL Total Protein 6.9 (6.3-8.2) g/dL Albumin 3.1 L (3.5-5.0) g/dL Amylase 60 (30-110) U/L Lipase 43 (23-300) U/L Urine Color Urine Appearance (Clear) Urine pH (5.0-8.0) Ur Specific [place] (1.001-1.035) Urine Protein (Negative) Urine Glucose (UA) (Negative) Urine Ketones (Negative) Urine Blood (Negative) Urine Nitrite (Negative) Urine Bilirubin (Negative) Urine Urobilinogen (<2.0) mg/dL Ur Leukocyte Esterase (Negative) Urine RBC (0-5) /hpf Urine WBC (0-5) /hpf Ur Squamous Epith Cells (0-4) /hpf Hyaline Casts (0-2) /lpf Urine Mucus (None) /hpf 09/24/21 09/24/21 09/24/21 Range/Units 12:12 12:12 12:16 WBC (3.8-10.6) k/uL RBC (3.80-5.40) m/uL Hgb (11.4-16.0) gm/dL Hct (34.0-46.0) % MCV (80.0-100.0) fL MCH (25.0-35.0) pg MCHC (31.0-37.0) g/dL RDW (11.5-15.5) % Plt Count (150-450) k/uL MPV Neutrophils % % Lymphocytes % % Monocytes % % Eosinophils % % Basophils % % Neutrophils # (1.3-7.7) k/uL Lymphocytes # (1.0-4.8) k/uL Monocytes # (0-1.0) k/uL Eosinophils # (0-0.7) k/uL Basophils # (0-0.2) k/uL Hypochromasia Poikilocytosis Microcytosis PT (9.0-12.0) sec INR (<1.2) APTT (22.0-30.0) sec Sodium (137-145) mmol/L Potassium (3.5-5.1) mmol/L Chloride (98-107) mmol/L Carbon Dioxide (22-30) mmol/L Anion Gap mmol/L BUN (7-17) mg/dL Creatinine (0.52-1.04) mg/dL Est GFR (CKD-EPI)AfAm (>60 ml/min/1.73 sqM) Est GFR (CKD-EPI)NonAf (>60 ml/min/1.73 sqM) Glucose (74-99) mg/dL Plasma Lactic Acid Maurizio 1.0 (0.7-2.0) mmol/L Calcium (8.4-10.2) mg/dL Total Bilirubin (0.2-1.3) mg/dL AST (14-36) U/L ALT (4-34) U/L Alkaline Phosphatase (38-126) U/L Troponin I <0.012 (0.000-0.034) ng/mL Total Protein (6.3-8.2) g/dL Albumin (3.5-5.0) g/dL Amylase (30-110) U/L Lipase (23-300) U/L Urine Color Yellow Urine Appearance Cloudy H (Clear) Urine pH 6.0 (5.0-8.0) Ur Specific [place] 1.019 (1.001-1.035) Urine Protein 1+ H (Negative) Urine Glucose (UA) Negative (Negative) Urine Ketones Negative (Negative) Urine Blood Negative (Negative) Urine Nitrite Negative (Negative) Urine Bilirubin Negative (Negative) Urine Urobilinogen <2.0 (<2.0) mg/dL Ur Leukocyte Esterase Negative (Negative) Urine RBC 1 (0-5) /hpf Urine WBC 4 (0-5) /hpf Ur Squamous Epith Cells 7 H (0-4) /hpf Hyaline Casts 1 (0-2) /lpf Urine Mucus Rare H (None) /hpf Disposition Clinical Impression: Abdominal pain, Hyponatremia, Lung mass, Pleural effusion, Hypoxia Disposition: ADMITTED IP TO THIS HOSP Condition: Poor Referrals: Nicolás Rose MD [Primary Care Provider] - 1-2 days
--- NOTE | 2021-09-24 14:05 | CT ---
EXAMINATION TYPE: CT abdomen pelvis w con DATE OF EXAM: 09/24/2021 COMPARISON: CT dated 09/07/2021 HISTORY: Pain, shortness of breath, mass CT DLP: 446.5 mGycm Automated exposure control for dose reduction was used. TECHNIQUE: Helical acquisition of images was performed from the lung bases through the pelvis. CONTRAST: Performed without Oral Contrast and with IV Contrast, patient injected with 85ml mL of Isovue 370. FINDINGS: LUNG BASES: Newly seen sizable left pleural effusion with adjacent thick consolidation/lung lesion, a ssociated infection/abscesses cannot be excluded. CT scan of the chest is dictated separately. LIVER/GB: Suspected focal fat infiltration is seen along the right lateral aspect of the falciform li gament of the liver, otherwise no definite hepatic focal lesion identified. Previous cholecystectomy. PANCREAS: No definite pancreatic lesion. SPLEEN: No definite splenic focal lesion. ADRENALS: No significant abnormality is seen. KIDNEYS: Right lower pole renal cortical defects likely related to sequela of previous infection/infa rct or intervention with stable tiny millimetric parenchymal calcification at that location. Left-christen ed renal cyst without gross suspicious feature. FREE AIR: No free air is visualized. RETROPERITONEAL ADENOPATHY: None visualized REPRODUCTIVE ORGANS: Previous hysterectomy. Left adnexal solid lesion is seen measuring 3.5 cm with a djacent calcification, appreciated previously. Recommend correlation with pelvic ultrasound results. Suspected right ovarian cyst measuring 2.7 cm. URINARY BLADDER: Grossly unremarkable. PELVIC ADENOPATHY: None visualized. OSSEOUS STRUCTURES: Severe degenerative changes at L4-5 and L5-S1 levels. No gross aggressive bone l esion. BOWEL: Unremarkable nondistended stomach. Suboptimal assessment of the small and large bowel due to paucity of intra-abdominal fat and small amount of free abdominal fluid. No convincing evidence of ac [place] bowel obstruction. No colonic obstruction. Fecal loading of the rectum and segments of the colon. Unremarkable colonic anastomosis in the pelvis. Please note that a small lesion or subtle acute abno rmality of the small or large bowel cannot be excluded by this CT scan. OTHER: Extensive arterial atherosclerotic calcifications with multilevel aortic atheromatous calcifie d plaques causing stenosis of the abdominal aorta most evident at the aortic bifurcation. IMPRESSION: No evidence of acute small or large bowel obstruction. Suboptimal assessment of the small and large b owel as described above. Mild acute abnormality of the bowel including diverticulitis cannot be exclu ded. Small abdominal and pelvic fluid. Other multiple incidental findings as detailed above.
[2021-09-24] MEDS ORDERED: HYDROcodone/APAP 10-325MG 1 EACH TAB PO ONE (14:14)
--- NOTE | 2021-09-24 14:15 | CT ---
EXAMINATION TYPE: CT chest angio for PE DATE OF EXAM: 09/24/2021 COMPARISON: CT dated 03/05/2018 HISTORY: Pain, shortness of breath, mass CT DLP: 167.4 mGy.cm. Automated Exposure Control for Dose Reduction was Utilized. TECHNIQUE AND CONTRAST: CTA scan of the thorax is performed with IV Contrast, patient injected with 85ml mL of Isovue 370, pu lmonary angiogram protocol. MIP Images are created on an independent workstation and reviewed. FINDINGS: No definite filling defect within the pulmonary trunk, main pulmonary arteries, lobar and segmental b ranches to suggest pulmonary embolism. Subsegmental branches are suboptimally assessed. The pulmonary trunk measures 2.9 cm. No gross cardiomegaly. Scattered arterial atherosclerotic calcifications. Suspicious infiltrating soft tissue thickening/consolidation with possible cystic areas are seen at t he anterior aspect of the left lung base, measuring 5.1 x 6.8 cm, suspicious for lung cancer, associa thom infection cannot be excluded. Focal thickening, micronodules and groundglass opacities are seen i n the adjacent portion of the left lower lung zone, lymphangitis carcinomatosis cannot be excluded. Moderate to large left pleural effusion with adjacent subsegmental pulmonary atelectasis. Fibrotic ch anges are seen in the lung apices bilaterally more on the right side. Severe COPD changes, predominan tly centrilobular emphysematous changes. Minimal pulmonary reticulation in the right lung base with l inear atelectasis. Loculated pleural fluid is seen along the lateral aspect of the left lung. No sizable right-sided pleural effusion. Patent trachea and main bronchi. Bilateral hilar soft tissue thickening with suspected subcarinal lymphadenopathy, suboptimally assessed by this CT scan. No axil kan lymphadenopathy. Pericardial effusion. CT scan of the abdomen is dictated separately. No aggress flora bone lesion. IMPRESSION: No major or central pulmonary embolism. Moderate to large left-sided pleural effusion with suspicious infiltrating lesion at the anterior aspect of the left lung base, which could represent a lung cance r however infection cannot be excluded. This was also described in CT abdomen dated 09/07/2021. Recomm end further PET scan assessment and tissue diagnosis if needed. Other findings as described above.
[2021-09-24] MEDS ORDERED: NALOXONE 0.4 MG/ML 1 ML VIAL IV PRN (14:28)
[2021-09-24] MEDS ORDERED: ONDANSETRON 4 MG/2 ML VIAL IVP PRN (14:28)
[2021-09-24] MEDS: SODIUM CHLORIDE 0.9% 1,000 ML IV SCH (17:49)
[2021-09-24] MEDS ORDERED: HYDROcodone/APAP 10-325MG 1 EACH TAB PO PRN (18:28)
[2021-09-24] MEDS: HYDROmorphone 0.5 MG/0.5 ML SYRINGE IVP PRN (19:44)
--- NOTE | 2021-09-24 21:06 | HP ---
HISTORY AND PHYSICAL CHIEF COMPLAINT: Abdominal pain. HISTORY OF PRESENT ILLNESS: This 70-year-old woman with a past medical history of COPD, GERD, DJD, being followed by Dr. Nicolás Rose in the outpatient setting, was complaining of abdominal discomfort. Patient apparently had some constipation, also. The patient also has lost about 30 pounds at this time. The patient also had bilateral cancer with recurrence. CT scan of the abdomen and pelvis was done which was reviewed personally by me. It showed no evidence of any bowel obstruction. Chest CTA showed no evidence of pulmonary embolism, but a moderate to large left-sided pleural effusion with suspicious infiltrate lesion of the anterior aspect of the left lung base. Patient admitted for further evaluation and treatment. There is no history of any fever, rigor or chills at this time. PAST MEDICAL HISTORY: History of COPD, history of GERD, history of bilateral cancer, thalassemia. HOME MEDICATIONS: Reviewed. They include Bentyl, Mylicon. Doses are reviewed. See list. ALLERGIES: ALLERGIES INCLUDE CODEINE. See list. FAMILY HISTORY: History of thalassemia. SOCIAL HISTORY: History of smoking. REVIEW OF SYSTEMS: Fourteen-point review of systems negative except as mentioned earlier. Also weight loss noted. PHYSICAL EXAMINATION: Pulse is 71. Blood pressure 116/65, respirations 16. HEENT: Conjunctivae normal. NECK: No jugular venous distention. CARDIOVASCULAR: S1, S2 muffled. RESPIRATION: Breath sounds diminished at the bases. A few scattered rhonchi and crackles. ABDOMEN: Soft. Mild diffuse discomfort on palpation. No guarding. No rigidity. No mass palpable. LEGS: No edema. No swelling. NERVOUS SYSTEM: Higher functions as mentioned earlier. Moves all 4 limbs. No focal deficit. SKIN: No ulcer, rash, bleeding. JOINTS: No active deforming arthropathy. LABS: WBC 13., hemoglobin 8.2. ASSESSMENT: 1. Left pleural effusion and possible lung mass. Rule out lung cancer or metastases. 2. Weight loss for evaluation. 3. History of bilateral vulvar cancer with surgery. 4. History of thyroid cancer. 5. History of benign left ovarian mass. 6. History of chronic obstructive pulmonary disease. 7. Gastroesophageal reflux disease. 8. Degenerative joint disease. 9. FULL CODE. RECOMMENDATIONS AND DISCUSSION: In this 70-year-old woman who presented with multiple complex medical issues, at this time we will monitor the patient closely. The patient has a history of multiple cancers and family history as well. I would recommend hematology/oncology evaluation. Tissue biopsy might be needed. Will consult Pulmonary also regarding the pleural effusion and lung mass. CT scan was reviewed personally by me. Overall prognosis is extremely guarded in this emaciated individual with multiple complex medical issues and history of multiple cancers. Further recommendations to follow. A copy of this dictation is being forwarded to Dr. Nicolás Rose, who will follow the patient tomorrow. MMODL / IJN: [id number] / MTDD
--- NOTE | 2021-09-24 21:30 | CONS ---
CONSULTATION DATE OF SERVICE: September 24, 2021. CHIEF COMPLAINT: Left upper quadrant pain and short of breath. REASON FOR CONSULT: Pleural effusion. HISTORY OF PRESENT ILLNESS: Marilin is a very pleasant 70 years old lady who presented to the emergency department, referred by her primary care physician for evaluation because of shortness of breath and abdominal pain. The patient reports the pain is more so in the left upper quadrant toward the left chest wall inferiorly. This has been going on for about 2 weeks and got progressively worse. She has been using 2 of the [place] she has at home for her chronic back pain with partial relief and her pain is about 10/10 in severity. The patient was referred to the emergency department. She had a CT scan of her chest, abdomen and pelvis which revealed a large left pleural effusion with a possible infiltrating lesion in the anterior aspect of the left lung base. The patient ended up being admitted to the hospital for further evaluation and recommendation. The patient stated that this pain started about a few weeks ago and it has gotten progressively worse. She also has been experiencing exertional dyspnea. She has also chronic back pain. She denies any headache or hemoptysis or dysphagia. No nausea or vomiting. She denies any weight loss, change in her bowel habits. She denies any melena, hematuria, hematochezia, or hemoptysis. PAST MEDICAL HISTORY: Significant for a thalassemia trait. She also has chronic back pain, COPD, gastroesophageal reflux disorder, and thyroid disorder. PAST SURGICAL HISTORY: She had appendectomy, cholecystectomy, hysterectomy, tubal ligation. She has had thyroidectomy, EGD and colonoscopy in the past. SOCIAL HISTORY: She is a smoker. She smokes every day. No illicit drug use. No alcohol abuse. REVIEW OF SYSTEMS: As stated above in the history of present illness, otherwise negative. FAMILY HISTORY: There is thalassemia in her family. Her son had pulmonary embolus. Her brother had leukemia. Her son had a pulmonary embolus. This is a family history. Her father had thalassemia and had "bone" cancer. Her son had a pulmonary embolus. Her brother had also thalassemia trait and her aunt had leukemia. Her daughter had thalassemia trait as well. PHYSICAL EXAMINATION: She is alert, oriented x3. She does not appear to be in distress at this point in time. Her vital signs are temperature 97.6, afebrile, pulse is 85, regular, respiration 18, blood pressure 136/67, pulse ox 93 percent on room air. HEENT: Normocephalic, atraumatic. No icterus. NECK: Supple. CHEST: Equal expansion bilaterally. LUNGS revealed decreased breath sounds at the left base about two thirds up. HEART is tachy and regular. ABDOMEN: Soft. No obvious organomegaly or masses. There is tenderness in the left posterior medial and anterior chest wall inferiorly. Bowel sounds present. EXTREMITIES: Reveal no edema. SKIN: No significant bruises, ecchymosis or petechiae. LYMPHATICS: No peripherally enlarged cervical or supraclavicular nodes. MUSCULOSKELETAL: Moving all extremities appropriately. No percussion tenderness detected over spine or sternum. RADIOGRAPHIC DATA: As stated above in the history of present illness about recent CT scan. LABORATORY DATA: WBC 13.7, hemoglobin 8.2, hematocrit 26.1, MCV 64.6, platelets are 618. Sodium 125, potassium 4.5, chloride 92, BUN is 8, creatinine 0.7, and calcium is 8.5, AST is 20, ALT is 7, alkaline phosphatase is 100. IMPRESSION: 1. Clinical and radiographic picture highly suspicious of bronchogenic carcinoma. 2. Left lower chest wall pain. This is likely related to underlying malignancy. 3. Microcytic anemia. This is consistent with her reported history of thalassemia trait. 4. Thrombocytosis and leukocytosis, probably reactive to underlying malignancy. RECOMMENDATION: 1. Agree with admitting the patient to the hospital for further workup. 2. She may require a diagnostic and therapeutic thoracentesis as a first step in trying to obtain a diagnosis. 3. Pulmonary consult already obtained. 4. In regard to her pain management, she has been taking [place]cher at home. Two of her [place] [employer]cher at home almost every 5 hours without any significant relief. She has been taking [place] 10. We will start the patient on Percocet and then based on her requirement of short-acting pain medication, we may consider adding a long-acting narcotics. Once the above workup is completed and further diagnostic and therapeutics, decision will be made. The above was discussed in detail with the patient and her son at bedside and I answered all the questions. Thank you very much for asking me to participate in the care of this nice lady. MMODL / IJN: [id number] /
[2021-09-24] MEDS: oxyCODONE-APAP 10-325MG 1 EACH TAB PO PRN (21:31)
[2021-09-25] MEDS: HYDROmorphone 0.5 MG/0.5 ML SYRINGE IVP PRN ×4 (00:40→19:33)
[2021-09-25] MEDS: oxyCODONE-APAP 10-325MG 1 EACH TAB PO PRN ×4 (04:00→20:52)
[2021-09-25] MEDS: SODIUM CHLORIDE 0.9% 1,000 ML IV SCH ×2 (06:17→19:36)
[2021-09-25] MEDS: SENNOSIDES-DOCUSATE SODIUM 1 EACH TAB PO SCH ×2 (09:48→20:52)
--- NOTE | 2021-09-25 10:05 | P.PN ---
Subjective Progress Note Date: 09/25/21 Principal diagnosis: lung mass, pleural effusion, intractable pain patient is seen today in follow-up. She is awaiting thoracentesis with Dr. Stallworth. Admitted with pain that is in her left rib cage area. She is taking the current pain medications ATC despite when necessary status. She has not had a bowel movement since prior to admission. Objective - Vital Signs Vital signs: Vital Signs Temp 99.2 F 09/25/21 04:59 Pulse 111 H 09/25/21 04:59 Resp 20 09/25/21 04:59 BP 146/61 09/25/21 04:59 Pulse Ox 93 L 09/25/21 04:59 Intake & Output 09/24/21 09/25/21 09/25/21 18:59 06:59 18:59 Intake Total 450 1400 Balance 450 1400 Weight 38.555 kg Intake: Intake, IV Titration 450 900 Amount Sodium Chloride 0.9% 1, 450 900 000 ml @ 75 mls/hr IV . [id number] [facility] Rx#:[id number] Oral 500 Other: Voiding Method Toilet Toilet # Voids 2 1 - Constitutional General appearance: Present: cooperative, no acute distress, thin - EENT Eyes: Present: anicteric sclerae, EOMI ENT: Present: hearing grossly normal - Respiratory Respiratory: bilateral: diminished (L>R) - Cardiovascular Rhythm: regular Heart sounds: normal: S1, S2 Abnormal Heart Sounds: Absent: systolic murmur, diastolic murmur, rub, S3 Gallop, S4 Gallop, click, other - Peripheral edema leg Peripheral Edema: bilateral: None - Gastrointestinal General gastrointestinal: Present: normal bowel sounds, soft. Absent: absent bowel sounds, decreased bowel sounds, distended, hepatomegaly, hyperactive bowel sounds, organomegaly, rigid, scaphoid, splenomegaly, tenderness, umbilical hernia, ventral hernia - Integumentary Integumentary: Present: normal - Neurologic Neurologic: Present: CNII-XII intact - Musculoskeletal Musculoskeletal: Present: generalized weakness, strength equal bilaterally - Psychiatric Psychiatric: Present: A&O x's 3, appropriate affect, intact judgment & insight - Labs CBC & Chem 7: 09/24/21 12:12 09/24/21 12:12 Labs: Abnormal Lab Results - Last 24 Hours (Table) 09/24/21 09/24/21 09/24/21 Range/Units 12:12 12:12 12:16 WBC 13.7 H (3.8-10.6) k/uL Hgb 8.2 L (11.4-16.0) gm/dL Hct 26.1 L (34.0-46.0) % MCV 64.6 L (80.0-100.0) fL MCH 20.2 L (25.0-35.0) pg RDW 15.7 H (11.5-15.5) % Plt Count 618 H (150-450) k/uL Neutrophils # 12.4 H (1.3-7.7) k/uL Lymphocytes # 0.6 L (1.0-4.8) k/uL Sodium 125 L (137-145) mmol/L Chloride 92 L (98-107) mmol/L Glucose 108 H (74-99) mg/dL Albumin 3.1 L (3.5-5.0) g/dL Urine Appearance Cloudy H (Clear) Urine Protein 1+ H (Negative) Ur Squamous Epith Cells 7 H (0-4) /hpf Urine Mucus Rare H (None) /hpf - Imaging and Cardiology Chest x-ray: report reviewed Assessment and Plan (1) Intractable pain Narrative/Plan: Pending 24 hours of IV Dilaudid. We'll convert to long-acting pain medication and transition patient over to oral at that time. She will continue on the Percocet every 4 hours for breakthrough pain at this time. Encouraged patient to utilize medications to prevent narcotic-induced constipation. She is on 8 Colace 3 times a day. Senokot was added twice a day. MiraLAX when necessary. Current Visit: Yes Status: Acute Priority: High Code(s): R52 - PAIN, UNSPECIFIED SNOMED Code(s): 52033814 (2) Lung mass Current Visit: Yes Status: Acute Priority: High Code(s): R91.8 - OTHER NONSPECIFIC ABNORMAL FINDING OF LUNG FIELD SNOMED Code(s): 682337035 (3) Pleural effusion Current Visit: Yes Status: Acute Priority: High Code(s): J90 - PLEURAL EFFUSION, NOT ELSEWHERE CLASSIFIED SNOMED Code(s): 80823094 (4) Thalassemia Narrative/Plan: Labs will continue to be monitored for the same. Nothing acutely at this time. Hemoglobin is stable Current Visit: No Status: Chronic Priority: Medium Code(s): D56.9 - THALASSEMIA, UNSPECIFIED SNOMED Code(s): 06938494 Plan: Dr. Davis and Dr. Stallworth briefly discussed patient's case. Successful thoracentesis, cytology, C&S pending. Doctor attests: I have seen and examined pt, performed a history and physical examination of this patient, developed impression and plan of care. Discussed with dictator. I agree with dictators note, documented as a scribe.
--- NOTE | 2021-09-25 10:13 | US ---
EXAMINATION TYPE: US chest DATE OF EXAM: 09/25/2021 COMPARISON: NONE CLINICAL HISTORY: left pleural effusion, mass. Pleural effusion TECHNIQUE: Targeted ultrasound of the posterior lower bilateral hemithoraces EXAM MEASUREMENTS: Right Pleural Effusion pocket size: no fluid seen cm Left Pleural Effusion pocket size: 8.1 cm Left skin surface to fluid distance: 1.8 cm Left side marked for possible thoracentesis outside the dept. Pulmonologists are able to review the images in the patient?s EMR. Left pleural effusion measured and marked. Limited scan. IMPRESSIONS: There is a moderate left pleural effusion
--- NOTE | 2021-09-25 10:33 | P.CNPUL ---
History of Present Illness Consult date: 09/25/21 Requesting physician: Keagan Roach Reason for consult: dyspnea, chest pain, pleural effusion, abnormal CXR/CT Chief complaint: Left-sided chest wall pain History of present illness: This is a very pleasant 70-year-old female patient who follows with Dr. Rose is her primary care provider. She has a history of constipation with bowel obstruction and previous bowel resections, anemia, thalassemia, thyroid cancer in 2010 status post thyroidectomy, history of ovarian mass, history of vulvar c ancer status post resection. She also has a history of chronic and ongoing tobacco dependence of 54 years and chronic obstructive pulmonary disease. She was admitted to the hospital yesterday with a 2 week history of significant left upper quadrant and left chest wall pain and pain with inhalation and shortness of breath on exertion. Computed tomography scan of the abdomen and pelvis revealed no evidence of acute small and large bowel obstruction. Mild acute abnormality the bowel including diverticulitis not excluded. There was a solid lesion on the left ovary measuring 3.5 cm with adjacent calcification previously noted. There is also a new right ovarian cyst measuring 2.7 cm. A new sizable left pleural effusion with adjacent consolidation/lung lesion noted. CT angiogram revealed no major central pulmonary embolism. Moderate to large left- sided pleural effusion with suspicious infiltrating lesion at the anterior aspect of the left lung base. Lung cancer versus infection. Ultrasound of the left chest reveals a 8.1 cm pocket. White count 13.7. Hemoglobin 8.2. Platelet count 618,000. Sodium 125. Potassium 4.5. Chloride 92. Bicarb 24. BUN 8. Creatinine 0.72. Glucose 108. Troponin negative 1. Amylase 60. Lipase 43. She is seen today in consultation on the regular medical floor. Currently resting fairly comfortably in bed. Still having ongoing issues with left-sided chest discomfort. Difficulty in breathing. She is maintaining good O2 saturations in the 90s on room air. She's afebrile. Hemodynamically stable. She denies any significant weight loss. She denies any hemoptysis. She is receiving Percocet and Dilaudid for pain control. Normal saline at 75 ML's per hour. Review of Systems REVIEW OF SYSTEMS: CONSTITUTIONAL: Denies any recent significant weight loss or weight gain. EYES: Denies change in vision. EARS, NOSE, MOUTH, THROAT: Denies headaches, denies sore throat. CARDIOVASCULAR: Left-sided chest wall chest pain, no palpitations or syncopal episodes. RESPIRATORY: Positive for shortness of breath, no cough, congestion or hemoptysis. GASTROINTESTINAL: Denies change in appetite, denies abdominal pain GENITOURINARY: Denies hematuria, denies infections. MUSKULOSKELETAL: Denies pain, denies swelling. INTEGUMENTARY: Denies rash, denies eczema. NEUROLOGICAL: Denies recent memory loss, no recent seizure activity. PSYCHIATRIC: Denies anxiety, denies depression. HEMATOLOGIC/LYMPHATIC: Denies anemia, denies enlarged lymph nodes. Past Medical History Past Medical History: Blood Disorder, Cancer, COPD, GERD/Reflux, Musculoskeletal Disorder, Osteoarthritis (OA), Pneumonia, Thyroid Disorder Additional Past Medical History / Comment(s): 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 History of Any Multi-Drug Resistant Organisms: None Reported Past Surgical History: Appendectomy, Bowel Resection, Cholecystectomy, Hysterectomy, Tubal Ligation Additional Past Surgical History / Comment(s): Bilateral vulva excision and then another R side vulva wide resection, thyroidectomy x2 (thyroid tissue grew back), larygoscopy, sigmoid colectomy, EGD, colonoscopy, laparoscopic lysis of abdominal adhesions, pain clinic procedures. Past Anesthesia/Blood Transfusion Reactions: Motion Sickness Additional Past Anesthesia/Blood Transfusion Reaction / Comment(s): No reaction from previous blood transfusion. Smoking Status: Current every day smoker, Light tobacco smoker - Past Family History Father Sister(s) Family Medical History: Unable to Obtain Father Family Medical History: Blood Disorder, Cancer Additional Family Medical History / Comment(s): Thalassemia, bone cancer. Son(s) Family Medical History: Pulmonary Embolus Brother(s) Family Medical History: Blood Disorder, Cancer Additional Family Medical History / Comment(s): THALASSEMIA, Leukemia. Daughter(s) Family Medical History: Blood Disorder Additional Family Medical History / Comment(s): THALASSEMIA. Medications and Allergies Home Medications Medication Instructions Recorded Confirmed Type Levothyroxine Sodium [Synthroid] 50 mcg PO MOTUWETHFRSA 11/26/13 09/24/21 History Omeprazole [PriLOSEC] 40 mg PO AC-BRKFST 09/12/15 09/24/21 History clonazePAM [KlonoPIN] 0.5 mg PO HS 05/29/18 09/24/21 History HYDROcodone/APAP 10-325MG [[place] 1 tab PO QID PRN 01/07/20 09/24/21 History 10-325] ondansetron HCL [Zofran] 4 mg PO BID PRN 01/07/20 09/24/21 History Fluticasone Propionate [Flonase 2 spray EA NOSTRIL DAILY 12/18/20 09/24/21 History Allergy Relief] Levothyroxine Sodium [Synthroid] 100 mcg PO MUSA 05/31/21 09/24/21 History Simethicone 40 mg/0.6 ml Drops 40 mg PO Q6HR PRN #30 ml 09/13/21 09/24/21 Rx [Mylicon Drops] Dicyclomine [Bentyl] 20 mg PO QID 09/24/21 09/24/21 History Docusate [Colace] 100 mg PO TID 09/24/21 09/24/21 History Simethicone Chew [Mylicon Chew] 80 mg PO Q6H PRN 09/24/21 09/24/21 History Allergies Allergy/AdvReac Type Severity Reaction Status Date / Time codeine AdvReac Nausea & Verified 09/24/21 14:02 [From Tylenol-Codeine #3] Vomiting ibuprofen AdvReac Nausea & Verified 09/24/21 14:02 Vomiting Milk Containing Products AdvReac Nausea & Verified 09/24/21 14:02 [Dairy] Vomiting tramadol AdvReac Nausea & Verified 09/24/21 14:02 Vomiting Physical Exam Vitals: Vital Signs Temp Pulse Pulse Resp BP BP Pulse Ox 09/25/21 04:59 99.2 F 111 H 20 146/61 93 L 09/24/21 21:00 98.2 F 81 18 136/68 93 L 09/24/21 19:37 81 18 09/24/21 17:41 97.6 F 85 18 136/67 93 L 09/24/21 15:34 98.1 F 71 16 116/61 94 L 09/24/21 13:00 98 09/24/21 11:25 97.6 F 105 H 18 97/67 86 L Intake and Output 09/24/21 09/25/21 09/25/21 22:59 06:59 14:59 Intake Total 450 1400 Balance 450 1400 Intake: Intake, IV Titration 450 900 Amount Sodium Chloride 0.9% 1, 450 900 000 ml @ 75 mls/hr IV . [id number] [facility] Rx#:[id number] Oral 500 Other: Voiding Method Toilet Toilet # Voids 3 2 1 Weight 38.555 kg GENERAL EXAM: Alert, pleasant, 70-year-old female patient, on room air, fairly comfortable in no apparent distress. HEAD: Normocephalic. EYES: Normal reaction of pupils, equal size. NOSE: Clear with pink turbinates. THROAT: No erythema or exudates. NECK: No masses, no JVD. CHEST: No chest wall deformity. LUNGS: Equal air entry with crackles in the left lung base, dullness, diminished. CVS: S1 and S2 normal with no audible murmur, regular rhythm. ABDOMEN: No hepatosplenomegaly, normal bowel sounds, no guarding or rigidity. SPINE: No scoliosis or deformity SKIN: No rashes CENTRAL NERVOUS SYSTEM: No focal deficits, tone is normal in all 4 extremities. EXTREMITIES: There is no peripheral edema. No clubbing, no cyanosis. Peripheral pulses are intact. Results - Laboratory Findings CBC and BMP: 09/24/21 12:12 09/24/21 12:12 PT/INR, D-dimer PT 10.8 sec (9.0-12.0) 09/24/21 12:12 INR 1.0 (<1.2) 09/24/21 12:12 Abnormal lab findings: Abnormal Labs 09/24/21 09/24/21 09/24/21 12:12 12:12 12:16 WBC 13.7 H Hgb 8.2 L Hct 26.1 L MCV 64.6 L MCH 20.2 L RDW 15.7 H Plt Count 618 H Neutrophils # 12.4 H Lymphocytes # 0.6 L Sodium 125 L Chloride 92 L Glucose 108 H Albumin 3.1 L Urine Appearance Cloudy H Urine Protein 1+ H Ur Squamous Epith Cells 7 H Urine Mucus Rare H - Diagnostic Findings Chest x-ray: image reviewed CT scan - chest: image reviewed Assessment and Plan Assessment: 1 Acute left-sided chest discomfort and dyspnea secondary to moderate to large left-sided pleural effusion 2 Suspicious infiltrating lesion at the anterior aspect of the left lung base, possible lung cancer 3 Left adnexal solid lesion measuring 3.5 cm with adjacent calcification, appreciated previously. New right ovarian cyst measuring 2.7 cm 4 History of vulvar cancer with previous resection in November 2020 5 History of thyroid cancer status post thyroidectomy in 2009 6 History of bowel obstruction with previous resection 7 History of thalassemia 8 Chronic and ongoing tobacco dependence of 54 years. 9 Chronic obstructive pulmonary disease 9 Osteoporosis Plan: The patient was seen and evaluated CT scan of the abdomen and pelvis, CT angiogram of the chest and labs reviewed Ultrasound of the left chest reveals an 8.1 cm pocket Plan is for therapeutic and possibly diagnostic thoracentesis today Provide adequate pain control Add incentive spirometer We will continue to follow make further recommendations based on her clinical status I have personally seen and examined the patient, performed the documentation and the assessment and plan as written. Number of minutes spent on the visit: 20 . Time with Patient: Greater than 30
[2021-09-25] MEDS ORDERED: SIMETHICONE 80 MG CHEWABLE PO PRN (11:32)
--- NOTE | 2021-09-25 12:26 | XR ---
EXAMINATION TYPE: XR chest 1V portable DATE OF EXAM: 09/25/2021 COMPARISON: Chest CT 09/24/2021 HISTORY: Status post left-sided thoracentesis TECHNIQUE: Single frontal view of the chest is obtained. FINDINGS: Abnormal attenuation persists in the left lung, left hemidiaphragm and heart border obscur ed. No evident pneumothorax. Heart is stable. Right lung is spared. Underlying emphysematous changes are present. IMPRESSION: No evident complication status post thoracentesis
--- NOTE | 2021-09-25 12:42 | PCN ---
PROCEDURE NOTE PROCEDURE: Left-sided thoracentesis. PREOPERATIVE DIAGNOSIS: Left pleural effusion. POSTOPERATIVE DIAGNOSIS: Left pleural effusion. OPERATORS: 1. Dr. Stallworth. 2. Dr. Tompkins. DESCRIPTION OF PROCEDURE: A time-out was completed verifying correct patient, procedure, site, positioning, and implant (s) or special equipment if applicable. Ultrasound guidance was used to steffen the posterior chest and appropriate fluid pocket was identified and marked. Patient was positioned, prepped and draped in usual sterile fashion. Lidocaine was used to anesthetize the area. A thoracentesis catheter was introduced into the pleural space and roughly 200 mL of yellow fluid was removed from the left pleural space. Blood loss was none. A chest x-ray was ordered to evaluate for pneumothorax. Total Fluid Removed: Roughly 200 mL Color of Fluid: Yellow. Fluid was sent for appropriate laboratory tests. The patient tolerated the procedure well and there were no complications. A chest x-ray will be ordered to rule out pneumothorax. The fluid will be sent for microbiology, chemistry and cytology. Again the patient tolerated the procedure well. There was no immediate complication. MMODL / IJN: [id number] /
--- NOTE | 2021-09-25 12:52 | P.PN ---
Subjective Progress Note Date: 09/25/21 Principal diagnosis: abdominal pain Patient is a very pleasant 70-year-old female came to the emergency room for abdominal discomfort and shortness of breath. Patient has a extensive medical history that includes COPD, GERD, osteoarthritis, bilateral vulva cancer, thyroid cancer, thalassemia, colitis, degenerative disc disease, kidney stones. Patient recently had PET scan that showed lung and ovarian mass that was being followed outpatient. Oncology and pulmonary were consulted for evaluation of left lung mass and pleural effusion. Patient is to undergo drainage of pleural effusion to test for malignancy. Hospitalist coverage 09/24/2021 09/25/2021 Patient seen and examined at bedside. Patient reports continued left side pain and difficulty breathing. Reports pain with inspiration. Patient denies chest pain, fever, palpitations. Patient states she dislikes the food and has admitted eating, ensure was added to increase oral intake. Awaiting cytology results. Objective - Vital Signs Vital signs: Vital Signs Temp 99.2 F 09/25/21 04:59 Pulse 111 H 09/25/21 04:59 Resp 20 09/25/21 04:59 BP 146/61 09/25/21 04:59 Pulse Ox 93 L 09/25/21 04:59 Intake & Output 09/24/21 09/25/21 09/25/21 18:59 06:59 18:59 Intake Total 450 1400 Balance 450 1400 Weight 38.555 kg Intake: Intake, IV Titration 450 900 Amount Sodium Chloride 0.9% 1, 450 900 000 ml @ 75 mls/hr IV . [id number] [facility] Rx#:[id number] Oral 500 Other: Voiding Method Toilet Toilet # Voids 2 1 - Constitutional General appearance: Present: no acute distress, thin - EENT Eyes: Present: EOMI, PERRLA ENT: Present: normal oropharynx Ears: bilateral: normal - Neck Neck: Present: normal ROM - Respiratory Respiratory: bilateral: diminished - Cardiovascular Heart rate: 80 Rhythm: regular Heart sounds: normal: S1, S2 - Peripheral pulses radial pulse Peripheral Pulses: bilateral: Normal - Gastrointestinal General gastrointestinal: Present: tenderness - Integumentary Integumentary: Present: pale - Neurologic Neurologic: Present: CNII-XII intact - Musculoskeletal Musculoskeletal: Present: gait normal - Psychiatric Psychiatric: Present: A&O x's 3 - Allied health notes Allied health notes reviewed: nursing - Labs CBC & Chem 7: 10/01/21 04:10 10/01/21 04:10 Labs: Abnormal Lab Results - Last 24 Hours (Table) 09/24/21 09/24/21 09/24/21 Range/Units 12:12 12:12 12:16 WBC 13.7 H (3.8-10.6) k/uL Hgb 8.2 L (11.4-16.0) gm/dL Hct 26.1 L (34.0-46.0) % MCV 64.6 L (80.0-100.0) fL MCH 20.2 L (25.0-35.0) pg RDW 15.7 H (11.5-15.5) % Plt Count 618 H (150-450) k/uL Neutrophils # 12.4 H (1.3-7.7) k/uL Lymphocytes # 0.6 L (1.0-4.8) k/uL Sodium 125 L (137-145) mmol/L Chloride 92 L (98-107) mmol/L Glucose 108 H (74-99) mg/dL Albumin 3.1 L (3.5-5.0) g/dL Urine Appearance Cloudy H (Clear) Urine Protein 1+ H (Negative) Ur Squamous Epith Cells 7 H (0-4) /hpf Urine Mucus Rare H (None) /hpf Assessment and Plan Assessment: Left lower lung mass, rule out malignancy Moderate left pleural effusion Hyponatremia Leukocytosis Thalassemia History of vulvar and thyroid cancer COPD without exacerbation Plan: Continue following with pulmonary and oncology recommendations Awaiting cytology results Continue saline for hyponatremia Repeat labs in the morning ensure added for caloric intake Continue to monitor vital signs Further recommendations to come based on patient's clinical course Time with Patient: Greater than 30 (I have personally seen and examined the patient, reviewed the documentation and agree with the assessment and plan as written. Number of minutes spent on the visit: Greater than 20.)
[2021-09-25] MEDS: LEVOTHYROXINE 50 MCG TAB PO SCH (12:56)
[2021-09-25] MEDS: DICYCLOMINE 20 MG TAB PO SCH ×3 (14:08→20:52)
[2021-09-25] MEDS ORDERED: MAGNESIUM HYDROXIDE 2,400 MG/10 ML CUP PO PRN (15:57)
[2021-09-25] MEDS: DOCUSATE 100 MG CAP PO SCH ×2 (17:29→20:52)
[2021-09-25 21:57] LABS: Glucose,Whole Blood 110 mg/dL (75-99)
[2021-09-25] MEDS ORDERED: clonazePAM 1 MG TAB PO SCH (22:45)
[2021-09-26] MEDS: HYDROmorphone 0.5 MG/0.5 ML SYRINGE IVP PRN ×4 (02:21→19:19)
[2021-09-26 02:31] LABS: Appearance,BF Hazy
[2021-09-26] MEDS: LEVOTHYROXINE 50 MCG TAB PO SCH (04:56)
[2021-09-26] MEDS ORDERED: clonazePAM 1 MG TAB PO PRN (05:13)
[2021-09-26] MEDS ORDERED: IPRATROPIUM-ALBUTEROL 3 ML NEB INHALATION PRN (07:48)
[2021-09-26] MEDS ORDERED: FORMOTEROL FUMARATE 20 MCG/2 ML NEBU INHALATION SCH (08:00)
[2021-09-26] MEDS ORDERED: BUDESONIDE 1 MG/2 ML NEBU INHALATION SCH (08:00)
[2021-09-26] MEDS: DICYCLOMINE 20 MG TAB PO SCH ×4 (08:21→23:37)
[2021-09-26] MEDS: DOCUSATE 100 MG CAP PO SCH ×3 (08:21→23:37)
[2021-09-26] MEDS: methylPREDNISolone SOD SUCCI 40 MG/ML 1 ML VIAL IV SCH ×3 (08:21→23:36)
[2021-09-26] MEDS: SENNOSIDES-DOCUSATE SODIUM 1 EACH TAB PO SCH ×2 (08:21→23:37)
[2021-09-26] MEDS: PANTOPRAZOLE 40 MG TABLET PO SCH (08:21)
[2021-09-26] MEDS ORDERED: FLUTICASONE 50MCG/SPRAY NASAL 16GM EA NOSTRIL SCH (09:00)
[2021-09-26 09:26] LABS: African American GFR (CKD) 103.7 (60.0-200.0); Albumin 2.9 g/dL (3.8-4.9); Albumin/Globulin Ratio 0.87 (1.60-3.17); Anion Gap 14.5 mmol/L (10.00-18.00); BUN/Creat Ratio 13.44 Ratio (12.00-20.00); Blood Urea Nitrogen 8.9 mg/dL (9.0-27.0); Calcium 8.5 mg/dL (8.7-10.3); Carbon Dioxide 18.7 mmol/L (20.0-27.5); Globulin 3.3 g/dL (1.6-3.3); Non-African American GFR(CKD) 89.5 (60.0-200.0); Potassium 5.3 mmol/L (3.5-5.5); Total Bilirubin 0.4 mg/dL (0.30-1.20); Total Protein 6.2 g/dL (6.2-8.2)
[2021-09-26 10:03] LABS: Glucose, BF Source Thoracentesis Fluid; Glucose, Body Fluid 70 mg/dL; LDH, Body Fluid Source Thoracentesis Fluid; T. Protein, Body Fluid Source Thoracentesis Fluid; Total Protein, Body Fluid 4280 mg/dL
[2021-09-26] MEDS: SODIUM CHLORIDE 0.9% 1,000 ML IV SCH (10:22)
[2021-09-26] MEDS: IPRATROPIUM-ALBUTEROL 3 ML NEB INHALATION SCH ×3 (10:52→16:32)
--- NOTE | 2021-09-26 10:54 | P.PN ---
Subjective Progress Note Date: 09/26/21 Principal diagnosis: Acute hypoxic respiratory failure This is a very pleasant 70-year-old female patient who follows with Dr. Rose is her primary care provider. She has a history of constipation with bowel obstruction and previous bowel resections, anemia, thalassemia, thyroid cancer in 2010 status post thyroidectomy, history of ovarian mass, history of vulvar cancer status post resection. She also has a history of chronic and ongoing tobacco dependence of 54 years and chronic obstructive pulmonary disease. She was admitted to the hospital yesterday with a 2 week history of significant left upper quadrant and left chest wall pain and pain with inhalation and shortness of breath on exertion. Computed tomography scan of the abdomen and pelvis revealed no evidence of acute small and large bowel obstruction. Mild acute abnormality the bowel including diverticulitis not excluded. There was a solid lesion on the left ovary measuring 3.5 cm with adjacent calcification previously noted. There is also a new right ovarian cyst measuring 2.7 cm. A new sizable left pleural effusion with adjacent consolidation/lung lesion noted. CT angiogram revealed no major central pulmonary embolism. Moderate to large left- sided pleural effusion with suspicious infiltrating lesion at the anterior aspect of the left lung base. Lung cancer versus infection. Ultrasound of the left chest reveals a 8.1 cm pocket. White count 13.7. Hemoglobin 8.2. Platelet count 618,000. Sodium 125. Potassium 4.5. Chloride 92. Bicarb 24. BUN 8. Creatinine 0.72. Glucose 108. Troponin negative 1. Amylase 60. Lipase 43. She is seen today in consultation on the regular medical floor. Currently resting fairly comfortably in bed. Still having ongoing issues with left-sided chest discomfort. Difficulty in breathing. She is maintaining good O2 saturations in the 90s on room air. She's afebrile. Hemodynamically stable. She denies any significant weight loss. She denies any hemoptysis. She is receiving Percocet and Dilaudid for pain control. Normal saline at 75 ML's per hour. the patient is seen today 09/26/2021 in follow-up in the regular medical floor. She is currently sitting up in bed. Awake and alert. She is having issues with shortness of breath, cough and congestion. Some chest tightness and wheezing. She did undergo a left-sided thoracentesis yesterday with 200 mL of cloudy yellow fluid removed. Follow-up chest x-ray showed no evidence of pneumothorax. Cultures pending, cytology pending. Fluid analysis revealed evidence of exudate with a protein of 4.2 and a LDH of 453. With a glucose of 70 not likely infection. She is maintaining good O2 saturations in the upper 90s on 2 L/m per nasal cannula. She's been afebrile. Hemodynamically stable. sodium 1:30. Potassium 5.3. BUN 9. Creatinine 0.7. Glucose 129. Objective - Vital Signs Vital signs: Vital Signs Temp 97.6 F 09/26/21 04:15 Pulse 118 H 09/26/21 04:15 Resp 22 09/26/21 04:15 BP 132/75 09/26/21 04:15 Pulse Ox 98 09/26/21 04:15 Intake & Output 09/25/21 09/26/21 09/26/21 18:59 06:59 18:59 Intake Total 900 1100 Balance 900 1100 Weight 38.555 kg Intake: Intake, IV Titration 900 900 Amount Sodium Chloride 0.9% 1, 900 900 000 ml @ 75 mls/hr IV . [id number] [facility] Rx#:[id number] Oral 200 Other: Voiding Method Toilet Toilet Toilet # Voids 1 8 - Exam GENERAL EXAM: Alert, pleasant, frail 70-year-old female patient, on 2 L nasal cannula, fairly comfortable in no apparent distress. HEAD: Normocephalic. EYES: Normal reaction of pupils, equal size. NOSE: Clear with pink turbinates. THROAT: No erythema or exudates. NECK: No masses, no JVD. CHEST: No chest wall deformity. LUNGS: Equal air entry with bilateral end expiratory wheeze, crackles in the left lung base, dullness, diminished. CVS: S1 and S2 normal with no audible murmur, regular rhythm. ABDOMEN: No hepatosplenomegaly, normal bowel sounds, no guarding or rigidity. SPINE: No scoliosis or deformity SKIN: No rashes CENTRAL NERVOUS SYSTEM: No focal deficits, tone is normal in all 4 extremities. EXTREMITIES: There is no peripheral edema. No clubbing, no cyanosis. Peripheral pulses are intact. - Labs CBC & Chem 7: 09/24/21 12:12 09/26/21 05:48 Labs: Abnormal Lab Results - Last 24 Hours (Table) 0309/25/21 09/26/21 Range/Units 13:13 21:43 05:48 Sodium 130 L (135-145) mmol/L Carbon Dioxide 18.7 L (20.0-27.5) mmol/L BUN 8.9 L (9.0-27.0) mg/dL Glucose 129 H (70-110) mg/dL POC Glucose (mg/dL) 110 H (75-99) mg/dL Calcium 8.5 L (8.7-10.3) mg/dL Lactate Dehydrogenase 110 L (120-246) U/L Total Protein 6.0 L (6.2-8.2) g/dL Albumin 2.9 L (3.8-4.9) g/dL Albumin/Globulin Ratio 0.87 L (1.60-3.17) g/dL Microbiology - Last 24 Hours (Table) 09/25/21 11:45 Gram Stain - Preliminary Pleural Fluid Body Fluid Culture - Preliminary 09/25/21 11:45 Acid Fast Bacilli Culture - Preliminary Thoracentesis Fluid 09/25/21 11:45 Fungal Culture - Preliminary Thoracentesis Fluid Assessment and Plan Assessment: 1 Acute left-sided chest discomfort and dyspnea secondary to moderate to large left-sided pleural effusion. Status post thoracentesis on 09/25/2021 with 200 ML's of cloudy yellow fluid removed. Exudative in nature. Pathology pending. 2 Suspicious infiltrating lesion at the anterior aspect of the left lung base, possible lung cancer 3 Left adnexal solid lesion measuring 3.5 cm with adjacent calcification, appreciated previously. New right ovarian cyst measuring 2.7 cm 4 History of vulvar cancer with previous resection in November 2020 5 History of thyroid cancer status post thyroidectomy in 2009 6 History of bowel obstruction with previous resection 7 History of thalassemia 8 Chronic and ongoing tobacco dependence of 54 years. 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 kilograms per metered square Plan: The patient was seen and evaluated Post thoracentesis chest x-ray and labs reviewed Fluid analysis appears exudative Awaiting pathology results, may require eventual biopsies Continue incentive spirometer Add DuoNeb inhalations, Pulmicort and Perforomist inhalations, IV Solu-Medrol We'll plan for outpatient PET scan We will continue to follow and make further recommendations based on her clinical status I have personally seen and examined the patient, performed the documentation and the assessment and plan as written. Number of minutes spent on the visit: 10
[2021-09-26 11:57] LABS: Basophils # (A) 0.04 X 10*3/uL (0.00-0.10); Basophils % (A) 0.2 %; Eosinophils # (A) 0 X 10*3/uL (0.04-0.35); Eosinophils % (A) 0 %; HCT 20.7 % (37.2-46.3); HGB 6.4 g/dL (12.0-15.0); Immature Grans, Automated 0.8 %; Lymphocytes # (A) 0.73 X 10*3/uL (0.90-5.00); Lymphocytes % (A) 3.6 %; MCH 19.3 pg (27.0-32.0); MCHC 30.9 g/dL (32.0-37.0); MCV 62.3 fL (80.0-97.0); Mean Platelet Volume 8.9 fL (9.5-12.2); Monocytes # (A) 0.87 X 10*3/uL (0.20-1.00); Monocytes % (A) 4.3 %; NRBC Per 100 WBC 0 /100 WBCS (0.0-0.0); Neutrophils # (A) 18.49 X 10*3/uL (1.80-7.70); Neutrophils % (A) 91.1 %; Platelet Count 537 X 10*3/uL (140-440); RBC 3.32 X 10*6/uL (4.10-5.20); RDW 15.6 % (11.5-14.5)
[2021-09-26 11:58] LABS: Anisocytosis (M) 2+; Hypochromasia (M) 3+; Microcytosis (M) 2+; Schistocytes 1+
[2021-09-26] MEDS ORDERED: methylPREDNISolone SOD SUCCI 40 MG/ML 1 ML VIAL IV SCH (12:00)
--- NOTE | 2021-09-26 12:10 | P.PN ---
Subjective Progress Note Date: 09/26/21 Principal diagnosis: abdominal pain, shortness of breath Patient is a very pleasant 70-year-old female came to the emergency room for abdominal discomfort and shortness of breath. Patient has a extensive medical history that includes COPD, GERD, osteoarthritis, bilateral vulva cancer, thyroid cancer, thalassemia, colitis, degenerative disc disease, kidney stones. Patient recently had PET scan that showed lung and ovarian mass that was being followed outpatient. Oncology and pulmonary were consulted for evaluation of left lung mass and pleural effusion. Patient is to undergo drainage of pleural effusion to test for malignancy. Hospitalist coverage 09/24/2021 09/25/2021 Patient seen and examined at bedside. Patient reports continued left side pain and difficulty breathing. Reports pain with inspiration. Patient denies chest pain, fever, palpitations. Patient states she dislikes the food and has admitted eating, ensure was added to increase oral intake. Awaiting cytology results. 09/26/2021 Patient was seen and examined at bedside. Patient reports increasing dyspnea and wheezing. Patient continues to have pain with inspiration but denies chest pain, palpitations, productive cough. Patient is experiencing increased anxiety, discussed length of time for results to come back. Ordered a repeat chest x-ray to assess cause of increasing dyspnea. We'll follow along with pulmonology recommendations of IV steroids and bronchodilator treatments. Objective - Vital Signs Vital signs: Vital Signs Temp 97.6 F 09/26/21 04:15 Pulse 57 L 09/26/21 11:15 Resp 22 09/26/21 04:15 BP 132/75 09/26/21 04:15 Pulse Ox 98 09/26/21 04:15 Intake & Output 09/25/21 09/26/21 09/26/21 18:59 06:59 18:59 Intake Total 900 1100 Balance 900 1100 Weight 38.555 kg Intake: Intake, IV Titration 900 900 Amount Sodium Chloride 0.9% 1, 900 900 000 ml @ 75 mls/hr IV . [id number] [facility] Rx#:[id number] Oral 200 Other: Voiding Method Toilet Toilet Toilet # Voids 1 8 - Constitutional General appearance: Present: mild distress, thin - EENT Eyes: Present: EOMI, PERRLA ENT: Present: normal oropharynx Ears: bilateral: normal - Neck Neck: Present: normal ROM - Respiratory Respiratory: bilateral: diminished, wheezing - Cardiovascular Heart rate: 118 Rhythm: regular Heart sounds: normal: S1, S2 - Peripheral pulses radial pulse Peripheral Pulses: bilateral: Normal - Gastrointestinal General gastrointestinal: Present: soft, tenderness - Integumentary Integumentary: Present: pale - Neurologic Neurologic: Present: CNII-XII intact - Musculoskeletal Musculoskeletal: Present: gait normal - Psychiatric Psychiatric: Present: A&O x's 3 - Allied health notes Allied health notes reviewed: nursing - Labs CBC & Chem 7: 10/01/21 04:10 10/01/21 04:10 Labs: Abnormal Lab Results - Last 24 Hours (Table) 09/25/21 09/25/21 09/26/21 Range/Units 13:13 21:43 05:48 WBC 20.30 H (4.50-10.00) X 10*3/uL RBC 3.32 L (4.10-5.20) X 10*6/uL Hgb 6.4 L* (12.0-15.0) g/dL Hct 20.7 L (37.2-46.3) % MCV 62.3 L (80.0-97.0) fL MCH 19.3 L (27.0-32.0) pg MCHC 30.9 L (32.0-37.0) g/dL RDW 15.6 H (11.5-14.5) % Plt Count 537 H (140-440) X 10*3/uL Plt Count Comment INCREASED A MPV 8.9 L (9.5-12.2) fL Immature Gran # 0.17 H (0.00-0.04) X 10*3/uL Neutrophils # 18.49 H (1.80-7.70) X 10*3/uL Lymphocytes # 0.73 L (0.90-5.00) X 10*3/uL Eosinophils # 0 L (0.04-0.35) X 10*3/uL Sodium (135-145) mmol/L Carbon Dioxide (20.0-27.5) mmol/L BUN (9.0-27.0) mg/dL Glucose (70-110) mg/dL POC Glucose (mg/dL) 110 H (75-99) mg/dL Calcium (8.7-10.3) mg/dL Lactate Dehydrogenase 110 L (120-246) U/L Total Protein 6.0 L (6.2-8.2) g/dL Albumin (3.8-4.9) g/dL Albumin/Globulin Ratio (1.60-3.17) g/dL 09/26/21 Range/Units 05:48 WBC (4.50-10.00) X 10*3/uL RBC (4.10-5.20) X 10*6/uL Hgb (12.0-15.0) g/dL Hct (37.2-46.3) % MCV (80.0-97.0) fL MCH (27.0-32.0) pg MCHC (32.0-37.0) g/dL RDW (11.5-14.5) % Plt Count (140-440) X 10*3/uL Plt Count Comment MPV (9.5-12.2) fL Immature Gran # (0.00-0.04) X 10*3/uL Neutrophils # (1.80-7.70) X 10*3/uL Lymphocytes # (0.90-5.00) X 10*3/uL Eosinophils # (0.04-0.35) X 10*3/uL Sodium 130 L (135-145) mmol/L Carbon Dioxide 18.7 L (20.0-27.5) mmol/L BUN 8.9 L (9.0-27.0) mg/dL Glucose 129 H (70-110) mg/dL POC Glucose (mg/dL) (75-99) mg/dL Calcium 8.5 L (8.7-10.3) mg/dL Lactate Dehydrogenase (120-246) U/L Total Protein (6.2-8.2) g/dL Albumin 2.9 L (3.8-4.9) g/dL Albumin/Globulin Ratio 0.87 L (1.60-3.17) g/dL Microbiology - Last 24 Hours (Table) 09/25/21 11:45 Gram Stain - Preliminary Pleural Fluid Body Fluid Culture - Preliminary 09/25/21 11:45 Acid Fast Bacilli Culture - Preliminary Thoracentesis Fluid 09/25/21 11:45 Fungal Culture - Preliminary Thoracentesis Fluid Assessment and Plan Assessment: Left lower lung mass, rule out malignancy Moderate left pleural effusion Hyponatremia, improving Leukocytosis, hbg stable at 8.2 Thalassemia History of vulvar and thyroid cancer Plan: Continue following with pulmonary and oncology recommendations Awaiting cytology results from pleural fluid Continue saline for hyponatremia, improving ensure added for caloric intake Continue to monitor vital signs Further recommendations to come based on patient's clinical course Time with Patient: Greater than 30 (I have personally seen and examined the patient, reviewed the documentation and agree with the assessment and plan as written. Number of minutes spent on the visit: Greater than 20.)
--- NOTE | 2021-09-26 12:57 | XR ---
EXAMINATION TYPE: XR chest 2V DATE OF EXAM: 09/26/2021 COMPARISON: Chest x-ray from yesterday and older studies. CTA chest 2 days ago. HISTORY: Increasing shortness of breath TECHNIQUE: Frontal and lateral views of the chest are obtained. FINDINGS: Osseous structures remain demineralized. Background cardiomegaly redemonstrated. Background chronic emphysematous change with increasing left basilar opacity. There are new air fluid level pos teriorly with note made of interval thoracentesis yesterday. There is persistent lingular masslike co nsolidation on lateral view. Right lung remains clear. IMPRESSION: Recurrent moderate to large left pleural fluid collection after thoracentesis one day ea rlier. New air-fluid levels suggests nonsimple pleural fluid collection and new nondependent but locu lated pleural space air of uncertain etiology. No apical pneumothorax. Worsening lingular and left lo wer lung atelectasis and/or infiltrate on background suspected underlying mass or neoplasm and backgr ound of chronic emphysematous change and cardiomegaly. Correlation with findings from diagnostic thor acentesis advised.
[2021-09-26] MEDS ORDERED: FUROSEMIDE 10 MG/ML 2 ML VIAL IV ONE (13:51)
--- NOTE | 2021-09-26 15:21 | P.PN ---
Subjective Progress Note Date: 09/26/21 Pale and weak today, daughter at bedside. Hemoglobin has significantly dropped in 48 hours, partial dilution, no evidence for iron deficiency as ferritin 800. No supplement at this time. Will transfuse One unit prbc Objective - Vital Signs Vital signs: Vital Signs Temp 97.6 F 09/26/21 04:15 Pulse 118 H 09/26/21 04:15 Resp 22 09/26/21 04:15 BP 132/75 09/26/21 04:15 Pulse Ox 98 09/26/21 04:15 Intake & Output 09/25/21 09/26/21 09/26/21 18:59 06:59 18:59 Intake Total 900 1100 Balance 900 1100 Weight 38.555 kg Intake: Intake, IV Titration 900 900 Amount Sodium Chloride 0.9% 1, 900 900 000 ml @ 75 mls/hr IV . [id number] [facility] Rx#:[id number] Oral 200 Other: Voiding Method Toilet Toilet Toilet # Voids 1 8 - Exam - Constitutional General appearance: Present: cooperative, no acute distress, thin - EENT Eyes: Present: anicteric sclerae, EOMI ENT: Present: hearing grossly normal - Respiratory Respiratory: bilateral: diminished (L>R) - Cardiovascular Rhythm: regular Heart sounds: normal: S1, S2 Abnormal Heart Sounds: Absent: systolic murmur, diastolic murmur, rub, S3 Gallop, S4 Gallop, click, other - Peripheral edema leg Peripheral Edema: bilateral: None - Gastrointestinal General gastrointestinal: Present: normal bowel sounds, soft. Absent: absent bowel sounds, decreased bowel sounds, distended, hepatomegaly, hyperactive bowel sounds, organomegaly, rigid, scaphoid, splenomegaly, tenderness, umbilical hernia, ventral hernia - Integumentary Integumentary: Present: normal - Neurologic Neurologic: Present: CNII-XII intact - Musculoskeletal Musculoskeletal: Present: generalized weakness, strength equal bilaterally - Psychiatric Psychiatric: Present: A&O x's 3, appropriate affect, intact judgment & insight - Labs CBC & Chem 7: 09/26/21 05:48 09/26/21 05:48 Labs: Abnormal Lab Results - Last 24 Hours (Table) 09/25/21 09/25/21 09/26/21 Range/Units 13:13 21:43 05:48 Sodium 130 L (135-145) mmol/L Carbon Dioxide 18.7 L (20.0-27.5) mmol/L BUN 8.9 L (9.0-27.0) mg/dL Glucose 129 H (70-110) mg/dL POC Glucose (mg/dL) 110 H (75-99) mg/dL Calcium 8.5 L (8.7-10.3) mg/dL Lactate Dehydrogenase 110 L (120-246) U/L Total Protein 6.0 L (6.2-8.2) g/dL Albumin 2.9 L (3.8-4.9) g/dL Albumin/Globulin Ratio 0.87 L (1.60-3.17) g/dL Microbiology - Last 24 Hours (Table) 09/25/21 11:45 Gram Stain - Preliminary Pleural Fluid Body Fluid Culture - Preliminary 09/25/21 11:45 Acid Fast Bacilli Culture - Preliminary Thoracentesis Fluid 09/25/21 11:45 Fungal Culture - Preliminary Thoracentesis Fluid Assessment and Plan Plan: - Imaging and Cardiology Chest x-ray: report reviewed Assessment and Plan (1) Intractable pain Narrative/Plan: Pending 24 hours of IV Dilaudid. We'll convert to long-acting pain medication and transition patient over to oral at that time. She will continue on the Percocet every 4 hours for breakthrough pain at this time. Encouraged patient to utilize medications to prevent narcotic-induced constipation. She is on 8 Colace 3 times a day. Senokot was added twice a day. MiraLAX when necessary. Current Visit: Yes Status: Acute Priority: High Code(s): R52 - PAIN, UNS PECIFIED SNOMED Code(s): 96862955 (2) Lung mass Current Visit: Yes Status: Acute Priority: High Code(s): R91.8 - OTHER NONSPECIFIC ABNORMAL FINDING OF LUNG FIELD SNOMED Code(s): 562234089 (3) Pleural effusion Current Visit: Yes Status: Acute Priority: High Code(s): J90 - PLEURAL EFFUSION, NOT ELSEWHERE CLASSIFIED SNOMED Code(s): 06773597 (4) Thalassemia Narrative/Plan: Labs will continue to be monitored for the same. Hemoglobin 6.4 and transfused today Add folic acid Avoid Iron Supplementation and transfusions are only one when hgb less than 7 Current Visit: No Status: Chronic Priority: Medium Code(s): D56.9 - THALASSEMIA, UNSPECIFIED SNOMED Code(s): 00799961 Plan: DStatus post Successful thoracentesis, Cytology negative for malignant cells, defer tissue biopsy to Pulmonology
[2021-09-26] MEDS ORDERED: LORazepam 2 MG/ML INJ IV PRN ×2 (15:59→17:18)
[2021-09-26] MEDS: FOLIC ACID 1 MG TAB PO SCH (16:16)
[2021-09-26 16:23] LABS: ABG Base Excess -25.4 mmol/L; ABG Oxygen Saturation 83.5 % (94-97); ABG PCO2 36 mmHg (35-45); ABG PO2 77 mmHg (83-108); ABG TCO2 8 mmol/L (19-24); Allen Test Performed? Yes
[2021-09-26 16:43] LABS: ABG PH 6.92 (7.35-7.45)
[2021-09-26 16:44] LABS: ABG HCO3 7 mmol/L (21-25)
[2021-09-26] MEDS ORDERED: DEXTROSE 50% SYRINGE 50 ML IVP ONE (17:00)
[2021-09-26 17:01] LABS: Glucose,Whole Blood <20 mg/dL (75-99)
[2021-09-26] MEDS ORDERED: DEXTROSE 50% SYRINGE 50 ML IVP STA (17:02)
[2021-09-26 17:03] LABS: Glucose,Whole Blood <20 mg/dL (75-99)
[2021-09-26] MEDS ORDERED: ARTIFICIAL TEARS-HYPROMELLOSE DROPS 15 ML BTL BOTH EYES PRN (17:18)
[2021-09-26] MEDS ORDERED: ATROPINE OPHTH SOLN 1% 5ML BTL SUBLINGUAL PRN (17:18)
[2021-09-26] MEDS ORDERED: HYDROmorphone 1 MG/ML 1 ML SYRINGE IVP PRN (17:18)
[2021-09-26] MEDS ORDERED: SCOPOLAMINE 1 MG/72 HR PATCH TRANSDERM SCH (18:00)
[2021-09-27 00:36] LABS: Glucose,Whole Blood 95 mg/dL (75-99)
[2021-09-27] MEDS ORDERED: DEXTROSE 50% SYRINGE 50 ML IVP STA ×2 (01:00→18:03)
[2021-09-27 01:06] LABS: ABG Base Excess -15.9 mmol/L; ABG HCO3 13 mmol/L (21-25); ABG Oxygen Saturation 97.9 % (94-97); ABG PCO2 34 mmHg (35-45); ABG PO2 116 mmHg (83-108); ABG TCO2 14 mmol/L (19-24); Allen Test Performed? Yes
[2021-09-27 01:09] LABS: ABG PH 7.18 (7.35-7.45)
[2021-09-27 01:12] LABS: Glucose,Whole Blood 47 mg/dL (75-99)
[2021-09-27 01:17] LABS: Glucose,Whole Blood 107 mg/dL (75-99)
--- NOTE | 2021-09-27 01:23 | P.EN ---
A- team: Indication: Hypoxia Arrived on Scene to find: Somnolent patient in mild respiratory distress Vital signs reviewed: SpO2 92% with nonrebreather mask, BP 91/61, pulse 67, temperature 98.8F Patient seen and examined at bedside. Chart reviewed and discussed the case with the RN. The patient was a history of multiple malignancies was admitted with complaints of weight loss, shortness of breath, and chest wall pain. On computed tomography scan of chest, she was noted to have a large pleural effusion with consolidation versus mass not excluded. The patient underwent thoracentesis on 09/25 for the pleural effusion with yellow fluid drained. The decision was initially made to start the patient on comfort care. She was started on comfort care orders including Dilaudid. The cytology specimen from the thoracentesis however resulted as suggestive of empyema with no malignant cells noted cytologically. As per the RN, the patient's PCP, Dr. Rose discussed the case with the family once more and the decision was made to halt comfort care, make the patient full code, and proceed with intubation and transfer to ICU for further management. The patient's ABG was reviewed with pH 6.92. Hemoglobin had dropped to 6.4 from baseline of 8 with 1 unit PRBCs ordered. General: Frail elderly female, [mild respiratory distress], [appears older than stated age] Derm: [warm], [dry] Head: [atraumatic], [normocephalic], [symmetric] Eyes: [EOMI], [no lid lag], [anicteric sclera] Mouth: [no lip lesion], [mucus membranes moist] Cardiovascular: [S1S2 reg], [no murmur], [positive posterior tibial pulse bilateral], Lungs: [CTA bilateral], [no rhonchi, no rales] , [no accessory muscle use] Abdominal: [soft], [ nontender to palpation], [no guarding], [no appreciable organomegaly] Ext: [no gross muscle atrophy], [no edema], [no contractures] Neuro: Unable to assess, patient moving all extremities Psych: Somnolent, opens eyes and mumbles but does not make eye contact or answers questions Assessment: Acute hypoxic respiratory failure Plan: Patient immediately transferred to medical ICU with plans for intubation Defer further management to splash line operator and primary team Notified: Primary team and splash line operator notified by the RN
[2021-09-27] MEDS ORDERED: propofoL 100 ML IV ONE (01:44)
[2021-09-27] MEDS ORDERED: ETOMIDATE 2 MG/ML 10 ML VIAL ONE (01:45)
[2021-09-27] MEDS: SODIUM CHLORIDE 0.9% 1,000 ML IV SCH ×2 (02:16→12:00)
--- NOTE | 2021-09-27 02:31 | XR ---
EXAMINATION TYPE: XR chest 1V portable DATE OF EXAM: 09/27/2021 COMPARISON: Yesterday HISTORY: Tube placement TECHNIQUE: Single view FINDINGS: There is pulmonary edema. There is some airspace infiltrate throughout most of the left teo g. There is blunting of left costophrenic angle. Endotracheal tube is 5 cm from the pricila. There is nasogastric tube in the stomach. There are chest leads. IMPRESSION: Congestive heart failure and left side diffuse pneumonia. Opacification left lower hemithorax improved compared to yesterday.
[2021-09-27] MEDS: PIPERACILLIN-TAZOBACTAM 3.375 GM in SODIUM CHLORIDE 0.9% 100 ML IVPB SCH ×4 (02:32→18:54)
[2021-09-27 02:41] LABS: Glucose,Whole Blood 105 mg/dL (75-99)
[2021-09-27 02:57] LABS: Appearance,Urine Cloudy (Clear); Bacteria,Urine Occasional /hpf; Bilirubin,Urine Negative (Negative); Blood,Urine Large (Negative); Color,Urine Yellow; Glucose,Urine (UA) 1+ (Negative); Ketones,Urine 1+ (Negative); Leukocyte Esterase,Urine Negative (Negative); Mucus,Urine Rare /hpf; Nitrite,Urine Negative (Negative); PH, Urine 5.5 (5.0-8.0); Protein,Urine 2+ (Negative); RBC,Urine 14 /hpf (0-5); Specific Gravity,Urine 1.015 (1.001-1.035); Squamous Epithelial Cell,Urine 8 /hpf (0-4); WBC,Urine 22 /hpf (0-5)
[2021-09-27 03:00] LABS: ABG Base Excess -11.8 mmol/L; ABG HCO3 15 mmol/L (21-25); ABG Oxygen Saturation 99.6 % (94-97); ABG PCO2 34 mmHg (35-45); ABG PH 7.26 (7.35-7.45); ABG PO2 291 mmHg (83-108); ABG TCO2 16 mmol/L (19-24); Allen Test Performed? Yes
[2021-09-27] MEDS: methylPREDNISolone SOD SUCCI 40 MG/ML 1 ML VIAL IV SCH ×4 (03:06→21:58)
[2021-09-27 06:00] LABS: Glucose,Whole Blood 121 mg/dL (75-99)
[2021-09-27] MEDS: PANTOPRAZOLE 40 MG TABLET PO SCH (06:43)
[2021-09-27] MEDS: LEVOTHYROXINE 50 MCG TAB PO SCH (06:43)
[2021-09-27] MEDS ORDERED: CISATRACURIUM 2 MG/ML 5 ML VIAL IV ONE ×2 (09:02→09:22)
[2021-09-27] MEDS: FOLIC ACID 1 MG TAB PO SCH (09:25)
[2021-09-27] MEDS: CHLORHEXIDINE GLUCONATE 15 ML CUP MUCOUS MEM SCH ×2 (09:25→21:58)
[2021-09-27] MEDS: SENNOSIDES-DOCUSATE SODIUM 1 EACH TAB PO SCH ×2 (09:25→21:58)
[2021-09-27] MEDS ORDERED: SODIUM CHLORIDE 0.9% 1,000 ML IV ONE ×2 (09:30→10:30)
[2021-09-27] MEDS ORDERED: ROCURONIUM 10 MG/ML (5 ML VIAL) IV ONE (10:46)
--- NOTE | 2021-09-27 10:52 | XR ---
EXAMINATION TYPE: XR chest 1V portable DATE OF EXAM: 09/27/2021 Comparison: 09/27/2021 Clinical History: 70-year-old female s/p central line Findings: ET tube satisfactory. Left subclavian CVC tip at the cavoatrial junction. ET tube courses below the d iaphragm. Continued small to moderate left pleural effusion with hazy density extending up to the mid lung level. Mild interstitial prominence is similar. Impression: 1. Left subclavian CVC tip at the cavoatrial junction. 2. Otherwise, similar small to moderate pleural effusion with adjacent atelectasis and/or consolidati on on the left.
--- NOTE | 2021-09-27 11:02 | P.PN ---
Subjective Progress Note Date: 09/27/21 Principal diagnosis: Acute hypoxic respiratory failure This is a very pleasant 70-year-old female patient who follows with Dr. Rose is her primary care provider. She has a history of constipation with bowel obstruction and previous bowel resections, anemia, thalassemia, thyroid cancer in 2010 status post thyroidectomy, history of ovarian mass, history of vulvar cancer status post resection. She also has a history of chronic and ongoing tobacco dependence of 54 years and chronic obstructive pulmonary disease. She was admitted to the hospital yesterday with a 2 week history of significant left upper quadrant and left chest wall pain and pain with inhalation and shortness of breath on exertion. Computed tomography scan of the abdomen and pelvis revealed no evidence of acute small and large bowel obstruction. Mild acute abnormality the bowel including diverticulitis not excluded. There was a solid lesion on the left ovary measuring 3.5 cm with adjacent calcification previously noted. There is also a new right ovarian cyst measuring 2.7 cm. A new sizable left pleural effusion with adjacent consolidation/lung lesion noted. CT angiogram revealed no major central pulmonary embolism. Moderate to large left- sided pleural effusion with suspicious infiltrating lesion at the anterior aspect of the left lung base. Lung cancer versus infection. Ultrasound of the left chest reveals a 8.1 cm pocket. White count 13.7. Hemoglobin 8.2. Platelet count 618,000. Sodium 125. Potassium 4.5. Chloride 92. Bicarb 24. BUN 8. Creatinine 0.72. Glucose 108. Troponin negative 1. Amylase 60. Lipase 43. She is seen today in consultation on the regular medical floor. Currently resting fairly comfortably in bed. Still having ongoing issues with left-sided chest discomfort. Difficulty in breathing. She is maintaining good O2 saturations in the 90s on room air. She's afebrile. Hemodynamically stable. She denies any significant weight loss. She denies any hemoptysis. She is receiving Percocet and Dilaudid for pain control. Normal saline at 75 ML's per hour. the patient is seen today 09/26/2021 in follow-up in the regular medical floor. She is currently sitting up in bed. Awake and alert. She is having issues with shortness of breath, cough and congestion. Some chest tightness and wheezing. She did undergo a left-sided thoracentesis yesterday with 200 mL of cloudy yellow fluid removed. Follow-up chest x-ray showed no evidence of pneumothorax. Cultures pending, cytology pending. Fluid analysis revealed evidence of exudate with a protein of 4.2 and a LDH of 453. With a glucose of 70 not likely infection. She is maintaining good O2 saturations in the upper 90s on 2 L/m per nasal cannula. She's been afebrile. Hemodynamically stable. sodium 1:30. Potassium 5.3. BUN 9. Creatinine 0.7. Glucose 129. The patient is seen today 09/27/2021 in follow-up in the intensive care unit. Last evening her condition continued to deteriorate. At one point her family had made her a DO NOT RESUSCITATE/comfort care and then subsequently reversed their decision and made her a full code again. She developed acute hypoxemic respiratory failure and was intubated at approximately 1:45 this morning. This x-ray continues to show evidence of congestive heart failure with a left-sided diffuse pneumonia. Opacification of the left lower hemithorax improved compared to yesterday. Thoracentesis had been performed in the pleural fluid cultures are pending. Urinalysis was exudative in nature. Cytology negative for malignancy. Though still within the differential. Currently sedated and on mechanical ventilator at assist control mode with a rate of 16, tidal volume 350, FiO2 60% and a PEEP of 5. Morning blood gases revealed a PaO2 of 291, pCO2 34, pH 7.26 100% FiO2. She Is Sedated on Propofol at 30 Mcg/Kg/M. She Has Normal Saline Running at 125 MLS per Hour. She's been initiated on DuoNeb inhalations, Pulmicort and Perforomist inhalations, IV Solu-Medrol. The plan is for bronchoscopy with BAL and biopsies of the left lower lobe today. Objective - Vital Signs Vital signs: Vital Signs Temp 98.6 F 09/27/21 09:00 Pulse 96 09/27/21 10:00 Resp 16 09/27/21 10:00 BP 103/67 09/27/21 10:00 Pulse Ox 97 09/27/21 10:00 Intake & Output 09/26/21 09/27/21 09/27/21 18:59 06:59 18:59 Intake Total 240 666.805 870 Output Total 10 20 Balance 240 656.805 850 Intake: IV 350 500 0.9 250 500 Piperacillin-Tazobactam 3 100 .375 gm In Sodium Chloride 0.9% 100 ml @ 25 mls/hr IVPB Q6H ENRIQUE Rx#: [id number] Intake, IV Titration 240 6.805 Amount Sodium Chloride 0.9% 1, 240 000 ml @ 125 mls/hr IV . Q8H ENRIQUE Rx#:[id number] propofoL 1,000 mg In 6.805 Empty Bag 1 bag @ 5 MCG/ KG/MIN 1.157 mls/hr IV . Q24H ENRIQUE Rx#:[id number] Blood Product 310 310 Rc As-1 Unit 310 [id number] Other 60 Output: Urine 10 20 Other: Voiding Method Toilet Indwelling Catheter Indwelling Catheter # Voids 5 - Exam GENERAL EXAM: Intubated, sedated, very, frail 70-year-old female patient, comfortable in no apparent distress. HEAD: Normocephalic. EYES: Normal reaction of pupils, equal size. NOSE: Clear with pink turbinates. THROAT: No erythema or exudates. NECK: No masses, no JVD. CHEST: No chest wall deformity. LUNGS: Equal air entry with bilateral end expiratory wheeze, crackles in the left lung base, dullness, diminished. CVS: S1 and S2 normal with no audible murmur, regular rhythm. ABDOMEN: No hepatosplenomegaly, normal bowel sounds, no guarding or rigidity. SPINE: No scoliosis or deformity SKIN: No rashes CENTRAL NERVOUS SYSTEM: Sedated, tone is normal in all 4 extremities. EXTREMITIES: There is no peripheral edema. No clubbing, no cyanosis. Peripheral pulses are intact. - Labs CBC & Chem 7: 09/26/21 05:48 09/26/21 05:48 Labs: Abnormal Lab Results - Last 24 Hours (Table) 09/26/21 09/26/21 09/26/21 Range/Units 05:48 14:18 16:15 WBC 20.30 H (4.50-10.00) X 10*3/uL RBC 3.32 L (4.10-5.20) X 10*6/uL Hgb 6.4 L* (12.0-15.0) g/dL Hct 20.7 L (37.2-46.3) % MCV 62.3 L (80.0-97.0) fL MCH 19.3 L (27.0-32.0) pg MCHC 30.9 L (32.0-37.0) g/dL RDW 15.6 H (11.5-14.5) % Plt Count 537 H (140-440) X 10*3/uL Plt Count Comment INCREASED A MPV 8.9 L (9.5-12.2) fL Immature Gran # 0.17 H (0.00-0.04) X 10*3/uL Neutrophils # 18.49 H (1.80-7.70) X 10*3/uL Lymphocytes # 0.73 L (0.90-5.00) X 10*3/uL Eosinophils # 0 L (0.04-0.35) X 10*3/uL ABG pH 6.92 L* (7.35-7.45) ABG pCO2 (35-45) mmHg ABG pO2 77 L (83-108) mmHg ABG HCO3 7 L* (21-25) mmol/L ABG Total CO2 8 L (19-24) mmol/L ABG O2 Saturation 83.5 L (94-97) % POC Glucose (mg/dL) (75-99) mg/dL Urine Appearance (Clear) Urine Protein (Negative) Urine Glucose (UA) (Negative) Urine Ketones (Negative) Urine Blood (Negative) Urine RBC (0-5) /hpf Urine WBC (0-5) /hpf Ur Squamous Epith Cells (0-4) /hpf Urine Bacteria (None) /hpf Urine Mucus (None) /hpf Crossmatch See Detail 09/26/21 09/26/21 09/27/21 Range/Units 16:59 17:01 00:59 WBC (4.50-10.00) X 10*3/uL RBC (4.10-5.20) X 10*6/uL Hgb (12.0-15.0) g/dL Hct (37.2-46.3) % MCV (80.0-97.0) fL MCH (27.0-32.0) pg MCHC (32.0-37.0) g/dL RDW (11.5-14.5) % Plt Count (140-440) X 10*3/uL Plt Count Comment MPV (9.5-12.2) fL Immature Gran # (0.00-0.04) X 10*3/uL Neutrophils # (1.80-7.70) X 10*3/uL Lymphocytes # (0.90-5.00) X 10*3/uL Eosinophils # (0.04-0.35) X 10*3/uL ABG pH (7.35-7.45) ABG pCO2 (35-45) mmHg ABG pO2 (83-108) mmHg ABG HCO3 (21-25) mmol/L ABG Total CO2 (19-24) mmol/L ABG O2 Saturation (94-97) % POC Glucose (mg/dL) <20 L <20 L 47 L (75-99) mg/dL Urine Appearance (Clear) Urine Protein (Negative) Urine Glucose (UA) (Negative) Urine Ketones (Negative) Urine Blood (Negative) Urine RBC (0-5) /hpf Urine WBC (0-5) /hpf Ur Squamous Epith Cells (0-4) /hpf Urine Bacteria (None) /hpf Urine Mucus (None) /hpf Crossmatch 09/27/21 09/27/21 09/27/21 Range/Units 01:00 01:16 02:38 WBC (4.50-10.00) X 10*3/uL RBC (4.10-5.20) X 10*6/uL Hgb (12.0-15.0) g/dL Hct (37.2-46.3) % MCV (80.0-97.0) fL MCH (27.0-32.0) pg MCHC (32.0-37.0) g/dL RDW (11.5-14.5) % Plt Count (140-440) X 10*3/uL Plt Count Comment MPV (9.5-12.2) fL Immature Gran # (0.00-0.04) X 10*3/uL Neutrophils # (1.80-7.70) X 10*3/uL Lymphocytes # (0.90-5.00) X 10*3/uL Eosinophils # (0.04-0.35) X 10*3/uL ABG pH 7.18 L* (7.35-7.45) ABG pCO2 34 L (35-45) mmHg ABG pO2 116 H (83-108) mmHg ABG HCO3 13 L (21-25) mmol/L ABG Total CO2 14 L (19-24) mmol/L ABG O2 Saturation 97.9 H (94-97) % POC Glucose (mg/dL) 107 H 105 H (75-99) mg/dL Urine Appearance (Clear) Urine Protein (Negative) Urine Glucose (UA) (Negative) Urine Ketones (Negative) Urine Blood (Negative) Urine RBC (0-5) /hpf Urine WBC (0-5) /hpf Ur Squamous Epith Cells (0-4) /hpf Urine Bacteria (None) /hpf Urine Mucus (None) /hpf Crossmatch 09/27/21 09/27/21 09/27/21 Range/Units 02:42 02:58 05:59 WBC (4.50-10.00) X 10*3/uL RBC (4.10-5.20) X 10*6/uL Hgb (12.0-15.0) g/dL Hct (37.2-46.3) % MCV (80.0-97.0) fL MCH (27.0-32.0) pg MCHC (32.0-37.0) g/dL RDW (11.5-14.5) % Plt Count (140-440) X 10*3/uL Plt Count Comment MPV (9.5-12.2) fL Immature Gran # (0.00-0.04) X 10*3/uL Neutrophils # (1.80-7.70) X 10*3/uL Lymphocytes # (0.90-5.00) X 10*3/uL Eosinophils # (0.04-0.35) X 10*3/uL ABG pH 7.26 L (7.35-7.45) ABG pCO2 34 L (35-45) mmHg ABG pO2 291 H (83-108) mmHg ABG HCO3 15 L (21-25) mmol/L ABG Total CO2 16 L (19-24) mmol/L ABG O2 Saturation 99.6 H (94-97) % POC Glucose (mg/dL) 121 H (75-99) mg/dL Urine Appearance Cloudy H (Clear) Urine Protein 2+ H (Negative) Urine Glucose (UA) 1+ H (Negative) Urine Ketones 1+ H (Negative) Urine Blood Large H (Negative) Urine RBC 14 H (0-5) /hpf Urine WBC 22 H (0-5) /hpf Ur Squamous Epith Cells 8 H (0-4) /hpf Urine Bacteria Occasional H (None) /hpf Urine Mucus Rare H (None) /hpf Crossmatch Microbiology - Last 24 Hours (Table) 09/25/21 11:45 Acid Fast Bacilli Smear - Final Thoracentesis Fluid Acid Fast Bacilli Culture - Preliminary 09/25/21 11:45 Gram Stain - Preliminary Pleural Fluid Body Fluid Culture - Preliminary Assessment and Plan Assessment: 1 Acute left-sided chest discomfort and dyspnea secondary to moderate to large left-sided pleural effusion. Status post thoracentesis on 09/25/2021 with 200 ML's of cloudy yellow fluid removed. Exudative in nature. Pathology reveals negative for malignancy. Plan is for bronchoscopy with BAL and biopsy of the left lower lobe today. She had gone on to develop acute hypoxemic respiratory failure requiring intubation and mechanical ventilation early this morning 09/27/2021 approximately 1:45 AM.. 2 Suspicious infiltrating lesion at the anterior aspect of the left lung base, possible lung cancer 3 Left adnexal solid lesion measuring 3.5 cm with adjacent calcification, appreciated previously. New right ovarian cyst measuring 2.7 cm 4 History of vulvar cancer with previous resection in November 2020 5 History of thyroid cancer status post thyroidectomy in 2009 6 History of bowel obstruction with previous resection 7 History of thalassemia 8 Chronic and ongoing tobacco dependence of 54 years. 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 kilograms per metered square Plan: The patient was seen and evaluated X-ray, ABGs and labs reviewed FiO2 decreased to 60% Fluid analysis negative for malignancy Plan is for bronchoscopy with BAL and biopsies of the left lower lobe today Add DuoNeb inhalations, Pulmicort and Perforomist inhalations, IV Solu-Medrol Triple-lumen catheter and arterial lines placed today Overall prognosis remains guarded We will continue to follow and make further recommendations based on her clinical status I have personally seen and examined the patient, performed the documentation and the assessment and plan as written. Number of minutes spent on the visit: 15
[2021-09-27] MEDS ORDERED: IV FLUID CONTINUATION 1,000 ML IV ONE ×2 (11:12)
[2021-09-27] MEDS: IPRATROPIUM-ALBUTEROL 3 ML NEB INHALATION SCH ×3 (11:27→20:40)
[2021-09-27 12:14] LABS: Glucose,Whole Blood 159 mg/dL (75-99)
--- NOTE | 2021-09-27 12:21 | P.PN ---
Subjective Progress Note Date: 09/27/21 Principal diagnosis: shortness of breath Patient is a very pleasant 70-year-old female came to the emergency room for abdominal discomfort and shortness of breath. Patient has a extensive medical history that includes COPD, GERD, osteoarthritis, bilateral vulva cancer, thyroid cancer, thalassemia, colitis, degenerative disc disease, kidney stones. Patient recently had PET scan that showed lung and ovarian mass that was being followed outpatient. Oncology and pulmonary were consulted for evaluation of left lung mass and pleural effusion. Patient is to undergo drainage of pleural effusion to test for malignancy. Hospitalist coverage 09/24/2021 09/25/2021 Patient seen and examined at bedside. Patient reports continued left side pain and difficulty breathing. Reports pain with inspiration. Patient denies chest pain, fever, palpitations. Patient states she dislikes the food and has admitted eating, ensure was added to increase oral intake. Awaiting cytology results. 09/26/2021 Patient was seen and examined at bedside. Patient reports increasing dyspnea and wheezing. Patient continues to have pain with inspiration but denies chest pain, palpitations, productive cough. Patient is experiencing increased anxiety, discussed length of time for results to come back. Ordered a repeat chest x-ray to assess cause of increasing dyspnea. We'll follow along with pulmonology recommendations of IV steroids and bronchodilator treatments. 09/27/2021 Patient was seen and examined in the ICU. Patient is sedated on ventilator. Family had changed their minds about comfort care after discussing cytology results and wanted to make her a full code again even though the prognosis is poor. She was then transferred to the ICU early this AM and intubated. Patient is to go for bronchoscopy today with Dr. Stallworth for biopsy. Objective - Vital Signs Vital signs: Vital Signs Temp 98.6 F 09/27/21 09:00 Pulse 96 09/27/21 10:00 Resp 16 09/27/21 10:00 BP 103/67 09/27/21 10:00 Pulse Ox 97 09/27/21 10:00 Intake & Output 09/26/21 09/27/21 09/27/21 18:59 06:59 18:59 Intake Total 240 666.805 970 Output Total 10 20 Balance 240 656.805 950 Intake: IV 350 600 0.9 250 500 Piperacillin-Tazobactam 3 100 .375 gm In Sodium Chloride 0.9% 100 ml @ 25 mls/hr IVPB Q6H ENRI[facility] Rx#: [id number] Intake, IV Titration 240 6.805 Amount Sodium Chloride 0.9% 1, 240 000 ml @ 125 mls/hr IV . Q8H ENRIQUE Rx#:[id number] propofoL 1,000 mg In 6.805 Empty Bag 1 bag @ 5 MCG/ KG/MIN 1.157 mls/hr IV . Q24H ENRIQUE Rx#:[id number] Blood Product 310 310 Rc As-1 Unit 310 [id number] Other 60 Output: Urine 10 20 Other: Voiding Method Toilet Indwelling Catheter Indwelling Catheter # Voids 5 - Exam Patient is sedated on mechanical vent - Constitutional General appearance: Present: no acute distress, thin - Respiratory Respiratory: bilateral: rhonchi, wheezing - Cardiovascular Heart rate: 90 Rhythm: regular Heart sounds: normal: S1, S2 - Peripheral pulses radial pulse Peripheral Pulses: bilateral: Diminished dorsalis pedis Peripheral Pulses: bilateral: Diminished - Gastrointestinal General gastrointestinal: Present: normal bowel sounds, soft - Integumentary Integumentary: Present: pale - Psychiatric Psychiatric Comment(s): Sedated - Allied health notes Allied health notes reviewed: nursing - Labs CBC & Chem 7: 10/01/21 04:10 10/01/21 04:10 Labs: Abnormal Lab Results - Last 24 Hours (Table) 09/26/21 09/26/21 09/26/21 Range/Units 05:48 14:18 16:15 WBC 20.30 H (4.50-10.00) X 10*3/uL RBC 3.32 L (4.10-5.20) X 10*6/uL Hgb 6.4 L* (12.0-15.0) g/dL Hct 20.7 L (37.2-46.3) % MCV 62.3 L (80.0-97.0) fL MCH 19.3 L (27.0-32.0) pg MCHC 30.9 L (32.0-37.0) g/dL RDW 15.6 H (11.5-14.5) % Plt Count 537 H (140-440) X 10*3/uL Plt Count Comment INCREASED A MPV 8.9 L (9.5-12.2) fL Immature Gran # 0.17 H (0.00-0.04) X 10*3/uL Neutrophils # 18.49 H (1.80-7.70) X 10*3/uL Lymphocytes # 0.73 L (0.90-5.00) X 10*3/uL Eosinophils # 0 L (0.04-0.35) X 10*3/uL ABG pH 6.92 L* (7.35-7.45) ABG pCO2 (35-45) mmHg ABG pO2 77 L (83-108) mmHg ABG HCO3 7 L* (21-25) mmol/L ABG Total CO2 8 L (19-24) mmol/L ABG O2 Saturation 83.5 L (94-97) % POC Glucose (mg/dL) (75-99) mg/dL Urine Appearance (Clear) Urine Protein (Negative) Urine Glucose (UA) (Negative) Urine Ketones (Negative) Urine Blood (Negative) Urine RBC (0-5) /hpf Urine WBC (0-5) /hpf Ur Squamous Epith Cells (0-4) /hpf Urine Bacteria (None) /hpf Urine Mucus (None) /hpf Crossmatch See Detail 09/26/21 09/26/21 09/27/21 Range/Units 16:59 17:01 00:59 WBC (4.50-10.00) X 10*3/uL RBC (4.10-5.20) X 10*6/uL Hgb (12.0-15.0) g/dL Hct (37.2-46.3) % MCV (80.0-97.0) fL MCH (27.0-32.0) pg MCHC (32.0-37.0) g/dL RDW (11.5-14.5) % Plt Count (140-440) X 10*3/uL Plt Count Comment MPV (9.5-12.2) fL Immature Gran # (0.00-0.04) X 10*3/uL Neutrophils # (1.80-7.70) X 10*3/uL Lymphocytes # (0.90-5.00) X 10*3/uL Eosinophils # (0.04-0.35) X 10*3/uL ABG pH (7.35-7.45) ABG pCO2 (35-45) mmHg ABG pO2 (83-108) mmHg ABG HCO3 (21-25) mmol/L ABG Total CO2 (19-24) mmol/L ABG O2 Saturation (94-97) % POC Glucose (mg/dL) <20 L <20 L 47 L (75-99) mg/dL Urine Appearance (Clear) Urine Protein (Negative) Urine Glucose (UA) (Negative) Urine Ketones (Negative) Urine Blood (Negative) Urine RBC (0-5) /hpf Urine WBC (0-5) /hpf Ur Squamous Epith Cells (0-4) /hpf Urine Bacteria (None) /hpf Urine Mucus (None) /hpf Crossmatch 09/27/21 09/27/21 09/27/21 Range/Units 01:00 01:16 02:38 WBC (4.50-10.00) X 10*3/uL RBC (4.10-5.20) X 10*6/uL Hgb (12.0-15.0) g/dL Hct (37.2-46.3) % MCV (80.0-97.0) fL MCH (27.0-32.0) pg MCHC (32.0-37.0) g/dL RDW (11.5-14.5) % Plt Count (140-440) X 10*3/uL Plt Count Comment MPV (9.5-12.2) fL Immature Gran # (0.00-0.04) X 10*3/uL Neutrophils # (1.80-7.70) X 10*3/uL Lymphocytes # (0.90-5.00) X 10*3/uL Eosinophils # (0.04-0.35) X 10*3/uL ABG pH 7.18 L* (7.35-7.45) ABG pCO2 34 L (35-45) mmHg ABG pO2 116 H (83-108) mmHg ABG HCO3 13 L (21-25) mmol/L ABG Total CO2 14 L (19-24) mmol/L ABG O2 Saturation 97.9 H (94-97) % POC Glucose (mg/dL) 107 H 105 H (75-99) mg/dL Urine Appearance (Clear) Urine Protein (Negative) Urine Glucose (UA) (Negative) Urine Ketones (Negative) Urine Blood (Negative) Urine RBC (0-5) /hpf Urine WBC (0-5) /hpf Ur Squamous Epith Cells (0-4) /hpf Urine Bacteria (None) /hpf Urine Mucus (None) /hpf Crossmatch 09/27/21 09/27/21 09/27/21 Range/Units 02:42 02:58 05:59 WBC (4.50-10.00) X 10*3/uL RBC (4.10-5.20) X 10*6/uL Hgb (12.0-15.0) g/dL Hct (37.2-46.3) % MCV (80.0-97.0) fL MCH (27.0-32.0) pg MCHC (32.0-37.0) g/dL RDW (11.5-14.5) % Plt Count (140-440) X 10*3/uL Plt Count Comment MPV (9.5-12.2) fL Immature Gran # (0.00-0.04) X 10*3/uL Neutrophils # (1.80-7.70) X 10*3/uL Lymphocytes # (0.90-5.00) X 10*3/uL Eosinophils # (0.04-0.35) X 10*3/uL ABG pH 7.26 L (7.35-7.45) ABG pCO2 34 L (35-45) mmHg ABG pO2 291 H (83-108) mmHg ABG HCO3 15 L (21-25) mmol/L ABG Total CO2 16 L (19-24) mmol/L ABG O2 Saturation 99.6 H (94-97) % POC Glucose (mg/dL) 121 H (75-99) mg/dL Urine Appearance Cloudy H (Clear) Urine Protein 2+ H (Negative) Urine Glucose (UA) 1+ H (Negative) Urine Ketones 1+ H (Negative) Urine Blood Large H (Negative) Urine RBC 14 H (0-5) /hpf Urine WBC 22 H (0-5) /hpf Ur Squamous Epith Cells 8 H (0-4) /hpf Urine Bacteria Occasional H (None) /hpf Urine Mucus Rare H (None) /hpf Crossmatch Microbiology - Last 24 Hours (Table) 09/25/21 11:45 Acid Fast Bacilli Smear - Final Thoracentesis Fluid Acid Fast Bacilli Culture - Preliminary 09/25/21 11:45 Gram Stain - Preliminary Pleural Fluid Body Fluid Culture - Preliminary - Imaging and Cardiology Chest x-ray: report reviewed Assessment and Plan Assessment: Hypoxemic respiratory failure, on mechanical vent Left lower lung mass, ruling out malignancy Moderate left pleural effusion Acute exacerbation of COPD Leukocytosis Thalassemia History of vulvar and thyroid cancer cachexia, BMI 15 Plan: Continue following with specialist recommendations Monitor hemoglobin daily Cytology results negative for malignancy IV antibiotics started Patient is to undergo bronchoscopy for biopsy of left lung mass Further recommendations to come based on patient's clinical course Time with Patient: Greater than 30 (I have personally seen and examined the patient, reviewed the documentation and agree with the assessment and plan as written. Number of minutes spent on the visit: [Greater than 20 minute].)
[2021-09-27 12:31] LABS: INR 2.3 (<1.2); Partial Thromboplastin Time 27.5 sec (22.0-30.0); Prothrombin Time 22.8 sec (9.0-12.0)
[2021-09-27 12:32] LABS: Anisocytosis Slight; HCT 29.1 % (34.0-46.0); HGB 8.8 gm/dL (11.4-16.0); Hypochromasia Marked; MCH 21.2 pg (25.0-35.0); MCHC 30.2 g/dL (31.0-37.0); Mean Platelet Volume 6.5; Microcytosis Marked; Platelet Count 421 k/uL (150-450); Poikilocytosis Moderate; RBC 4.16 m/uL (3.80-5.40); RDW 17.5 % (11.5-15.5); Reticulocyte % 1.2 % (0.5-2.0)
[2021-09-27 12:33] LABS: African American GFR (CKD) 33 (>60 ml/min/1.73 sqM); Albumin 2.5 g/dL (3.5-5.0); Albumin/Globulin Ratio 0.8; Alkaline Phosphatase 130 U/L (38-126); Anion Gap 9 mmol/L; Blood Urea Nitrogen 27 mg/dL (7-17); Calcium 7.1 mg/dL (8.4-10.2); Carbon Dioxide 19 mmol/L (22-30); Chloride 107 mmol/L (98-107); Globulin 3.1 g/dL; Glucose 154 mg/dL (74-99); Non-African American GFR(CKD) 29 (>60 ml/min/1.73 sqM); Potassium 5.7 mmol/L (3.5-5.1); Sodium 135 mmol/L (137-145); Total Bilirubin 1.6 mg/dL (0.2-1.3); Total Protein 5.6 g/dL (6.3-8.2)
[2021-09-27 12:49] LABS: Lymphocytes # (M) 0.55 k/uL (1.0-4.8); Monocytes # (M) 0.28 k/uL (0-1.0); Neutrophils # (M) 26.95 k/uL (1.3-7.7); Neutrophils % (M) 98 %; Nucleated Red Blood Cells 1 /100 WBC (0-0); Total Cells Counted 200; WBC 27.5 k/uL (3.8-10.6)
--- NOTE | 2021-09-27 12:53 | XR ---
EXAMINATION TYPE: XR chest 1V portable DATE OF EXAM: 09/27/2021 COMPARISON: Chest x-ray 09/27/2021 HISTORY: Status post left lower lobe lung biopsy TECHNIQUE: Single frontal view of the chest is obtained. FINDINGS: Endotracheal tube, NG tube, left subclavian central venous catheter are all again noted an d are overlying appropriate positions. Abnormal density at the left lung base obscures the left hemid iaphragm. There is apical pleural thickening left greater than right. No evident pneumothorax. Cardia c mediastinal silhouette is stable. Aorta is dense. IMPRESSION: No evident complication status post bronchoscopy.
--- NOTE | 2021-09-27 12:57 | FL ---
EXAMINATION TYPE: FL bronchoscopy DATE OF EXAM: 09/27/2021 COMPARISON: NONE HISTORY: Abnormal chest x-ray Fluoroscopy support supplied to the referring clinician. See dictated report from pulmonary, 1 minut e 1 second fluoroscopy time, no images obtained
--- NOTE | 2021-09-27 12:58 | PCN ---
PROCEDURE NOTE PREOP DIAGNOSIS: Frequent blood draws and blood gas monitoring. POSTOP DIAGNOSIS: Frequent blood draws and blood gas monitoring. DIRECTOR OF AUTOMATION: Dr. Leda Sánchez. There was informed consent and universal timeout. ARTERIAL LINE PLACEMENT: Indications: Hemodynamic monitoring. A time-out was completed verifying correct patient, procedure, site, positioning, and implant(s) or special equipment if applicable. Nicholas's test was performed to ensure adequate perfusion. The patient's right wrist was prepped and draped in sterile fashion. 1% Lidocaine was used to anesthetize the area. An 18G Arrow arterial line was introduced into the radial artery. The catheter was threaded over the guide wire and the needle was removed with appropriate pulsatile blood return. Blood loss was minimal. The catheter was then sutured in place to the skin and a sterile dressing applied. Perfusion to the extremity distal to the point of catheter insertion was checked and found to be adequate. The patient tolerated the procedure well and there were no complications. We used a right radial artery. There was no immediate complications. There was good waveform and blood pressure reading. The patient tolerated the procedure well. The catheter was sutured in place. Sterile dressing was applied by the nurse. There was no immediate complication. MMODL / IJN: [id number] /
--- NOTE | 2021-09-27 12:58 | PCN ---
PROCEDURE NOTE PROCEDURE: Placement of a left subclavian triple-lumen catheter. PREOPERATIVE DIAGNOSIS: Administration of fluids and pressors. POSTOPERATIVE DIAGNOSIS: Administration of fluids and pressors. OPERATORS: 1. Dr. Stallworth. 2. Dr. Tompkins. PROCEDURE DESCRIPTION: Mission time-out was completed verifying correct patient, procedure, site, positioning, and implant(s) or special equipment if applicable. There was informed consent. The patient was placed in a dependent position appropriate for triple lumen catheter placement based on the vein to be cannulated. The patient's left shoulder was prepped and draped in sterile fashion. 1% Lidocaine was used to anesthetize the surrounding skin area. A triple lumen 9F Cordis catheter was introduced into the left subclavian vein using Seldinger technique. The catheter was threaded smoothly over the guide wire and appropriate blood return was obtained. There was good blood return from all three ports. Each lumen of the catheter was evacuated of air and flushed with sterile saline. The catheter was then sutured in place to the skin and a sterile dressing applied. Perfusion to the extremity distal to the point of catheter insertion was checked and found to be adequate. The patient tolerated the procedure well. A chest x-ray will be ordered to check placement and rule out pneumothorax. There was no immediate complication. MMODL / IJN: [id number] /
[2021-09-27 13:00] LABS: ALT 1916 U/L (4-34); AST 7325 U/L (14-36)
--- NOTE | 2021-09-27 13:05 | PCN ---
PROCEDURE NOTE PULMONARY/CRITICAL CARE PROCEDURE NOTE: Bronchoscopy airway examination, therapeutic lavage, BAL left lower lobe, brushes left lower lobe, needle biopsies left lower lobe and transbronchial biopsies, left lower lobe. OPERATORS: 1. Dr. Stallworth. 2. Dr. Tompkins. PROCEDURE DESCRIPTION: The patient was under the effects of general anesthesia provided by Dr. Newsome and one of the CRNAs. The patient was being fully monitored in the endoscopy suite during the procedure. The bronchoscope adapter was connected to the endotracheal tube. The bronchoscope was inserted through the bronchoscope adapter and through the endotracheal tube. The distal trachea showed thick secretions. They were suctioned. The right upper lobe and its 3 segments was normal. The right middle lobe and its 2 segments were normal. The right lower lobe and its 5 segments were normal. On the left side, the left upper lobe proper and the lingula, 2 segments each, were normal. In the left lower lobe, there was no distinct mass or tumor. There was some bulging of the medial wall proximal to the left lower lobe. There may be some extrinsic compression there, but there was no distinct mass or tumor. There were some secretions. They were suctioned. We did a formal BAL in the left lower lobe. Next we did brushes under fluoroscopic guidance in the left lower lobe. Next, we did 3 passes of the needle biopsy in the area of the abnormality noted in the medial wall of the left lower lobe. The patient tolerated that procedure well. Finally, we did multiple transbronchial biopsies, probably 8 or 9 or so, in the left lower lobe under fluoroscopic guidance. There was no obvious pneumothorax on fluoro. The patient tolerated the procedure well. There was minimal bleeding. We ensured hemostasis before removing the bronchoscope. The patient was rock-solid stable throughout the procedure. She will be returned to her room. There was no immediate complication. A chest x-ray will be ordered once the patient returns back to the intensive care unit. MMODL / IJN: [id number] /
[2021-09-27 13:08] LABS: LDH >21500 U/L (313-618)
[2021-09-27] MEDS ORDERED: FUROSEMIDE 10 MG/ML 4 ML VIAL IV STA (14:59)
[2021-09-27 17:14] LABS: Calcium 6.7 mg/dL (8.4-10.2); Magnesium 1.9 mg/dL (1.6-2.3)
[2021-09-27] MEDS ORDERED: INSULIN REGULAR 100 UNIT/ML VIAL (IV) IV ONE (18:30)
[2021-09-27] MEDS: DEXTROSE 5% IN WATER 1,000 ML with SODIUM BICARB (1 MEQ/ML) 100 ML IV SCH (18:54)
[2021-09-27] MEDS: FORMOTEROL FUMARATE 20 MCG/2 ML NEBU INHALATION SCH (20:39)
[2021-09-27] MEDS: BUDESONIDE 1 MG/2 ML NEBU INHALATION SCH (20:40)
[2021-09-27] MEDS: HYDROmorphone 0.5 MG/0.5 ML SYRINGE IVP PRN (22:06)
[2021-09-28 00:14] LABS: Glucose,Whole Blood 151 mg/dL (75-99)
[2021-09-28] MEDS: IPRATROPIUM-ALBUTEROL 3 ML NEB INHALATION SCH ×6 (00:19→20:19)
[2021-09-28 00:33] LABS: Appearance,BF Clumped
[2021-09-28] MEDS: PIPERACILLIN-TAZOBACTAM 3.375 GM in SODIUM CHLORIDE 0.9% 100 ML IVPB SCH ×4 (01:29→18:58)
[2021-09-28] MEDS: methylPREDNISolone SOD SUCCI 40 MG/ML 1 ML VIAL IV SCH ×4 (01:30→21:24)
[2021-09-28 04:31] LABS: Anisocytosis Slight; HCT 30.1 % (34.0-46.0); Hypochromasia Marked; MCH 21.3 pg (25.0-35.0); MCV 71.1 fL (80.0-100.0); Mean Platelet Volume 7.2; Microcytosis Moderate; Platelet Count 345 k/uL (150-450); Poikilocytosis Moderate; RBC 4.23 m/uL (3.80-5.40); RDW 17.7 % (11.5-15.5)
[2021-09-28 04:43] LABS: Albumin 2.4 g/dL (3.5-5.0); Calcium 6.7 mg/dL (8.4-10.2); Potassium 5.3 mmol/L (3.5-5.1); Total Bilirubin 1.3 mg/dL (0.2-1.3); Total Protein 5.5 g/dL (6.3-8.2)
[2021-09-28 05:55] LABS: Band Neutrophils % 11 %; Lymphocytes # (M) 0.56 k/uL (1.0-4.8); Monocytes # (M) 0.28 k/uL (0-1.0); Neutrophils % (M) 87 %; Nucleated Red Blood Cells 4 /100 WBC (0-0); Total Cells Counted 200; WBC 28.2 k/uL (3.8-10.6)
[2021-09-28 05:57] LABS: Large Platelets Present; Polychromasia Present; Target Cells Present
[2021-09-28 06:04] LABS: ABG Base Excess -10.3 mmol/L; ABG HCO3 18 mmol/L (21-25); ABG Oxygen Saturation 97.1 % (94-97); ABG PCO2 49 mmHg (35-45); ABG PO2 110 mmHg (83-108); ABG TCO2 20 mmol/L (19-24); Allen Test Performed? Yes
[2021-09-28 06:09] LABS: ABG PH 7.18 (7.35-7.45)
[2021-09-28] MEDS: PANTOPRAZOLE 40 MG TABLET PO SCH (06:37)
[2021-09-28] MEDS: LEVOTHYROXINE 50 MCG TAB PO SCH (06:37)
[2021-09-28] MEDS: FORMOTEROL FUMARATE 20 MCG/2 ML NEBU INHALATION SCH ×2 (07:24→20:19)
[2021-09-28] MEDS: BUDESONIDE 1 MG/2 ML NEBU INHALATION SCH ×2 (07:24→20:19)
[2021-09-28 08:18] LABS: Glucose,Whole Blood 266 mg/dL (75-99)
[2021-09-28] MEDS: INSULIN ASPART (NovoLOG) 100 UNIT/ML VIAL SQ SCH ×4 (08:18→21:26)
--- NOTE | 2021-09-28 09:00 | CDI ---
Documentation Clarification Form Date: 09/27/2021 01:38:50 PM From: Meg Blake RN CCDS Admit Date: 09/24/2021 02:50:00 PM Patient Name: Marilin Aldana Visit Number: [id number] Discharge Date: ATTENTION: The Clinical Documentation Specialists (CDI) and [facility] Coding Staff appreciate your assistance in clarifying documentation. Please respond to the clarification below the line at the bottom and electronically sign. The CDI & [facility] Coding staff will review the response and follow-up if needed. Please note: Queries are made part of the Legal Health Record. If you have any questions, please contact the author of this message via ITS. Dr. Nicolás Rose MD Cachexia is documented in the 09/26 & 08/30, Pulmonary notes and 09/27 Internal Medicine Note. Based on this information and the findings below, is there an additional diagnosis that is clinically appropriate for this patient? History/Risk Factors: 70-year-old female presents to the ED with abdominal discomfort. Medical History: COPD, Thyroid and Vulva cancer. Clinical Indicators: Admitting Diagnoses: Left pleural effusion and weight loss evaluation. RD Consult Assessment: Current BMI: <19 Height 5ft 3inches body mass index Underweight Nutrition Intake: Poor percent consumed 0-25% Limited meals thus far since admit Nutrition Concerns: Underfeeding; Inadequate PO X 3 days Physical Findings: Underweight Needs in kcals 1800Kcal Estimated Protein 46-58 grams/day Estimated Fluid Needs: 1ml/Kcal Estimated Fluid Needs 1800ml/day Nutrition diagnosis: Malnutrition: Moderate malnutrition in context of chronic illness. Treatment: Dietary Consult: see above Supplements: Ensure Enlive TID Kcal 350 Protein/Serving 20grams Is there an additional diagnosis that is clinically appropriate for this patient? [ ] Moderate Protein-Calorie Malnutrition [ ] Severe Protein-Calorie Malnutrition [ ] Other condition, please specify [ ] Unable to Determine 09/28 Internal Medicine Progress Note : cachexia, moderate protein malnutrition, BMI15. Nneka HOLDER. Dr. Rose. (Template Last Revised: August 2020) MTDD
--- NOTE | 2021-09-28 09:02 | XR ---
EXAMINATION TYPE: XR chest 1V portable DATE OF EXAM: 09/28/2021 COMPARISON: Chest x-ray 09/27/2021, CT 09/24/2021 HISTORY: Intubated TECHNIQUE: Single frontal view of the chest is obtained. FINDINGS: Endotracheal tube, NG tube, left subclavian central venous catheter are overlying appropri ate positions. Apical pleural thickening is present left greater than right as on prior. There is ret rocardiac density, bibasilar increased attenuation, the left hemidiaphragm is obscured, this blunting the costophrenic angles. Patient with known lingular mass. Heart size is likely stable but partially obscured. Aorta is dense. There are overlying artifacts. IMPRESSION: Patient with known lingular mass, left pleural effusion and associated atelectasis, diff icult to exclude pneumonia, there is underlying emphysema
[2021-09-28] MEDS: CHLORHEXIDINE GLUCONATE 15 ML CUP MUCOUS MEM SCH ×2 (10:04→21:25)
[2021-09-28] MEDS: FOLIC ACID 1 MG TAB PO SCH (10:04)
[2021-09-28] MEDS: SENNOSIDES-DOCUSATE SODIUM 1 EACH TAB PO SCH ×2 (10:04→21:25)
[2021-09-28] MEDS: METOCLOPRAMIDE 5 MG/ML 2 ML VIAL IVP SCH ×3 (10:04→18:57)
[2021-09-28] MEDS: DEXTROSE 5% IN WATER 1,000 ML with SODIUM BICARB (1 MEQ/ML) 100 ML IV SCH (10:35)
--- NOTE | 2021-09-28 11:22 | P.PN ---
Subjective Progress Note Date: 09/28/21 Principal diagnosis: Acute hypoxic respiratory failure This is a very pleasant 70-year-old female patient who follows with Dr. Rose is her primary care provider. She has a history of constipation with bowel obstruction and previous bowel resections, anemia, thalassemia, thyroid cancer in 2010 status post thyroidectomy, history of ovarian mass, history of vulvar cancer status post resection. She also has a history of chronic and ongoing tobacco dependence of 54 years and chronic obstructive pulmonary disease. She was admitted to the hospital yesterday with a 2 week history of significant left upper quadrant and left chest wall pain and pain with inhalation and shortness of breath on exertion. Computed tomography scan of the abdomen and pelvis revealed no evidence of acute small and large bowel obstruction. Mild acute abnormality the bowel including diverticulitis not excluded. There was a solid lesion on the left ovary measuring 3.5 cm with adjacent calcification previously noted. There is also a new right ovarian cyst measuring 2.7 cm. A new sizable left pleural effusion with adjacent consolidation/lung lesion noted. CT angiogram revealed no major central pulmonary embolism. Moderate to large left- sided pleural effusion with suspicious infiltrating lesion at the anterior aspect of the left lung base. Lung cancer versus infection. Ultrasound of the left chest reveals a 8.1 cm pocket. White count 13.7. Hemoglobin 8.2. Platelet count 618,000. Sodium 125. Potassium 4.5. Chloride 92. Bicarb 24. BUN 8. Creatinine 0.72. Glucose 108. Troponin negative 1. Amylase 60. Lipase 43. She is seen today in consultation on the regular medical floor. Currently resting fairly comfortably in bed. Still having ongoing issues with left-sided chest discomfort. Difficulty in breathing. She is maintaining good O2 saturations in the 90s on room air. She's afebrile. Hemodynamically stable. She denies any significant weight loss. She denies any hemoptysis. She is receiving Percocet and Dilaudid for pain control. Normal saline at 75 ML's per hour. the patient is seen today 09/26/2021 in follow-up in the regular medical floor. She is currently sitting up in bed. Awake and alert. She is having issues with shortness of breath, cough and congestion. Some chest tightness and wheezing. She did undergo a left-sided thoracentesis yesterday with 200 mL of cloudy yellow fluid removed. Follow-up chest x-ray showed no evidence of pneumothorax. Cultures pending, cytology pending. Fluid analysis revealed evidence of exudate with a protein of 4.2 and a LDH of 453. With a glucose of 70 not likely infection. She is maintaining good O2 saturations in the upper 90s on 2 L/m per nasal cannula. She's been afebrile. Hemodynamically stable. sodium 1:30. Potassium 5.3. BUN 9. Creatinine 0.7. Glucose 129. The patient is seen today 09/27/2021 in follow-up in the intensive care unit. Last evening her condition continued to deteriorate. At one point her family had made her a DO NOT RESUSCITATE/comfort care and then subsequently reversed their decision and made her a full code again. She developed acute hypoxemic respiratory failure and was intubated at approximately 1:45 this morning. This x-ray continues to show evidence of congestive heart failure with a left-sided diffuse pneumonia. Opacification of the left lower hemithorax improved compared to yesterday. Thoracentesis had been performed in the pleural fluid cultures are pending. Urinalysis was exudative in nature. Cytology negative for malignancy. Though still within the differential. Currently sedated and on mechanical ventilator at assist control mode with a rate of 16, tidal volume 350, FiO2 60% and a PEEP of 5. Morning blood gases revealed a PaO2 of 291, pCO2 34, pH 7.26 100% FiO2. She Is Sedated on Propofol at 30 Mcg/Kg/M. She Has Normal Saline Running at 125 MLS per Hour. She's been initiated on DuoNeb inhalations, Pulmicort and Perforomist inhalations, IV Solu-Medrol. The plan is for bronchoscopy with BAL and biopsies of the left lower lobe today. The patient is seen today 09/28/2021 in follow-up in the intensive care unit. She remains intubated and on the mechanical ventilator currently and assist- control mode with a rate of 16, tidal volume 350, FiO2 50% and a PEEP of 5. Blood gases revealed a pO2 of 110, pCO2 49, pH 7.18. She is currently on a bicarb drip with 2 A of sodium bicarb and D5W at 75 ML's per hour. Propofol 26 mcg/kg/m. Currently the tube feedings are on hold due to high residuals. She also has a distended abdomen. Chest x-ray shows lingular mass/left pleural effusion and associated atelectasis. Underlying emphysema. She is status post 1 unit of packed red blood cells this admission. Current hemoglobin 9.0. White count 28.2. Platelets 345. Sodium 133. Potassium 5.3. Bicarb 16. BUN 37. Creatinine 2.62. Glucose 235. AST 5264. ALT 1933. Alk phos 144. She is continued on DuoNeb inhalations, Pulmicort and Perforomist inhalations, IV Solu- Medrol. Antibiotics in the form of Zosyn. Bronchial wash cultures are pending. Sputum culture pending. She did undergo bronchoscopy with BAL and biopsy of the left lower lobe yesterday. Pathology is pending. Necrotizing pneumonia versus neoplasm within the differential. Objective - Vital Signs Vital signs: Vital Signs Temp 98.4 F 09/28/21 08:00 Pulse 87 09/28/21 10:00 Resp 20 09/28/21 10:00 BP 108/68 09/28/21 10:00 Pulse Ox 97 09/28/21 10:00 Intake & Output 09/27/21 09/28/21 09/28/21 18:59 06:59 18:59 Intake Total 3797.87 1368.474 487.852 Output Total 311 15 170 Balance 3486.87 1353.474 317.852 Weight 38.555 kg 49.1 kg Intake: IV 3325 1313 392 0.9 3125 345 80 Dextrose 5% in Water 1, 835 300 000 ml @ 75 mls/hr IV . [id number] ENRIQUE with Sodium Bicarb (1 Meq/ml) 100 ml Rx#:[id number] Piperacillin-Tazobactam 3 100 100 .375 gm In Sodium Chloride 0.9% 100 ml @ 25 mls/hr IVPB Q6H ENRIQUE Rx#: [id number] Pressure bag 33 12 Intake, IV Titration 72.87 45.474 65.852 Amount propofoL 1,000 mg In 72.87 45.474 65.852 Empty Bag 1 bag @ 5 MCG/ KG/MIN 1.157 mls/hr IV . Q24H ENRIQUE Rx#:[id number] Tube Feeding 30 10 Blood Product 310 Other 60 30 Output: Gastric Drainage 250 Urine 61 15 0 Oral Regurgitation 170 Other: Voiding Method Indwelling Catheter Indwelling Catheter Indwelling Catheter ABP, PAP, CO, CI - Last Documented Arterial Blood Pressure 149/65 - Exam GENERAL EXAM: Intubated, sedated, very, frail 70-year-old female patient, com fortable in no apparent distress. HEAD: Normocephalic. EYES: Normal reaction of pupils, equal size. NOSE: Clear with pink turbinates. THROAT: Oral endotracheal and gastric tube secured in place. No erythema or exudates. NECK: No masses, no JVD. CHEST: No chest wall deformity. LUNGS: Equal air entry with bilateral end expiratory wheeze, crackles in the left lung base, dullness, diminished. CVS: S1 and S2 normal with no audible murmur, regular rhythm. ABDOMEN: No hepatosplenomegaly, normal bowel sounds, no guarding or rigidity. SPINE: No scoliosis or deformity SKIN: No rashes CENTRAL NERVOUS SYSTEM: Sedated, tone is normal in all 4 extremities. EXTREMITIES: There is no peripheral edema. No clubbing, no cyanosis. Peripheral pulses are intact. - Labs CBC & Chem 7: 09/28/21 04:00 09/28/21 04:00 Labs: Abnormal Lab Results - Last 24 Hours (Table) 09/27/21 09/27/21 09/27/21 Range/Units 12:10 12:10 12:10 WBC 27.5 H (3.8-10.6) k/uL Hgb 8.8 L (11.4-16.0) gm/dL Hct 29.1 L (34.0-46.0) % MCV 70.0 L D (80.0-100.0) fL MCH 21.2 L (25.0-35.0) pg MCHC 30.2 L (31.0-37.0) g/dL RDW 17.5 H (11.5-15.5) % Neutrophils # (Manual) 26.95 H (1.3-7.7) k/uL Lymphocytes # (Manual) 0.55 L (1.0-4.8) k/uL Nucleated RBCs 1 H (0-0) /100 WBC Haptoglobin 328.0 H (31.2-198.0) mg/dL PT (9.0-12.0) sec INR (<1.2) ABG pH (7.35-7.45) ABG pCO2 (35-45) mmHg ABG pO2 (83-108) mmHg ABG HCO3 (21-25) mmol/L ABG O2 Saturation (94-97) % Sodium 135 L (137-145) mmol/L Potassium 5.7 H (3.5-5.1) mmol/L Chloride (98-107) mmol/L Carbon Dioxide 19 L (22-30) mmol/L BUN 27 H (7-17) mg/dL Creatinine 1.77 H (0.52-1.04) mg/dL Glucose 154 H (74-99) mg/dL POC Glucose (mg/dL) (75-99) mg/dL Calcium 7.1 L (8.4-10.2) mg/dL Total Bilirubin 1.6 H (0.2-1.3) mg/dL AST 7325 H (14-36) U/L ALT 1916 H (4-34) U/L Alkaline Phosphatase 130 H (38-126) U/L Lactate Dehydrogenase >98881 H (313-618) U/L Total Protein 5.6 L (6.3-8.2) g/dL Albumin 2.5 L (3.5-5.0) g/dL 09/27/21 09/27/21 09/27/21 Range/Units 12:10 12:13 16:48 WBC (3.8-10.6) k/uL Hgb (11.4-16.0) gm/dL Hct (34.0-46.0) % MCV (80.0-100.0) fL MCH (25.0-35.0) pg MCHC (31.0-37.0) g/dL RDW (11.5-15.5) % Neutrophils # (Manual) (1.3-7.7) k/uL Lymphocytes # (Manual) (1.0-4.8) k/uL Nucleated RBCs (0-0) /100 WBC Haptoglobin (31.2-198.0) mg/dL PT 22.8 H (9.0-12.0) sec INR 2.3 H (<1.2) ABG pH (7.35-7.45) ABG pCO2 (35-45) mmHg ABG pO2 (83-108) mmHg ABG HCO3 (21-25) mmol/L ABG O2 Saturation (94-97) % Sodium 134 L (137-145) mmol/L Potassium 6.0 H (3.5-5.1) mmol/L Chloride 110 H (98-107) mmol/L Carbon Dioxide 13 L (22-30) mmol/L BUN 28 H (7-17) mg/dL Creatinine 1.93 H (0.52-1.04) mg/dL Glucose 122 H (74-99) mg/dL POC Glucose (mg/dL) 159 H (75-99) mg/dL Calcium 6.7 L (8.4-10.2) mg/dL Total Bilirubin (0.2-1.3) mg/dL AST (14-36) U/L ALT (4-34) U/L Alkaline Phosphatase (38-126) U/L Lactate Dehydrogenase (313-618) U/L Total Protein (6.3-8.2) g/dL Albumin (3.5-5.0) g/dL 09/27/21 09/28/21 09/28/21 Range/Units 22:30 00:12 04:00 WBC 28.2 H (3.8-10.6) k/uL Hgb 9.0 L (11.4-16.0) gm/dL Hct 30.1 L (34.0-46.0) % MCV 71.1 L (80.0-100.0) fL MCH 21.3 L (25.0-35.0) pg MCHC 30.0 L (31.0-37.0) g/dL RDW 17.7 H (11.5-15.5) % Neutrophils # (Manual) 27.60 H (1.3-7.7) k/uL Lymphocytes # (Manual) 0.56 L (1.0-4.8) k/uL Nucleated RBCs 4 H (0-0) /100 WBC Haptoglobin (31.2-198.0) mg/dL PT (9.0-12.0) sec INR (<1.2) ABG pH (7.35-7.45) ABG pCO2 (35-45) mmHg ABG pO2 (83-108) mmHg ABG HCO3 (21-25) mmol/L ABG O2 Saturation (94-97) % Sodium (137-145) mmol/L Potassium 5.3 H (3.5-5.1) mmol/L Chloride (98-107) mmol/L Carbon Dioxide (22-30) mmol/L BUN (7-17) mg/dL Creatinine (0.52-1.04) mg/dL Glucose (74-99) mg/dL POC Glucose (mg/dL) 151 H (75-99) mg/dL Calcium (8.4-10.2) mg/dL Total Bilirubin (0.2-1.3) mg/dL AST (14-36) U/L ALT (4-34) U/L Alkaline Phosphatase (38-126) U/L Lactate Dehydrogenase (313-618) U/L Total Protein (6.3-8.2) g/dL Albumin (3.5-5.0) g/dL 09/28/21 09/28/21 09/28/21 Range/Units 04:00 06:00 08:16 WBC (3.8-10.6) k/uL Hgb (11.4-16.0) gm/dL Hct (34.0-46.0) % MCV (80.0-100.0) fL MCH (25.0-35.0) pg MCHC (31.0-37.0) g/dL RDW (11.5-15.5) % Neutrophils # (Manual) (1.3-7.7) k/uL Lymphocytes # (Manual) (1.0-4.8) k/uL Nucleated RBCs (0-0) /100 WBC Haptoglobin (31.2-198.0) mg/dL PT (9.0-12.0) sec INR (<1.2) ABG pH 7.18 L* (7.35-7.45) ABG pCO2 49 H (35-45) mmHg ABG pO2 110 H (83-108) mmHg ABG HCO3 18 L (21-25) mmol/L ABG O2 Saturation 97.1 H (94-97) % Sodium 133 L (137-145) mmol/L Potassium 5.3 H (3.5-5.1) mmol/L Chloride (98-107) mmol/L Carbon Dioxide 16 L (22-30) mmol/L BUN 37 H (7-17) mg/dL Creatinine 2.62 H (0.52-1.04) mg/dL Glucose 235 H (74-99) mg/dL POC Glucose (mg/dL) 266 H (75-99) mg/dL Calcium 6.7 L (8.4-10.2) mg/dL Total Bilirubin (0.2-1.3) mg/dL AST 5264 H (14-36) U/L ALT 1933 H (4-34) U/L Alkaline Phosphatase 144 H (38-126) U/L Lactate Dehydrogenase (313-618) U/L Total Protein 5.5 L (6.3-8.2) g/dL Albumin 2.4 L (3.5-5.0) g/dL Microbiology - Last 24 Hours (Table) 09/27/21 04:15 Gram Stain - Preliminary Sputum Sputum Culture - Preliminary 09/27/21 11:30 Bronchial Washings Culture - Preliminary Bronchial Brushings - Left 09/27/21 11:30 Acid Fast Bacilli Culture - Preliminary Bronchial Brushings - Left 09/27/21 11:30 Fungal Culture - Preliminary Bronchial Brushings - Left 09/25/21 11:45 Gram Stain - Preliminary Pleural Fluid Body Fluid Culture - Preliminary 09/27/21 02:42 Urine Culture - Preliminary Urine,Voided Assessment and Plan Assessment: 1 Acute hypoxemic respiratory failure secondary to moderate to large left-sided pleural effusion. Status post thoracentesis on 09/25/2021 with 200 ML's of cloudy yellow fluid removed. Exudative in nature. Pathology negative for malignancy. 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 2 Suspicious infiltrating lesion at the anterior aspect of the left lung base, possible necrotizing pneumonia versus cancer. Status post bronchoscopy with BAL and biopsies of left lower lobe on 09/27/2021 3 Acute renal failure secondary to above 4 Acute shock liver secondary to above 5 Leukocytosis secondary to above 6 Acute combined respiratory and metabolic acidosis secondary to above requiring a bicarb drip 7 Left adnexal solid lesion measuring 3.5 cm with adjacent calcification, appreciated previously. New right ovarian cyst measuring 2.7 cm 8 History of vulvar cancer with previous resection in November 2020 9 History of thyroid cancer status post thyroidectomy in 2009 10 History of bowel obstruction with previous resection 11 History of thalassemia 12 Chronic and ongoing tobacco dependence of 54 years. 13 Chronic obstructive pulmonary disease with acute exacerbation 14 Osteoporosis 15 Cachexia with body mass index of 15.1 kilograms per metered square Plan: The patient was seen and evaluated X-ray, ABGs and labs reviewed Increased respiratory rate to 20 Continue Zosyn for now Check a pro-calcitonin Initiated on a bicarb drip Tube feedings on hold due to high residuals Some abdominal distention, added Reglan Check a follow-up troponin level Obtain an echocardiogram Continue DuoNeb inhalations, Pulmicort and Perforomist inhalations, IV Solu- Medrol Overall prognosis remains guarded We will continue to follow and make further recommendations based on her clinical status I have personally seen and examined the patient, performed the documentation and the assessment and plan as written. Number of minutes spent on the visit: 15
[2021-09-28 11:32] LABS: Glucose,Whole Blood 152 mg/dL (75-99)
[2021-09-28] MEDS ORDERED: FUROSEMIDE 10 MG/ML 10 ML VIAL IV STA (11:47)
[2021-09-28] MEDS ORDERED: METOCLOPRAMIDE 5 MG/ML 2 ML VIAL IVP SCH (12:00)
--- NOTE | 2021-09-28 12:11 | P.PN ---
Subjective Progress Note Date: 09/28/21 Principal diagnosis: shortness of breath Patient is a very pleasant 70-year-old female came to the emergency room for abdominal discomfort and shortness of breath. Patient has a extensive medical history that includes COPD, GERD, osteoarthritis, bilateral vulva cancer, thyroid cancer, thalassemia, colitis, degenerative disc disease, kidney stones. Patient recently had PET scan that showed lung and ovarian mass that was being followed outpatient. Oncology and pulmonary were consulted for evaluation of left lung mass and pleural effusion. Patient is to undergo drainage of pleural effusion to test for malignancy. Hospitalist coverage 09/24/2021 09/25/2021 Patient seen and examined at bedside. Patient reports continued left side pain and difficulty breathing. Reports pain with inspiration. Patient denies chest pain, fever, palpitations. Patient states she dislikes the food and has admitted eating, ensure was added to increase oral intake. Awaiting cytology results. 09/26/2021 Patient was seen and examined at bedside. Patient reports increasing dyspnea and wheezing. Patient continues to have pain with inspiration but denies chest pain, palpitations, productive cough. Patient is experiencing increased anxiety, discussed length of time for results to come back. Ordered a repeat chest x-ray to assess cause of increasing dyspnea. We'll follow along with pulmonology recommendations of IV steroids and bronchodilator treatments. 09/27/2021 Patient was seen and examined in the ICU. Patient is sedated on ventilator. Family had changed their minds about comfort care after discussing cytology results and wanted to make her a full code again even though the prognosis is poor. She was then transferred to the ICU early this AM and intubated. Patient is to go for bronchoscopy today with Dr. Stallworth for biopsy. 09/28/2021 Patient was seen and examined at bedside. Patient continues to require mechanical ventilation. Patient has elevated troponin, elevated liver enzymes, increasing BUN and creatinine, new inverted T-wave, little urine output and abdominal distention. White blood cell count remains elevated at 28.2, infectious disease consulted for possible pneumonia. Hemoglobin stable at 9.0. Awaiting for results from lung biopsy. Objective - Vital Signs Vital signs: Vital Signs Temp 98.4 F 09/28/21 08:00 Pulse 87 09/28/21 10:00 Resp 20 09/28/21 10:00 BP 108/68 09/28/21 10:00 Pulse Ox 97 09/28/21 10:00 Intake & Output 09/27/21 09/28/21 09/28/21 18:59 06:59 18:59 Intake Total 3797.87 1368.474 487.852 Output Total 311 15 170 Balance 3486.87 1353.474 317.852 Weight 38.555 kg 49.1 kg Intake: IV 3325 1313 392 0.9 3125 345 80 Dextrose 5% in Water 1, 835 300 000 ml @ 75 mls/hr IV . [id number] ENRIQUE with Sodium Bicarb (1 Meq/ml) 100 ml Rx#:[id number] Piperacillin-Tazobactam 3 100 100 .375 gm In Sodium Chloride 0.9% 100 ml @ 25 mls/hr IVPB Q6H ENRIQUE Rx#: [id number] Pressure bag 33 12 Intake, IV Titration 72.87 45.474 65.852 Amount propofoL 1,000 mg In 72.87 45.474 65.852 Empty Bag 1 bag @ 5 MCG/ KG/MIN 1.157 mls/hr IV . Q24H ENRIQUE Rx#:[id number] Tube Feeding 30 10 Blood Product 310 Other 60 30 Output: Gastric Drainage 250 Urine 61 15 0 Oral Regurgitation 170 Other: Voiding Method Indwelling Catheter Indwelling Catheter Indwelling Catheter ABP, PAP, CO, CI - Last Documented Arterial Blood Pressure 149/65 - Exam Patient is sedated and is on mechanical vent - Constitutional General appearance: Present: no acute distress, thin - Respiratory Respiratory: bilateral: diminished, rhonchi - Cardiovascular Heart rate: 80 Rhythm: regular Heart sounds: normal: S1, S2 - Gastrointestinal General gastrointestinal: Present: distended - Labs CBC & Chem 7: 10/01/21 04:10 10/01/21 04:10 Labs: Abnormal Lab Results - Last 24 Hours (Table) 09/27/21 09/27/21 09/27/21 Range/Units 12:10 12:10 12:10 WBC 27.5 H (3.8-10.6) k/uL Hgb 8.8 L (11.4-16.0) gm/dL Hct 29.1 L (34.0-46.0) % MCV 70.0 L D (80.0-100.0) fL MCH 21.2 L (25.0-35.0) pg MCHC 30.2 L (31.0-37.0) g/dL RDW 17.5 H (11.5-15.5) % Neutrophils # (Manual) 26.95 H (1.3-7.7) k/uL Lymphocytes # (Manual) 0.55 L (1.0-4.8) k/uL Nucleated RBCs 1 H (0-0) /100 WBC Haptoglobin 328.0 H (31.2-198.0) mg/dL PT (9.0-12.0) sec INR (<1.2) ABG pH (7.35-7.45) ABG pCO2 (35-45) mmHg ABG pO2 (83-108) mmHg ABG HCO3 (21-25) mmol/L ABG O2 Saturation (94-97) % Sodium 135 L (137-145) mmol/L Potassium 5.7 H (3.5-5.1) mmol/L Chloride (98-107) mmol/L Carbon Dioxide 19 L (22-30) mmol/L BUN 27 H (7-17) mg/dL Creatinine 1.77 H (0.52-1.04) mg/dL Glucose 154 H (74-99) mg/dL POC Glucose (mg/dL) (75-99) mg/dL Calcium 7.1 L (8.4-10.2) mg/dL Total Bilirubin 1.6 H (0.2-1.3) mg/dL AST 7325 H (14-36) U/L ALT 1916 H (4-34) U/L Alkaline Phosphatase 130 H (38-126) U/L Lactate Dehydrogenase >23751 H (313-618) U/L Troponin I (0.000-0.034) ng/mL Total Protein 5.6 L (6.3-8.2) g/dL Albumin 2.5 L (3.5-5.0) g/dL 09/27/21 09/27/21 09/27/21 Range/Units 12:10 12:13 16:48 WBC (3.8-10.6) k/uL Hgb (11.4-16.0) gm/dL Hct (34.0-46.0) % MCV (80.0-100.0) fL MCH (25.0-35.0) pg MCHC (31.0-37.0) g/dL RDW (11.5-15.5) % Neutrophils # (Manual) (1.3-7.7) k/uL Lymphocytes # (Manual) (1.0-4.8) k/uL Nucleated RBCs (0-0) /100 WBC Haptoglobin (31.2-198.0) mg/dL PT 22.8 H (9.0-12.0) sec INR 2.3 H (<1.2) ABG pH (7.35-7.45) ABG pCO2 (35-45) mmHg ABG pO2 (83-108) mmHg ABG HCO3 (21-25) mmol/L ABG O2 Saturation (94-97) % Sodium 134 L (137-145) mmol/L Potassium 6.0 H (3.5-5.1) mmol/L Chloride 110 H (98-107) mmol/L Carbon Dioxide 13 L (22-30) mmol/L BUN 28 H (7-17) mg/dL Creatinine 1.93 H (0.52-1.04) mg/dL Glucose 122 H (74-99) mg/dL POC Glucose (mg/dL) 159 H (75-99) mg/dL Calcium 6.7 L (8.4-10.2) mg/dL Total Bilirubin (0.2-1.3) mg/dL AST (14-36) U/L ALT (4-34) U/L Alkaline Phosphatase (38-126) U/L Lactate Dehydrogenase (313-618) U/L Troponin I (0.000-0.034) ng/mL Total Protein (6.3-8.2) g/dL Albumin (3.5-5.0) g/dL 09/27/21 09/28/21 09/28/21 Range/Units 22:30 00:12 04:00 WBC 28.2 H (3.8-10.6) k/uL Hgb 9.0 L (11.4-16.0) gm/dL Hct 30.1 L (34.0-46.0) % MCV 71.1 L (80.0-100.0) fL MCH 21.3 L (25.0-35.0) pg MCHC 30.0 L (31.0-37.0) g/dL RDW 17.7 H (11.5-15.5) % Neutrophils # (Manual) 27.60 H (1.3-7.7) k/uL Lymphocytes # (Manual) 0.56 L (1.0-4.8) k/uL Nucleated RBCs 4 H (0-0) /100 WBC Haptoglobin (31.2-198.0) mg/dL PT (9.0-12.0) sec INR (<1.2) ABG pH (7.35-7.45) ABG pCO2 (35-45) mmHg ABG pO2 (83-108) mmHg ABG HCO3 (21-25) mmol/L ABG O2 Saturation (94-97) % Sodium (137-145) mmol/L Potassium 5.3 H (3.5-5.1) mmol/L Chloride (98-107) mmol/L Carbon Dioxide (22-30) mmol/L BUN (7-17) mg/dL Creatinine (0.52-1.04) mg/dL Glucose (74-99) mg/dL POC Glucose (mg/dL) 151 H (75-99) mg/dL Calcium (8.4-10.2) mg/dL Total Bilirubin (0.2-1.3) mg/dL AST (14-36) U/L ALT (4-34) U/L Alkaline Phosphatase (38-126) U/L Lactate Dehydrogenase (313-618) U/L Troponin I (0.000-0.034) ng/mL Total Protein (6.3-8.2) g/dL Albumin (3.5-5.0) g/dL 09/28/21 09/28/21 09/28/21 Range/Units 04:00 04:00 06:00 WBC (3.8-10.6) k/uL Hgb (11.4-16.0) gm/dL Hct (34.0-46.0) % MCV (80.0-100.0) fL MCH (25.0-35.0) pg MCHC (31.0-37.0) g/dL RDW (11.5-15.5) % Neutrophils # (Manual) (1.3-7.7) k/uL Lymphocytes # (Manual) (1.0-4.8) k/uL Nucleated RBCs (0-0) /100 WBC Haptoglobin (31.2-198.0) mg/dL PT (9.0-12.0) sec INR (<1.2) ABG pH 7.18 L* (7.35-7.45) ABG pCO2 49 H (35-45) mmHg ABG pO2 110 H (83-108) mmHg ABG HCO3 18 L (21-25) mmol/L ABG O2 Saturation 97.1 H (94-97) % Sodium 133 L (137-145) mmol/L Potassium 5.3 H (3.5-5.1) mmol/L Chloride (98-107) mmol/L Carbon Dioxide 16 L (22-30) mmol/L BUN 37 H (7-17) mg/dL Creatinine 2.62 H (0.52-1.04) mg/dL Glucose 235 H (74-99) mg/dL POC Glucose (mg/dL) (75-99) mg/dL Calcium 6.7 L (8.4-10.2) mg/dL Total Bilirubin (0.2-1.3) mg/dL AST 5264 H (14-36) U/L ALT 1933 H (4-34) U/L Alkaline Phosphatase 144 H (38-126) U/L Lactate Dehydrogenase (313-618) U/L Troponin I 0.629 H* (0.000-0.034) ng/mL Total Protein 5.5 L (6.3-8.2) g/dL Albumin 2.4 L (3.5-5.0) g/dL 09/28/21 09/28/21 Range/Units 08:16 11:30 WBC (3.8-10.6) k/uL Hgb (11.4-16.0) gm/dL Hct (34.0-46.0) % MCV (80.0-100.0) fL MCH (25.0-35.0) pg MCHC (31.0-37.0) g/dL RDW (11.5-15.5) % Neutrophils # (Manual) (1.3-7.7) k/uL Lymphocytes # (Manual) (1.0-4.8) k/uL Nucleated RBCs (0-0) /100 WBC Haptoglobin (31.2-198.0) mg/dL PT (9.0-12.0) sec INR (<1.2) ABG pH (7.35-7.45) ABG pCO2 (35-45) mmHg ABG pO2 (83-108) mmHg ABG HCO3 (21-25) mmol/L ABG O2 Saturation (94-97) % Sodium (137-145) mmol/L Potassium (3.5-5.1) mmol/L Chloride (98-107) mmol/L Carbon Dioxide (22-30) mmol/L BUN (7-17) mg/dL Creatinine (0.52-1.04) mg/dL Glucose (74-99) mg/dL POC Glucose (mg/dL) 266 H 152 H (75-99) mg/dL Calcium (8.4-10.2) mg/dL Total Bilirubin (0.2-1.3) mg/dL AST (14-36) U/L ALT (4-34) U/L Alkaline Phosphatase (38-126) U/L Lactate Dehydrogenase (313-618) U/L Troponin I (0.000-0.034) ng/mL Total Protein (6.3-8.2) g/dL Albumin (3.5-5.0) g/dL Microbiology - Last 24 Hours (Table) 09/27/21 04:15 Gram Stain - Preliminary Sputum Sputum Culture - Preliminary 09/27/21 11:30 Bronchial Washings Culture - Preliminary Bronchial Brushings - Left 09/27/21 11:30 Acid Fast Bacilli Culture - Preliminary Bronchial Brushings - Left 09/27/21 11:30 Fungal Culture - Preliminary Bronchial Brushings - Left 09/25/21 11:45 Gram Stain - Preliminary Pleural Fluid Body Fluid Culture - Preliminary 09/27/21 02:42 Urine Culture - Preliminary Urine,Voided Assessment and Plan Assessment: Hypoxemic respiratory failure, continues to require mechanical ventilation Acute kidney injury secondary to acute hypoxic respiratory failure Combined Respiratory and metabolic acidosis due to acute hypoxic respiratory failure Elevated troponin, secondary to acute hypoxic respiratory failure Left lower lung mass, ruling out malignancy Moderate left pleural effusion Acute exacerbation of COPD Leukocytosis Thalassemia History of vulvar and thyroid cancer cachexia, moderate protein malnutrition, BMI 15 Plan: Continue following with intensivisit recommendations nephrology consult for acute kidney injury infectious disease consult for possible necrotizing pneumonia Hematology for thalassemia, hemoglobin stable at this time Awaiting results of lung biopsy Continue monitoring kidney and liver function Further recommendations to come based on patient's clinical course Time with Patient: Greater than 30 (I have personally seen and examined the patient, reviewed the documentation and agree with the assessment and plan as written. Number of minutes spent on the visit: [Greater than 20].)
[2021-09-28] MEDS: hydrALAZINE HCL 50 MG TAB PO SCH ×3 (13:46→21:25)
[2021-09-28] MEDS: carvediloL 6.25 MG TAB PO SCH (14:50)
--- NOTE | 2021-09-28 16:25 | P.NPCON ---
History of Present Illness - Reason for Consult acute renal failure - History of Present Illness patient is a 70-year-old female with history of thyroid cancer in 2010 status post thyroidectomy as well as history of multiple cancer, COPD. Patient was admitted to the hospital with complaints of abdominal pain weakness and shortness of breath. She was found to have I'll moderate to large left-sided pleural effusion and there was concern for possible left lung mass and malignancy as well. Patient had a left thoracentesis however the fluid did not show any evidence of malignancy and patient is currently being treated for an underlying infection. Initially patient was made comfort care however after the pleural fluid findings patient's CODE STATUS was changed to full code patient was intubated and is currently in the ICU. Blood pressure was low initially. Patient received IV contrast for CTA on 09/24/2021. Patient has had low urine output for more than 24 hours Liver enzymes are significantly elevated No evidence of obstruction on CT of the abdomen and pelvis. Past Medical History Past Medical History: Blood Disorder, Cancer, COPD, GERD/Reflux, Musculoskeletal Disorder, Osteoarthritis (OA), Pneumonia, Thyroid Disorder Additional Past Medical History / Comment(s): 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 History of Any Multi-Drug Resistant Organisms: None Reported Past Surgical History: Appendectomy, Bowel Resection, Cholecystectomy, Hysterectomy, Tubal Ligation Additional Past Surgical History / Comment(s): Bilateral vulva excision and then another R side vulva wide resection, thyroidectomy x2 (thyroid tissue grew back), larygoscopy, sigmoid colectomy, EGD, colonoscopy, laparoscopic lysis of abdominal adhesions, pain clinic procedures. Past Anesthesia/Blood Transfusion Reactions: Motion Sickness Additional Past Anesthesia/Blood Transfusion Reaction / Comment(s): No reaction from previous blood transfusion. Smoking Status: Current every day smoker, Light tobacco smoker - Past Family History Father Sister(s) Family Medical History: Unable to Obtain Father Family Medical History: Blood Disorder, Cancer Additional Family Medical History / Comment(s): Thalassemia, bone cancer. Son(s) Family Medical History: Pulmonary Embolus Brother(s) Family Medical History: Blood Disorder, Cancer Additional Family Medical History / Comment(s): THALASSEMIA, Leukemia. Daughter(s) Family Medical History: Blood Disorder Additional Family Medical History / Comment(s): THALASSEMIA. Medications and Allergies Home Medications Medication Instructions Recorded Confirmed Type Levothyroxine Sodium [Synthroid] 50 mcg PO MOTUWETHFRSA 11/26/13 09/24/21 History Omeprazole [PriLOSEC] 40 mg PO AC-BRKFST 09/12/15 09/24/21 History clonazePAM [KlonoPIN] 0.5 mg PO HS 05/29/18 09/24/21 History HYDROcodone/APAP 10-325MG [[place] 1 tab PO QID PRN 01/07/20 09/24/21 History 10-325] ondansetron HCL [Zofran] 4 mg PO BID PRN 01/07/20 09/24/21 History Fluticasone Propionate [Flonase 2 spray EA NOSTRIL DAILY 12/18/20 09/24/21 History Allergy Relief] Levothyroxine Sodium [Synthroid] 100 mcg PO MUSA 05/31/21 09/24/21 History Simethicone 40 mg/0.6 ml Drops 40 mg PO Q6HR PRN #30 ml 09/13/21 09/24/21 Rx [Mylicon Drops] Dicyclomine [Bentyl] 20 mg PO QID 09/24/21 09/24/21 History Docusate [Colace] 100 mg PO TID 09/24/21 09/24/21 History Simethicone Chew [Mylicon Chew] 80 mg PO Q6H PRN 09/24/21 09/24/21 History Allergies Allergy/AdvReac Type Severity Reaction Status Date / Time codeine AdvReac Nausea & Verified 09/24/21 14:02 [From Tylenol-Codeine #3] Vomiting ibuprofen AdvReac Nausea & Verified 09/24/21 14:02 Vomiting tramadol AdvReac Nausea & Verified 09/24/21 14:02 Vomiting Physical Exam Vitals: Vital Signs Temp Pulse Resp BP Pulse Ox 09/28/21 15:00 103 H 24 93 L 09/28/21 14:00 94 22 112/72 92 L 09/28/21 13:00 89 21 111/69 95 09/28/21 12:00 98.5 F 91 20 119/85 96 09/28/21 11:50 107 H 09/28/21 11:40 110 H 09/28/21 11:00 90 20 97 09/28/21 10:00 87 20 108/68 97 09/28/21 09:00 90 20 98 09/28/21 08:00 98.4 F 86 16 107/64 97 09/28/21 07:52 86 09/28/21 07:44 87 18 94 L 09/28/21 07:32 89 09/28/21 07:00 93 18 108/67 94 L 09/28/21 06:00 95 18 108/66 96 09/28/21 05:00 95 17 115/67 93 L 09/28/21 04:00 98.3 F 95 19 107/63 95 09/28/21 03:50 94 09/28/21 03:39 96 09/28/21 03:00 96 18 120/72 96 09/28/21 02:00 98 18 110/63 94 L 09/28/21 01:00 97 20 108/62 96 09/28/21 00:30 95 09/28/21 00:19 94 09/28/21 00:00 98.3 F 97 21 102/60 97 09/27/21 23:00 98 22 120/71 96 09/27/21 22:00 101 H 29 H 114/68 95 09/27/21 21:06 90 09/27/21 21:00 93 23 116/65 98 09/27/21 20:56 90 09/27/21 20:55 92 09/27/21 20:42 98 09/27/21 20:00 98.9 F 98 27 H 112/68 93 L 09/27/21 19:00 96 25 H 96 09/27/21 18:30 97 25 H 108/61 95 09/27/21 18:00 98.2 F 93 26 H 96 09/27/21 17:30 94 27 H 113/65 95 09/27/21 17:00 94 26 H 112/63 95 09/27/21 16:30 97.9 F 94 25 H 94 L Intake and Output 09/28/21 09/28/21 09/28/21 06:59 14:59 22:59 Intake Total 780.045 1837.404 98 Output Total 10 170 5 Balance 780.070 9549.404 93 Intake: IV 884 1181 88 0.9 160 140 10 Dextrose 5% in Water 1, 600 600 75 000 ml @ 75 mls/hr IV . [id number] ENRIQUE with Sodium Bicarb (1 Meq/ml) 100 ml Rx#:[id number] Piperacillin-Tazobactam 3 100 100 .375 gm In Sodium Chloride 0.9% 100 ml @ 25 mls/hr IVPB Q6H ENRIQUE Rx#: [id number] Pressure bag 24 341 3 Intake, IV Titration 27.529 71.404 Amount propofoL 1,000 mg In 27.529 71.404 Empty Bag 1 bag @ 5 MCG/ KG/MIN 1.157 mls/hr IV . Q24H ENRIQUE Rx#:[id number] Tube Feeding 10 Other 30 Output: Urine 10 0 5 Oral Regurgitation 170 Other: Voiding Method Indwelling Catheter Indwelling Catheter Weight 49.1 kg 49.1 kg ABP, PAP, CO, CI - Last 8 Hours Arterial Blood Pressure 174/65 Arterial Blood Pressure 159/69 Arterial Blood Pressure 148/61 Arterial Blood Pressure 142/58 Arterial Blood Pressure 156/67 Arterial Blood Pressure 149/65 Arterial Blood Pressure 139/59 patient is sedated She is on the vent Examination of the heart S1 and S2 Examination of the lungs bilateral breath sounds are heard Examination of the abdomen reveals it to be soft Examination of the lower extremities shows no evidence of edema 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 JASBIR, ATN, oliguric secondary to hemodynamic factors and contrast nephrpathy. No nephrotoxic agents on board. BP currently not low. No obstruction on CT abdomen. Try IV lasix X1 to help wih UOP. 2. Acute hypoxic respiratoy failure, on the vent. Fio2 50% 3. Shock liver 4. Left adnexal mass 5. Left pleural effusion, empyema on antibiotics 7. H/o thyroid and vulval cancer 8. Metabolic acidosis secondary to JASBIR Plan: 1. Continue IV bicarbonate Avoid any neprotoxic agents IV lasix 80 mg x1. If there is no improvement in UOP, we will need to consider PRODUCT LINE MANAGER No urgent indication for PRODUCT LINE MANAGER today. Over all prognosis is guarded. Thank you for the consultation, will continue to follow wit you.
[2021-09-28 17:53] LABS: Glucose,Whole Blood 166 mg/dL (75-99)
--- NOTE | 2021-09-28 18:52 | ECHOF ---
Referral Reason:CHF MEASUREMENTS -------- HEIGHT: 160.0 cm WEIGHT: 49.0 kg BP: 145/61 RVIDd: 3.5 cm (< 3.3) IVSd: 1.0 cm (0.6 - 1.1) LVIDd: 3.7 cm (3.9 - 5.3) LVPWd: 0.9 cm (0.6 - 1.1) IVSs: 1.3 cm LVIDs: 2.6 cm LVPWs: 1.2 cm LAESV Index (A-L): 35.98 ml/m Ao Diam: 2.4 cm (2.0 - 3.7) MV E Thuan: 0.89 m/s MV DecT: 89 ms MV A Thuan: 0.58 m/s MV E/A Ratio: 1.53 RAP: 5.00 mmHg RVSP: 41.15 mmHg FINDINGS -------- Sinus rhythm. This was a technically difficult study with suboptimal views. Pt. on a vent. The left ventricular size is normal. Left ventricular wall thickness is normal. Overall left vent ricular systolic function is severely impaired with, an EF between 20 - 25 %. Basal inferoseptal LV wall motion is hypokinetic. Basal anteroseptal LV wall motion is hypokinetic. Mid anterior LV wall motion is hypokinetic. Mid lateral LV wall motion is hypokinetic. Mid posterior LV wall mo tion is hypokinetic. Mid inferior LV wall motion is hypokinetic. Mid inferoseptal LV wall motio n is hypokinetic. Mid anteroseptal LV wall motion is hypokinetic. Apical anterior LV wall motio n is hypokinetic. Apical lateral LV wall motion is hypokinetic. Apical inferior LV wall motion is hypokinetic. Apical septum LV wall motion is hypokinetic. The right ventricle is mild to moderately enlarged. LA is moderately dilated 34-39 ml/m2 The right atrial size is normal. 5.0mg of Lumason was utilized for enhancement of images Interatrial and interventricular septum intact. There is no evidence of aortic regurgitation. There is no evidence of aortic stenosis. Mild mitral regurgitation is present. Mild tricuspid regurgitation present. There is mild to moderate pulmonary hypertension. The right ventricular systolic pressure, as measured by Doppler, is 41.15mmHg. There is no pulmonic regurgitation present. Possible Trombus in RV [place] The aortic root size is normal. The inferior vena cava is mildly dilated. There is no pericardial effusion. CONCLUSIONS -------- 1. This was a technically difficult study with suboptimal views. 2. The left ventricular size is normal. 3. Left ventricular wall thickness is normal. 4. Overall left ventricular systolic function is severely impaired with, an EF between 20 - 25 %. 5. Basal inferoseptal LV wall motion is hypokinetic. 6. Basal anteroseptal LV wall motion is hypokinetic. 7. Mid anterior LV wall motion is hypokinetic. 8. Mid lateral LV wall motion is hypokinetic. 9. Mid posterior LV wall motion is hypokinetic. 10. Mid inferior LV wall motion is hypokinetic. 11. Mid inferoseptal LV wall motion is hypokinetic. 12. Mid anteroseptal LV wall motion is hypokinetic. 13. Apical anterior LV wall motion is hypokinetic. 14. Apical lateral LV wall motion is hypokinetic. 15. Apical inferior LV wall motion is hypokinetic. 16. Apical septum LV wall motion is hypokinetic. 17. The right ventricle is mild to moderately enlarged. 18. LA is moderately dilated 34-39 ml/m2 19. Mild mitral regurgitation is present. 20. Mild tricuspid regurgitation present. 21. There is mild to moderate pulmonary hypertension. 22. The right ventricular systolic pressure, as measured by Doppler, is 41.15mmHg. 23. Possible Trombus in RV [place] 24. The inferior vena cava is mildly dilated. OPERATING ROOM REGISTERED NURSE: Dionne Bowie RDCS
--- NOTE | 2021-09-28 21:03 | P.PN ---
Subjective Progress Note Date: 09/28/21 Status post Bronch with Biopsy 09/27 Objective - Vital Signs Vital signs: Vital Signs Temp 98.4 F 09/28/21 08:00 Pulse 86 09/28/21 08:00 Resp 16 09/28/21 08:00 BP 107/64 09/28/21 08:00 Pulse Ox 97 09/28/21 08:00 Intake & Output 09/27/21 09/28/21 09/28/21 18:59 06:59 18:59 Intake Total 3797.87 1368.474 226 Output Total 311 15 170 Balance 3486.87 1353.474 56 Weight 38.555 kg 49.1 kg Intake: IV 3325 1313 196 0.9 3125 345 40 Dextrose 5% in Water 1, 835 150 000 ml @ 75 mls/hr IV . [id number] ENRIQUE with Sodium Bicarb (1 Meq/ml) 100 ml Rx#:[id number] Piperacillin-Tazobactam 3 100 100 .375 gm In Sodium Chloride 0.9% 100 ml @ 25 mls/hr IVPB Q6H ENRIQUE Rx#: [id number] Pressure bag 33 6 Intake, IV Titration 72.87 45.474 Amount propofoL 1,000 mg In 72.87 45.474 Empty Bag 1 bag @ 5 MCG/ KG/MIN 1.157 mls/hr IV . Q24H ENRIQUE Rx#:[id number] Tube Feeding 30 10 Blood Product 310 Other 60 30 Output: Gastric Drainage 250 Urine 61 15 0 Oral Regurgitation 170 Other: Voiding Method Indwelling Catheter Indwelling Catheter Indwelling Catheter ABP, PAP, CO, CI - Last Documented Arterial Blood Pressure 133/57 - Exam Ventilator Support - Labs CBC & Chem 7: 09/28/21 04:00 09/28/21 04:00 Labs: Abnormal Lab Results - Last 24 Hours (Table) 09/27/21 09/27/21 09/27/21 Range/Units 12:10 12:10 12:10 WBC 27.5 H (3.8-10.6) k/uL Hgb 8.8 L (11.4-16.0) gm/dL Hct 29.1 L (34.0-46.0) % MCV 70.0 L D (80.0-100.0) fL MCH 21.2 L (25.0-35.0) pg MCHC 30.2 L (31.0-37.0) g/dL RDW 17.5 H (11.5-15.5) % Neutrophils # (Manual) 26.95 H (1.3-7.7) k/uL Lymphocytes # (Manual) 0.55 L (1.0-4.8) k/uL Nucleated RBCs 1 H (0-0) /100 WBC Haptoglobin 328.0 H (31.2-198.0) mg/dL PT (9.0-12.0) sec INR (<1.2) ABG pH (7.35-7.45) ABG pCO2 (35-45) mmHg ABG pO2 (83-108) mmHg ABG HCO3 (21-25) mmol/L ABG O2 Saturation (94-97) % Sodium 135 L (137-145) mmol/L Potassium 5.7 H (3.5-5.1) mmol/L Chloride (98-107) mmol/L Carbon Dioxide 19 L (22-30) mmol/L BUN 27 H (7-17) mg/dL Creatinine 1.77 H (0.52-1.04) mg/dL Glucose 154 H (74-99) mg/dL POC Glucose (mg/dL) (75-99) mg/dL Calcium 7.1 L (8.4-10.2) mg/dL Total Bilirubin 1.6 H (0.2-1.3) mg/dL AST 7325 H (14-36) U/L ALT 1916 H (4-34) U/L Alkaline Phosphatase 130 H (38-126) U/L Lactate Dehydrogenase >66806 H (313-618) U/L Total Protein 5.6 L (6.3-8.2) g/dL Albumin 2.5 L (3.5-5.0) g/dL 09/27/21 09/27/21 09/27/21 Range/Units 12:10 12:13 16:48 WBC (3.8-10.6) k/uL Hgb (11.4-16.0) gm/dL Hct (34.0-46.0) % MCV (80.0-100.0) fL MCH (25.0-35.0) pg MCHC (31.0-37.0) g/dL RDW (11.5-15.5) % Neutrophils # (Manual) (1.3-7.7) k/uL Lymphocytes # (Manual) (1.0-4.8) k/uL Nucleated RBCs (0-0) /100 WBC Haptoglobin (31.2-198.0) mg/dL PT 22.8 H (9.0-12.0) sec INR 2.3 H (<1.2) ABG pH (7.35-7.45) ABG pCO2 (35-45) mmHg ABG pO2 (83-108) mmHg ABG HCO3 (21-25) mmol/L ABG O2 Saturation (94-97) % Sodium 134 L (137-145) mmol/L Potassium 6.0 H (3.5-5.1) mmol/L Chloride 110 H (98-107) mmol/L Carbon Dioxide 13 L (22-30) mmol/L BUN 28 H (7-17) mg/dL Creatinine 1.93 H (0.52-1.04) mg/dL Glucose 122 H (74-99) mg/dL POC Glucose (mg/dL) 159 H (75-99) mg/dL Calcium 6.7 L (8.4-10.2) mg/dL Total Bilirubin (0.2-1.3) mg/dL AST (14-36) U/L ALT (4-34) U/L Alkaline Phosphatase (38-126) U/L Lactate Dehydrogenase (313-618) U/L Total Protein (6.3-8.2) g/dL Albumin (3.5-5.0) g/dL 09/27/21 09/28/21 09/28/21 Range/Units 22:30 00:12 04:00 WBC 28.2 H (3.8-10.6) k/uL Hgb 9.0 L (11.4-16.0) gm/dL Hct 30.1 L (34.0-46.0) % MCV 71.1 L (80.0-100.0) fL MCH 21.3 L (25.0-35.0) pg MCHC 30.0 L (31.0-37.0) g/dL RDW 17.7 H (11.5-15.5) % Neutrophils # (Manual) 27.60 H (1.3-7.7) k/uL Lymphocytes # (Manual) 0.56 L (1.0-4.8) k/uL Nucleated RBCs 4 H (0-0) /100 WBC Haptoglobin (31.2-198.0) mg/dL PT (9.0-12.0) sec INR (<1.2) ABG pH (7.35-7.45) ABG pCO2 (35-45) mmHg ABG pO2 (83-108) mmHg ABG HCO3 (21-25) mmol/L ABG O2 Saturation (94-97) % Sodium (137-145) mmol/L Potassium 5.3 H (3.5-5.1) mmol/L Chloride (98-107) mmol/L Carbon Dioxide (22-30) mmol/L BUN (7-17) mg/dL Creatinine (0.52-1.04) mg/dL Glucose (74-99) mg/dL POC Glucose (mg/dL) 151 H (75-99) mg/dL Calcium (8.4-10.2) mg/dL Total Bilirubin (0.2-1.3) mg/dL AST (14-36) U/L ALT (4-34) U/L Alkaline Phosphatase (38-126) U/L Lactate Dehydrogenase (313-618) U/L Total Protein (6.3-8.2) g/dL Albumin (3.5-5.0) g/dL 09/28/21 09/28/21 09/28/21 Range/Units 04:00 06:00 08:16 WBC (3.8-10.6) k/uL Hgb (11.4-16.0) gm/dL Hct (34.0-46.0) % MCV (80.0-100.0) fL MCH (25.0-35.0) pg MCHC (31.0-37.0) g/dL RDW (11.5-15.5) % Neutrophils # (Manual) (1.3-7.7) k/uL Lymphocytes # (Manual) (1.0-4.8) k/uL Nucleated RBCs (0-0) /100 WBC Haptoglobin (31.2-198.0) mg/dL PT (9.0-12.0) sec INR (<1.2) ABG pH 7.18 L* (7.35-7.45) ABG pCO2 49 H (35-45) mmHg ABG pO2 110 H (83-108) mmHg ABG HCO3 18 L (21-25) mmol/L ABG O2 Saturation 97.1 H (94-97) % Sodium 133 L (137-145) mmol/L Potassium 5.3 H (3.5-5.1) mmol/L Chloride (98-107) mmol/L Carbon Dioxide 16 L (22-30) mmol/L BUN 37 H (7-17) mg/dL Creatinine 2.62 H (0.52-1.04) mg/dL Glucose 235 H (74-99) mg/dL POC Glucose (mg/dL) 266 H (75-99) mg/dL Calcium 6.7 L (8.4-10.2) mg/dL Total Bilirubin (0.2-1.3) mg/dL AST 5264 H (14-36) U/L ALT 1933 H (4-34) U/L Alkaline Phosphatase 144 H (38-126) U/L Lactate Dehydrogenase (313-618) U/L Total Protein 5.5 L (6.3-8.2) g/dL Albumin 2.4 L (3.5-5.0) g/dL Microbiology - Last 24 Hours (Table) 09/27/21 04:15 Gram Stain - Preliminary Sputum Sputum Culture - Preliminary 09/27/21 11:30 Bronchial Washings Culture - Preliminary Bronchial Brushings - Left 09/27/21 11:30 Acid Fast Bacilli Culture - Preliminary Bronchial Brushings - Left 09/27/21 11:30 Fungal Culture - Preliminary Bronchial Brushings - Left 09/25/21 11:45 Gram Stain - Preliminary Pleural Fluid Body Fluid Culture - Preliminary 09/27/21 02:42 Urine Culture - Preliminary Urine,Voided Assessment and Plan Plan: - Imaging and Cardiology Chest x-ray: report reviewed Assessment and Plan (1) Intractable pain Narrative/Plan: - Currently ventilator support (2) Lung mass Current Visit: Yes Status: Acute Priority: High Code(s): R91.8 - OTHER NONSPECIFIC ABNORMAL FINDING OF LUNG FIELD SNOMED Code(s): 180592426 (3) Pleural effusion Current Visit: Yes Status: Acute Priority: High Code(s): J90 - PLEURAL EFFUSION, NOT ELSEWHERE CLASSIFIED SNOMED Code(s): 20155367 (4) Thalassemia Narrative/Plan: Labs will continue to be monitored for the same. Continue folic acid Avoid Iron Supplementation and transfusions are only one when hgb less than 7 Current Visit: No Status: Chronic Priority: Medium Code(s): D56.9 - THALASSEMIA, UNSPECIFIED SNOMED Code(s): 94219583 Plan: Status post Status post bronch with bx await path Continue care per ICU
--- NOTE | 2021-09-28 21:14 | P.CONS ---
History of Present Illness - Reason for Consult Consult date: 09/28/21 possible pneumonia Requesting physician: Nneka Stanton - Chief Complaint shortness of breath x few days - History of Present Illness History of Present Illness : Patient is 70-year-old female presenting to the hospital about a week ago for evaluation of abdominal pain and shortness of breath apparently patient complaining of increasing abdominal pain for about a week before presentation to the hospital and the patient has history of bowel obstruction on November requiring surgery patient on presentation to the hospital have a CT of abdominal pelvis with no evidence of any small or large bowel obstruction mild acute abnormality of the bowel and a question of diverticulitis patient did have a CT angiogram of the chest no evidence of PE moderate to large left-sided pleural effusion with suspicious infiltrating lesion at the anterior aspect of the left lung base patient has been evaluated by pulmonary service and the patient did have a left thoracocentesis those cultures are so far pending pathology on the pleural fluid shows predominantly acute inflammatory cells suspicious for empyema patient did have a acute respiratory distress 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 and has been transferred to the ICU patient subsequent did have bronchoscopy done by pulmonary and those cultures are pending patient has been treated with Zosyn and steroids infectious disease was consulted today for further management of antibiotic therapy most information has been obtained from review the chart and talking to nursing staff as the patient is currently intubated on the vent and unable to provide any history patient did not have any fever during this hospital admission did have white count of 13,000 on admission is up to 20,000 today also noticed to have worsening of her kidney function came with a normal creatinine and is up to 2.62 today Review of system: Positive points mentioned in history of present illness complete review could not be obtained because of his underlying medical condition. Past medical history : Reviewed, documented below Past surgical history : Reviewed, documented below Social history: Reviewed, documented below Medications: Reviewed, as documented below EXAMINATION: Vital sigans= Reviewed and documented below GENERAL DESCRIPTION: Elderly female intubated on the vent. No tachypnea or accessory muscle of respiration use. HEENT: Shows Pallor , no scleral icterus. Oral mucous membrane is dry. NECK: Trachea central, no thyromegaly. LUNGS: Unlabored breathing. Decreased breath sound the base. No wheeze or crackle. HEART: S1, S2, regular rate and rhythm. ABDOMEN: Soft, no tenderness , guarding or rigidity EXTREMITIES: No edema feet SKIN: No rash, no masses palpable. NEUROLOGICAL: The patient is sedated on the vent LABS AND RADIOLOGY: Reviewed results see below Assessment : Patient with acute respiratory failure which is multifactorial in this patient presented to hospital with shortness of breath and abdominal pain work-up did shows a left-sided pleural effusion status post thoracocentesis suspicious for empyema focus cultures are currently pending patient is status post bronchoscopy and transbronchial biopsy along with bronchoalveolar lavage and those cultures are currently pending Plan: 1-Zosyn 3.375 g every 8 hourly while waiting for the culture to finalize 2-gentle IV fluid We will follow on clinical condition and cultures to further adjust medication if needed Thank you for this consultation we will follow the patient along with you Past Medical History Past Medical History: Blood Disorder, Cancer, COPD, GERD/Reflux, Musculoskeletal Disorder, Osteoarthritis (OA), Pneumonia, Thyroid Disorder Additional Past Medical History / Comment(s): 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 History of Any Multi-Drug Resistant Organisms: None Reported Past Surgical History: Appendectomy, Bowel Resection, Cholecystectomy, Hysterectomy, Tubal Ligation Additional Past Surgical History / Comment(s): Bilateral vulva excision and then another R side vulva wide resection, thyroidectomy x2 (thyroid tissue grew back), larygoscopy, sigmoid colectomy, EGD, colonoscopy, laparoscopic lysis of abdominal adhesions, pain clinic procedures. Past Anesthesia/Blood Transfusion Reactions: Motion Sickness Additional Past Anesthesia/Blood Transfusion Reaction / Comm: No reaction from previous blood transfusion. Smoking Status: Current every day smoker, Light tobacco smoker - Past Family History Father Sister(s) Family Medical History: Unable to Obtain Father Family Medical History: Blood Disorder, Cancer Additional Family Medical History / Comment(s): Thalassemia, bone cancer. Son(s) Family Medical History: Pulmonary Embolus Brother(s) Family Medical History: Blood Disorder, Cancer Additional Family Medical History / Comment(s): THALASSEMIA, Leukemia. Daughter(s) Family Medical History: Blood Disorder Additional Family Medical History / Comment(s): THALASSEMIA. Medications and Allergies Home Medications Medication Instructions Recorded Confirmed Type Levothyroxine Sodium [Synthroid] 50 mcg PO MOTUWETHFRSA 11/26/13 09/24/21 History Omeprazole [PriLOSEC] 40 mg PO AC-BRKFST 09/12/15 09/24/21 History clonazePAM [KlonoPIN] 0.5 mg PO HS 05/29/18 09/24/21 History HYDROcodone/APAP 10-325MG [Colby 1 tab PO QID PRN 01/07/20 09/24/21 History 10-325] ondansetron HCL [Zofran] 4 mg PO BID PRN 01/07/20 09/24/21 History Fluticasone Propionate [Flonase 2 spray EA NOSTRIL DAILY 12/18/20 09/24/21 Hi story Allergy Relief] Levothyroxine Sodium [Synthroid] 100 mcg PO MUSA 05/31/21 09/24/21 History Simethicone 40 mg/0.6 ml Drops 40 mg PO Q6HR PRN #30 ml 09/13/21 09/24/21 Rx [Mylicon Drops] Dicyclomine [Bentyl] 20 mg PO QID 09/24/21 09/24/21 History Docusate [Colace] 100 mg PO TID 09/24/21 09/24/21 History Simethicone Chew [Mylicon Chew] 80 mg PO Q6H PRN 09/24/21 09/24/21 History Allergies Allergy/AdvReac Type Severity Reaction Status Date / Time codeine AdvReac Nausea & Verified 09/24/21 14:02 [From Tylenol-Codeine #3] Vomiting ibuprofen AdvReac Nausea & Verified 09/24/21 14:02 Vomiting tramadol AdvReac Nausea & Verified 09/24/21 14:02 Vomiting Physical Exam Vitals: Vital Signs Temp Pulse Resp BP Pulse Ox 09/28/21 12:00 98.5 F 91 20 119/85 96 09/28/21 11:50 107 H 09/28/21 11:40 110 H 09/28/21 11:00 90 20 97 09/28/21 10:00 87 20 108/68 97 09/28/21 09:00 90 20 98 09/28/21 08:00 98.4 F 86 16 107/64 97 09/28/21 07:52 86 09/28/21 07:44 87 18 94 L 09/28/21 07:32 89 04/01/22 07:00 93 18 108/67 94 L 09/28/21 06:00 95 18 108/66 96 09/28/21 05:00 95 17 115/67 93 L 09/28/21 04:00 98.3 F 95 19 107/63 95 09/28/21 03:50 94 09/28/21 03:39 96 09/28/21 03:00 96 18 120/72 96 09/28/21 02:00 98 18 110/63 94 L 09/28/21 01:00 97 20 108/62 96 09/28/21 00:30 95 09/28/21 00:19 94 09/28/21 00:00 98.3 F 97 21 102/60 97 09/27/21 23:00 98 22 120/71 96 09/27/21 22:00 101 H 29 H 114/68 95 09/27/21 21:06 90 09/27/21 21:00 93 23 116/65 98 09/27/21 20:56 90 09/27/21 20:55 92 09/27/21 20:42 98 09/27/21 20:00 98.9 F 98 27 H 112/68 93 L 09/27/21 19:00 96 25 H 96 09/27/21 18:30 97 25 H 108/61 95 09/27/21 18:00 98.2 F 93 26 H 96 09/27/21 17:30 94 27 H 113/65 95 09/27/21 17:00 94 26 H 112/63 95 09/27/21 16:30 97.9 F 94 25 H 94 L 09/27/21 16:00 97.3 F L 95 25 H 96 09/27/21 15:45 23 97 09/27/21 15:30 98 25 H 95 09/27/21 15:23 99 09/27/21 15:14 99 09/27/21 15:00 90 23 102/60 97 09/27/21 14:30 89 22 96 09/27/21 14:00 88 21 100/61 95 09/27/21 13:30 90 19 102/57 96 Intake and Output 09/27/21 09/28/21 09/28/21 22:59 06:59 14:59 Intake Total 986.945 911.529 980.852 Output Total 271 10 170 Balance 715.945 901.529 810.852 Intake: IV 929 884 885 0.9 685 160 100 Dextrose 5% in Water 1, 235 600 450 000 ml @ 75 mls/hr IV . [id number] ENRIQUE with Sodium Bicarb (1 Meq/ml) 100 ml Rx#:[id number] Piperacillin-Tazobactam 3 100 .375 gm In Sodium Chloride 0.9% 100 ml @ 25 mls/hr IVPB Q6H [facility] Rx#: [id number] Pressure bag 9 24 335 Intake, IV Titration 17.945 27.529 65.852 Amount propofoL 1,000 mg In 17.945 27.529 65.852 Empty Bag 1 bag @ 5 MCG/ KG/MIN 1.157 mls/hr IV . Q24H [facility] Rx#:[id number] Tube Feeding 40 Other 30 Output: Gastric Drainage 250 Urine 21 10 0 Oral Regurgitation 170 Other: Voiding Method Indwelling Catheter Indwelling Catheter Indwelling Catheter Weight 49.1 kg 49.1 kg ABP, PAP, CO, CI - Last 8 Hours Arterial Blood Pressure 142/58 Arterial Blood Pressure 156/67 Arterial Blood Pressure 149/65 Arterial Blood Pressure 139/59 Arterial Blood Pressure 133/57 Arterial Blood Pressure 138/55 Arterial Blood Pressure 133/54 Results CBC & Chem 7: 09/28/21 04:00 09/28/21 04:00 Labs: Abnormal Lab Results - Last 24 Hours (Table) 09/27/21 09/27/21 09/27/21 Range/Units 12:10 16:48 22:30 WBC (3.8-10.6) k/uL Hgb (11.4-16.0) gm/dL Hct (34.0-46.0) % MCV (80.0-100.0) fL MCH (25.0-35.0) pg MCHC (31.0-37.0) g/dL RDW (11.5-15.5) % Neutrophils # (Manual) (1.3-7.7) k/uL Lymphocytes # (Manual) (1.0-4.8) k/uL Nucleated RBCs (0-0) /100 WBC Haptoglobin 328.0 H (31.2-198.0) mg/dL ABG pH (7.35-7.45) ABG pCO2 (35-45) mmHg ABG pO2 (83-108) mmHg ABG HCO3 (21-25) mmol/L ABG O2 Saturation (94-97) % Sodium 134 L (137-145) mmol/L Potassium 6.0 H 5.3 H (3.5-5.1) mmol/L Chloride 110 H (98-107) mmol/L Carbon Dioxide 13 L (22-30) mmol/L BUN 28 H (7-17) mg/dL Creatinine 1.93 H (0.52-1.04) mg/dL Glucose 122 H (74-99) mg/dL POC Glucose (mg/dL) (75-99) mg/dL Calcium 6.7 L (8.4-10.2) mg/dL AST (14-36) U/L ALT (4-34) U/L Alkaline Phosphatase (38-126) U/L Troponin I (0.000-0.034) ng/mL Total Protein (6.3-8.2) g/dL Albumin (3.5-5.0) g/dL 09/28/21 09/28/21 09/28/21 Range/Units 00:12 04:00 04:00 WBC 28.2 H (3.8-10.6) k/uL Hgb 9.0 L (11.4-16.0) gm/dL Hct 30.1 L (34.0-46.0) % MCV 71.1 L (80.0-100.0) fL MCH 21.3 L (25.0-35.0) pg MCHC 30.0 L (31.0-37.0) g/dL RDW 17.7 H (11.5-15.5) % Neutrophils # (Manual) 27.60 H (1.3-7.7) k/uL Lymphocytes # (Manual) 0.56 L (1.0-4.8) k/uL Nucleated RBCs 4 H (0-0) /100 WBC Haptoglobin (31.2-198.0) mg/dL ABG pH (7.35-7.45) ABG pCO2 (35-45) mmHg ABG pO2 (83-108) mmHg ABG HCO3 (21-25) mmol/L ABG O2 Saturation (94-97) % Sodium 133 L (137-145) mmol/L Potassium 5.3 H (3.5-5.1) mmol/L Chloride (98-107) mmol/L Carbon Dioxide 16 L (22-30) mmol/L BUN 37 H (7-17) mg/dL Creatinine 2.62 H (0.52-1.04) mg/dL Glucose 235 H (74-99) mg/dL POC Glucose (mg/dL) 151 H (75-99) mg/dL Calcium 6.7 L (8.4-10.2) mg/dL AST 5264 H (14-36) U/L ALT 1933 H (4-34) U/L Alkaline Phosphatase 144 H (38-126) U/L Troponin I (0.000-0.034) ng/mL Total Protein 5.5 L (6.3-8.2) g/dL Albumin 2.4 L (3.5-5.0) g/dL 09/28/21 09/28/21 09/28/21 Range/Units 04:00 06:00 08:16 WBC (3.8-10.6) k/uL Hgb (11.4-16.0) gm/dL Hct (34.0-46.0) % MCV (80.0-100.0) fL MCH (25.0-35.0) pg MCHC (31.0-37.0) g/dL RDW (11.5-15.5) % Neutrophils # (Manual) (1.3-7.7) k/uL Lymphocytes # (Manual) (1.0-4.8) k/uL Nucleated RBCs (0-0) /100 WBC Haptoglobin (31.2-198.0) mg/dL ABG pH 7.18 L* (7.35-7.45) ABG pCO2 49 H (35-45) mmHg ABG pO2 110 H (83-108) mmHg ABG HCO3 18 L (21-25) mmol/L ABG O2 Saturation 97.1 H (94-97) % Sodium (137-145) mmol/L Potassium (3.5-5.1) mmol/L Chloride (98-107) mmol/L Carbon Dioxide (22-30) mmol/L BUN (7-17) mg/dL Creatinine (0.52-1.04) mg/dL Glucose (74-99) mg/dL POC Glucose (mg/dL) 266 H (75-99) mg/dL Calcium (8.4-10.2) mg/dL AST (14-36) U/L ALT (4-34) U/L Alkaline Phosphatase (38-126) U/L Troponin I 0.629 H* (0.000-0.034) ng/mL Total Protein (6.3-8.2) g/dL Albumin (3.5-5.0) g/dL 09/28/21 Range/Units 11:30 WBC (3.8-10.6) k/uL Hgb (11.4-16.0) gm/dL Hct (34.0-46.0) % MCV (80.0-100.0) fL MCH (25.0-35.0) pg MCHC (31.0-37.0) g/dL RDW (11.5-15.5) % Neutrophils # (Manual) (1.3-7.7) k/uL Lymphocytes # (Manual) (1.0-4.8) k/uL Nucleated RBCs (0-0) /100 WBC Haptoglobin (31.2-198.0) mg/dL ABG pH (7.35-7.45) ABG pCO2 (35-45) mmHg ABG pO2 (83-108) mmHg ABG HCO3 (21-25) mmol/L ABG O2 Saturation (94-97) % Sodium (137-145) mmol/L Potassium (3.5-5.1) mmol/L Chloride (98-107) mmol/L Carbon Dioxide (22-30) mmol/L BUN (7-17) mg/dL Creatinine (0.52-1.04) mg/dL Glucose (74-99) mg/dL POC Glucose (mg/dL) 152 H (75-99) mg/dL Calcium (8.4-10.2) mg/dL AST (14-36) U/L ALT (4-34) U/L Alkaline Phosphatase (38-126) U/L Troponin I (0.000-0.034) ng/mL Total Protein (6.3-8.2) g/dL Albumin (3.5-5.0) g/dL Microbiology - Last 24 Hours (Table) 09/27/21 04:15 Gram Stain - Preliminary Sputum Sputum Culture - Preliminary 09/27/21 11:30 Bronchial Washings Culture - Preliminary Bronchial Brushings - Left 09/27/21 11:30 Acid Fast Bacilli Culture - Preliminary Bronchial Brushings - Left 09/27/21 11:30 Fungal Culture - Preliminary Bronchial Brushings - Left 09/25/21 11:45 Gram Stain - Preliminary Pleural Fluid Body Fluid Culture - Preliminary 09/27/21 02:42 Urine Culture - Preliminary Urine,Voided
[2021-09-28 21:17] LABS: Glucose,Whole Blood 252 mg/dL (75-99)
[2021-09-29 00:16] LABS: Glucose,Whole Blood 179 mg/dL (75-99)
[2021-09-29 00:48] LABS: Glucose,Whole Blood 168 mg/dL (75-99)
[2021-09-29] MEDS: INSULIN ASPART (NovoLOG) 100 UNIT/ML VIAL SQ SCH ×7 (00:51→23:19)
[2021-09-29] MEDS: METOCLOPRAMIDE 5 MG/ML 2 ML VIAL IVP SCH ×5 (00:51→23:18)
[2021-09-29] MEDS: DEXTROSE 5% IN WATER 1,000 ML with SODIUM BICARB (1 MEQ/ML) 100 ML IV SCH (00:52)
[2021-09-29] MEDS: PIPERACILLIN-TAZOBACTAM 3.375 GM in SODIUM CHLORIDE 0.9% 100 ML IVPB SCH ×4 (00:52→18:53)
[2021-09-29] MEDS: IPRATROPIUM-ALBUTEROL 3 ML NEB INHALATION SCH ×6 (01:15→20:25)
[2021-09-29] MEDS: methylPREDNISolone SOD SUCCI 40 MG/ML 1 ML VIAL IV SCH ×4 (01:42→20:41)
[2021-09-29 03:48] LABS: Glucose,Whole Blood 161 mg/dL (75-99)
[2021-09-29 04:35] LABS: Anisocytosis Slight; HCT 26.4 % (34.0-46.0); HGB 8.2 gm/dL (11.4-16.0); Hypochromasia Marked; MCH 21.2 pg (25.0-35.0); MCHC 31.2 g/dL (31.0-37.0); MCV 67.9 fL (80.0-100.0); Mean Platelet Volume 7.8; Microcytosis Marked; Platelet Count 242 k/uL (150-450); Poikilocytosis Moderate; RBC 3.89 m/uL (3.80-5.40); RDW 18.2 % (11.5-15.5)
[2021-09-29 04:52] LABS: Albumin 2.3 g/dL (3.5-5.0); Calcium 6.7 mg/dL (8.4-10.2); Potassium 4.8 mmol/L (3.5-5.1); Total Bilirubin 1.2 mg/dL (0.2-1.3); Total Protein 5.3 g/dL (6.3-8.2)
[2021-09-29 05:44] LABS: Band Neutrophils % 4 %; Lymphocytes # (M) 0.22 k/uL (1.0-4.8); Monocytes # (M) 0.44 k/uL (0-1.0); Neutrophils % (M) 93 %; Nucleated Red Blood Cells 3 /100 WBC (0-0); Total Cells Counted 100; WBC 22.2 k/uL (3.8-10.6)
[2021-09-29 05:45] LABS: RBC Fragments Present
[2021-09-29 06:08] LABS: ABG Base Excess -8.1 mmol/L; ABG HCO3 18 mmol/L (21-25); ABG Oxygen Saturation 95.5 % (94-97); ABG PCO2 33 mmHg (35-45); ABG PH 7.34 (7.35-7.45); ABG PO2 81 mmHg (83-108); ABG TCO2 19 mmol/L (19-24); Allen Test Performed? Yes
[2021-09-29] MEDS: LEVOTHYROXINE 50 MCG TAB PO SCH (06:08)
[2021-09-29] MEDS: PANTOPRAZOLE 40 MG TABLET PO SCH (06:08)
[2021-09-29] MEDS: carvediloL 6.25 MG TAB PO SCH (06:08)
[2021-09-29] MEDS: BUDESONIDE 1 MG/2 ML NEBU INHALATION SCH ×2 (07:34→20:25)
[2021-09-29] MEDS: FORMOTEROL FUMARATE 20 MCG/2 ML NEBU INHALATION SCH ×2 (07:34→20:25)
--- NOTE | 2021-09-29 09:07 | XR ---
EXAMINATION TYPE: XR chest 1V portable DATE OF EXAM: 09/29/2021 CLINICAL HISTORY: Difficulty breathing progress study. TECHNIQUE: Single AP portable semiupright view of the chest is obtained. COMPARISON: Chest x-ray from one day earlier and older studies FINDINGS: Stable endotracheal and orogastric tubes. Stable left-sided subclavian central venous tom ter. Osseous structures remain intact. Background cardiomegaly redemonstrated. Background chronic emphysem atous change with persistent left basilar opacity. Patchy right basilar opacity slightly more promine nt. IMPRESSION: Cardiomegaly with small to moderate size left pleural effusion and associated left lower lung atelectasis and/or infiltrate redemonstrated and stable. Slightly more prominent right medial b asilar acute infiltrate and/or atelectasis from one day earlier noted.
[2021-09-29 09:08] LABS: Glucose,Whole Blood 34 mg/dL (75-99)
[2021-09-29 09:08] LABS: Glucose,Whole Blood 179 mg/dL (75-99)
[2021-09-29] MEDS: CHLORHEXIDINE GLUCONATE 15 ML CUP MUCOUS MEM SCH ×2 (09:35→20:41)
[2021-09-29] MEDS: hydrALAZINE HCL 50 MG TAB PO SCH ×4 (09:35→22:15)
[2021-09-29] MEDS: FOLIC ACID 1 MG TAB PO SCH (09:35)
[2021-09-29] MEDS: SENNOSIDES-DOCUSATE SODIUM 1 EACH TAB PO SCH ×2 (09:36→20:41)
--- NOTE | 2021-09-29 11:51 | P.PN ---
Subjective Patient is seen for follow-up for acute kidney injury, ATN, oliguric with worsening renal function. Patient remains on the vent. Echocardiogram shows ejection fraction 20-25%. Liver enzymes remain significantly elevated but slightly decreased from yesterday No significant urine output. 0-5 mL charted per hour. Objective - Vital Signs Vital signs: Vital Signs Temp 97.8 F 09/29/21 08:00 Pulse 76 09/29/21 11:42 Resp 27 H 09/29/21 11:00 BP 95/56 09/29/21 11:00 Pulse Ox 100 09/29/21 11:00 Intake & Output 09/28/21 09/29/21 09/29/21 18:59 06:59 18:59 Intake Total 4570.681 0842.855 421.035 Output Total 205 20 15 Balance 4790.671 0555.855 406.035 Weight 49.1 kg 53.8 kg Intake: IV 1563 1246 392 0.9 210 160 80 Dextrose 5% in Water 1, 900 900 300 000 ml @ 75 mls/hr IV . [id number] ENRIQUE with Sodium Bicarb (1 Meq/ml) 100 ml Rx#:[id number] Piperacillin-Tazobactam 3 100 150 .375 gm In Sodium Chloride 0.9% 100 ml @ 25 mls/hr IVPB Q6H ENRIQUE Rx#: [id number] Pressure bag 353 36 12 Intake, IV Titration 100.000 47.855 14.035 Amount propofoL 1,000 mg In 100.000 47.855 14.035 Empty Bag 1 bag @ 5 MCG/ KG/MIN 1.157 mls/hr IV . Q24H ENRIQUE Rx#:[id number] Tube Feeding 40 145 15 Other 60 90 Output: Urine 35 20 15 Oral Regurgitation 170 Other: Voiding Method Indwelling Catheter Indwelling Catheter Indwelling Catheter ABP, PAP, CO, CI - Last Documented Arterial Blood Pressure 128/52 - Exam Patient is on the vent. 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 - Labs CBC & Chem 7: 09/29/21 03:47 09/29/21 03:47 Labs: Abnormal Lab Results - Last 24 Hours (Table) 09/27/21 09/28/21 09/28/21 Range/Units 11:30 04:00 17:50 WBC (3.8-10.6) k/uL Hgb (11.4-16.0) gm/dL Hct (34.0-46.0) % MCV (80.0-100.0) fL MCH (25.0-35.0) pg RDW (11.5-15.5) % Neutrophils # (Manual) (1.3-7.7) k/uL Lymphocytes # (Manual) (1.0-4.8) k/uL Nucleated RBCs (0-0) /100 WBC ABG pH (7.35-7.45) ABG pCO2 (35-45) mmHg ABG pO2 (83-108) mmHg ABG HCO3 (21-25) mmol/L Sodium (137-145) mmol/L Carbon Dioxide (22-30) mmol/L BUN (7-17) mg/dL Creatinine (0.52-1.04) mg/dL Glucose (74-99) mg/dL POC Glucose (mg/dL) 166 H (75-99) mg/dL Calcium (8.4-10.2) mg/dL AST (14-36) U/L ALT (4-34) U/L Alkaline Phosphatase (38-126) U/L Total Protein (6.3-8.2) g/dL Albumin (3.5-5.0) g/dL Procalcitonin 3.09 H (0.02-0.09) ng/mL Viral Test See Below A 09/28/21 09/29/21 09/29/21 Range/Units 21:15 00:14 00:45 WBC (3.8-10.6) k/uL Hgb (11.4-16.0) gm/dL Hct (34.0-46.0) % MCV (80.0-100.0) fL MCH (25.0-35.0) pg RDW (11.5-15.5) % Neutrophils # (Manual) (1.3-7.7) k/uL Lymphocytes # (Manual) (1.0-4.8) k/uL Nucleated RBCs (0-0) /100 WBC ABG pH (7.35-7.45) ABG pCO2 (35-45) mmHg ABG pO2 (83-108) mmHg ABG HCO3 (21-25) mmol/L Sodium (137-145) mmol/L Carbon Dioxide (22-30) mmol/L BUN (7-17) mg/dL Creatinine (0.52-1.04) mg/dL Glucose (74-99) mg/dL POC Glucose (mg/dL) 252 H 179 H 168 H (75-99) mg/dL Calcium (8.4-10.2) mg/dL AST (14-36) U/L ALT (4-34) U/L Alkaline Phosphatase (38-126) U/L Total Protein (6.3-8.2) g/dL Albumin (3.5-5.0) g/dL Procalcitonin (0.02-0.09) ng/mL Viral Test 09/29/21 09/29/21 09/29/21 Range/Units 03:46 03:47 03:47 WBC 22.2 H (3.8-10.6) k/uL Hgb 8.2 L (11.4-16.0) gm/dL Hct 26.4 L (34.0-46.0) % MCV 67.9 L (80.0-100.0) fL MCH 21.2 L (25.0-35.0) pg RDW 18.2 H (11.5-15.5) % Neutrophils # (Manual) 21.50 H (1.3-7.7) k/uL Lymphocytes # (Manual) 0.22 L (1.0-4.8) k/uL Nucleated RBCs 3 H (0-0) /100 WBC ABG pH (7.35-7.45) ABG pCO2 (35-45) mmHg ABG pO2 (83-108) mmHg ABG HCO3 (21-25) mmol/L Sodium 131 L (137-145) mmol/L Carbon Dioxide 17 L (22-30) mmol/L BUN 55 H (7-17) mg/dL Creatinine 3.35 H (0.52-1.04) mg/dL Glucose 146 H (74-99) mg/dL POC Glucose (mg/dL) 161 H (75-99) mg/dL Calcium 6.7 L (8.4-10.2) mg/dL AST 1893 H (14-36) U/L ALT 1370 H (4-34) U/L Alkaline Phosphatase 162 H (38-126) U/L Total Protein 5.3 L (6.3-8.2) g/dL Albumin 2.3 L (3.5-5.0) g/dL Procalcitonin (0.02-0.09) ng/mL Viral Test 09/29/21 09/29/21 09/29/21 Range/Units 06:04 09:03 09:06 WBC (3.8-10.6) k/uL Hgb (11.4-16.0) gm/dL Hct (34.0-46.0) % MCV (80.0-100.0) fL MCH (25.0-35.0) pg RDW (11.5-15.5) % Neutrophils # (Manual) (1.3-7.7) k/uL Lymphocytes # (Manual) (1.0-4.8) k/uL Nucleated RBCs (0-0) /100 WBC ABG pH 7.34 L (7.35-7.45) ABG pCO2 33 L (35-45) mmHg ABG pO2 81 L (83-108) mmHg ABG HCO3 18 L (21-25) mmol/L Sodium (137-145) mmol/L Carbon Dioxide (22-30) mmol/L BUN (7-17) mg/dL Creatinine (0.52-1.04) mg/dL Glucose (74-99) mg/dL POC Glucose (mg/dL) 34 L 179 H (75-99) mg/dL Calcium (8.4-10.2) mg/dL AST (14-36) U/L ALT (4-34) U/L Alkaline Phosphatase (38-126) U/L Total Protein (6.3-8.2) g/dL Albumin (3.5-5.0) g/dL Procalcitonin (0.02-0.09) ng/mL Viral Test Microbiology - Last 24 Hours (Table) 09/27/21 04:15 Gram Stain - Final Sputum Sputum Culture - Final 09/27/21 11:30 Acid Fast Bacilli Smear - Final Bronchial Brushings - Left Acid Fast Bacilli Culture - Preliminary 09/25/21 11:45 Gram Stain - Preliminary Pleural Fluid Body Fluid Culture - Preliminary 09/27/21 11:30 Gram Stain - Preliminary Bronchial Brushings - Left Bronchial Washings Culture - Preliminary 09/27/21 02:42 Urine Culture - Final Urine,Voided Assessment and Plan Assessment: 1. JASBIR, ATN, oliguric secondary to hemodynamic factors and contrast nephrpathy. No nephrotoxic agents on board. BP currently not low. No obstruction on CT abdomen. No response to IV Lasix 2. Acute hypoxic respiratoy failure, on the vent. Fio2 50% 3. Shock liver 4. Left adnexal mass 5. Left pleural effusion, empyema on antibiotics 7. H/o thyroid and vulval cancer 8. Metabolic acidosis secondary to JASBIR Plan: Change bicarb drip to D5W with 3 A of sodium bicarb If family wishes to proceed with aggressive care patient will need renal replacement therapy in the next 24 hours. I believe family is leaning towards withdrawing care.
--- NOTE | 2021-09-29 12:56 | P.CRDCN ---
History of Present Illness History of present illness: HISTORY OF PRESENTING ILLNESS Patient is a 70-year-old female with history of constipation, bowel obstruction with prior bowel resections, thalassemia, thyroid cancer status post thyroidecto my, vulvar cancer status post resection, prior tobacco abuse and COPD who presented with lower abdominal pain. History is supplied by chart and by family at bedside as patient is currently intubated in the ICU. Patient had workup with CT angiogram which showed no PE however large left-sided pleural effusion with suspicious infiltrating lesion of the left lung base. There initially was concern about weight loss however family denies any. Patient did have thoracentesis with no significant cancer noted. She then began to deteriorate on 09/26 with family members going back and forth regarding making patient comfort care and then full code. She apparently developed acute hypoxic respiratory failure with confusion and altered mental status and eventually underwent intubation. Initial blood work showed normal kidney function and liver enzymes however after this episode liver enzymes showing shock liver and patient was transferred to ICU. Patient eventually then underwent bronchoscopy with biopsy 09/27. There is been more concern about necrotizing pneumonia versus neoplasm. Cardiology is consulted for elevated troponin as well as new cardiomyopathy EF 20-25%. She did have prior workup in December and was seen for preoperative evaluation with echo showing preserved EF at that time. She normally denies any chest pain or pressure. She denies any significant shortness breath and nor belia walking without difficulty. REVIEW OF SYSTEMS At the time of my exam: Unable to obtain secondary to altered mental status PHYSICAL EXAMINATION Vital signs reviewed. CONSTITUTIONAL: No apparent distress, sedated on vent HEENT: Head is normocephalic. Pupils are equal, round. Sclerae anicteric. Mucous membranes of the mouth are moist. No JVD. No carotid bruit. CHEST EXAMINATION: Lungs are clear to auscultation. No chest wall tenderness is noted on palpation or with deep breathing. HEART EXAMINATION: Regular rate and rhythm. S1, S2 heard. No murmurs, gallops or rub. ABDOMEN: Soft, nontender. Positive bowel sounds. EXTREMITIES: 2+ peripheral pulses, no lower extremity edema and no calf tenderness. NEUROLOGIC EXAMINATION: Patient is awake, alert and oriented x3. ASSESSMENT 1. New-onset cardiomyopathy, may be stress-induced cardiomyopathy versus other 2. Non-STEMI likely type II mechanism related to shock 3. Acute kidney injury, may be cardiorenal versus related to ATN from shock 4. Acute on chronic respiratory failure 5. Necrotic-appearing lung lesion concerning for infection versus malignancy 6. History of prior thyroid cancer, vulvar cancer 7. Acute liver injury consistent with shock liver 8. Left adnexal solid lesion measuring 3.5 cm PLAN Patient with complex presentation with concerning CT findings concerning for possible neoplasm versus cavitary pneumonia. Suspect new cardiomyopathy may be related to stress-induced cardiomyopathy. Patient had acute decline Friday with shock liver, ATN. Discussed with family initially checking lactic acid and despite blood pressures been adequate may consider trial of dobutamine to help with possible cardiorenal renal syndrome if lactic acid elevated. Family apparently considering comfort care. Continue supportive care. Prognosis guarded. Past Medical History Past Medical History: Blood Disorder, Cancer, COPD, GERD/Reflux, Musculoskeletal Disorder, Osteoarthritis (OA), Pneumonia, Thyroid Disorder Additional Past Medical History / Comment(s): 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 History of Any Multi-Drug Resistant Organisms: None Reported Past Surgical History: Appendectomy, Bowel Resection, Cholecystectomy, Hysterectomy, Tubal Ligation Additional Past Surgical History / Comment(s): Bilateral vulva excision and then another R side vulva wide resection, thyroidectomy x2 (thyroid tissue grew back), larygoscopy, sigmoid colectomy, EGD, colonoscopy, laparoscopic lysis of abdominal adhesions, pain clinic procedures. Past Anesthesia/Blood Transfusion Reactions: Motion Sickness Additional Past Anesthesia/Blood Transfusion Reaction / Comment(s): No reaction from previous blood transfusion. Smoking Status: Current every day smoker, Light tobacco smoker - Past Family History Father Sister(s) Family Medical History: Unable to Obtain Father Family Medical History: Blood Disorder, Cancer Additional Family Medical History / Comment(s): Thalassemia, bone cancer. Son(s) Family Medical History: Pulmonary Embolus Brother(s) Family Medical History: Blood Disorder, Cancer Additional Family Medical History / Comment(s): THALASSEMIA, Leukemia. Daughter(s) Family Medical History: Blood Disorder Additional Family Medical History / Comment(s): THALASSEMIA. Medications and Allergies Home Medications Medication Instructions Recorded Confirmed Type Levothyroxine Sodium [Synthroid] 50 mcg PO [id number] 11/26/13 09/24/21 History Omeprazole [PriLOSEC] 40 mg PO AC-BRKFST 09/12/15 09/24/21 History clonazePAM [KlonoPIN] 0.5 mg PO HS 05/29/18 09/24/21 History HYDROcodone/APAP 10-325MG [Murray 1 tab PO QID PRN 01/07/20 09/24/21 History 10-325] ondansetron HCL [Zofran] 4 mg PO BID PRN 01/07/20 09/24/21 History Fluticasone Propionate [Flonase 2 spray EA NOSTRIL DAILY 12/18/20 09/24/21 History Allergy Relief] Levothyroxine Sodium [Synthroid] 100 mcg PO ALMANZAR 05/31/21 09/24/21 History Simethicone 40 mg/0.6 ml Drops 40 mg PO Q6HR PRN #30 ml 09/13/21 09/24/21 Rx [Mylicon Drops] Dicyclomine [Bentyl] 20 mg PO QID 09/24/21 09/24/21 History Docusate [Colace] 100 mg PO TID 09/24/21 09/24/21 History Simethicone Chew [Mylicon Chew] 80 mg PO Q6H PRN 09/24/21 09/24/21 History Allergies Allergy/AdvReac Type Severity Reaction Status Date / Time codeine AdvReac Nausea & Verified 09/24/21 14:02 [From Tylenol-Codeine #3] Vomiting ibuprofen AdvReac Nausea & Verified 09/24/21 14:02 Vomiting tramadol AdvReac Nausea & Verified 09/24/21 14:02 Vomiting Physical Exam Vitals: Vital Signs Temp Pulse Resp BP Pulse Ox 09/29/21 11:42 76 09/29/21 11:23 79 09/29/21 11:00 76 27 H 95/56 100 09/29/21 10:00 79 26 H 94/56 100 09/29/21 09:00 78 28 H 95/59 96 09/29/21 08:00 97.8 F 78 30 H 101/64 96 09/29/21 07:54 76 09/29/21 07:44 78 09/29/21 07:34 78 09/29/21 07:00 82 26 H 108/62 95 09/29/21 06:00 84 27 H 103/71 96 09/29/21 05:00 83 26 H 109/68 95 09/29/21 04:00 97.7 F 84 26 H 100/65 96 09/29/21 03:20 83 09/29/21 03:10 80 09/29/21 03:00 81 24 99 09/29/21 02:00 82 21 100 09/29/21 01:00 84 24 105/61 98 09/29/21 00:00 98.6 F 83 25 H 104/63 98 09/28/21 23:21 23 09/28/21 23:00 83 23 104/62 99 09/28/21 22:00 82 24 97/61 99 09/28/21 21:00 79 23 106/62 99 09/28/21 20:49 80 09/28/21 20:35 80 09/28/21 20:34 80 09/28/21 20:19 82 09/28/21 20:00 97.5 F L 87 26 H 106/60 97 09/28/21 18:00 99.1 F 88 25 H 124/75 91 L 09/28/21 17:00 111 H 25 H 121/71 95 09/28/21 16:34 91 09/28/21 16:30 25 H 91 L 09/28/21 16:17 114 H 09/28/21 16:00 101 H 22 96 09/28/21 15:00 103 H 24 93 L 09/28/21 14:00 94 22 112/72 92 L 09/28/21 13:00 89 21 111/69 95 Intake and Output 09/28/21 09/29/21 09/29/21 22:59 06:59 14:59 Intake Total 314.569 6429.855 421.035 Output Total 35 20 15 Balance 355.967 8342.855 406.035 Intake: IV 726 902 392 0.9 130 100 80 Dextrose 5% in Water 1, 525 675 300 000 ml @ 75 mls/hr IV . [id number] ENRIQUE with Sodium Bicarb (1 Meq/ml) 100 ml Rx#:[id number] Piperacillin-Tazobactam 3 50 100 .375 gm In Sodium Chloride 0.9% 100 ml @ 25 mls/hr IVPB Q6H ENRIQUE Rx#: [id number] Pressure bag 21 27 12 Intake, IV Titration 28.596 47.855 14.035 Amount propofoL 1,000 mg In 28.596 47.855 14.035 Empty Bag 1 bag @ 5 MCG/ KG/MIN 1.157 mls/hr IV . Q24H [facility] Rx#:[id number] Tube Feeding 70 115 15 Other 60 60 Output: Urine 35 20 15 Other: Voiding Method Indwelling Catheter Indwelling Catheter Indwelling Catheter Weight 53.8 kg ABP, PAP, CO, CI - Last 8 Hours Arterial Blood Pressure 128/52 Arterial Blood Pressure 124/52 Arterial Blood Pressure 113/46 Arterial Blood Pressure 112/48 Arterial Blood Pressure 123/50 Arterial Blood Pressure 130/53 Arterial Blood Pressure 133/57 Results 09/29/21 03:47 09/29/21 03:47 Cardiac Enzymes 09/29/21 Range/Units 03:47 AST 1893 H (14-36) U/L CBC 09/29/21 Range/Units 03:47 WBC 22.2 H (3.8-10.6) k/uL RBC 3.89 (3.80-5.40) m/uL Hgb 8.2 L (11.4-16.0) gm/dL Hct 26.4 L (34.0-46.0) % Plt Count 242 (150-450) k/uL Comprehensive Metabolic Panel 09/29/21 Range/Units 03:47 Sodium 131 L (137-145) mmol/L Potassium 4.8 (3.5-5.1) mmol/L Chloride 103 (98-107) mmol/L Carbon Dioxide 17 L (22-30) mmol/L BUN 55 H (7-17) mg/dL Creatinine 3.35 H (0.52-1.04) mg/dL Glucose 146 H (74-99) mg/dL Calcium 6.7 L (8.4-10.2) mg/dL AST 1893 H (14-36) U/L ALT 1370 H (4-34) U/L Alkaline Phosphatase 162 H (38-126) U/L Total Protein 5.3 L (6.3-8.2) g/dL Albumin 2.3 L (3.5-5.0) g/dL Current Medications Generic Name Dose Route Start Last Admin Trade Name Freq PRN Reason Stop Dose Admin Albuterol/Ipratropium 3 ml 03/31/22 12:00 09/29/21 11:23 Ipratropium-Albuterol 3 Ml Neb INHALATION 3 ml RT-Q4H ENRIQUE Administration Budesonide 1 mg 09/27/21 20:00 09/29/21 07:34 Budesonide 1 Mg/2 Ml Nebu INHALATION 1 mg RT-BID ENRIQUE Administration Carvedilol 6.25 mg 09/28/21 17:30 09/29/21 06:08 Carvedilol 6.25 Mg Tab PO 6.25 mg BID-W/MEALS ENRIQUE Administration Chlorhexidine Gluconate 15 ml 09/27/21 09:00 09/29/21 09:35 Chlorhexidine Gluconate 15 Ml Cup MUCOUS MEM 15 ml BID ENRIQUE Administration Folic Acid 1 mg 09/26/21 15:30 09/29/21 09:35 Folic Acid 1 Mg Tab PO 1 mg DAILY ENRIQUE Administration Formoterol Fumarate 20 mcg 09/27/21 20:00 09/29/21 07:34 Formoterol Fumarate 20 Mcg/2 Ml Nebu INHALATION 20 mcg RT-BID ENRIQUE Administration Hydralazine HCl 50 mg 09/28/21 13:45 09/29/21 09:35 Hydralazine Hcl 50 Mg Tab PO 50 mg QID ENRIQUE Administration Hydromorphone HCl 0.5 mg 09/24/21 18:30 09/27/21 22:06 Hydromorphone 0.5 Mg/0.5 Ml Syringe IVP 0.5 mg Q3HR PRN Administration Moderate Pain WHEN IV Hydromorphone HCl 1 mg 09/26/21 17:18 09/26/21 22:13 Hydromorphone 1 Mg/Ml 1 Ml Syringe IVP 1 mg Q2HR PRN Administration Severe Pain Piperacillin Sod/Tazobactam 100 mls @ 25 mls/hr 09/27/21 01:00 09/29/21 06:09 Sod 3.375 gm/ Sodium Chloride IVPB 25 mls/hr Q6H ENRIQUE Administration Protocol Propofol 1,000 mg/ IV Solution 100 mls @ 1.157 mls/hr 09/27/21 01:45 09/29/21 09:17 IV 20 mcg/kg/min .Q24H ENRIQUE 4.627 mls/hr Administration Protocol 5 MCG/KG/MIN Sodium Bicarbonate 100 ml/ 1,100 mls @ 75 mls/hr 09/27/21 18:30 09/29/21 00 :52 Dextrose/Water IV 75 mls/hr .[id number] ENRIQUE Administration Insulin Aspart 0 unit 09/28/21 08:15 09/29/21 09:07 Insulin Aspart (Novolog) 100 Unit/Ml Vial SQ 2 unit Q4HR ENRIQUE Administration Protocol Levothyroxine Sodium 50 mcg 09/25/21 11:45 09/29/21 06:08 Levothyroxine 50 Mcg Tab PO 50 mcg [id number] ENRIQUE Administration Levothyroxine Sodium 100 mcg 09/30/21 06:30 Levothyroxine 100 Mcg Tab PO [email or web address]@0630 ENRIQUE Magnesium Hydroxide 2,400 mg 09/25/21 15:57 Magnesium Hydroxide 2,400 Mg/10 Ml Cup PO BID PRN Constipation Methylprednisolone Sodium Succinate 40 mg 09/26/21 08:00 09/29/21 09:36 Methylprednisolone Sod Succi 40 Mg/Ml 1 Ml Vial IV 40 mg Q6H ENRIQUE Administration Metoclopramide HCl 10 mg 09/28/21 09:00 09/29/21 06:08 Metoclopramide 5 Mg/Ml 2 Ml Vial IVP 10 mg Q6HR ENRIQUE Administration Naloxone HCl 0.2 mg 09/24/21 14:28 Naloxone 0.4 Mg/Ml 1 Ml Vial IV Q2M PRN Opioid Reversal Ondansetron HCl 4 mg 09/24/21 14:28 Ondansetron 4 Mg/2 Ml Vial IVP Q8HR PRN Nausea And Vomiting Pantoprazole Sodium 40 mg 09/26/21 07:30 09/29/21 06:08 Pantoprazole 40 Mg Tablet PO 40 mg AC-BRKFST ENRIQUE Administration Senna/Docusate Sodium 1 each 09/25/21 09:45 09/29/21 09:36 Sennosides-Docusate Sodium 1 Each Tab PO 1 each BID ENRIQUE Administration Sodium Chloride 10 ml 09/27/21 21:00 09/29/21 09:37 Sodium Chloride 0.9% Flush 10 Ml Syringe IV 10 ml Q12HR ENRIQUE Administration Sodium Chloride 10 ml 09/27/21 13:54 Sodium Chloride 0.9% Flush 10 Ml Syringe IV DIRECTED PRN FLUSH Intake and Output 09/28/21 09/29/21 09/29/21 22:59 06:59 14:59 Intake Total 348.742 8898.855 421.035 Output Total 35 20 15 Balance 575.467 8568.855 406.035 Intake: IV 726 902 392 0.9 130 100 80 Dextrose 5% in Water 1, 525 675 300 000 ml @ 75 mls/hr IV . [id number] ENRIQUE with Sodium Bicarb (1 Meq/ml) 100 ml Rx#:[id number] Piperacillin-Tazobactam 3 50 100 .375 gm In Sodium Chloride 0.9% 100 ml @ 25 mls/hr IVPB Q6H [facility] Rx#: [id number] Pressure bag 21 27 12 Intake, IV Titration 28.596 47.855 14.035 Amount propofoL 1,000 mg In 28.596 47.855 14.035 Empty Bag 1 bag @ 5 MCG/ KG/MIN 1.157 mls/hr IV . Q24H [facility] Rx#:[id number] Tube Feeding 70 115 15 Other 60 60 Output: Urine 35 20 15 Other: Voiding Method Indwelling Catheter Indwelling Catheter Indwelling Catheter Weight 53.8 kg 09/29/21 03:47 09/29/21 03:47
--- NOTE | 2021-09-29 13:36 | P.PN ---
Subjective Progress Note Date: 09/29/21 Principal diagnosis: Acute hypoxic respiratory failure This is a very pleasant 70-year-old female patient who follows with Dr. Rose is her primary care provider. She has a history of constipation with bowel obstruction and previous bowel resections, anemia, thalassemia, thyroid cancer in 2010 status post thyroidectomy, history of ovarian mass, history of vulvar cancer status post resection. She also has a history of chronic and ongoing tobacco dependence of 54 years and chronic obstructive pulmonary disease. She was admitted to the hospital yesterday with a 2 week history of significant left upper quadrant and left chest wall pain and pain with inhalation and shortness of breath on exertion. Computed tomography scan of the abdomen and pelvis revealed no evidence of acute small and large bowel obstruction. Mild acute abnormality the bowel including diverticulitis not excluded. There was a solid lesion on the left ovary measuring 3.5 cm with adjacent calcification previously noted. There is also a new right ovarian cyst measuring 2.7 cm. A new sizable left pleural effusion with adjacent consolidation/lung lesion noted. CT angiogram revealed no major central pulmonary embolism. Moderate to large left- sided pleural effusion with suspicious infiltrating lesion at the anterior aspect of the left lung base. Lung cancer versus infection. Ultrasound of the left chest reveals a 8.1 cm pocket. White count 13.7. Hemoglobin 8.2. Platelet count 618,000. Sodium 125. Potassium 4.5. Chloride 92. Bicarb 24. BUN 8. Creatinine 0.72. Glucose 108. Troponin negative 1. Amylase 60. Lipase 43. She is seen today in consultation on the regular medical floor. Currently resting fairly comfortably in bed. Still having ongoing issues with left-sided chest discomfort. Difficulty in breathing. She is maintaining good O2 saturations in the 90s on room air. She's afebrile. Hemodynamically stable. She denies any significant weight loss. She denies any hemoptysis. She is receiving Percocet and Dilaudid for pain control. Normal saline at 75 ML's per hour. the patient is seen today 09/26/2021 in follow-up in the regular medical floor. She is currently sitting up in bed. Awake and alert. She is having issues with shortness of breath, cough and congestion. Some chest tightness and wheezing. She did undergo a left-sided thoracentesis yesterday with 200 mL of cloudy yellow fluid removed. Follow-up chest x-ray showed no evidence of pneumothorax. Cultures pending, cytology pending. Fluid analysis revealed evidence of exudate with a protein of 4.2 and a LDH of 453. With a glucose of 70 not likely infection. She is maintaining good O2 saturations in the upper 90s on 2 L/m per nasal cannula. She's been afebrile. Hemodynamically stable. sodium 1:30. Potassium 5.3. BUN 9. Creatinine 0.7. Glucose 129. The patient is seen today 09/27/2021 in follow-up in the intensive care unit. Last evening her condition continued to deteriorate. At one point her family had made her a DO NOT RESUSCITATE/comfort care and then subsequently reversed their decision and made her a full code again. She developed acute hypoxemic respiratory failure and was intubated at approximately 1:45 this morning. This x-ray continues to show evidence of congestive heart failure with a left-sided diffuse pneumonia. Opacification of the left lower hemithorax improved compared to yesterday. Thoracentesis had been performed in the pleural fluid cultures are pending. Urinalysis was exudative in nature. Cytology negative for malignancy. Though still within the differential. Currently sedated and on mechanical ventilator at assist control mode with a rate of 16, tidal volume 350, FiO2 60% and a PEEP of 5. Morning blood gases revealed a PaO2 of 291, pCO2 34, pH 7.26 100% FiO2. She Is Sedated on Propofol at 30 Mcg/Kg/M. She Has Normal Saline Running at 125 MLS per Hour. She's been initiated on DuoNeb inhalations, Pulmicort and Perforomist inhalations, IV Solu-Medrol. The plan is for bronchoscopy with BAL and biopsies of the left lower lobe today. The patient is seen today 09/28/2021 in follow-up in the intensive care unit. She remains intubated and on the mechanical ventilator currently and assist- control mode with a rate of 16, tidal volume 350, FiO2 50% and a PEEP of 5. Blood gases revealed a pO2 of 110, pCO2 49, pH 7.18. She is currently on a bicarb drip with 2 A of sodium bicarb and D5W at 75 ML's per hour. Propofol 26 mcg/kg/m. Currently the tube feedings are on hold due to high residuals. She also has a distended abdomen. Chest x-ray shows lingular mass/left pleural effusion and associated atelectasis. Underlying emphysema. She is status post 1 unit of packed red blood cells this admission. Current hemoglobin 9.0. White count 28.2. Platelets 345. Sodium 133. Potassium 5.3. Bicarb 16. BUN 37. Creatinine 2.62. Glucose 235. AST 5264. ALT 1933. Alk phos 144. She is continued on DuoNeb inhalations, Pulmicort and Perforomist inhalations, IV Solu- Medrol. Antibiotics in the form of Zosyn. Bronchial wash cultures are pending. Sputum culture pending. She did undergo bronchoscopy with BAL and biopsy of the left lower lobe yesterday. Pathology is pending. Necrotizing pneumonia versus neoplasm within the differential. The patient is seen today 09/29/2021 in follow-up in the intensive care unit. She remains intubated and on mechanical ventilator. Current mode assist control with a respiratory rate of 20, tidal Lyme 350, FiO2 50% and a PEEP of 5. Morning blood gases revealed a P O2 of 81, pCO2 of 33 and a pH of 7.34. This was done on 40% FiO2. At a pressure of 20. Peak airway pressure 15. She remains on a bicarb drip with D5W and labs of bicarb at 75 ML's per hour. On pr opofol at 20 mcg/kg/m. Being nourished with vital AF at 15 ML's per hour which is her goal. Chest x-ray reveals cardiomegaly with small to moderate left-sided pleural effusion and associated left lower lung atelectasis/infiltrate. Slightly more prominent right medial basilar acute infiltrate noted as well. White count 22.2. Hemoglobin 8.2. Platelets 242. Sodium 131. Potassium 4.8. Bicarb 17. BUN 55. Creatinine 3.35. Glucose 146. AST 1893. ALT 1370. Troponin 0.629. Minimal urine output. Only 20 ML's so far today. Biopsies, brushings and wash of the left lower lobe were negative for malignancy. She is continued on bronchodilators, IV Solu-Medrol, antibiotics in the form of Zosyn. Echocardiogram revealed severely impaired left ventricular systolic function with ejection fraction 20-25% and global hypokinesia. Dobutamine drip recommended per cardiology. Objective - Vital Signs Vital signs: Vital Signs Temp 97.8 F 09/29/21 08:00 Pulse 76 09/29/21 11:42 Resp 27 H 09/29/21 11:00 BP 95/56 09/29/21 11:00 Pulse Ox 100 09/29/21 11:00 Intake & Output 09/28/21 09/29/21 09/29/21 18:59 06:59 18:59 Intake Total 2076.484 8226.855 421.035 Output Total 205 20 15 Balance 4484.670 8235.855 406.035 Weight 49.1 kg 53.8 kg Intake: IV 1563 1246 392 0.9 210 160 80 Dextrose 5% in Water 1, 900 900 300 000 ml @ 75 mls/hr IV . [id number] [facility] with Sodium Bicarb (1 Meq/ml) 100 ml Rx#:[id number] Piperacillin-Tazobactam 3 100 150 .375 gm In Sodium Chloride 0.9% 100 ml @ 25 mls/hr IVPB Q6H [facility] Rx#: [id number] Pressure bag 353 36 12 Intake, IV Titration 100.000 47.855 14.035 Amount propofoL 1,000 mg In 100.000 47.855 14.035 Empty Bag 1 bag @ 5 MCG/ KG/MIN 1.157 mls/hr IV . Q24H [facility] Rx#:[id number] Tube Feeding 40 145 15 Other 60 90 Output: Urine 35 20 15 Oral Regurgitation 170 Other: Voiding Method Indwelling Catheter Indwelling Catheter Indwelling Catheter ABP, PAP, CO, CI - Last Documented Arterial Blood Pressure 128/52 - Exam GENERAL EXAM: Intubated, sedated, very, frail 70-year-old female patient, comfortable in no apparent distress. HEAD: Normocephalic. EYES: Normal reaction of pupils, equal size. NOSE: Clear with pink turbinates. THROAT: Oral endotracheal and gastric tube secured in place. No erythema or exudates. NECK: No masses, no JVD. CHEST: No chest wall deformity. LUNGS: Equal air entry with bilateral end expiratory wheeze, crackles in the left lung base, dullness, diminished. CVS: S1 and S2 normal with no audible murmur, regular rhythm. ABDOMEN: No hepatosplenomegaly, normal bowel sounds, no guarding or rigidity. SPINE: No scoliosis or deformity SKIN: No rashes CENTRAL NERVOUS SYSTEM: Sedated, tone is normal in all 4 extremities. EXTREMITIES: There is no peripheral edema. No clubbing, no cyanosis. Peripheral pulses are intact. - Labs CBC & Chem 7: 09/29/21 03:47 09/29/21 03:47 Labs: Abnormal Lab Results - Last 24 Hours (Table) 09/27/21 09/28/21 09/28/21 Range/Units 11:30 04:00 17:50 WBC (3.8-10.6) k/uL Hgb (11.4-16.0) gm/dL Hct (34.0-46.0) % MCV (80.0-100.0) fL MCH (25.0-35.0) pg RDW (11.5-15.5) % Neutrophils # (Manual) (1.3-7.7) k/uL Lymphocytes # (Manual) (1.0-4.8) k/uL Nucleated RBCs (0-0) /100 WBC ABG pH (7.35-7.45) ABG pCO2 (35-45) mmHg ABG pO2 (83-108) mmHg ABG HCO3 (21-25) mmol/L Sodium (137-145) mmol/L Carbon Dioxide (22-30) mmol/L BUN (7-17) mg/dL Creatinine (0.52-1.04) mg/dL Glucose (74-99) mg/dL POC Glucose (mg/dL) 166 H (75-99) mg/dL Calcium (8.4-10.2) mg/dL AST (14-36) U/L ALT (4-34) U/L Alkaline Phosphatase (38-126) U/L Total Protein (6.3-8.2) g/dL Albumin (3.5-5.0) g/dL Procalcitonin 3.09 H (0.02-0.09) ng/mL Viral Test See Below A 09/28/21 09/29/21 09/29/21 Range/Units 21:15 00:14 00:45 WBC (3.8-10.6) k/uL Hgb (11.4-16.0) gm/dL Hct (34.0-46.0) % MCV (80.0-100.0) fL MCH (25.0-35.0) pg RDW (11.5-15.5) % Neutrophils # (Manual) (1.3-7.7) k/uL Lymphocytes # (Manual) (1.0-4.8) k/uL Nucleated RBCs (0-0) /100 WBC ABG pH (7.35-7.45) ABG pCO2 (35-45) mmHg ABG pO2 (83-108) mmHg ABG HCO3 (21-25) mmol/L Sodium (137-145) mmol/L Carbon Dioxide (22-30) mmol/L BUN (7-17) mg/dL Creatinine (0.52-1.04) mg/dL Glucose (74-99) mg/dL POC Glucose (mg/dL) 252 H 179 H 168 H (75-99) mg/dL Calcium (8.4-10.2) mg/dL AST (14-36) U/L ALT (4-34) U/L Alkaline Phosphatase (38-126) U/L Total Protein (6.3-8.2) g/dL Albumin (3.5-5.0) g/dL Procalcitonin (0.02-0.09) ng/mL Viral Test 09/29/21 09/29/21 09/29/21 Range/Units 03:46 03:47 03:47 WBC 22.2 H (3.8-10.6) k/uL Hgb 8.2 L (11.4-16.0) gm/dL Hct 26.4 L (34.0-46.0) % MCV 67.9 L (80.0-100.0) fL MCH 21.2 L (25.0-35.0) pg RDW 18.2 H (11.5-15.5) % Neutrophils # (Manual) 21.50 H (1.3-7.7) k/uL Lymphocytes # (Manual) 0.22 L (1.0-4.8) k/uL Nucleated RBCs 3 H (0-0) /100 WBC ABG pH (7.35-7.45) ABG pCO2 (35-45) mmHg ABG pO2 (83-108) mmHg ABG HCO3 (21-25) mmol/L Sodium 131 L (137-145) mmol/L Carbon Dioxide 17 L (22-30) mmol/L BUN 55 H (7-17) mg/dL Creatinine 3.35 H (0.52-1.04) mg/dL Glucose 146 H (74-99) mg/dL POC Glucose (mg/dL) 161 H (75-99) mg/dL Calcium 6.7 L (8.4-10.2) mg/dL AST 1893 H (14-36) U/L ALT 1370 H (4-34) U/L Alkaline Phosphatase 162 H (38-126) U/L Total Protein 5.3 L (6.3-8.2) g/dL Albumin 2.3 L (3.5-5.0) g/dL Procalcitonin (0.02-0.09) ng/mL Viral Test 09/29/21 09/29/21 09/29/21 Range/Units 06:04 09:03 09:06 WBC (3.8-10.6) k/uL Hgb (11.4-16.0) gm/dL Hct (34.0-46.0) % MCV (80.0-100.0) fL MCH (25.0-35.0) pg RDW (11.5-15.5) % Neutrophils # (Manual) (1.3-7.7) k/uL Lymphocytes # (Manual) (1.0-4.8) k/uL Nucleated RBCs (0-0) /100 WBC ABG pH 7.34 L (7.35-7.45) ABG pCO2 33 L (35-45) mmHg ABG pO2 81 L (83-108) mmHg ABG HCO3 18 L (21-25) mmol/L Sodium (137-145) mmol/L Carbon Dioxide (22-30) mmol/L BUN (7-17) mg/dL Creatinine (0.52-1.04) mg/dL Glucose (74-99) mg/dL POC Glucose (mg/dL) 34 L 179 H (75-99) mg/dL Calcium (8.4-10.2) mg/dL AST (14-36) U/L ALT (4-34) U/L Alkaline Phosphatase (38-126) U/L Total Protein (6.3-8.2) g/dL Albumin (3.5-5.0) g/dL Procalcitonin (0.02-0.09) ng/mL Viral Test Microbiology - Last 24 Hours (Table) 09/27/21 04:15 Gram Stain - Final Sputum Sputum Culture - Final 09/27/21 11:30 Acid Fast Bacilli Smear - Final Bronchial Brushings - Left Acid Fast Bacilli Culture - Preliminary 09/25/21 11:45 Gram Stain - Preliminary Pleural Fluid Body Fluid Culture - Preliminary 09/27/21 11:30 Gram Stain - Preliminary Bronchial Brushings - Left Bronchial Washings Culture - Preliminary 09/27/21 02:42 Urine Culture - Final Urine,Voided Assessment and Plan Assessment: 1 Acute hypoxemic respiratory failure secondary to moderate to large left-sided pleural effusion. Status post thoracentesis on 09/25/2021 with 200 ML's of cloudy yellow fluid removed. Exudative in nature. Pathology negative for malignancy. She had gone on to develop acute respiratory failure requiring intubation and mechanical ventilation early interventionist 09/27/2021. Suspect some underlying component of acute exacerbation of systolic congestive heart failure in a patient found to have ejection fraction 20-25% with severe global hypokinesia per echocardiogram performed 09/28/2021. 2 Suspicious infiltrating lesion at the anterior aspect of the left lung base, possible necrotizing pneumonia. Status post bronchoscopy with BAL and biopsies of left lower lobe on 09/27/2021 which were negative for malignancy 3 Acute renal failure secondary to above 4 Acute shock liver secondary to above 5 Leukocytosis secondary to above 6 Acute combined respiratory and metabolic acidosis secondary to above requiring a bicarb drip 7 Left adnexal solid lesion measuring 3.5 cm with adjacent calcification, appreciated previously. New right ovarian cyst measuring 2.7 cm 8 History of vulvar cancer with previous resection in November 2020 9 History of thyroid cancer status post thyroidectomy in 2009 10 History of bowel obstruction with previous resection 11 History of thalassemia 12 Chronic and ongoing tobacco dependence of 54 years. 13 Chronic obstructive pulmonary disease with acute exacerbation 14 Osteoporosis 15 Cachexia with body mass index of 15.1 kilograms per metered square Plan: The patient was seen and evaluated Echocardiogram, chest X-ray, ABGs and labs reviewed Continue Zosyn, procalcitonin 3.09 Continue bicarb drip Initiated on dobutamine drip at 5 mcg/kg/m per cardiology Continue DuoNeb inhalations, Pulmicort and Perforomist inhalations, IV Solu- Medrol Dr. Stallworth spoke to the son and daughter at length for nearly 20 minutes today They are continuing with full supportive care and questioning possible comfort care We will continue to follow and make further recommendations based on her clinical status I have personally seen and examined the patient, performed the documentation and the assessment and plan as written. Number of minutes spent on the visit: 15
[2021-09-29 13:56] LABS: Glucose,Whole Blood 211 mg/dL (75-99)
[2021-09-29] MEDS: DOBUTamine DRIP 500 MG in DEXTROSE/WATER 1 250ML.BAG IV SCH (14:17)
[2021-09-29] MEDS: DEXTROSE 5% IN WATER 1,000 ML with SODIUM BICARB (1 MEQ/ML) 150 ML IV SCH (14:48)
[2021-09-29 17:47] LABS: Glucose,Whole Blood 230 mg/dL (75-99)
--- NOTE | 2021-09-29 17:47 | P.PN ---
Subjective Progress Note Date: 09/29/21 Principal diagnosis: Pneumonia Patient is a 70-year-old female presented to the hospital with abdominal pain shortness of breath noticed to have left-sided effusion status post thoracocentesis, subsequently respiratory failure requiring intubation and did have bronchoscopy with bronchial alveolar lavage and biopsy which are currently pending. On today's evaluation that is 09/29/2021 the patient is afebrile, the patient is hemodynamically stable not requiring any pressor support however has been started on dobutamine per cardiology, no significant purulent secretions through the ET diarrhea or any other changes reported by nursing staff Objective - Vital Signs Vital signs: Vital Signs Temp 97.7 F 09/29/21 12:00 Pulse 81 09/29/21 13:00 Resp 27 H 09/29/21 13:00 BP 103/50 09/29/21 13:00 Pulse Ox 98 09/29/21 13:00 Intake & Output 09/28/21 09/29/21 09/29/21 18:59 06:59 18:59 Intake Total 2977.653 8489.855 617.035 Output Total 205 20 15 Balance 2092.677 2767.855 602.035 Weight 49.1 kg 53.8 kg Intake: IV 1563 1246 588 0.9 210 160 120 Dextrose 5% in Water 1, 900 900 450 000 ml @ 75 mls/hr IV . [id number] [facility] with Sodium Bicarb (1 Meq/ml) 100 ml Rx#:[id number] Piperacillin-Tazobactam 3 100 150 .375 gm In Sodium Chloride 0.9% 100 ml @ 25 mls/hr IVPB Q6H [facility] Rx#: [id number] Pressure bag 353 36 18 Intake, IV Titration 100.000 47.855 14.035 Amount propofoL 1,000 mg In 100.000 47.855 14.035 Empty Bag 1 bag @ 5 MCG/ KG/MIN 1.157 mls/hr IV . Q24H [facility] Rx#:[id number] Tube Feeding 40 145 15 Other 60 90 Output: Urine 35 20 15 Oral Regurgitation 170 Other: Voiding Method Indwelling Catheter Indwelling Catheter Indwelling Catheter ABP, PAP, CO, CI - Last Documented Arterial Blood Pressure 131/53 - Exam GENERAL DESCRIPTION: An elderly female intubated on the vent RESPIRATORY SYSTEM: Unlabored breathing , decreased breath sounds at bases HEART: S1 S2 regular rate and rhythm , ABDOMEN: Soft , no tenderness EXTREMITIES: No edema feet - Labs CBC & Chem 7: 09/29/21 03:47 09/29/21 03:47 Labs: Abnormal Lab Results - Last 24 Hours (Table) 09/27/21 09/28/21 09/28/21 Range/Units 11:30 04:00 17:50 WBC (3.8-10.6) k/uL Hgb (11.4-16.0) gm/dL Hct (34.0-46.0) % MCV (80.0-100.0) fL MCH (25.0-35.0) pg RDW (11.5-15.5) % Neutrophils # (Manual) (1.3-7.7) k/uL Lymphocytes # (Manual) (1.0-4.8) k/uL Nucleated RBCs (0-0) /100 WBC ABG pH (7.35-7.45) ABG pCO2 (35-45) mmHg ABG pO2 (83-108) mmHg ABG HCO3 (21-25) mmol/L Sodium (137-145) mmol/L Carbon Dioxide (22-30) mmol/L BUN (7-17) mg/dL Creatinine (0.52-1.04) mg/dL Glucose (74-99) mg/dL POC Glucose (mg/dL) 166 H (75-99) mg/dL Calcium (8.4-10.2) mg/dL AST (14-36) U/L ALT (4-34) U/L Alkaline Phosphatase (38-126) U/L Total Protein (6.3-8.2) g/dL Albumin (3.5-5.0) g/dL Procalcitonin 3.09 H (0.02-0.09) ng/mL Viral Test See Below A 09/28/21 09/29/21 09/29/21 Range/Units 21:15 00:14 00:45 WBC (3.8-10.6) k/uL Hgb (11.4-16.0) gm/dL Hct (34.0-46.0) % MCV (80.0-100.0) fL MCH (25.0-35.0) pg RDW (11.5-15.5) % Neutrophils # (Manual) (1.3-7.7) k/uL Lymphocytes # (Manual) (1.0-4.8) k/uL Nucleated RBCs (0-0) /100 WBC ABG pH (7.35-7.45) ABG pCO2 (35-45) mmHg ABG pO2 (83-108) mmHg ABG HCO3 (21-25) mmol/L Sodium (137-145) mmol/L Carbon Dioxide (22-30) mmol/L BUN (7-17) mg/dL Creatinine (0.52-1.04) mg/dL Glucose (74-99) mg/dL POC Glucose (mg/dL) 252 H 179 H 168 H (75-99) mg/dL Calcium (8.4-10.2) mg/dL AST (14-36) U/L ALT (4-34) U/L Alkaline Phosphatase (38-126) U/L Total Protein (6.3-8.2) g/dL Albumin (3.5-5.0) g/dL Procalcitonin (0.02-0.09) ng/mL Viral Test 09/29/21 09/29/21 09/29/21 Range/Units 03:46 03:47 03:47 WBC 22.2 H (3.8-10.6) k/uL Hgb 8.2 L (11.4-16.0) gm/dL Hct 26.4 L (34.0-46.0) % MCV 67.9 L (80.0-100.0) fL MCH 21.2 L (25.0-35.0) pg RDW 18.2 H (11.5-15.5) % Neutrophils # (Manual) 21.50 H (1.3-7.7) k/uL Lymphocytes # (Manual) 0.22 L (1.0-4.8) k/uL Nucleated RBCs 3 H (0-0) /100 WBC ABG pH (7.35-7.45) ABG pCO2 (35-45) mmHg ABG pO2 (83-108) mmHg ABG HCO3 (21-25) mmol/L Sodium 131 L (137-145) mmol/L Carbon Dioxide 17 L (22-30) mmol/L BUN 55 H (7-17) mg/dL Creatinine 3.35 H (0.52-1.04) mg/dL Glucose 146 H (74-99) mg/dL POC Glucose (mg/dL) 161 H (75-99) mg/dL Calcium 6.7 L (8.4-10.2) mg/dL AST 1893 H (14-36) U/L ALT 1370 H (4-34) U/L Alkaline Phosphatase 162 H (38-126) U/L Total Protein 5.3 L (6.3-8.2) g/dL Albumin 2.3 L (3.5-5.0) g/dL Procalcitonin (0.02-0.09) ng/mL Viral Test 09/29/21 09/29/21 09/29/21 Range/Units 06:04 09:03 09:06 WBC (3.8-10.6) k/uL Hgb (11.4-16.0) gm/dL Hct (34.0-46.0) % MCV (80.0-100.0) fL MCH (25.0-35.0) pg RDW (11.5-15.5) % Neutrophils # (Manual) (1.3-7.7) k/uL Lymphocytes # (Manual) (1.0-4.8) k/uL Nucleated RBCs (0-0) /100 WBC ABG pH 7.34 L (7.35-7.45) ABG pCO2 33 L (35-45) mmHg ABG pO2 81 L (83-108) mmHg ABG HCO3 18 L (21-25) mmol/L Sodium (137-145) mmol/L Carbon Dioxide (22-30) mmol/L BUN (7-17) mg/dL Creatinine (0.52-1.04) mg/dL Glucose (74-99) mg/dL POC Glucose (mg/dL) 34 L 179 H (75-99) mg/dL Calcium (8.4-10.2) mg/dL AST (14-36) U/L ALT (4-34) U/L Alkaline Phosphatase (38-126) U/L Total Protein (6.3-8.2) g/dL Albumin (3.5-5.0) g/dL Procalcitonin (0.02-0.09) ng/mL Viral Test 09/29/21 Range/Units 13:55 WBC (3.8-10.6) k/uL Hgb (11.4-16.0) gm/dL Hct (34.0-46.0) % MCV (80.0-100.0) fL MCH (25.0-35.0) pg RDW (11.5-15.5) % Neutrophils # (Manual) (1.3-7.7) k/uL Lymphocytes # (Manual) (1.0-4.8) k/uL Nucleated RBCs (0-0) /100 WBC ABG pH (7.35-7.45) ABG pCO2 (35-45) mmHg ABG pO2 (83-108) mmHg ABG HCO3 (21-25) mmol/L Sodium (137-145) mmol/L Carbon Dioxide (22-30) mmol/L BUN (7-17) mg/dL Creatinine (0.52-1.04) mg/dL Glucose (74-99) mg/dL POC Glucose (mg/dL) 211 H (75-99) mg/dL Calcium (8.4-10.2) mg/dL AST (14-36) U/L ALT (4-34) U/L Alkaline Phosphatase (38-126) U/L Total Protein (6.3-8.2) g/dL Albumin (3.5-5.0) g/dL Procalcitonin (0.02-0.09) ng/mL Viral Test Microbiology - Last 24 Hours (Table) 09/27/21 11:30 Gram Stain - Preliminary Bronchial Brushings - Left Bronchial Washings Culture - Preliminary 09/27/21 04:15 Gram Stain - Final Sputum Sputum Culture - Final 09/27/21 11:30 Acid Fast Bacilli Smear - Final Bronchial Brushings - Left Acid Fast Bacilli Culture - Preliminary 09/25/21 11:45 Gram Stain - Preliminary Pleural Fluid Body Fluid Culture - Preliminary 09/27/21 02:42 Urine Culture - Final Urine,Voided Assessment and Plan (1) Pneumonia Current Visit: Yes Status: Acute Code(s): J18.9 - PNEUMONIA, UNSPECIFIED ORGANISM SNOMED Code(s): 693017994 Plan: 1patient with acute respiratory failure which is multifactorial in this patient possible component of pneumonia status post bronchoscopy and those cultures are currently pending, patient is currently covered with Zosyn to continue while waiting for the cultures to finalize overall prognosis remains to be guarded Time with Patient: Less than 30
[2021-09-29 20:43] LABS: Glucose,Whole Blood 235 mg/dL (75-99)
--- NOTE | 2021-09-29 23:08 | P.PN ---
Subjective Progress Note Date: 09/29/21 Patient is a very pleasant 70-year-old female came to the emergency room for abdominal discomfort and shortness of breath. Patient has a extensive medical history that includes COPD, GERD, osteoarthritis, bilateral vulva cancer, thyroid cancer, thalassemia, colitis, degenerative disc disease, kidney stones. Patient recently had PET scan that showed lung and ovarian mass that was being followed outpatient. Oncology and pulmonary were consulted for evaluation of left lung mass and pleural effusion. Patient is to undergo drainage of pleural effusion to test for malignancy. Hospitalist coverage 09/24/2021 09/25/2021 Patient seen and examined at bedside. Patient reports continued left side pain and difficulty breathing. Reports pain with inspiration. Patient denies chest pain, fever, palpitations. Patient states she dislikes the food and has admitted eating, ensure was added to increase oral intake. Awaiting cytology results. 09/26/2021 Patient was seen and examined at bedside. Patient reports increasing dyspnea and wheezing. Patient continues to have pain with inspiration but denies chest pain, palpitations, productive cough. Patient is experiencing increased anxiety, discussed length of time for results to come back. Ordered a repeat chest x-ray to assess cause of increasing dyspnea. We'll follow along with pulmonology recommendations of IV steroids and bronchodilator treatments. 09/27/2021 Patient was seen and examined in the ICU. Patient is sedated on ventilator. Family had changed their minds about comfort care after discussing cytology results and wanted to make her a full code again even though the prognosis is poor. She was then transferred to the ICU early this AM and intubated. Patient is to go for bronchoscopy today with Dr. Stallworth for biopsy. 09/28/2021 Patient was seen and examined at bedside. Patient continues to require mechanical ventilation. Patient has elevated troponin, elevated liver enzymes, increasing BUN and creatinine, new inverted T-wave, little urine output and abdominal distention. White blood cell count remains elevated at 28.2, in fectious disease consulted for possible pneumonia. Hemoglobin stable at 9.0. Awaiting for results from lung biopsy. 09/29/2021 This is a patient of Dr. Rose's that we are currently covering for will continues to be in the ICU and is maintained on mechanical ventilation with an FiO2 of 50% and PEEP is 5. Multiple medical consultations including oncology and pulmonary dipper and drier following closely. Kidney functions continue to worsen and nephrology following closely discussing possible renal replacement therapy although per nursing report family is to further discuss possible comfort measures. Overall prognosis is extremely poor and guarded. She is not making any urine and patient is now maintained on sodium bicarb drip. Chest x- ray shows cardiomegaly with small to moderate pleural effusion of the left associated with left lower lung atelectasis and/or infiltrate all redemonstrated and stable slightly more prominent right medial basilar acute infiltrate and/or atelectasis from one day previous. Patient is also continued on IV Zosyn and will continue. ID is following. review of system: Unable to obtain as patient is currently on mechanical vent and intubated and sedated Active Medications Albuterol/Ipratropium (Ipratropium-Albuterol 3 Ml Neb) 3 ml INHALATION RT-Q4H [facility] Last Admin: 09/29/21 11:23 Dose: 3 ml Documented by: Budesonide (Budesonide 1 Mg/2 Ml Nebu) 1 mg INHALATION RT-BID [facility] Last Admin: 09/29/21 07:34 Dose: 1 mg Documented by: Carvedilol (Carvedilol 6.25 Mg Tab) 6.25 mg PO BID-W/MEALS [facility]RIQUE Last Admin: 09/29/21 06:08 Dose: 6.25 mg Documented by: Chlorhexidine Gluconate (Chlorhexidine Gluconate 15 Ml Cup) 15 ml MUCOUS MEM BID [facility] Last Admin: 09/29/21 09:35 Dose: 15 ml Documented by: Folic Acid (Folic Acid 1 Mg Tab) 1 mg PO DAILY ENRIQUE Last Admin: 09/29/21 09:35 Dose: 1 mg Documented by: Formoterol Fumarate (Formoterol Fumarate 20 Mcg/2 Ml Nebu) 20 mcg INHALATION RT-BID [facility] Last Admin: 09/29/21 07:34 Dose: 20 mcg Documented by: Hydralazine HCl (Hydralazine Hcl 50 Mg Tab) 50 mg PO QID [facility] Last Admin: 09/29/21 09:35 Dose: 50 mg Documented by: Hydromorphone HCl (Hydromorphone 0.5 Mg/0.5 Ml Syringe) 0.5 mg IVP Q3HR PRN PRN Reason: Moderate Pain WHEN IV Last Admin: 09/27/21 22:06 Dose: 0.5 mg Documented by: Hydromorphone HCl (Hydromorphone 1 Mg/Ml 1 Ml Syringe) 1 mg IVP Q2HR PRN PRN Reason: Severe Pain Last Admin: 09/26/21 22:13 Dose: 1 mg Documented by: Piperacillin Sod/Tazobactam (Sod 3.375 gm/ Sodium Chloride) 100 mls @ 25 mls/hr IVPB Q6H [facility]; Protocol Last Admin: 09/29/21 06:09 Dose: 25 mls/hr Documented by: Propofol 1,000 mg/ IV Solution 100 mls @ 1.157 mls/hr IV .Q24H [facility]; Protocol Last Admin: 09/29/21 09:17 Dose: 20 mcg/kg/min, 4.627 mls/hr Documented by: Sodium Bicarbonate 100 ml/ (Dextrose/Water) 1,100 mls @ 75 mls/hr IV .[id number] [facility] Last Admin: 09/29/21 00:52 Dose: 75 mls/hr Documented by: Insulin Aspart (Insulin Aspart (Novolog) 100 Unit/Ml Vial) 0 unit SQ Q4HR [facility]; Protocol Last Admin: 09/29/21 09:07 Dose: 2 unit Documented by: Levothyroxine Sodium (Levothyroxine 50 Mcg Tab) 50 mcg PO MoTuWeThFrSa@0630 [facility] Last Admin: 09/29/21 06:08 Dose: 50 mcg Documented by: Levothyroxine Sodium (Levothyroxine 100 Mcg Tab) 100 mcg PO Almanzar@0630 [facility] Magnesium Hydroxide (Magnesium Hydroxide 2,400 Mg/10 Ml Cup) 2,400 mg PO BID PRN PRN Reason: Constipation Methylprednisolone Sodium Succinate (Methylprednisolone Sod Succi 40 Mg/Ml 1 Ml Vial) 40 mg IV Q6H [facility] Last Admin: 09/29/21 09:36 Dose: 40 mg Documented by: Metoclopramide HCl (Metoclopramide 5 Mg/Ml 2 Ml Vial) 10 mg IVP Q6HR [facility] Last Admin: 09/29/21 06:08 Dose: 10 mg Documented by: Naloxone HCl (Naloxone 0.4 Mg/Ml 1 Ml Vial) 0.2 mg IV Q2M PRN PRN Reason: Opioid Reversal Ondansetron HCl (Ondansetron 4 Mg/2 Ml Vial) 4 mg IVP Q8HR PRN PRN Reason: Nausea And Vomiting Pantoprazole Sodium (Pantoprazole 40 Mg Tablet) 40 mg PO AC-BRKFST [facility] Last Admin: 09/29/21 06:08 Dose: 40 mg Documented by: Senna/Docusate Sodium (Sennosides-Docusate Sodium 1 Each Tab) 1 each PO BID [facility] Last Admin: 09/29/21 09:36 Dose: 1 each Documented by: Sodium Chloride (Sodium Chloride 0.9% Flush 10 Ml Syringe) 10 ml IV Q12HR [facility] Last Admin: 09/29/21 09:37 Dose: 10 ml Documented by: Sodium Chloride (Sodium Chloride 0.9% Flush 10 Ml Syringe) 10 ml IV DIRECTED PRN PRN Reason: FLUSH Physical exam: Gen: This is a 70-year-old female currently intubated and sedated with an FiO2 of 50% and PEEP is 5. HEENT: Head is atraumatic, normocephalic. Pupils equal, round. Sclerae is anicteric. NECK: Supple. No JVD. No lymphadenopathy. No thyromegaly. LUNGS: Diminished breath sounds bilaterally with some scattered rhonchi noted No intercostal retractions. HEART: Regular rate and rhythm. No murmur. ABDOMEN: Soft. Bowel sounds are present. No masses. No tenderness. EXTREMITIES: No pedal edema. No calf tenderness. NEUROLOGICAL: unable to assess completely as patient is intubated and sedated Assessment: Hypoxemic respiratory failure, continues to require mechanical ventilation, status post bronchoscopy with biopsy and awaiting pathology Acute kidney injury secondary to acute hypoxic respiratory failure, worsening Combined Respiratory and metabolic acidosis due to acute hypoxic respiratory failure Elevated troponin, secondary to acute hypoxic respiratory failure Left lower lung mass, ruling out malignancy Moderate left pleural effusion Acute exacerbation of COPD Leukocytosis Thalassemia History of vulvar and thyroid cancer cachexia, moderate protein malnutrition, BMI 15 Full code Plan: Continue following with pulmonary and nephrology following along with ID. Cardiology following as well and EF is less than 25%. Recommend dobutamine drip nephrology following for acute kidney injury, worsening and per nursing staff urine output 0-5 ML's per hour, patient currently maintained on sodium bicarb drip and per nephrology may require renal replacement therapy emergently although family is discussing possible comfort measures infectious disease following for possible necrotizing pneumonia Hematology for thalassemia, hemoglobin stable at this time Awaiting results of lung biopsy, negative for malignancy Code status address and patient is NO code, family considering comfort measures. Further recommendations to come based on patient's clinical course, overall prognosis is poor and guarded. The impression and plan of care has been dictated by Christi Sanchez, Nurse Practitioner as directed. Dr. Cecily MD I have performed a history and examination and MDM of this patient, discussed the same with the dictator, and agree with the dictator's assessment and plan as written ,documented as a scribe. Based on total visit time, I have performed more than 50% of the visit. Objective - Vital Signs Vital signs: Vital Signs Temp 97.8 F 09/29/21 08:00 Pulse 78 09/29/21 08:00 Resp 30 H 09/29/21 08:00 BP 101/64 09/29/21 08:00 Pulse Ox 93 L 09/29/21 08:00 Intake & Output 09/28/21 09/29/21 09/29/21 18:59 06:59 18:59 Intake Total 5264.784 4846.855 113 Output Total 205 20 0 Balance 3940.858 7805.855 113 Weight 49.1 kg 53.8 kg Intake: IV 1563 1246 98 0.9 210 160 20 Dextrose 5% in Water 1, 900 900 75 000 ml @ 75 mls/hr IV . [id number] ENRI[facility] with Sodium Bicarb (1 Meq/ml) 100 ml Rx#:[id number] Piperacillin-Tazobactam 3 100 150 .375 gm In Sodium Chloride 0.9% 100 ml @ 25 mls/hr IVPB Q6H [facility] Rx#: [id number] Pressure bag 353 36 3 Intake, IV Titration 100.000 47.855 Amount propofoL 1,000 mg In 100.000 47.855 Empty Bag 1 bag @ 5 MCG/ KG/MIN 1.157 mls/hr IV . Q24H EN[facility] Rx#:[id number] Tube Feeding 40 145 15 Other 60 90 Output: Urine 35 20 0 Oral Regurgitation 170 Other: Voiding Method Indwelling Catheter Indwelling Catheter ABP, PAP, CO, CI - Last Documented Arterial Blood Pressure 112/48 - Labs CBC & Chem 7: 09/29/21 03:47 09/29/21 03:47 Labs: Abnormal Lab Results - Last 24 Hours (Table) 09/27/21 09/28/21 09/28/21 Range/Units 11:30 04:00 04:00 WBC (3.8-10.6) k/uL Hgb (11.4-16.0) gm/dL Hct (34.0-46.0) % MCV (80.0-100.0) fL MCH (25.0-35.0) pg RDW (11.5-15.5) % Neutrophils # (Manual) (1.3-7.7) k/uL Lymphocytes # (Manual) (1.0-4.8) k/uL Nucleated RBCs (0-0) /100 WBC ABG pH (7.35-7.45) ABG pCO2 (35-45) mmHg ABG pO2 (83-108) mmHg ABG HCO3 (21-25) mmol/L Sodium (137-145) mmol/L Carbon Dioxide (22-30) mmol/L BUN (7-17) mg/dL Creatinine (0.52-1.04) mg/dL Glucose (74-99) mg/dL POC Glucose (mg/dL) (75-99) mg/dL Calcium (8.4-10.2) mg/dL AST (14-36) U/L ALT (4-34) U/L Alkaline Phosphatase (38-126) U/L Troponin I 0.629 H* (0.000-0.034) ng/mL Total Protein (6.3-8.2) g/dL Albumin (3.5-5.0) g/dL Procalcitonin 3.09 H (0.02-0.09) ng/mL Viral Test See Below A 09/28/21 09/28/21 09/28/21 Range/Units 11:30 17:50 21:15 WBC (3.8-10.6) k/uL Hgb (11.4-16.0) gm/dL Hct (34.0-46.0) % MCV (80.0-100.0) fL MCH (25.0-35.0) pg RDW (11.5-15.5) % Neutrophils # (Manual) (1.3-7.7) k/uL Lymphocytes # (Manual) (1.0-4.8) k/uL Nucleated RBCs (0-0) /100 WBC ABG pH (7.35-7.45) ABG pCO2 (35-45) mmHg ABG pO2 (83-108) mmHg ABG HCO3 (21-25) mmol/L Sodium (137-145) mmol/L Carbon Dioxide (22-30) mmol/L BUN (7-17) mg/dL Creatinine (0.52-1.04) mg/dL Glucose (74-99) mg/dL POC Glucose (mg/dL) 152 H 166 H 252 H (75-99) mg/dL Calcium (8.4-10.2) mg/dL AST (14-36) U/L ALT (4-34) U/L Alkaline Phosphatase (38-126) U/L Troponin I (0.000-0.034) ng/mL Total Protein (6.3-8.2) g/dL Albumin (3.5-5.0) g/dL Procalcitonin (0.02-0.09) ng/mL Viral Test 09/29/21 09/29/21 09/29/21 Range/Units 00:14 00:45 03:46 WBC (3.8-10.6) k/uL Hgb (11.4-16.0) gm/dL Hct (34.0-46.0) % MCV (80.0-100.0) fL MCH (25.0-35.0) pg RDW (11.5-15.5) % Neutrophils # (Manual) (1.3-7.7) k/uL Lymphocytes # (Manual) (1.0-4.8) k/uL Nucleated RBCs (0-0) /100 WBC ABG pH (7.35-7.45) ABG pCO2 (35-45) mmHg ABG pO2 (83-108) mmHg ABG HCO3 (21-25) mmol/L Sodium (137-145) mmol/L Carbon Dioxide (22-30) mmol/L BUN (7-17) mg/dL Creatinine (0.52-1.04) mg/dL Glucose (74-99) mg/dL POC Glucose (mg/dL) 179 H 168 H 161 H (75-99) mg/dL Calcium (8.4-10.2) mg/dL AST (14-36) U/L ALT (4-34) U/L Alkaline Phosphatase (38-126) U/L Troponin I (0.000-0.034) ng/mL Total Protein (6.3-8.2) g/dL Albumin (3.5-5.0) g/dL Procalcitonin (0.02-0.09) ng/mL Viral Test 09/29/21 09/29/21 09/29/21 Range/Units 03:47 03:47 06:04 WBC 22.2 H (3.8-10.6) k/uL Hgb 8.2 L (11.4-16.0) gm/dL Hct 26.4 L (34.0-46.0) % MCV 67.9 L (80.0-100.0) fL MCH 21.2 L (25.0-35.0) pg RDW 18.2 H (11.5-15.5) % Neutrophils # (Manual) 21.50 H (1.3-7.7) k/uL Lymphocytes # (Manual) 0.22 L (1.0-4.8) k/uL Nucleated RBCs 3 H (0-0) /100 WBC ABG pH 7.34 L (7.35-7.45) ABG pCO2 33 L (35-45) mmHg ABG pO2 81 L (83-108) mmHg ABG HCO3 18 L (21-25) mmol/L Sodium 131 L (137-145) mmol/L Carbon Dioxide 17 L (22-30) mmol/L BUN 55 H (7-17) mg/dL Creatinine 3.35 H (0.52-1.04) mg/dL Glucose 146 H (74-99) mg/dL POC Glucose (mg/dL) (75-99) mg/dL Calcium 6.7 L (8.4-10.2) mg/dL AST 1893 H (14-36) U/L ALT 1370 H (4-34) U/L Alkaline Phosphatase 162 H (38-126) U/L Troponin I (0.000-0.034) ng/mL Total Protein 5.3 L (6.3-8.2) g/dL Albumin 2.3 L (3.5-5.0) g/dL Procalcitonin (0.02-0.09) ng/mL Viral Test Microbiology - Last 24 Hours (Table) 09/27/21 11:30 Acid Fast Bacilli Smear - Final Bronchial Brushings - Left Acid Fast Bacilli Culture - Preliminary 09/25/21 11:45 Gram Stain - Preliminary Pleural Fluid Body Fluid Culture - Preliminary 09/27/21 11:30 Gram Stain - Preliminary Bronchial Brushings - Left Bronchial Washings Culture - Preliminary 09/27/21 02:42 Urine Culture - Final Urine,Voided
[2021-09-29 23:17] LABS: Glucose,Whole Blood 226 mg/dL (75-99)
[2021-09-30] MEDS: IPRATROPIUM-ALBUTEROL 3 ML NEB INHALATION SCH ×6 (00:26→19:51)
[2021-09-30] MEDS: PIPERACILLIN-TAZOBACTAM 3.375 GM in SODIUM CHLORIDE 0.9% 100 ML IVPB SCH ×4 (00:45→18:39)
[2021-09-30] MEDS: methylPREDNISolone SOD SUCCI 40 MG/ML 1 ML VIAL IV SCH ×4 (01:12→23:36)
[2021-09-30 04:33] LABS: Glucose,Whole Blood 184 mg/dL (75-99)
[2021-09-30] MEDS: INSULIN ASPART (NovoLOG) 100 UNIT/ML VIAL SQ SCH ×6 (04:35→23:36)
[2021-09-30 04:39] LABS: Anisocytosis Slight; HCT 24.3 % (34.0-46.0); HGB 7.7 gm/dL (11.4-16.0); Hypochromasia Slight; MCH 21.3 pg (25.0-35.0); MCHC 31.8 g/dL (31.0-37.0); Mean Platelet Volume 8.1; Microcytosis Marked; Platelet Count 176 k/uL (150-450); Poikilocytosis Moderate; RBC 3.63 m/uL (3.80-5.40); RDW 18.8 % (11.5-15.5); WBC 26.3 k/uL (3.8-10.6)
[2021-09-30 05:08] LABS: ABG Base Excess -4.7 mmol/L; ABG HCO3 21 mmol/L (21-25); ABG Oxygen Saturation 96.3 % (94-97); ABG PCO2 35 mmHg (35-45); ABG PH 7.38 (7.35-7.45); ABG PO2 86 mmHg (83-108); ABG TCO2 22 mmol/L (19-24); Allen Test Performed? Yes
[2021-09-30 05:11] LABS: Albumin 2.2 g/dL (3.5-5.0); Potassium 4.5 mmol/L (3.5-5.1); Total Bilirubin 1.2 mg/dL (0.2-1.3); Total Protein 5.1 g/dL (6.3-8.2)
[2021-09-30 05:21] LABS: Calcium 6.4 mg/dL (8.4-10.2)
[2021-09-30] MEDS: METOCLOPRAMIDE 5 MG/ML 2 ML VIAL IVP SCH ×3 (05:29→18:39)
[2021-09-30] MEDS: DEXTROSE 5% IN WATER 1,000 ML with SODIUM BICARB (1 MEQ/ML) 150 ML IV SCH ×4 (05:29→23:08)
[2021-09-30] MEDS ORDERED: LEVOTHYROXINE 100 MCG TAB PO SCH (06:30)
[2021-09-30] MEDS ORDERED: CALCIUM CHLORIDE 100 MG/ML 10 ML SYRINGE IVP ONE (06:43)
--- NOTE | 2021-09-30 06:44 | XR ---
EXAMINATION TYPE: XR chest 1V portable DATE OF EXAM: 09/30/2021 CLINICAL HISTORY: Difficulty breathing progress study. TECHNIQUE: Single AP portable semiupright view of the chest is obtained. COMPARISON: Chest x-ray from one day earlier and older studies FINDINGS: Stable endotracheal and orogastric tubes. Stable left-sided subclavian central venous tom ter. Osseous structures remain intact. Background cardiomegaly with mild central vascular congestion redem onstrated. Background chronic emphysematous change with persistent left basilar opacity. Patchy right basilar opacity remains present. IMPRESSION: Cardiomegaly with mild central vascular congestion and small to moderate size left pleur al effusion and associated left lower lung atelectasis and/or infiltrate redemonstrated and stable. Stable patchy right basilar atelectasis and tiny pleural effusion. No significant change from one day earlier.
[2021-09-30 07:55] LABS: Glucose,Whole Blood 198 mg/dL (75-99)
[2021-09-30] MEDS: FORMOTEROL FUMARATE 20 MCG/2 ML NEBU INHALATION SCH ×2 (08:08→19:51)
[2021-09-30] MEDS: BUDESONIDE 1 MG/2 ML NEBU INHALATION SCH ×2 (08:09→19:51)
[2021-09-30] MEDS: SENNOSIDES-DOCUSATE SODIUM 1 EACH TAB PO SCH ×2 (09:11→20:07)
[2021-09-30] MEDS: CHLORHEXIDINE GLUCONATE 15 ML CUP MUCOUS MEM SCH ×2 (09:11→20:07)
[2021-09-30] MEDS: PANTOPRAZOLE 40 MG TABLET PO SCH (09:11)
[2021-09-30] MEDS: hydrALAZINE HCL 50 MG TAB PO SCH ×4 (09:11→22:09)
[2021-09-30] MEDS: FOLIC ACID 1 MG TAB PO SCH (09:11)
--- NOTE | 2021-09-30 09:32 | P.PN ---
Subjective HISTORY OF PRESENTING ILLNESS Patient is a 70-year-old female with history of constipation, bowel obstruction with prior bowel resections, thalassemia, thyroid cancer status post thyroidectomy, vulvar cancer status post resection, prior tobacco abuse and COPD who presented with lower abdominal pain. History is supplied by chart and by family at bedside as patient is currently intubated in the ICU. Patient had workup with CT angiogram which showed no PE however large left-sided pleural effusion with suspicious infiltrating lesion of the left lung base. There initially was concern about weight loss however family denies any. Patient did have thoracentesis with no significant cancer noted. She then began to deteriorate on 09/26 with family members going back and forth regarding making patient comfort care and then full code. She apparently developed acute hypoxic respiratory failure with confusion and altered mental status and eventually underwent intubation. Initial blood work showed normal kidney function and liver enzymes however after this episode liver enzymes showing shock liver and patient was transferred to ICU. Patient eventually then underwent bronchoscopy with biopsy 09/27. There is been more concern about necrotizing pneumonia versus neoplasm. Cardiology is consulted for elevated troponin as well as new cardiomyopathy EF 20-25%. She did have prior workup in December and was seen for preoperative evaluation with echo showing preserved EF at that time. She normally denies any chest pain or pressure. She denies any significant shortness breath and normally walking without difficulty. 09/30 Hypertension seen and examined. Patient remains on dobutamine drip. Creatinine mildly increased and sodium somewhat lower. Making minimal amount of urine. Blood pressures in the 100s over 70s. Liver enzymes have come down. Apparently patient has been attempted to be weaned on sedation without much neurologic fun ction at this point. REVIEW OF SYSTEMS At the time of my exam: Unable to obtain secondary to altered mental status PHYSICAL EXAMINATION Vital signs reviewed. CONSTITUTIONAL: No apparent distress, sedated on vent HEENT: Head is normocephalic. Pupils are equal, round. Sclerae anicteric. Mucous membranes of the mouth are moist. No JVD. No carotid bruit. CHEST EXAMINATION: Lungs are clear to auscultation. No chest wall tenderness is noted on palpation or with deep breathing. HEART EXAMINATION: Regular rate and rhythm. S1, S2 heard. No murmurs, gallops or rub. ABDOMEN: Soft, nontender. Positive bowel sounds. EXTREMITIES: 2+ peripheral pulses, no lower extremity edema and no calf tenderness. NEUROLOGIC EXAMINATION: Patient is awake, alert and oriented x3. ASSESSMENT 1. New-onset cardiomyopathy, may be stress-induced cardiomyopathy versus other 2. Non-STEMI likely type II mechanism related to shock 3. Acute kidney injury, may be cardiorenal versus related to ATN from shock 4. Acute on chronic respiratory failure 5. Necrotic-appearing lung lesion concerning for infection versus malignancy 6. History of prior thyroid cancer, vulvar cancer 7. Acute liver injury consistent with shock liver 8. Left adnexal solid lesion measuring 3.5 cm PLAN Continue with dobutamine drip at this time and continue supportive care. Attempt to wean sedation and monitor for any neurologic response. Monitor kidney function and may be related to ATN which sometimes can improve however minimal urine output. Nephrology and pulmonology recommendations appreciated. Prognosis guarded. Objective - Vital Signs Vital signs: Vital Signs Temp 97.7 F 09/30/21 08:00 Pulse 93 09/30/21 08:23 Resp 24 09/30/21 08:00 BP 117/75 09/30/21 08:00 Pulse Ox 98 09/30/21 08:00 Intake & Output 09/29/21 09/30/21 09/30/21 18:59 06:59 18:59 Intake Total 7130.095 0736.053 492.696 Output Total 40 25 10 Balance 8033.070 9595.053 482.696 Weight 58 kg Intake: IV 1178 1176 294 0.9 220 240 60 Dextrose 5% in Water 1, 600 000 ml @ 75 mls/hr IV . [id number] ENRIQUE with Sodium Bicarb (1 Meq/ml) 100 ml Rx#:[id number] Dextrose 5% in Water 1, 225 900 225 000 ml @ 75 mls/hr IV . [id number] EN[facility]QUE with Sodium Bicarb (1 Meq/ml) 150 ml Rx#:[id number] Piperacillin-Tazobactam 3 100 .375 gm In Sodium Chloride 0.9% 100 ml @ 25 mls/hr IVPB Q6H [id number] Rx#: [id number] Pressure bag 33 36 9 Intake, IV Titration 14.035 75.053 63.696 Amount propofoL 1,000 mg In 14.035 75.053 63.696 Empty Bag 1 bag @ 5 MCG/ KG/MIN 1.157 mls/hr IV . Q24H [facility] Rx#:[id number] Tube Feeding 150 135 105 Other 60 30 Output: Urine 40 25 10 Other: Voiding Method Indwelling Catheter Indwelling Catheter ABP, PAP, CO, CI - Last Documented Arterial Blood Pressure 153/56 - Labs CBC & Chem 7: 09/30/21 04:30 09/30/21 04:30 Labs: Abnormal Lab Results - Last 24 Hours (Table) 09/27/21 09/29/21 09/29/21 Range/Units 11:30 13:55 17:45 WBC (3.8-10.6) k/uL RBC (3.80-5.40) m/uL Hgb (11.4-16.0) gm/dL Hct (34.0-46.0) % MCV (80.0-100.0) fL MCH (25.0-35.0) pg RDW (11.5-15.5) % Sodium (137-145) mmol/L Chloride (98-107) mmol/L Carbon Dioxide (22-30) mmol/L BUN (7-17) mg/dL Creatinine (0.52-1.04) mg/dL Glucose (74-99) mg/dL POC Glucose (mg/dL) 211 H 230 H (75-99) mg/dL Calcium (8.4-10.2) mg/dL Ionized Calcium Chanda (4.5-5.3) mg/dL AST (14-36) U/L ALT (4-34) U/L Alkaline Phosphatase (38-126) U/L Total Protein (6.3-8.2) g/dL Albumin (3.5-5.0) g/dL Viral Test See Below A 09/29/21 09/29/21 09/30/21 Range/Units 20:31 23:15 04:30 WBC 26.3 H (3.8-10.6) k/uL RBC 3.63 L (3.80-5.40) m/uL Hgb 7.7 L (11.4-16.0) gm/dL Hct 24.3 L (34.0-46.0) % MCV 67.0 L (80.0-100.0) fL MCH 21.3 L (25.0-35.0) pg RDW 18.8 H (11.5-15.5) % Sodium (137-145) mmol/L Chloride (98-107) mmol/L Carbon Dioxide (22-30) mmol/L BUN (7-17) mg/dL Creatinine (0.52-1.04) mg/dL Glucose (74-99) mg/dL POC Glucose (mg/dL) 235 H 226 H (75-99) mg/dL Calcium (8.4-10.2) mg/dL Ionized Calcium Chanda (4.5-5.3) mg/dL AST (14-36) U/L ALT (4-34) U/L Alkaline Phosphatase (38-126) U/L Total Protein (6.3-8.2) g/dL Albumin (3.5-5.0) g/dL Viral Test 09/30/21 09/30/21 09/30/21 Range/Units 04:30 04:30 05:35 WBC (3.8-10.6) k/uL RBC (3.80-5.40) m/uL Hgb (11.4-16.0) gm/dL Hct (34.0-46.0) % MCV (80.0-100.0) fL MCH (25.0-35.0) pg RDW (11.5-15.5) % Sodium 129 L (137-145) mmol/L Chloride 97 L (98-107) mmol/L Carbon Dioxide 19 L (22-30) mmol/L BUN 72 H (7-17) mg/dL Creatinine 3.76 H (0.52-1.04) mg/dL Glucose 164 H (74-99) mg/dL POC Glucose (mg/dL) 184 H (75-99) mg/dL Calcium 6.4 L* (8.4-10.2) mg/dL Ionized Calcium Chanda 3.8 L (4.5-5.3) mg/dL AST 653 H (14-36) U/L ALT 907 H (4-34) U/L Alkaline Phosphatase 144 H (38-126) U/L Total Protein 5.1 L (6.3-8.2) g/dL Albumin 2.2 L (3.5-5.0) g/dL Viral Test 09/30/21 Range/Units 07:54 WBC (3.8-10.6) k/uL RBC (3.80-5.40) m/uL Hgb (11.4-16.0) gm/dL Hct (34.0-46.0) % MCV (80.0-100.0) fL MCH (25.0-35.0) pg RDW (11.5-15.5) % Sodium (137-145) mmol/L Chloride (98-107) mmol/L Carbon Dioxide (22-30) mmol/L BUN (7-17) mg/dL Creatinine (0.52-1.04) mg/dL Glucose (74-99) mg/dL POC Glucose (mg/dL) 198 H (75-99) mg/dL Calcium (8.4-10.2) mg/dL Ionized Calcium Chanda (4.5-5.3) mg/dL AST (14-36) U/L ALT (4-34) U/L Alkaline Phosphatase (38-126) U/L Total Protein (6.3-8.2) g/dL Albumin (3.5-5.0) g/dL Viral Test Microbiology - Last 24 Hours (Table) 09/25/21 11:45 Gram Stain - Final Pleural Fluid Body Fluid Culture - Final 09/27/21 11:30 Gram Stain - Preliminary Bronchial Brushings - Left Bronchial Washings Culture - Preliminary 09/27/21 04:15 Gram Stain - Final Sputum Sputum Culture - Final
[2021-09-30] MEDS ORDERED: FUROSEMIDE 10 MG/ML 10 ML VIAL IV STA (09:48)
--- NOTE | 2021-09-30 11:01 | P.PN ---
Subjective Progress Note Date: 09/30/21 Principal diagnosis: Shortness of breath, acute hypoxic respiratory failure, lung mass, acute kidney failure This is a very pleasant 70-year-old female patient who follows with Dr. Rose is her primary care provider. She has a history of constipation with bowel obstruction and previous bowel resections, anemia, thalassemia, thyroid cancer in 2010 status post thyroidectomy, history of ovarian mass, history of vulvar cancer status post resection. She also has a history of chronic and ongoing tobacco dependence of 54 years and chronic obstructive pulmonary disease. She was admitted to the hospital yesterday with a 2 week history of significant left upper quadrant and left chest wall pain and pain with inhalation and shortness of breath on exertion. Computed tomography scan of the abdomen and pelvis revealed no evidence of acute small and large bowel obstruction. Mild acute abnormality the bowel including diverticulitis not excluded. There was a solid lesion on the left ovary measuring 3.5 cm with adjacent calcification previously noted. There is also a new right ovarian cyst measuring 2.7 cm. A new sizable left pleural effusion with adjacent consolidation/lung lesion noted. CT angiogram revealed no major central pulmonary embolism. Moderate to large left- sided pleural effusion with suspicious infiltrating lesion at the anterior aspect of the left lung base. Lung cancer versus infection. Ultrasound of the left chest reveals a 8.1 cm pocket. White count 13.7. Hemoglobin 8.2. Platelet count 618,000. Sodium 125. Potassium 4.5. Chloride 92. Bicarb 24. BUN 8. Creatinine 0.72. Glucose 108. Troponin negative 1. Amylase 60. Lipase 43. She is seen today in consultation on the regular medical floor. Currently resting fairly comfortably in bed. Still having ongoing issues with left-sided chest discomfort. Difficulty in breathing. She is maintaining good O2 saturations in the 90s on room air. She's afebrile. Hemodynamically stable. She denies any significant weight loss. She denies any hemoptysis. She is receiving Percocet and Dilaudid for pain control. Normal saline at 75 ML's per hour. the patient is seen today 09/26/2021 in follow-up in the regular medical floor. She is currently sitting up in bed. Awake and alert. She is having issues with shortness of breath, cough and congestion. Some chest tightness and wheezing. She did undergo a left-sided thoracentesis yesterday with 200 mL of cloudy yellow fluid removed. Follow-up chest x-ray showed no evidence of pneumothorax. Cultures pending, cytology pending. Fluid analysis revealed evidence of exudate with a protein of 4.2 and a LDH of 453. With a glucose of 70 not likely infection. She is maintaining good O2 saturations in the upper 90s on 2 L/m per nasal cannula. She's been afebrile. Hemodynamically stable. sodium 1:30. Potassium 5.3. BUN 9. Creatinine 0.7. Glucose 129. The patient is seen today 09/27/2021 in follow-up in the intensive care unit. Last evening her condition continued to deteriorate. At one point her family had made her a DO NOT RESUSCITATE/comfort care and then subsequently reversed their decision and made her a full code again. She developed acute hypoxemic respiratory failure and was intubated at approximately 1:45 this morning. This x-ray continues to show evidence of congestive heart failure with a left-sided diffuse pneumonia. Opacification of the left lower hemithorax improved compared to yesterday. Thoracentesis had been performed in the pleural fluid cultures are pending. Urinalysis was exudative in nature. Cytology negative for malignancy. Though still within the differential. Currently sedated and on mechanical ventilator at assist control mode with a rate of 16, tidal volume 350, FiO2 60% and a PEEP of 5. Morning blood gases revealed a PaO2 of 291, pCO2 34, pH 7.26 100% FiO2. She Is Sedated on Propofol at 30 Mcg/Kg/M. She Has Normal Saline Running at 125 MLS per Hour. She's been initiated on DuoNeb inhalations, Pulmicort and Perforomist inhalations, IV Solu-Medrol. The plan is for bronchoscopy with BAL and biopsies of the left lower lobe today. The patient is seen today 09/28/2021 in follow-up in the intensive care unit. She remains intubated and on the mechanical ventilator currently and assist- control mode with a rate of 16, tidal volume 350, FiO2 50% and a PEEP of 5. Blood gases revealed a pO2 of 110, pCO2 49, pH 7.18. She is currently on a bicarb drip with 2 A of sodium bicarb and D5W at 75 ML's per hour. Propofol 26 mcg/kg/m. Currently the tube feedings are on hold due to high residuals. She also has a distended abdomen. Chest x-ray shows lingular mass/left pleural effusion and associated atelectasis. Underlying emphysema. She is status post 1 unit of packed red blood cells this admission. Current hemoglobin 9.0. White count 28.2. Platelets 345. Sodium 133. Potassium 5.3. Bicarb 16. BUN 37. Creatinine 2.62. Glucose 235. AST 5264. ALT 1933. Alk phos 144. She is continued on DuoNeb inhalations, Pulmicort and Perforomist inhalations, IV Solu- Medrol. Antibiotics in the form of Zosyn. Bronchial wash cultures are pending. Sputum culture pending. She did undergo bronchoscopy with BAL and biopsy of the left lower lobe yesterday. Pathology is pending. Necrotizing pneumonia versus neoplasm within the differential. The patient is seen today 09/29/2021 in follow-up in the intensive care unit. She remains intubated and on mechanical ventilator. Current mode assist control with a respiratory rate of 20, tidal Lyme 350, FiO2 50% and a PEEP of 5. Morning blood gases revealed a P O2 of 81, pCO2 of 33 and a pH of 7.34. This w as done on 40% FiO2. At a pressure of 20. Peak airway pressure 15. She remains on a bicarb drip with D5W and labs of bicarb at 75 ML's per hour. On propofol at 20 mcg/kg/m. Being nourished with vital AF at 15 ML's per hour which is her goal. Chest x-ray reveals cardiomegaly with small to moderate left-sided pleural effusion and associated left lower lung atelectasis/infiltrate. Slightly more prominent right medial basilar acute infiltrate noted as well. White count 22.2. Hemoglobin 8.2. Platelets 242. Sodium 131. Potassium 4.8. Bicarb 17. BUN 55. Creatinine 3.35. Glucose 146. AST 1893. ALT 1370. Troponin 0.629. Minimal urine output. Only 20 ML's so far today. Biopsies, brushings and wash of the left lower lobe were negative for malignancy. She is continued on bronchodilators, IV Solu-Medrol, antibiotics in the form of Zosyn. Echocardiogram revealed severely impaired left ventricular systolic function with ejection fraction 20-25% and global hypokinesia. Dobutamine drip recommended per cardiology. On 09/30/2021 patient seen in follow-up in the intensive care unit, she remains sedated, and intubated on assist control mode of ventilation with a rate of 20, tidal Lyme's 350, FiO2 of 40% and PEEP of 5. This might blood gases showed pO2 of 86, pCO2 35 and pH of 7.38 and this was done on the above-mentioned ventilator settings, today's chest x-ray shows cardiomegaly with mild central vascular congestion and small to moderate-sized left pleural effusion and associated left lower lung atelectasis, stable patchy right basilar atelectasis and tiny pleural effusion. No significant change compared to the day earlier. Patient is on Diprivan at 15 mics per kilo per minute, D5W with 3 A of bicarbonate at a rate of 75 ML per hour, dobutamine drip at 5 mics per kilo per minute, 0.9 normal seen at a 20 mile per hour, vital high protein at a 15 with a goal of 15 and standard water flushes. Yesterday patient's CODE STATUS has been reversed to full code. This was done according to the family wishes. Patient was given a sedation holiday yesterday, she remained poorly responsive, however became tachypneic and tachycardic, and started desaturating and she was placed back on sedation. This morning she is on minimal amount of sedation, she attempts to open her eyes to tactile stimulation, but does not follow any command. She remains on Zosyn for empiric antibiotic coverage, so far pleural fluid, urine, sputum, and BAL cultures have shown no growth. Patient has been afebrile. Today's labs have been reviewed, white blood cell count is 26.3 and increased from 22.2 the day earlier, hemoglobin is 7.7, platelet count is 176, sodium is 129, potassium is 4.5, chloride is 97, CO2 is 19, creatinine continues to worsen, BUN is up to 72 and creatinine is 3.76, LFTs are improving and AST is down to 653, ALT is 907, alk phos is 144. Pro-calcitonin level came back elevated at 3.09, urinalysis suggested presence of urinary tract infection. She is status post bronchoscopy with biopsies of the left lower lobe, and biopsies were nondiagnostic of neoplasm. Cytology of the left pleural fluid was also negative for cytologically malignant cells. Patient's creatinine has continuously worsened, the last 24 hours patient has only produced 25 mL of urine, patient has developed significant swelling of the torso, abdomen, lower extremities, according to the recorded weight she is up by almost 20 kg since admission. Nephrology is on the case and patient was challenged with Lasix 80 mg yesterday however has not responded. In addition patient's level of consciousness has been difficult to assess in view of intolerance to sedation holiday, however even on light sedation patient's level of consciousness is poorly responsive. Because of her reversed CODE STATUS, we will go ahead and proceed with CT of the brain without contrast. Objective - Vital Signs Vital signs: Vital Signs Temp 97.7 F 09/30/21 08:00 Pulse 93 09/30/21 09:26 Resp 18 09/30/21 09:00 BP 124/73 09/30/21 09:00 Pulse Ox 99 09/30/21 09:00 Intake & Output 09/29/21 09/30/21 09/30/21 18:59 06:59 18:59 Intake Total 9043.008 2933.053 498.074 Output Total 40 25 10 Balance 2236.806 8833.053 488.074 Weight 58 kg Intake: IV 1178 1176 294 0.9 220 240 60 Dextrose 5% in Water 1, 600 000 ml @ 75 mls/hr IV . [id number] ENRIQUE with Sodium Bicarb (1 Meq/ml) 100 ml Rx#:[id number] Dextrose 5% in Water 1, 225 900 225 000 ml @ 75 mls/hr IV . [id number] ENRIQUE with Sodium Bicarb (1 Meq/ml) 150 ml Rx#:[id number] Piperacillin-Tazobactam 3 100 .375 gm In Sodium Chloride 0.9% 100 ml @ 25 mls/hr IVPB Q6H ENRIQUE Rx#: [id number] Pressure bag 33 36 9 Intake, IV Titration 14.035 75.053 69.074 Amount propofoL 1,000 mg In 14.035 75.053 69.074 Empty Bag 1 bag @ 5 MCG/ KG/MIN 1.157 mls/hr IV . Q24H ENRIQUE Rx#:[id number] Tube Feeding 150 135 105 Other 60 30 Output: Urine 40 25 10 Other: Voiding Method Indwelling Catheter Indwelling Catheter ABP, PAP, CO, CI - Last Documented Arterial Blood Pressure 99/69 - Exam GENERAL EXAM: Sedated, poorly responsive, 70-year-old frail looking chronically ill looking white female on assist-control mode of ventilation with a rate of 20, tidal vital 350, FiO2 of 40% and PEEP of 5, on Diprivan at 15 mics per kilo per minute comfortable in no apparent distress. HEAD: Normocephalic/atraumatic. EYES: Normal reaction of pupils, equal size. Conjunctiva pink, sclera white. NOSE: Clear with pink turbinates. THROAT: No erythema or exudates. NECK: No masses, no JVD, no thyroid enlargement, no adenopathy. CHEST: No chest wall deformity. Symmetrical expansion. LUNGS: Equal air entry with no crackles, wheeze, rhonchi or dullness. CVS: Regular rate and rhythm, normal S1 and S2, no gallops, no murmurs, no rubs ABDOMEN: Soft, nontender. No hepatosplenomegaly, normal bowel sounds, no guarding or rigidity. EXTREMITIES: No clubbing, tight edema involving torso, abdomen, and lower extremities no cyanosis, 2+ pulses and upper and lower extremities. MUSCULOSKELETAL: Muscle strength and tone normal. SPINE: No scoliosis or deformity SKIN: No rashes CENTRAL NERVOUS SYSTEM: Sedated, intubated No focal deficits, tone is normal in all 4 extremities. - Labs CBC & Chem 7: 09/30/21 04:30 09/30/21 04:30 Labs: Abnormal Lab Results - Last 24 Hours (Table) 09/27/21 09/29/21 09/29/21 Range/Units 11:30 13:55 17:45 WBC (3.8-10.6) k/uL RBC (3.80-5.40) m/uL Hgb (11.4-16.0) gm/dL Hct (34.0-46.0) % MCV (80.0-100.0) fL MCH (25.0-35.0) pg RDW (11.5-15.5) % Sodium (137-145) mmol/L Chloride (98-107) mmol/L Carbon Dioxide (22-30) mmol/L BUN (7-17) mg/dL Creatinine (0.52-1.04) mg/dL Glucose (74-99) mg/dL POC Glucose (mg/dL) 211 H 230 H (75-99) mg/dL Calcium (8.4-10.2) mg/dL Ionized Calcium Chanda (4.5-5.3) mg/dL AST (14-36) U/L ALT (4-34) U/L Alkaline Phosphatase (38-126) U/L Total Protein (6.3-8.2) g/dL Albumin (3.5-5.0) g/dL Viral Test See Below A 09/29/21 09/29/21 09/30/21 Range/Units 20:31 23:15 04:30 WBC 26.3 H (3.8-10.6) k/uL RBC 3.63 L (3.80-5.40) m/uL Hgb 7.7 L (11.4-16.0) gm/dL Hct 24.3 L (34.0-46.0) % MCV 67.0 L (80.0-100.0) fL MCH 21.3 L (25.0-35.0) pg RDW 18.8 H (11.5-15.5) % Sodium (137-145) mmol/L Chloride (98-107) mmol/L Carbon Dioxide (22-30) mmol/L BUN (7-17) mg/dL Creatinine (0.52-1.04) mg/dL Glucose (74-99) mg/dL POC Glucose (mg/dL) 235 H 226 H (75-99) mg/dL Calcium (8.4-10.2) mg/dL Ionized Calcium Chanda (4.5-5.3) mg/dL AST (14-36) U/L ALT (4-34) U/L Alkaline Phosphatase (38-126) U/L Total Protein (6.3-8.2) g/dL Albumin (3.5-5.0) g/dL Viral Test 09/30/21 09/30/21 09/30/21 Range/Units 04:30 04:30 05:35 WBC (3.8-10.6) k/uL RBC (3.80-5.40) m/uL Hgb (11.4-16.0) gm/dL Hct (34.0-46.0) % MCV (80.0-100.0) fL MCH (25.0-35.0) pg RDW (11.5-15.5) % Sodium 129 L (137-145) mmol/L Chloride 97 L (98-107) mmol/L Carbon Dioxide 19 L (22-30) mmol/L BUN 72 H (7-17) mg/dL Creatinine 3.76 H (0.52-1.04) mg/dL Glucose 164 H (74-99) mg/dL POC Glucose (mg/dL) 184 H (75-99) mg/dL Calcium 6.4 L* (8.4-10.2) mg/dL Ionized Calcium Chanda 3.8 L (4.5-5.3) mg/dL AST 653 H (14-36) U/L ALT 907 H (4-34) U/L Alkaline Phosphatase 144 H (38-126) U/L Total Protein 5.1 L (6.3-8.2) g/dL Albumin 2.2 L (3.5-5.0) g/dL Viral Test 09/30/21 Range/Units 07:54 WBC (3.8-10.6) k/uL RBC (3.80-5.40) m/uL Hgb (11.4-16.0) gm/dL Hct (34.0-46.0) % MCV (80.0-100.0) fL MCH (25.0-35.0) pg RDW (11.5-15.5) % Sodium (137-145) mmol/L Chloride (98-107) mmol/L Carbon Dioxide (22-30) mmol/L BUN (7-17) mg/dL Creatinine (0.52-1.04) mg/dL Glucose (74-99) mg/dL POC Glucose (mg/dL) 198 H (75-99) mg/dL Calcium (8.4-10.2) mg/dL Ionized Calcium Chanda (4.5-5.3) mg/dL AST (14-36) U/L ALT (4-34) U/L Alkaline Phosphatase (38-126) U/L Total Protein (6.3-8.2) g/dL Albumin (3.5-5.0) g/dL Viral Test Microbiology - Last 24 Hours (Table) 09/27/21 11:30 Gram Stain - Final Bronchial Brushings - Left Bronchial Washings Culture - Final 09/25/21 11:45 Gram Stain - Final Pleural Fluid Body Fluid Culture - Final 09/27/21 04:15 Gram Stain - Final Sputum Sputum Culture - Final Assessment and Plan Plan: Assessment: #1. Acute hypoxic respiratory failure secondary to a large left-sided pleural effusion, possible necrotizing pneumonia versus malignancy. Patient is status post bronchoscopy with BAL and biopsies of the left lower lobe on 09/27/2021, and left thoracentesis with exudative pleural fluid, all biopsies and pleural fluid were negative for malignancy. #2. Suspect acute exacerbation of systolic CHF with EF of 20-25% with severe global hypokinesia #3. Acute non-ST elevated myocardial infarction #4. Acute kidney failure #5. Altered mental status #6. Acute shock liver secondary to the above #7. Leukocytosis, elevated pro calcitonin level, rule out sepsis #8. Left adnexal solid lesion measuring 3.5 cm with adjacent calcification and a new right ovarian cyst measuring 2.7 cm #9. History of vulvar cancer with previous resection in November 2020 #10. History of thyroid cancer status post thyroidectomy 2009 #11. History of bowel obstruction with previous resection #12. History of thalassemia #13. Chronic and ongoing tobacco dependence of 54 years #14. Chronic obstructive pulmonary disease with acute exacerbation #15. Osteoporosis #15. Cachexia with body mass index of 15.1 kg/m Plan: Continue current ventilator settings This chest x-ray and labs and blood gases have been reviewed Patient failed a sedation holiday Her mentation remains altered on minimal amount of sedation We will obtain a brain CT without contrast She has not responded to Lasix challenge She is quite fluid overloaded We'll defer to nephrology and the decision to insert a hemodialysis catheter and initiate hemodialysis Continue antibiotics Continue breathing treatments GI and DVT prophylaxis Overall prognosis is extremely poor and guarded I have personally seen and examined the patient, performed the documentation and the assessment and plan as written. Number of minutes spent on the visit: [15] Time with Patient: Greater than 30
--- NOTE | 2021-09-30 11:21 | P.PN ---
Subjective Patient is seen for follow-up for acute kidney injury, ATN, oliguric with worsening renal function. Patient remains on the vent. Echocardiogram shows ejection fraction 20-25%. Liver enzymes remain elevated but decreasing. Patient was started on dobutamine drip yesterday No significant urine output. About 30 mL for last 8 hours. Next Sedation was turned off and there was no significant improvement in mentation. There are plans for possible CT of the head later on today Objective - Vital Signs Vital signs: Vital Signs Temp 97.7 F 09/30/21 08:00 Pulse 105 H 09/30/21 11:00 Resp 27 H 09/30/21 11:00 BP 129/80 09/30/21 11:00 Pulse Ox 97 09/30/21 11:00 Intake & Output 09/29/21 09/30/21 09/30/21 18:59 06:59 18:59 Intake Total 1944.502 4012.053 694.074 Output Total 40 25 25 Balance 7263.300 3035.053 669.074 Weight 58 kg Intake: IV 1178 1176 490 0.9 220 240 100 Dextrose 5% in Water 1, 600 000 ml @ 75 mls/hr IV . [id number] ENRIQUE with Sodium Bicarb (1 Meq/ml) 100 ml Rx#:[id number] Dextrose 5% in Water 1, 225 900 375 000 ml @ 75 mls/hr IV . [id number] ENRIQUE with Sodium Bicarb (1 Meq/ml) 150 ml Rx#:[id number] Piperacillin-Tazobactam 3 100 .375 gm In Sodium Chloride 0.9% 100 ml @ 25 mls/hr IVPB Q6H ENRIQUE Rx#: [id number] Pressure bag 33 36 15 Intake, IV Titration 14.035 75.053 69.074 Amount propofoL 1,000 mg In 14.035 75.053 69.074 Empty Bag 1 bag @ 5 MCG/ KG/MIN 1.157 mls/hr IV . Q24H ENRIQUE Rx#:[id number] Tube Feeding 150 135 105 Other 60 30 Output: Urine 40 25 25 Other: Voiding Method Indwelling Catheter Indwelling Catheter ABP, PAP, CO, CI - Last Documented Arterial Blood Pressure 97/75 - Exam Patient is on the vent. Unresponsive, off of sedation Examination of the heart S1 and S2 Examination lungs bilateral breath sounds are heard Abdomen is soft nontender Examination lower extremities shows edema 1+ bilaterally SENIOR CLINICIAN exam could not be performed - Labs CBC & Chem 7: 09/30/21 04:30 09/30/21 04:30 Labs: Abnormal Lab Results - Last 24 Hours (Table) 09/29/21 09/29/21 09/29/21 Range/Units 13:55 17:45 20:31 WBC (3.8-10.6) k/uL RBC (3.80-5.40) m/uL Hgb (11.4-16.0) gm/dL Hct (34.0-46.0) % MCV (80.0-100.0) fL MCH (25.0-35.0) pg RDW (11.5-15.5) % Sodium (137-145) mmol/L Chloride (98-107) mmol/L Carbon Dioxide (22-30) mmol/L BUN (7-17) mg/dL Creatinine (0.52-1.04) mg/dL Glucose (74-99) mg/dL POC Glucose (mg/dL) 211 H 230 H 235 H (75-99) mg/dL Calcium (8.4-10.2) mg/dL Ionized Calcium Chanda (4.5-5.3) mg/dL AST (14-36) U/L ALT (4-34) U/L Alkaline Phosphatase (38-126) U/L Total Protein (6.3-8.2) g/dL Albumin (3.5-5.0) g/dL 09/29/21 09/30/21 09/30/21 Range/Units 23:15 04:30 04:30 WBC 26.3 H (3.8-10.6) k/uL RBC 3.63 L (3.80-5.40) m/uL Hgb 7.7 L (11.4-16.0) gm/dL Hct 24.3 L (34.0-46.0) % MCV 67.0 L (80.0-100.0) fL MCH 21.3 L (25.0-35.0) pg RDW 18.8 H (11.5-15.5) % Sodium 129 L (137-145) mmol/L Chloride 97 L (98-107) mmol/L Carbon Dioxide 19 L (22-30) mmol/L BUN 72 H (7-17) mg/dL Creatinine 3.76 H (0.52-1.04) mg/dL Glucose 164 H (74-99) mg/dL POC Glucose (mg/dL) 226 H (75-99) mg/dL Calcium 6.4 L* (8.4-10.2) mg/dL Ionized Calcium Chanda (4.5-5.3) mg/dL AST 653 H (14-36) U/L ALT 907 H (4-34) U/L Alkaline Phosphatase 144 H (38-126) U/L Total Protein 5.1 L (6.3-8.2) g/dL Albumin 2.2 L (3.5-5.0) g/dL 09/30/21 09/30/21 09/30/21 Range/Units 04:30 05:35 07:54 WBC (3.8-10.6) k/uL RBC (3.80-5.40) m/uL Hgb (11.4-16.0) gm/dL Hct (34.0-46.0) % MCV (80.0-100.0) fL MCH (25.0-35.0) pg RDW (11.5-15.5) % Sodium (137-145) mmol/L Chloride (98-107) mmol/L Carbon Dioxide (22-30) mmol/L BUN (7-17) mg/dL Creatinine (0.52-1.04) mg/dL Glucose (74-99) mg/dL POC Glucose (mg/dL) 184 H 198 H (75-99) mg/dL Calcium (8.4-10.2) mg/dL Ionized Calcium Chanda 3.8 L (4.5-5.3) mg/dL AST (14-36) U/L ALT (4-34) U/L Alkaline Phosphatase (38-126) U/L Total Protein (6.3-8.2) g/dL Albumin (3.5-5.0) g/dL Microbiology - Last 24 Hours (Table) 09/27/21 11:30 Gram Stain - Final Bronchial Brushings - Left Bronchial Washings Culture - Final 09/25/21 11:45 Gram Stain - Final Pleural Fluid Body Fluid Culture - Final 09/27/21 04:15 Gram Stain - Final Sputum Sputum Culture - Final Assessment and Plan Assessment: 1. JASBIR, ATN, oliguric secondary to hemodynamic factors and contrast nephrpathy. No nephrotoxic agents on board. BP currently not low. No obstruction on CT abdomen. No response to IV Lasix 2. Acute hypoxic respiratoy failure, on the vent. Fio2 50% 3. Shock liver 4. Left adnexal mass 5. Left pleural effusion, empyema on antibiotics 7. H/o thyroid and vulval cancer 8. Metabolic acidosis secondary to JASBIR 9. Severe cardiomyopathy EF 20-25%, started on dobutamine yesterday. Plan: Try Lasix again today Patient is in positive fluid balance of about 15 L. If there continues to be no significant improvement in urine output patient will need to be dialyzed in the next 24-48 hours
--- NOTE | 2021-09-30 12:20 | P.PN ---
Subjective Progress Note Date: 09/30/21 Patient is a very pleasant 70-year-old female came to the emergency room for abdominal discomfort and shortness of breath. Patient has a extensive medical history that includes COPD, GERD, osteoarthritis, bilateral vulva cancer, thyroid cancer, thalassemia, colitis, degenerative disc disease, kidney stones. Patient recently had PET scan that showed lung and ovarian mass that was being followed outpatient. Oncology and pulmonary were consulted for evaluation of left lung mass and pleural effusion. Patient is to undergo drainage of pleural effusion to test for malignancy. Hospitalist coverage 09/24/2021 09/25/2021 Patient seen and examined at bedside. Patient reports continued left side pain and difficulty breathing. Reports pain with inspiration. Patient denies chest pain, fever, palpitations. Patient states she dislikes the food and has admitted eating, ensure was added to increase oral intake. Awaiting cytology results. 09/26/2021 Patient was seen and examined at bedside. Patient reports increasing dyspnea and wheezing. Patient continues to have pain with inspiration but denies chest pain, palpitations, productive cough. Patient is experiencing increased anxiety, discussed length of time for results to come back. Ordered a repeat chest x-ray to assess cause of increasing dyspnea. We'll follow along with pulmonology recommendations of IV steroids and bronchodilator treatments. 09/27/2021 Patient was seen and examined in the ICU. Patient is sedated on ventilator. Family had changed their minds about comfort care after discussing cytology results and wanted to make her a full code again even though the prognosis is poor. She was then transferred to the ICU early this AM and intubated. Patient is to go for bronchoscopy today with Dr. Stallworth for biopsy. 09/28/2021 Patient was seen and examined at bedside. Patient continues to require mechanical ventilation. Patient has elevated troponin, elevated liver enzymes, increasing BUN and creatinine, new inverted T-wave, little urine output and abdominal distention. White blood cell count remains elevated at 28.2, in fectious disease consulted for possible pneumonia. Hemoglobin stable at 9.0. Awaiting for results from lung biopsy. 09/29/2021 This is a patient of Dr. Rose's that we are currently covering for will continues to be in the ICU and is maintained on mechanical ventilation with an FiO2 of 50% and PEEP is 5. Multiple medical consultations including oncology and pulmonary pipe organ mechanic following closely. Kidney functions continue to worsen and nephrology following closely discussing possible renal replacement therapy although per nursing report family is to further discuss possible comfort measures. Overall prognosis is extremely poor and guarded. She is not making any urine and patient is now maintained on sodium bicarb drip. Chest x- ray shows cardiomegaly with small to moderate pleural effusion of the left associated with left lower lung atelectasis and/or infiltrate all redemonstrated and stable slightly more prominent right medial basilar acute infiltrate and/or atelectasis from one day previous. Patient is also continued on IV Zosyn and will continue. ID is following. 09/30/2021 Patient is seen in follow-up this morning continues to be closely monitored in the ICU remains on mechanical ventilation with an FiO2 of 40% and PEEP is 5. Patient continues on dobutamine along with IV Zosyn, sodium bicarb drip and will continue. Lengthy discussion was had with the family about comfort measures and were agreeable and cardiology recommending dobutamine drip which was started and is being closely monitored. Kidney functions continue to increase with minimal amounts of urine. Attempts at weaning sedation being conducted although unsuccessful and CT of the brain ordered to assess neurological status. Chest x-ray today shows cardiomegaly with mild central vascular congestion and small to moderate sized left pleural effusion and associated left lower lung atelectasis and/or infiltrate redemonstrated and stable with stable patchy right basilar atelectasis and tiny pleural effusions with no significant change from previous. Nephrology following closely and patient will be given a dose of Lasix today with discussion of possible dialysis within the next 24-48 hours if no response. Prognosis is extremely guarded. WBC is elevated as well at 26.3. Hemoglobin is 7.7. Creatinine is 3.76 today with a BUN of 72. Blood sugars elevated and will continue sliding scale and monitor closely. review of system: Unable to obtain as patient is currently on mechanical vent and intubated and sedated Active Medications Albuterol/Ipratropium (Ipratropium-Albuterol 3 Ml Neb) 3 ml INHALATION RT-Q4H [facility] Last Admin: 09/30/21 11:39 Dose: 3 ml Documented by: Budesonide (Budesonide 1 Mg/2 Ml Nebu) 1 mg INHALATION RT-BID [facility] Last Admin: 09/30/21 08:09 Dose: 1 mg Documented by: Chlorhexidine Gluconate (Chlorhexidine Gluconate 15 Ml Cup) 15 ml MUCOUS MEM BID [facility] Last Admin: 09/30/21 09:11 Dose: 15 ml Documented by: Enoxaparin Sodium (Enoxaparin 30 Mg/0.3 Ml Syringe) 30 mg SQ DAILY [facility] Folic Acid (Folic Acid 1 Mg Tab) 1 mg PO DAILY [facility] Last Admin: 09/30/21 09:11 Dose: 1 mg Documented by: Formoterol Fumarate (Formoterol Fumarate 20 Mcg/2 Ml Nebu) 20 mcg INHALATION RT-BID [facility] Last Admin: 09/30/21 08:08 Dose: 20 mcg Documented by: Hydralazine HCl (Hydralazine Hcl 50 Mg Tab) 50 mg PO QID [facility] Last Admin: 09/30/21 09:11 Dose: 50 mg Documented by: Hydromorphone HCl (Hydromorphone 0.5 Mg/0.5 Ml Syringe) 0.5 mg IVP Q3HR PRN PRN Reason: Moderate Pain WHEN IV Last Admin: 09/27/21 22:06 Dose: 0.5 mg Documented by: Hydromorphone HCl (Hydromorphone 1 Mg/Ml 1 Ml Syringe) 1 mg IVP Q2HR PRN PRN Reason: Severe Pain Last Admin: 09/26/21 22:13 Dose: 1 mg Documented by: Piperacillin Sod/Tazobactam (Sod 3.375 gm/ Sodium Chloride) 100 mls @ 25 mls/hr IVPB Q6H [facility]; Protocol Last Admin: 09/30/21 06:44 Dose: 25 mls/hr Documented by: Propofol 1,000 mg/ IV Solution 100 mls @ 1.157 mls/hr IV .Q24H [facility]; Protocol Last Titration: 09/30/21 09:56 Dose: 0 mcg/kg/min, 0 mls/hr Documented by: Sodium Bicarbonate 150 ml/ (Dextrose/Water) 1,150 mls @ 75 mls/hr IV .[id number] [facility] Last Admin: 09/30/21 06:45 Dose: 75 mls/hr Documented by: Dobutamine HCl/Dextrose 500 mg (/ IV Solution) 250 mls @ 8.07 mls/hr IV .Q24H [facility] Last Admin: 09/29/21 14:17 Dose: 5 mcg/kg/min, 8.07 mls/hr Documented by: Insulin Aspart (Insulin Aspart (Novolog) 100 Unit/Ml Vial) 0 unit SQ Q4HR [facility]; Protocol Last Admin: 09/30/21 08:31 Dose: 3 unit Documented by: Levothyroxine Sodium (Levothyroxine 50 Mcg Tab) 50 mcg PO [id number] [facility] Last Admin: 09/29/21 06:08 Dose: 50 mcg Documented by: Levothyroxine Sodium (Levothyroxine 100 Mcg Tab) 100 mcg PO [email or web address] [facility] Last Admin: 09/30/21 05:29 Dose: 100 mcg Documented by: Magnesium Hydroxide (Magnesium Hydroxide 2,400 Mg/10 Ml Cup) 2,400 mg PO BID PRN PRN Reason: Constipation Methylprednisolone Sodium Succinate (Methylprednisolone Sod Succi 40 Mg/Ml 1 Ml Vial) 40 mg IV Q6H [facility] Last Admin: 09/30/21 09:53 Dose: 40 mg Documented by: Metoclopramide HCl (Metoclopramide 5 Mg/Ml 2 Ml Vial) 10 mg IVP Q6HR [facility] Last Admin: 09/30/21 05:29 Dose: 10 mg Documented by: Naloxone HCl (Naloxone 0.4 Mg/Ml 1 Ml Vial) 0.2 mg IV Q2M PRN PRN Reason: Opioid Reversal Pantoprazole Sodium (Pantoprazole 40 Mg/10 Ml Vial) 40 mg IVP DAILY [facility] Senna/Docusate Sodium (Sennosides-Docusate Sodium 1 Each Tab) 1 each PO BID [facility] Last Admin: 09/30/21 09:11 Dose: 1 each Documented by: Sodium Chloride (Sodium Chloride 0.9% Flush 10 Ml Syringe) 10 ml IV Q12HR [facility] Last Admin: 09/30/21 09:13 Dose: 10 ml Documented by: Sodium Chloride (Sodium Chloride 0.9% Flush 10 Ml Syringe) 10 ml IV DIRECTED PRN PRN Reason: FLUSH Physical exam: Gen: This is a 70-year-old female currently intubated and sedated with an FiO2 of 50% and PEEP is 5. HEENT: Head is atraumatic, normocephalic. Pupils equal, round. Sclerae is anicteric. NECK: Supple. No JVD. No lymphadenopathy. No thyromegaly. LUNGS: Diminished breath sounds bilaterally with some scattered rhonchi noted No intercostal retractions. HEART: Regular rate and rhythm. No murmur. ABDOMEN: Soft. Bowel sounds are present. No masses. No tenderness. EXTREMITIES: No pedal edema. No calf tenderness. NEUROLOGICAL: unable to assess completely as patient is intubated and sedated Assessment: Hypoxemic respiratory failure, continues to require mechanical ventilation, status post bronchoscopy with biopsy Acute kidney injury secondary to acute hypoxic respiratory failure, worsening, discussion of possible hemodialysis in the next 24-48 hours Combined Respiratory and metabolic acidosis due to acute hypoxic respiratory failure Elevated troponin, secondary to acute hypoxic respiratory failure Left lower lung mass, ruling out malignancy Moderate left pleural effusion Acute exacerbation of COPD Leukocytosis Thalassemia History of vulvar and thyroid cancer cachexia, moderate protein malnutrition, BMI 15 NO code Plan: Continue following with pulmonary and nephrology following along with ID. Cardiology following as well and EF is less than 25%. dobutamine drip continued with no real improvement. nephrology following for acute kidney injury, worsening and per nursing staff urine output 0-5 ML's per hour, patient currently maintained on sodium bicarb drip and per nephrology may require renal replacement therapy emergently although family is discussing possible comfort measures infectious disease following for possible necrotizing pneumonia Hematology for thalassemia, hemoglobin stable at this time Awaiting results of lung biopsy, negative for malignancy Code status addressed and patient is NO code, family considering comfort measures. Further recommendations to come based on patient's clinical course, overall prognosis is poor and guarded. The impression and plan of care has been dictated by Christi Sanchez, Nurse Practitioner as directed. Dr. Cecily MD I have performed a history and examination and MDM of this patient, discussed the same with the dictator, and agree with the dictator's assessment and plan as written ,documented as a scribe. Based on total visit time, I have performed more than 50% of the visit. Objective - Vital Signs Vital signs: Vital Signs Temp 97.7 F 09/30/21 08:00 Pulse 93 09/30/21 08:23 Resp 24 09/30/21 08:00 BP 117/75 09/30/21 08:00 Pulse Ox 98 09/30/21 08:00 Intake & Output 09/29/21 09/30/21 09/30/21 18:59 06:59 18:59 Intake Total 5060.925 3171.053 379.696 Output Total 40 25 10 Balance 3353.284 5759.053 369.696 Weight 58 kg Intake: IV 1178 1176 196 0.9 220 240 40 Dextrose 5% in Water 1, 600 000 ml @ 75 mls/hr IV . [id number] ENRI[facility] with Sodium Bicarb (1 Meq/ml) 100 ml Rx#:[id number] Dextrose 5% in Water 1, 225 900 150 000 ml @ 75 mls/hr IV . [id number] ENRIQUE with Sodium Bicarb (1 Meq/ml) 150 ml Rx#:[id number] Piperacillin-Tazobactam 3 100 .375 gm In Sodium Chloride 0.9% 100 ml @ 25 mls/hr IVPB Q6H [facility] Rx#: [id number] Pressure bag 33 36 6 Intake, IV Titration 14.035 75.053 63.696 Amount propofoL 1,000 mg In 14.035 75.053 63.696 Empty Bag 1 bag @ 5 MCG/ KG/MIN 1.157 mls/hr IV . Q24H [facility] Rx#:[id number] Tube Feeding 150 135 90 Other 60 30 Output: Urine 40 25 10 Other: Voiding Method Indwelling Catheter Indwelling Catheter ABP, PAP, CO, CI - Last Documented Arterial Blood Pressure 153/56 - Labs CBC & Chem 7: 09/30/21 04:30 09/30/21 04:30 Labs: Abnormal Lab Results - Last 24 Hours (Table) 09/27/21 09/29/21 09/29/21 Range/Units 11:30 13:55 17:45 WBC (3.8-10.6) k/uL RBC (3.80-5.40) m/uL Hgb (11.4-16.0) gm/dL Hct (34.0-46.0) % MCV (80.0-100.0) fL MCH (25.0-35.0) pg RDW (11.5-15.5) % Sodium (137-145) mmol/L Chloride (98-107) mmol/L Carbon Dioxide (22-30) mmol/L BUN (7-17) mg/dL Creatinine (0.52-1.04) mg/dL Glucose (74-99) mg/dL POC Glucose (mg/dL) 211 H 230 H (75-99) mg/dL Calcium (8.4-10.2) mg/dL Ionized Calcium Chanda (4.5-5.3) mg/dL AST (14-36) U/L ALT (4-34) U/L Alkaline Phosphatase (38-126) U/L Total Protein (6.3-8.2) g/dL Albumin (3.5-5.0) g/dL Viral Test See Below A 09/29/21 09/29/21 09/30/21 Range/Units 20:31 23:15 04:30 WBC 26.3 H (3.8-10.6) k/uL RBC 3.63 L (3.80-5.40) m/uL Hgb 7.7 L (11.4-16.0) gm/dL Hct 24.3 L (34.0-46.0) % MCV 67.0 L (80.0-100.0) fL MCH 21.3 L (25.0-35.0) pg RDW 18.8 H (11.5-15.5) % Sodium (137-145) mmol/L Chloride (98-107) mmol/L Carbon Dioxide (22-30) mmol/L BUN (7-17) mg/dL Creatinine (0.52-1.04) mg/dL Glucose (74-99) mg/dL POC Glucose (mg/dL) 235 H 226 H (75-99) mg/dL Calcium (8.4-10.2) mg/dL Ionized Calcium Chanda (4.5-5.3) mg/dL AST (14-36) U/L ALT (4-34) U/L Alkaline Phosphatase (38-126) U/L Total Protein (6.3-8.2) g/dL Albumin (3.5-5.0) g/dL Viral Test 09/30/21 09/30/21 09/30/21 Range/Units 04:30 04:30 05:35 WBC (3.8-10.6) k/uL RBC (3.80-5.40) m/uL Hgb (11.4-16.0) gm/dL Hct (34.0-46.0) % MCV (80.0-100.0) fL MCH (25.0-35.0) pg RDW (11.5-15.5) % Sodium 129 L (137-145) mmol/L Chloride 97 L (98-107) mmol/L Carbon Dioxide 19 L (22-30) mmol/L BUN 72 H (7-17) mg/dL Creatinine 3.76 H (0.52-1.04) mg/dL Glucose 164 H (74-99) mg/dL POC Glucose (mg/dL) 184 H (75-99) mg/dL Calcium 6.4 L* (8.4-10.2) mg/dL Ionized Calcium Chanda 3.8 L (4.5-5.3) mg/dL AST 653 H (14-36) U/L ALT 907 H (4-34) U/L Alkaline Phosphatase 144 H (38-126) U/L Total Protein 5.1 L (6.3-8.2) g/dL Albumin 2.2 L (3.5-5.0) g/dL Viral Test 09/30/21 Range/Units 07:54 WBC (3.8-10.6) k/uL RBC (3.80-5.40) m/uL Hgb (11.4-16.0) gm/dL Hct (34.0-46.0) % MCV (80.0-100.0) fL MCH (25.0-35.0) pg RDW (11.5-15.5) % Sodium (137-145) mmol/L Chloride (98-107) mmol/L Carbon Dioxide (22-30) mmol/L BUN (7-17) mg/dL Creatinine (0.52-1.04) mg/dL Glucose (74-99) mg/dL POC Glucose (mg/dL) 198 H (75-99) mg/dL Calcium (8.4-10.2) mg/dL Ionized Calcium Chanda (4.5-5.3) mg/dL AST (14-36) U/L ALT (4-34) U/L Alkaline Phosphatase (38-126) U/L Total Protein (6.3-8.2) g/dL Albumin (3.5-5.0) g/dL Viral Test Microbiology - Last 24 Hours (Table) 09/25/21 11:45 Gram Stain - Final Pleural Fluid Body Fluid Culture - Final 09/27/21 11:30 Gram Stain - Preliminary Bronchial Brushings - Left Bronchial Washings Culture - Preliminary 09/27/21 04:15 Gram Stain - Final Sputum Sputum Culture - Final
[2021-09-30 13:05] LABS: Glucose,Whole Blood 176 mg/dL (75-99)
[2021-09-30] MEDS: PANTOPRAZOLE 40 MG/10 ML VIAL IVP SCH (13:14)
[2021-09-30] MEDS: ENOXAPARIN 30 MG/0.3 ML SYRINGE SQ SCH (13:14)
--- NOTE | 2021-09-30 16:19 | P.PN ---
Subjective Progress Note Date: 09/30/21 Principal diagnosis: Pneumonia Patient is a 70-year-old female presented to the hospital with abdominal pain shortness of breath noticed to have left-sided effusion status post thoracocentesis, subsequently respiratory failure requiring intubation and did have bronchoscopy with bronchial alveolar lavage and biopsy which are currently pending. On today's evaluation that is 09/30/2021 the patient remains to be afebrile, the patient is hemodynamically stable not requiring any pressor support, currently on dobutamine per cardiology, no significant purulent secretions through the ET diarrhea or any other changes reported by nursing staff, possible plan for comfort oriented care in the morning Objective - Vital Signs Vital signs: Vital Signs Temp 97.7 F 09/30/21 08:00 Pulse 103 H 09/30/21 12:00 Resp 27 H 09/30/21 12:00 BP 122/70 09/30/21 12:00 Pulse Ox 97 09/30/21 12:00 Intake & Output 09/29/21 09/30/21 09/30/21 18:59 06:59 18:59 Intake Total 7915.058 0795.053 980.074 Output Total 40 25 55 Balance 7589.258 6213.053 925.074 Weight 58 kg Intake: IV 1178 1176 686 0.9 220 240 140 Dextrose 5% in Water 1, 600 000 ml @ 75 mls/hr IV . [id number] ENRIQUE with Sodium Bicarb (1 Meq/ml) 100 ml Rx#:[id number] Dextrose 5% in Water 1, 225 900 525 000 ml @ 75 mls/hr IV . [id number] ENRIQUE with Sodium Bicarb (1 Meq/ml) 150 ml Rx#:[id number] Piperacillin-Tazobactam 3 100 .375 gm In Sodium Chloride 0.9% 100 ml @ 25 mls/hr IVPB Q6H [facility] Rx#: [id number] Pressure bag 33 36 21 Intake, IV Titration 14.035 75.053 69.074 Amount propofoL 1,000 mg In 14.035 75.053 69.074 Empty Bag 1 bag @ 5 MCG/ KG/MIN 1.157 mls/hr IV . Q24H [facility] Rx#:[id number] Tube Feeding 150 135 195 Other 60 30 Output: Urine 40 25 55 Other: Voiding Method Indwelling Catheter Indwelling Catheter Indwelling Catheter ABP, PAP, CO, CI - Last Documented Arterial Blood Pressure 101/75 - Exam GENERAL DESCRIPTION: An elderly female intubated on the vent RESPIRATORY SYSTEM: Unlabored breathing , decreased breath sounds at bases HEART: S1 S2 regular rate and rhythm , ABDOMEN: Soft , no tenderness EXTREMITIES: No edema feet - Labs CBC & Chem 7: 09/30/21 04:30 09/30/21 04:30 Labs: Abnormal Lab Results - Last 24 Hours (Table) 09/29/21 09/29/21 09/29/21 Range/Units 17:45 20:31 23:15 WBC (3.8-10.6) k/uL RBC (3.80-5.40) m/uL Hgb (11.4-16.0) gm/dL Hct (34.0-46.0) % MCV (80.0-100.0) fL MCH (25.0-35.0) pg RDW (11.5-15.5) % Sodium (137-145) mmol/L Chloride (98-107) mmol/L Carbon Dioxide (22-30) mmol/L BUN (7-17) mg/dL Creatinine (0.52-1.04) mg/dL Glucose (74-99) mg/dL POC Glucose (mg/dL) 230 H 235 H 226 H (75-99) mg/dL Calcium (8.4-10.2) mg/dL Ionized Calcium Chanda (4.5-5.3) mg/dL AST (14-36) U/L ALT (4-34) U/L Alkaline Phosphatase (38-126) U/L Total Protein (6.3-8.2) g/dL Albumin (3.5-5.0) g/dL 09/30/21 09/30/21 09/30/21 Range/Units 04:30 04:30 04:30 WBC 26.3 H (3.8-10.6) k/uL RBC 3.63 L (3.80-5.40) m/uL Hgb 7.7 L (11.4-16.0) gm/dL Hct 24.3 L (34.0-46.0) % MCV 67.0 L (80.0-100.0) fL MCH 21.3 L (25.0-35.0) pg RDW 18.8 H (11.5-15.5) % Sodium 129 L (137-145) mmol/L Chloride 97 L (98-107) mmol/L Carbon Dioxide 19 L (22-30) mmol/L BUN 72 H (7-17) mg/dL Creatinine 3.76 H (0.52-1.04) mg/dL Glucose 164 H (74-99) mg/dL POC Glucose (mg/dL) 184 H (75-99) mg/dL Calcium 6.4 L* (8.4-10.2) mg/dL Ionized Calcium Chanda (4.5-5.3) mg/dL AST 653 H (14-36) U/L ALT 907 H (4-34) U/L Alkaline Phosphatase 144 H (38-126) U/L Total Protein 5.1 L (6.3-8.2) g/dL Albumin 2.2 L (3.5-5.0) g/dL 09/30/21 09/30/21 09/30/21 Range/Units 05:35 07:54 13:03 WBC (3.8-10.6) k/uL RBC (3.80-5.40) m/uL Hgb (11.4-16.0) gm/dL Hct (34.0-46.0) % MCV (80.0-100.0) fL MCH (25.0-35.0) pg RDW (11.5-15.5) % Sodium (137-145) mmol/L Chloride (98-107) mmol/L Carbon Dioxide (22-30) mmol/L BUN (7-17) mg/dL Creatinine (0.52-1.04) mg/dL Glucose (74-99) mg/dL POC Glucose (mg/dL) 198 H 176 H (75-99) mg/dL Calcium (8.4-10.2) mg/dL Ionized Calcium Chanda 3.8 L (4.5-5.3) mg/dL AST (14-36) U/L ALT (4-34) U/L Alkaline Phosphatase (38-126) U/L Total Protein (6.3-8.2) g/dL Albumin (3.5-5.0) g/dL Microbiology - Last 24 Hours (Table) 09/27/21 11:30 Gram Stain - Final Bronchial Brushings - Left Bronchial Washings Culture - Final 09/25/21 11:45 Gram Stain - Final Pleural Fluid Body Fluid Culture - Final 09/27/21 04:15 Gram Stain - Final Sputum Sputum Culture - Final Assessment and Plan (1) Pneumonia Current Visit: Yes Status: Acute Code(s): J18.9 - PNEUMONIA, UNSPECIFIED ORGANISM SNOMED Code(s): 925265311 Plan: 1patient with acute respiratory failure which is multifactorial in this patient possible component of pneumonia status post bronchoscopy and those cultures remains to be pending, patient is currently covered with Zosyn, however in view of overall poor prognosis and multiorgan failure possible comfort oriented care in the morning which may be appropriate for her Time with Patient: Less than 30
[2021-09-30 16:43] LABS: Glucose,Whole Blood 177 mg/dL (75-99)
[2021-09-30] MEDS: DOBUTamine DRIP 500 MG in DEXTROSE/WATER 1 250ML.BAG IV SCH (17:42)
[2021-09-30 20:03] LABS: Glucose,Whole Blood 182 mg/dL (75-99)
[2021-09-30 23:34] LABS: Glucose,Whole Blood 200 mg/dL (75-99)
[2021-10-01] MEDS: IPRATROPIUM-ALBUTEROL 3 ML NEB INHALATION SCH ×4 (00:08→12:24)
[2021-10-01] MEDS: PIPERACILLIN-TAZOBACTAM 3.375 GM in SODIUM CHLORIDE 0.9% 100 ML IVPB SCH ×3 (00:23→16:18)
[2021-10-01] MEDS: METOCLOPRAMIDE 5 MG/ML 2 ML VIAL IVP SCH ×3 (00:24→16:18)
[2021-10-01 04:00] LABS: Glucose,Whole Blood 247 mg/dL (75-99)
[2021-10-01] MEDS: INSULIN ASPART (NovoLOG) 100 UNIT/ML VIAL SQ SCH ×3 (04:16→16:19)
[2021-10-01 04:58] LABS: Anisocytosis Slight; HCT 23.7 % (34.0-46.0); HGB 7.7 gm/dL (11.4-16.0); Hypochromasia Slight; MCH 21.7 pg (25.0-35.0); MCHC 32.7 g/dL (31.0-37.0); MCV 66.5 fL (80.0-100.0); Mean Platelet Volume 7.8; Microcytosis Marked; Platelet Count 177 k/uL (150-450); Poikilocytosis Moderate; RBC 3.56 m/uL (3.80-5.40); RDW 19.5 % (11.5-15.5); WBC 31.7 k/uL (3.8-10.6)
[2021-10-01 05:16] LABS: Albumin 2.3 g/dL (3.5-5.0); Potassium 4.5 mmol/L (3.5-5.1); Total Bilirubin 1.4 mg/dL (0.2-1.3); Total Protein 5.2 g/dL (6.3-8.2)
[2021-10-01] MEDS: methylPREDNISolone SOD SUCCI 40 MG/ML 1 ML VIAL IV SCH ×3 (05:40→16:22)
[2021-10-01] MEDS: LEVOTHYROXINE 50 MCG TAB PO SCH (05:41)
[2021-10-01 05:52] LABS: ABG Base Excess -1.6 mmol/L; ABG HCO3 24 mmol/L (21-25); ABG Oxygen Saturation 91.7 % (94-97); ABG PCO2 42 mmHg (35-45); ABG PH 7.36 (7.35-7.45); ABG PO2 67 mmHg (83-108); ABG TCO2 25 mmol/L (19-24); Allen Test Performed? Yes
[2021-10-01 06:02] LABS: Calcium 6.3 mg/dL (8.4-10.2)
[2021-10-01 08:14] LABS: Glucose,Whole Blood 251 mg/dL (75-99)
[2021-10-01] MEDS: FORMOTEROL FUMARATE 20 MCG/2 ML NEBU INHALATION SCH (08:14)
[2021-10-01] MEDS: BUDESONIDE 1 MG/2 ML NEBU INHALATION SCH (08:14)
--- NOTE | 2021-10-01 08:18 | XR ---
EXAMINATION TYPE: XR chest 1V portable DATE OF EXAM: 10/01/2021 COMPARISON: Chest x-ray 09/30/2021 HISTORY: Intubated TECHNIQUE: Single frontal view of the chest is obtained. FINDINGS: Endotracheal tube and NG tube, left subclavian central venous catheter are overlying appro priate positions, distal tip of the NG tube not included on exam. There is been progression in airspa ce disease within the right lung as well as left. The hemidiaphragms are obscured. Interstitium and c entral vascularity are prominent. No evident pneumothorax. Apical pleural thickening is again seen. T here are overlying leads. IMPRESSION: Correlate for congestive heart failure with bilateral pleural effusions, pneumonia not e xcluded, there may be underlying mass.
[2021-10-01] MEDS: SENNOSIDES-DOCUSATE SODIUM 1 EACH TAB PO SCH (08:28)
[2021-10-01] MEDS: FOLIC ACID 1 MG TAB PO SCH (08:28)
[2021-10-01] MEDS: ENOXAPARIN 30 MG/0.3 ML SYRINGE SQ SCH (08:28)
[2021-10-01] MEDS: CHLORHEXIDINE GLUCONATE 15 ML CUP MUCOUS MEM SCH (08:28)
[2021-10-01] MEDS: hydrALAZINE HCL 50 MG TAB PO SCH (08:28)
[2021-10-01] MEDS: PANTOPRAZOLE 40 MG/10 ML VIAL IVP SCH (08:28)
[2021-10-01] MEDS ORDERED: MORPHINE SULFATE 2 MG/ML SYRINGE IVP ONE (10:54)
[2021-10-01] MEDS ORDERED: DOBUTamine DRIP 500 MG in DEXTROSE/WATER 1 250ML.BAG IV SCH (11:00)
[2021-10-01] MEDS: DEXTROSE 5% IN WATER 1,000 ML with SODIUM BICARB (1 MEQ/ML) 150 ML IV SCH (11:12)
[2021-10-01] MEDS ORDERED: SCOPOLAMINE 1 MG/72 HR PATCH TRANSDERM SCH (11:15)
[2021-10-01] MEDS ORDERED: MORPHINE SULFATE (100 MG/2 ML) 100 MG in SODIUM CHLORIDE 0.9% 100 ML IV SCH (11:15)
--- NOTE | 2021-10-01 11:30 | P.PN ---
Subjective Patient is a very pleasant 70-year-old female came to the emergency room for abdominal discomfort and shortness of breath. Patient has a extensive medical history that includes COPD, GERD, osteoarthritis, bilateral vulva cancer, thyroid cancer, thalassemia, colitis, degenerative disc disease, kidney stones. Patient recently had PET scan that showed lung and ovarian mass that was being followed outpatient. Oncology and pulmonary were consulted for evaluation of left lung mass and pleural effusion. Patient is to undergo drainage of pleural effusion to test for malignancy. Hospitalist coverage 09/24/2021 09/25/2021 Patient seen and examined at bedside. Patient reports continued left side pain and difficulty breathing. Reports pain with inspiration. Patient denies chest pain, fever, palpitations. Patient states she dislikes the food and has admitted eating, ensure was added to increase oral intake. Awaiting cytology results. 09/26/2021 Patient was seen and examined at bedside. Patient reports increasing dyspnea and wheezing. Patient continues to have pain with inspiration but denies chest pain, palpitations, productive cough. Patient is experiencing increased anxiety, discussed length of time for results to come back. Ordered a repeat chest x-ray to assess cause of increasing dyspnea. We'll follow along with pulmonology recommendations of IV steroids and bronchodilator treatments. 09/27/2021 Patient was seen and examined in the ICU. Patient is sedated on ventilator. Family had changed their minds about comfort care after discussing cytology results and wanted to make her a full code again even though the prognosis is poor. She was then transferred to the ICU early this AM and intubated. Patient is to go for bronchoscopy today with Dr. Stallworth for biopsy. 09/28/2021 Patient was seen and examined at bedside. Patient continues to require mechanical ventilation. Patient has elevated troponin, elevated liver enzymes, increasing BUN and creatinine, new inverted T-wave, little urine output and abdominal distention. White blood cell count remains elevated at 28.2, infectious disease consulted for possible pneumonia. Hemoglobin stable at 9.0. Awaiting for results from lung biopsy. 09/29/2021 This is a patient of Dr. Rose's that we are currently covering for will continues to be in the ICU and is maintained on mechanical ventilation with an FiO2 of 50% and PEEP is 5. Multiple medical consultations including oncology and pulmonary lockstitch shoulder joiner following closely. Kidney functions continue to worsen and nephrology following closely discussing possible renal replacement therapy although per nursing report family is to further discuss possible comfort measures. Overall prognosis is extremely poor and guarded. She is not making any urine and patient is now maintained on sodium bicarb drip. Chest x- ray shows cardiomegaly with small to moderate pleural effusion of the left associated with left lower lung atelectasis and/or infiltrate all redemonstrated and stable slightly more prominent right medial basilar acute infiltrate and/or atelectasis from one day previous. Patient is also continued on IV Zosyn and will continue. ID is following. 09/30/2021 Patient is seen in follow-up this morning continues to be closely monitored in the ICU remains on mechanical ventilation with an FiO2 of 40% and PEEP is 5. Patient continues on dobutamine along with IV Zosyn, sodium bicarb drip and will continue. Lengthy discussion was had with the family about comfort measures and were agreeable and cardiology recommending dobutamine drip which was started and is being closely monitored. Kidney functions continue to increase with minimal amounts of urine. Attempts at weaning sedation being conducted although unsuccessful and CT of the brain ordered to assess neurological status. Chest x-ray today shows cardiomegaly with mild central vascular congestion and small to moderate sized left pleural effusion and associated left lower lung atelectasis and/or infiltrate redemonstrated and stable with stable patchy right basilar atelectasis and tiny pleural effusions with no significant change from previous. Nephrology following closely and patient will be given a dose of Lasix today with discussion of possible dialysis within the next 24-48 hours if no response. Prognosis is extremely guarded. WBC is elevated as well at 26.3. Hemoglobin is 7.7. Creatinine is 3.76 today with a BUN of 72. Blood sugars elevated and will continue sliding scale and monitor closely. 10/01/2021, resume the care of the patient today. This remains in the ICU intubated and sedated in a critical condition with pulmonary/critical care team following her closely. He was admitted for left lung mass which could be cancerous versus infection. She had a biopsy which was nondiagnostic of cancer. Also she has acute hypoxic respiratory failure with pneumonia and oliguric acute kidney injury with anasarca that requires hemodialysis patient to resume the care of. Also she have severe cardiomyopathy with ejection fraction 20-25% and non-STEMI. Patient has been followed by several consultants including pulmonary/grease man, preschool substitute teacher and infectious disease team. A kept on sodium bicarbonate drip at 75, IV Solu-Medrol 40 mg, Zosyn and hydralazine as well as Reglan. Chances not doing well or family were considering comfort care for possible he started today. Otherwise patient will need hemodialysis per nephrology team recommendation. Patient also started on morphine and scopolamine for comfort measures. Objective - Vital Signs Vital signs: Vital Signs Temp 98.6 F 10/01/21 08:00 Pulse 93 10/01/21 08:46 Resp 26 H 10/01/21 08:00 BP 132/82 10/01/21 08:00 Pulse Ox 99 10/01/21 08:00 Intake & Output 09/30/21 10/01/21 10/01/21 18:59 06:59 18:59 Intake Total 7664.198 3272.253 256 Output Total 65 70 5 Balance 8374.231 9302.253 251 Weight 59 kg Intake: IV 1176 1176 196 0.9 240 240 40 Dextrose 5% in Water 1, 900 900 150 000 ml @ 75 mls/hr IV . [id number] ENRIQUE with Sodium Bicarb (1 Meq/ml) 150 ml Rx#:[id number] Pressure bag 36 36 6 Intake, IV Titration 290.327 70.253 Amount DOBUTamine DRIP 500 mg In 221.253 Dextrose/Water 1 250ml. bag @ 5 MCG/KG/MIN 8.07 mls/hr IV .Q24H ENRIQUE Rx#: [id number] propofoL 1,000 mg In 69.074 70.253 Empty Bag 1 bag @ 5 MCG/ KG/MIN 1.157 mls/hr IV . Q24H ENRIQUE Rx#:[id number] Tube Feeding 270 195 30 Other 30 90 30 Output: Urine 65 70 5 Other: Voiding Method Indwelling Catheter Indwelling Catheter ABP, PAP, CO, CI - Last Documented Arterial Blood Pressure 103/63 - Exam -GENERAL: The patient is sedated and intubated patient with fluid overload and anasarca HEENT: Pupils are round and equally reacting to light. EOMI. No scleral icterus. No conjunctival pallor. Normocephalic, atraumatic. No pharyngeal erythema. No thyromegaly. CARDIOVASCULAR: S1 and S2 present. No murmurs, rubs, or gallops. -PULMONARY: Chest is clear to auscultation, decreased breath sounds on the lung bases with crepitation ABDOMEN: Soft, nontender, nondistended, normoactive bowel sounds. No palpable organomegaly. MUSCULOSKELETAL: No joint swelling or deformity. -EXTREMITIES: No cyanosis, clubbing, bilateral pitting like edema NEUROLOGICAL: Gross neurological examination did not reveal any focal deficits. SKIN: No rashes. no petechiae. - Labs CBC & Chem 7: 10/01/21 04:10 10/01/21 04:10 Labs: Abnormal Lab Results - Last 24 Hours (Table) 09/30/21 09/30/21 09/30/21 Range/Units 13:03 16:40 20:02 WBC (3.8-10.6) k/uL RBC (3.80-5.40) m/uL Hgb (11.4-16.0) gm/dL Hct (34.0-46.0) % MCV (80.0-100.0) fL MCH (25.0-35.0) pg RDW (11.5-15.5) % ABG pO2 (83-108) mmHg ABG Total CO2 (19-24) mmol/L ABG O2 Saturation (94-97) % Sodium (137-145) mmol/L Chloride (98-107) mmol/L Carbon Dioxide (22-30) mmol/L BUN (7-17) mg/dL Creatinine (0.52-1.04) mg/dL Glucose (74-99) mg/dL POC Glucose (mg/dL) 176 H 177 H 182 H (75-99) mg/dL Calcium (8.4-10.2) mg/dL Total Bilirubin (0.2-1.3) mg/dL AST (14-36) U/L ALT (4-34) U/L Alkaline Phosphatase (38-126) U/L Total Protein (6.3-8.2) g/dL Albumin (3.5-5.0) g/dL 09/30/21 10/01/21 10/01/21 Range/Units 23:33 03:59 04:10 WBC 31.7 H (3.8-10.6) k/uL RBC 3.56 L (3.80-5.40) m/uL Hgb 7.7 L (11.4-16.0) gm/dL Hct 23.7 L (34.0-46.0) % MCV 66.5 L (80.0-100.0) fL MCH 21.7 L (25.0-35.0) pg RDW 19.5 H (11.5-15.5) % ABG pO2 (83-108) mmHg ABG Total CO2 (19-24) mmol/L ABG O2 Saturation (94-97) % Sodium (137-145) mmol/L Chloride (98-107) mmol/L Carbon Dioxide (22-30) mmol/L BUN (7-17) mg/dL Creatinine (0.52-1.04) mg/dL Glucose (74-99) mg/dL POC Glucose (mg/dL) 200 H 247 H (75-99) mg/dL Calcium (8.4-10.2) mg/dL Total Bilirubin (0.2-1.3) mg/dL AST (14-36) U/L ALT (4-34) U/L Alkaline Phosphatase (38-126) U/L Total Protein (6.3-8.2) g/dL Albumin (3.5-5.0) g/dL 10/01/21 10/01/21 10/01/21 Range/Units 04:10 05:44 08:12 WBC (3.8-10.6) k/uL RBC (3.80-5.40) m/uL Hgb (11.4-16.0) gm/dL Hct (34.0-46.0) % MCV (80.0-100.0) fL MCH (25.0-35.0) pg RDW (11.5-15.5) % ABG pO2 67 L (83-108) mmHg ABG Total CO2 25 H (19-24) mmol/L ABG O2 Saturation 91.7 L (94-97) % Sodium 128 L (137-145) mmol/L Chloride 94 L (98-107) mmol/L Carbon Dioxide 20 L (22-30) mmol/L BUN 86 H (7-17) mg/dL Creatinine 4.23 H (0.52-1.04) mg/dL Glucose 205 H (74-99) mg/dL POC Glucose (mg/dL) 251 H (75-99) mg/dL Calcium 6.3 L* (8.4-10.2) mg/dL Total Bilirubin 1.4 H (0.2-1.3) mg/dL AST 262 H (14-36) U/L ALT 578 H (4-34) U/L Alkaline Phosphatase 139 H (38-126) U/L Total Protein 5.2 L (6.3-8.2) g/dL Albumin 2.3 L (3.5-5.0) g/dL Microbiology - Last 24 Hours (Table) 09/27/21 11:30 Gram Stain - Final Bronchial Brushings - Left Bronchial Washings Culture - Final Assessment and Plan Assessment: Hypoxemic respiratory failure, continues to require mechanical ventilation, status post bronchoscopy with biopsy Possible left lower lobe pulmonary pneumonia versus lung cancer and mass oliguric Acute kidney injury secondary to acute hypoxic respiratory failure, worsening, discussion of possible hemodialysis in the next 24-48 hours Combined Respiratory and metabolic acidosis due to acute hypoxic respiratory failure Elevated troponin, secondary to acute hypoxic respiratory failure Left lower lung mass, ruling out malignancy Moderate left pleural effusion Acute exacerbation of COPD Leukocytosis Thalassemia History of vulvar and thyroid cancer cachexia, moderate protein malnutrition, BMI 15 NO code Plan: Continue following with pulmonary and nephrology following along with ID. Cardi ology following as well and EF is less than 25%. dobutamine drip continued with no real improvement. nephrology following for acute kidney injury, worsening and per nursing staff urine output 0-5 ML's per hour, patient currently maintained on sodium bicarb drip and per nephrology may require renal replacement therapy emergently although family is discussing possible comfort measures per family today infectious disease following for possible necrotizing pneumonia Hematology for thalassemia, hemoglobin stable at this time Awaiting results of lung biopsy, negative for malignancy Code status addressed and patient is NO code, family considering comfort measures. Further recommendations to come based on patient's clinical course, overall prognosis is poor and guarded.
--- NOTE | 2021-10-01 11:33 | P.PN ---
Subjective Progress Note Date: 10/01/21 This is a 70-year-old female with history of thalassemia, thyroid cancer status post thyroidectomy, overall cancer status post resection and also COPD was admitted to the hospital with abdominal pain. She also had a history of bowel obstruction with prior bowel resection. Patient is currently intubated for respiratory failure. Patient also developed altered mental status. There is a suspicious mass in the lung which was felt could be malignant. We're asked to see the patient because of cardiomyopathy and elevated troponin. Apparently preop evaluation recently showed a normal ejection fraction. It was felt that it could be stressed and cardiomyopathy. Patient was initiated on dobutamine and apparently patient was becoming tachycardic. Dobutamine was reduced. Heart rate is in the 90s. Patient is maintaining sinus rhythm. However, the patient is being considered for comfort care. If that is the case dobutamine can be discontinued. We'll be seeing her on when necessary basis Objective - Vital Signs Vital signs: Vital Signs Temp 98.6 F 10/01/21 08:00 Pulse 107 H 10/01/21 10:00 Resp 25 H 10/01/21 10:00 BP 137/83 10/01/21 10:00 Pulse Ox 95 10/01/21 10:00 Intake & Output 09/30/21 10/01/21 10/01/21 18:59 06:59 18:59 Intake Total 5680.894 3260.253 601.121 Output Total 65 70 10 Balance 9609.008 4994.253 591.121 Weight 59 kg Intake: IV 1176 1176 392 0.9 240 240 80 Dextrose 5% in Water 1, 900 900 300 000 ml @ 75 mls/hr IV . [id number] ENRIQUE with Sodium Bicarb (1 Meq/ml) 150 ml Rx#:[id number] Pressure bag 36 36 12 Intake, IV Titration 290.327 70.253 134.121 Amount DOBUTamine DRIP 500 mg In 221.253 115.401 Dextrose/Water 1 250ml. bag @ 5 MCG/KG/MIN 8.07 mls/hr IV .Q24H ENRIQUE Rx#: [id number] propofoL 1,000 mg In 69.074 70.253 18.720 Empty Bag 1 bag @ 5 MCG/ KG/MIN 1.157 mls/hr IV . Q24H ENRIQUE Rx#:[id number] Tube Feeding 270 195 45 Other 30 90 30 Output: Urine 65 70 10 Other: Voiding Method Indwelling Catheter Indwelling Catheter Indwelling Catheter ABP, PAP, CO, CI - Last Documented Arterial Blood Pressure 118/114 - Exam GENERAL EXAM: Patient is intubated and sedated HEENT: Normocephalic. NECK: No masses, no nuchal rigidity. CHEST: No chest wall deformity. LUNGS: Diminished breath sounds with rhonchi HEART: S1 and S2 normal ABDOMEN: No hepatosplenomegaly, normal bowel sounds, no guarding or rigidity. SKIN: No rashes CENTRAL NERVOUS SYSTEM: Deferred EXTREMITIES: No cyanosis, clubbing or edema. - Labs CBC & Chem 7: 10/01/21 04:10 10/01/21 04:10 Labs: Abnormal Lab Results - Last 24 Hours (Table) 09/30/21 09/30/21 09/30/21 Range/Units 13:03 16:40 20:02 WBC (3.8-10.6) k/uL RBC (3.80-5.40) m/uL Hgb (11.4-16.0) gm/dL Hct (34.0-46.0) % MCV (80.0-100.0) fL MCH (25.0-35.0) pg RDW (11.5-15.5) % ABG pO2 (83-108) mmHg ABG Total CO2 (19-24) mmol/L ABG O2 Saturation (94-97) % Sodium (137-145) mmol/L Chloride (98-107) mmol/L Carbon Dioxide (22-30) mmol/L BUN (7-17) mg/dL Creatinine (0.52-1.04) mg/dL Glucose (74-99) mg/dL POC Glucose (mg/dL) 176 H 177 H 182 H (75-99) mg/dL Calcium (8.4-10.2) mg/dL Total Bilirubin (0.2-1.3) mg/dL AST (14-36) U/L ALT (4-34) U/L Alkaline Phosphatase (38-126) U/L Total Protein (6.3-8.2) g/dL Albumin (3.5-5.0) g/dL 09/30/21 10/01/21 10/01/21 Range/Units 23:33 03:59 04:10 WBC 31.7 H (3.8-10.6) k/uL RBC 3.56 L (3.80-5.40) m/uL Hgb 7.7 L (11.4-16.0) gm/dL Hct 23.7 L (34.0-46.0) % MCV 66.5 L (80.0-100.0) fL MCH 21.7 L (25.0-35.0) pg RDW 19.5 H (11.5-15.5) % ABG pO2 (83-108) mmHg ABG Total CO2 (19-24) mmol/L ABG O2 Saturation (94-97) % Sodium (137-145) mmol/L Chloride (98-107) mmol/L Carbon Dioxide (22-30) mmol/L BUN (7-17) mg/dL Creatinine (0.52-1.04) mg/dL Glucose (74-99) mg/dL POC Glucose (mg/dL) 200 H 247 H (75-99) mg/dL Calcium (8.4-10.2) mg/dL Total Bilirubin (0.2-1.3) mg/dL AST (14-36) U/L ALT (4-34) U/L Alkaline Phosphatase (38-126) U/L Total Protein (6.3-8.2) g/dL Albumin (3.5-5.0) g/dL 10/01/21 10/01/21 10/01/21 Range/Units 04:10 05:44 08:12 WBC (3.8-10.6) k/uL RBC (3.80-5.40) m/uL Hgb (11.4-16.0) gm/dL Hct (34.0-46.0) % MCV (80.0-100.0) fL MCH (25.0-35.0) pg RDW (11.5-15.5) % ABG pO2 67 L (83-108) mmHg ABG Total CO2 25 H (19-24) mmol/L ABG O2 Saturation 91.7 L (94-97) % Sodium 128 L (137-145) mmol/L Chloride 94 L (98-107) mmol/L Carbon Dioxide 20 L (22-30) mmol/L BUN 86 H (7-17) mg/dL Creatinine 4.23 H (0.52-1.04) mg/dL Glucose 205 H (74-99) mg/dL POC Glucose (mg/dL) 251 H (75-99) mg/dL Calcium 6.3 L* (8.4-10.2) mg/dL Total Bilirubin 1.4 H (0.2-1.3) mg/dL AST 262 H (14-36) U/L ALT 578 H (4-34) U/L Alkaline Phosphatase 139 H (38-126) U/L Total Protein 5.2 L (6.3-8.2) g/dL Albumin 2.3 L (3.5-5.0) g/dL Microbiology - Last 24 Hours (Table) 09/27/21 11:30 Gram Stain - Final Bronchial Brushings - Left Bronchial Washings Culture - Final Assessment and Plan Plan: This patient is admitted with multiple issues including possible neoplasm of the lung. Patient is being considered for comfort care. If that is the case with and discontinue dobutamine. We will be seeing on when necessary basis
[2021-10-01 12:16] VITALS: TEMP 98.7
[2021-10-01 13:54] VITALS: BMI 23.0
--- NOTE | 2021-10-01 13:59 | P.PN ---
Subjective Progress Note Date: 10/01/21 10/01/2021, the patient is being seen in follow-up in intensive care unit. This patient is doing very poor with multisystem organ failure. In summary, the patient's condition decompensated over the past several days and the patient is being considered for comfort care measures today. I saw this patient in the intensive care unit this morning. The patient was still sedated with propofol which is running at 25 mcg/kg per minute. The patient was on a mechanical ventilator. She was an assist-control mode at the rate of 20 with a tidal volume of 350 and FiO2 of 40% with a PEEP of 5. Morning blood gases showed a pH of 7.36 with a pCO2 of 42 and pO2 of 67. Noted the patient has been intubated s inga 09/27/2021. The patient's lactic acid level remains elevated at 6.3. Urine output has been only in order a 50 mL over the past 8 hours. The patient continues to be on dobutamine at 5 mg/kg per minute and the patient is also on a bicarb infusion at the rate of 75 mL an hour. Her blood work shows today a rise in the white cell count up to 30 with a hemoglobin of 7.7 and the platelet count of 177, the BUN is at 86 with a creatinine of 4.23 and a sodium level of 128 with a potassium level of 4.1. The patient remains on IV Zosyn as a broad- spectrum antibiotic coverage. The patient is feeding vital AF at the rate of 15 mL an hour. There has been an issue with the patient's CODE STATUS. Apparently she was a no code and this got reversed and following that the patient got intubated and placed on a mechanical ventilator. Bronchoscopy and lavage of the left lower lobe yielded no significant microbial growth. The chest x-ray from today shows ET tube being in a good location. There is progression in the airspace disease within the right lung as well as on the left. The hemidiaph ragms are ACUTE. The interstitium of the central vascular Prominence. The possibility of an underlying mass cannot be completely ruled out. As far as the shock liver, the patient's LFTs have been gradually improving. Objective - Vital Signs Vital signs: Vital Signs Temp 98.7 F 10/01/21 12:00 Pulse 96 10/01/21 12:00 Resp 24 10/01/21 12:00 BP 130/76 10/01/21 12:00 Pulse Ox 82 L 10/01/21 12:00 Intake & Output 09/30/21 10/01/21 10/01/21 18:59 06:59 18:59 Intake Total 6512.618 2673.253 641.121 Output Total 65 70 10 Balance 1857.732 9168.253 631.121 Weight 59 kg Intake: IV 1176 1176 432 0.9 240 240 120 Dextrose 5% in Water 1, 900 900 300 000 ml @ 75 mls/hr IV . [id number] ENRIQUE with Sodium Bicarb (1 Meq/ml) 150 ml Rx#:[id number] Pressure bag 36 36 12 Intake, IV Titration 290.327 70.253 134.121 Amount DOBUTamine DRIP 500 mg In 221.253 115.401 Dextrose/Water 1 250ml. bag @ 2.5 MCG/KG/MIN 4. 035 mls/hr IV .Q24H ENRIQUE Rx#:[id number] propofoL 1,000 mg In 69.074 70.253 18.720 Empty Bag 1 bag @ 5 MCG/ KG/MIN 1.157 mls/hr IV . Q24H ENRIQUE Rx#:[id number] Tube Feeding 270 195 45 Other 30 90 30 Output: Urine 65 70 10 Other: Voiding Method Indwelling Catheter Indwelling Catheter Indwelling Catheter ABP, PAP, CO, CI - Last Documented Arterial Blood Pressure 100/85 - Exam GENERAL EXAM: Sedated, poorly responsive, 70-year-old frail looking chronically ill looking white female on assist-control mode of ventilation HEAD: Normocephalic/atraumatic. EYES: Normal reaction of pupils, equal size. Conjunctiva pink, sclera white. NOSE: Clear with pink turbinates. THROAT: No erythema or exudates. NECK: No masses, no JVD, no thyroid enlargement, no adenopathy. CHEST: No chest wall deformity. Symmetrical expansion. LUNGS: Equal air entry with no crackles, wheeze, rhonchi or dullness. CVS: Regular rate and rhythm, normal S1 and S2, no gallops, no murmurs, no rubs ABDOMEN: Soft, nontender. No hepatosplenomegaly, normal bowel sounds, no guarding or rigidity. EXTREMITIES: No clubbing, tight edema involving torso, abdomen, and lower extremities no cyanosis, 2+ pulses and upper and lower extremities. MUSCULOSKELETAL: Muscle strength and tone normal. SPINE: No scoliosis or deformity SKIN: No rashes CENTRAL NERVOUS SYSTEM: Sedated, intubated No focal deficits, tone is normal in all 4 extremities. - Labs CBC & Chem 7: 10/01/21 04:10 10/01/21 04:10 Labs: Abnormal Lab Results - Last 24 Hours (Table) 09/30/21 09/30/21 09/30/21 Range/Units 16:40 20:02 23:33 WBC (3.8-10.6) k/uL RBC (3.80-5.40) m/uL Hgb (11.4-16.0) gm/dL Hct (34.0-46.0) % MCV (80.0-100.0) fL MCH (25.0-35.0) pg RDW (11.5-15.5) % ABG pO2 (83-108) mmHg ABG Total CO2 (19-24) mmol/L ABG O2 Saturation (94-97) % Sodium (137-145) mmol/L Chloride (98-107) mmol/L Carbon Dioxide (22-30) mmol/L BUN (7-17) mg/dL Creatinine (0.52-1.04) mg/dL Glucose (74-99) mg/dL POC Glucose (mg/dL) 177 H 182 H 200 H (75-99) mg/dL Calcium (8.4-10.2) mg/dL Total Bilirubin (0.2-1.3) mg/dL AST (14-36) U/L ALT (4-34) U/L Alkaline Phosphatase (38-126) U/L Total Protein (6.3-8.2) g/dL Albumin (3.5-5.0) g/dL 10/01/21 10/01/21 10/01/21 Range/Units 03:59 04:10 04:10 WBC 31.7 H (3.8-10.6) k/uL RBC 3.56 L (3.80-5.40) m/uL Hgb 7.7 L (11.4-16.0) gm/dL Hct 23.7 L (34.0-46.0) % MCV 66.5 L (80.0-100.0) fL MCH 21.7 L (25.0-35.0) pg RDW 19.5 H (11.5-15.5) % ABG pO2 (83-108) mmHg ABG Total CO2 (19-24) mmol/L ABG O2 Saturation (94-97) % Sodium 128 L (137-145) mmol/L Chloride 94 L (98-107) mmol/L Carbon Dioxide 20 L (22-30) mmol/L BUN 86 H (7-17) mg/dL Creatinine 4.23 H (0.52-1.04) mg/dL Glucose 205 H (74-99) mg/dL POC Glucose (mg/dL) 247 H (75-99) mg/dL Calcium 6.3 L* (8.4-10.2) mg/dL Total Bilirubin 1.4 H (0.2-1.3) mg/dL AST 262 H (14-36) U/L ALT 578 H (4-34) U/L Alkaline Phosphatase 139 H (38-126) U/L Total Protein 5.2 L (6.3-8.2) g/dL Albumin 2.3 L (3.5-5.0) g/dL 10/01/21 10/01/21 Range/Units 05:44 08:12 WBC (3.8-10.6) k/uL RBC (3.80-5.40) m/uL Hgb (11.4-16.0) gm/dL Hct (34.0-46.0) % MCV (80.0-100.0) fL MCH (25.0-35.0) pg RDW (11.5-15.5) % ABG pO2 67 L (83-108) mmHg ABG Total CO2 25 H (19-24) mmol/L ABG O2 Saturation 91.7 L (94-97) % Sodium (137-145) mmol/L Chloride (98-107) mmol/L Carbon Dioxide (22-30) mmol/L BUN (7-17) mg/dL Creatinine (0.52-1.04) mg/dL Glucose (74-99) mg/dL POC Glucose (mg/dL) 251 H (75-99) mg/dL Calcium (8.4-10.2) mg/dL Total Bilirubin (0.2-1.3) mg/dL AST (14-36) U/L ALT (4-34) U/L Alkaline Phosphatase (38-126) U/L Total Protein (6.3-8.2) g/dL Albumin (3.5-5.0) g/dL Assessment and Plan Plan: #1. Acute hypoxic respiratory failure secondary to a large left-sided pleural effusion, possible necrotizing pneumonia versus malignancy. Patient is status post bronchoscopy with BAL and biopsies of the left lower lobe on 09/27/2021, and left thoracentesis with exudative pleural fluid, all biopsies and pleural fluid were negative for malignancy. This morning, the patient remains on a [facility] ventilator on assist control mode of mechanical ventilation. Chest x- ray shows interval progression of airspace disease. Blood gases was noted. The patient unfortunately has signs of multisystem organ failure. The patient is developed an acute kidney injury. The patient has also developed an acute liver injury. LFTs are somewhat improving. Nevertheless, the patient has low urine output and progressive worsening in the renal function. Patient is currently on dobutamine. #2. Suspect acute exacerbation of systolic CHF with EF of 20-25% with severe global hypokinesia #3. Acute non-ST elevated myocardial infarction #4. Acute kidney failure, secondary to above #5. Altered mental status #6. Acute shock liver secondary to the above #7. Leukocytosis, elevated pro calcitonin level, rule out sepsis #8. Left adnexal solid lesion measuring 3.5 cm with adjacent calcification and a new right ovarian cyst measuring 2.7 cm #9. History of vulvar cancer with previous resection in November 2020 #10. History of thyroid cancer status post thyroidectomy 2009 #11. History of bowel obstruction with previous resection #12. History of thalassemia #13. Chronic and ongoing tobacco dependence of 54 years #14. Chronic obstructive pulmonary disease with acute exacerbation #15. Osteoporosis #15. Cachexia with body mass index of 15.1 kg/m Plan: This patient carries an exudative poor prognosis. The patient has been on mechanical ventilator since 09/27/2021. No improvement in her condition. There are signs of multisystem organ failure. Family has opted to proceed with comfort care measures and I think it's reasonable. Accordingly, we will institute end-of-life care measures/comfort care measures probably by noontime today. Meanwhile, we'll continue supportive care. Atrial fibrillation with a more than 30 minutes. Prognosis extremely poor.
[2021-10-01 14:00] VITALS: PULSE 98
[2021-10-01 14:03] VITALS: BP 125/77; RESP 22
--- NOTE | 2021-10-01 14:07 | P.PN ---
Subjective Patient is seen for follow-up for acute kidney injury Patient remains on the vent. Nursing staff has informed me that families proceeding with comfort care measures. Urine output remains low. Patient remains on the vent Objective - Vital Signs Vital signs: Vital Signs Temp 98.7 F 10/01/21 12:00 Pulse 98 10/01/21 14:00 Resp 22 10/01/21 14:00 BP 125/77 10/01/21 14:00 Pulse Ox 87 L 10/01/21 14:00 Intake & Output 09/30/21 10/01/21 10/01/21 18:59 06:59 18:59 Intake Total 3718.440 1409.253 661.121 Output Total 65 70 10 Balance 6044.397 0789.253 651.121 Weight 59 kg 59 kg Intake: IV 1176 1176 452 0.9 240 240 140 Dextrose 5% in Water 1, 900 900 300 000 ml @ 75 mls/hr IV . [id number] ENRIQUE with Sodium Bicarb (1 Meq/ml) 150 ml Rx#:[id number] Pressure bag 36 36 12 Intake, IV Titration 290.327 70.253 134.121 Amount DOBUTamine DRIP 500 mg In 221.253 115.401 Dextrose/Water 1 250ml. bag @ 2.5 MCG/KG/MIN 4. 035 mls/hr IV .Q24H ENRIQUE Rx#:[id number] propofoL 1,000 mg In 69.074 70.253 18.720 Empty Bag 1 bag @ 5 MCG/ KG/MIN 1.157 mls/hr IV . Q24H ENRIQUE Rx#:[id number] Tube Feeding 270 195 45 Other 30 90 30 Output: Urine 65 70 10 Other: Voiding Method Indwelling Catheter Indwelling Catheter Indwelling Catheter ABP, PAP, CO, CI - Last Documented Arterial Blood Pressure 100/85 - Exam Patient is on the vent. Patient is not examined - Labs CBC & Chem 7: 10/01/21 04:10 10/01/21 04:10 Labs: Abnormal Lab Results - Last 24 Hours (Table) 09/30/21 09/30/21 09/30/21 Range/Units 16:40 20:02 23:33 WBC (3.8-10.6) k/uL RBC (3.80-5.40) m/uL Hgb (11.4-16.0) gm/dL Hct (34.0-46.0) % MCV (80.0-100.0) fL MCH (25.0-35.0) pg RDW (11.5-15.5) % ABG pO2 (83-108) mmHg ABG Total CO2 (19-24) mmol/L ABG O2 Saturation (94-97) % Sodium (137-145) mmol/L Chloride (98-107) mmol/L Carbon Dioxide (22-30) mmol/L BUN (7-17) mg/dL Creatinine (0.52-1.04) mg/dL Glucose (74-99) mg/dL POC Glucose (mg/dL) 177 H 182 H 200 H (75-99) mg/dL Calcium (8.4-10.2) mg/dL Total Bilirubin (0.2-1.3) mg/dL AST (14-36) U/L ALT (4-34) U/L Alkaline Phosphatase (38-126) U/L Total Protein (6.3-8.2) g/dL Albumin (3.5-5.0) g/dL 10/01/21 10/01/21 10/01/21 Range/Units 03:59 04:10 04:10 WBC 31.7 H (3.8-10.6) k/uL RBC 3.56 L (3.80-5.40) m/uL Hgb 7.7 L (11.4-16.0) gm/dL Hct 23.7 L (34.0-46.0) % MCV 66.5 L (80.0-100.0) fL MCH 21.7 L (25.0-35.0) pg RDW 19.5 H (11.5-15.5) % ABG pO2 (83-108) mmHg ABG Total CO2 (19-24) mmol/L ABG O2 Saturation (94-97) % Sodium 128 L (137-145) mmol/L Chloride 94 L (98-107) mmol/L Carbon Dioxide 20 L (22-30) mmol/L BUN 86 H (7-17) mg/dL Creatinine 4.23 H (0.52-1.04) mg/dL Glucose 205 H (74-99) mg/dL POC Glucose (mg/dL) 247 H (75-99) mg/dL Calcium 6.3 L* (8.4-10.2) mg/dL Total Bilirubin 1.4 H (0.2-1.3) mg/dL AST 262 H (14-36) U/L ALT 578 H (4-34) U/L Alkaline Phosphatase 139 H (38-126) U/L Total Protein 5.2 L (6.3-8.2) g/dL Albumin 2.3 L (3.5-5.0) g/dL 10/01/21 10/01/21 Range/Units 05:44 08:12 WBC (3.8-10.6) k/uL RBC (3.80-5.40) m/uL Hgb (11.4-16.0) gm/dL Hct (34.0-46.0) % MCV (80.0-100.0) fL MCH (25.0-35.0) pg RDW (11.5-15.5) % ABG pO2 67 L (83-108) mmHg ABG Total CO2 25 H (19-24) mmol/L ABG O2 Saturation 91.7 L (94-97) % Sodium (137-145) mmol/L Chloride (98-107) mmol/L Carbon Dioxide (22-30) mmol/L BUN (7-17) mg/dL Creatinine (0.52-1.04) mg/dL Glucose (74-99) mg/dL POC Glucose (mg/dL) 251 H (75-99) mg/dL Calcium (8.4-10.2) mg/dL Total Bilirubin (0.2-1.3) mg/dL AST (14-36) U/L ALT (4-34) U/L Alkaline Phosphatase (38-126) U/L Total Protein (6.3-8.2) g/dL Albumin (3.5-5.0) g/dL Assessment and Plan Assessment: 1. JASBIR, ATN, oliguric secondary to hemodynamic factors and contrast nephrpathy. No nephrotoxic agents on board. BP currently not low. No obstruction on CT abdomen. No response to IV Lasix 2. Acute hypoxic respiratoy failure, on the vent. Fio2 50% 3. Shock liver 4. Left adnexal mass 5. Left pleural effusion, empyema on antibiotics 7. H/o thyroid and vulval cancer 8. Metabolic acidosis secondary to JASBIR 9. Severe cardiomyopathy EF 20-25%, started on dobutamine Plan: Agree with comfort care measures
--- NOTE | 2021-10-02 10:50 | P.DS ---
Providers Date of admission: 09/24/21 14:50 Expected date of discharge: 10/02/21 Attending physician: Nicolás Rose Consults: 09/24/21 14:30 Consult Physician Urgent Consulting Provider: Bart Stallworth Consult Reason/Comments: Lung mass, pleural effusion, hypoxia Do you want consulting provider notified?: Yes 09/27/21 18:03 Consult Physician Routine Consulting Provider: Ernestine Liang Consult Reason/Comments: anuria and elevated creatinine and potassium Do you want consulting provider notified?: Yes, Notify in am 09/28/21 11:50 Consult Physician Routine Consulting Provider: Saul Viera Consult Reason/Comments: possible pneumonia Do you want consulting provider notified?: Yes Primary care physician: Nicolás Rose Hospital Course: Patient is a very pleasant 70-year-old female came to the emergency room for abdominal discomfort and shortness of breath. Patient has a extensive medical history that includes COPD, GERD, osteoarthritis, bilateral vulva cancer, t hyroid cancer, thalassemia, colitis, degenerative disc disease, kidney stones. Patient recently had PET scan that showed lung and ovarian mass that was being followed outpatient. Oncology and pulmonary were consulted for evaluation of left lung mass and pleural effusion. Patient is to undergo drainage of pleural effusion to test for malignancy. Hospitalist coverage 09/24/2021 09/25/2021 Patient seen and examined at bedside. Patient reports continued left side pain and difficulty breathing. Reports pain with inspiration. Patient denies chest pain, fever, palpitations. Patient states she dislikes the food and has admitted eating, ensure was added to increase oral intake. Awaiting cytology results. 09/26/2021 Patient was seen and examined at bedside. Patient reports increasing dyspnea and wheezing. Patient continues to have pain with inspiration but denies chest pain, palpitations, productive cough. Patient is experiencing increased anxiety, discussed length of time for results to come back. Ordered a repeat chest x-ray to assess cause of increasing dyspnea. We'll follow along with pulmonology recommendations of IV steroids and bronchodilator treatments. 09/27/2021 Patient was seen and examined in the ICU. Patient is sedated on ventilator. Family had changed their minds about comfort care after discussing cytology results and wanted to make her a full code again even though the prognosis is poor. She was then transferred to the ICU early this AM and intubated. Patient is to go for bronchoscopy today with Dr. Stallworth for biopsy. 09/28/2021 Patient was seen and examined at bedside. Patient continues to require mechanical ventilation. Patient has elevated troponin, elevated liver enzymes, increasing BUN and creatinine, new inverted T-wave, little urine output and abdominal distention. White blood cell count remains elevated at 28.2, infectious disease consulted for possible pneumonia. Hemoglobin stable at 9.0. Awaiting for results from lung biopsy. 09/29/2021-10/01/2021 hospitalist coverage 10/02/2021 Patient was seen and assessed at bedside. Patient was switched to comfort care and is resting comfortably in bed on morphine drip, family is at bedside. Agonal breathing, mottling noted, discussed hospice options. Patient's family wants to take her home on hospice. Referral ordered. Assessment: Multiple organ failure, will go home on hospice Hypoxemic respiratory failure Acute kidney injury secondary to acute hypoxic respiratory failure Combined Respiratory and metabolic acidosis due to acute hypoxic respiratory failure Elevated troponin, secondary to acute hypoxic respiratory failure Left lower lung mass, ruling out malignancy Moderate left pleural effusion Acute exacerbation of COPD Leukocytosis Thalassemia History of vulvar and thyroid cancer cachexia, moderate protein malnutrition, BMI 15 Health Concerns: terminal multiple organ failure Pertinent Studies: chest xray- congestive heart failure with bilateral pleural effusions, underlying mass 10/01/2021 Echocardiogram -severely impaired left ventricular function, EF 20-25% Chest CTA- moderate to large left sided pleural effusion with suspicious infiltrating lesion in left lung base Chest US- Moderate left pleural effusion Procedures: Thoracentesis 09/25/2021 Intubated 09/27/2021 Bronchoscopy- 09/27/2021 Patient Condition at Discharge: Poor Plan - Discharge Summary Discharge Rx Participant: No New Discharge Prescriptions: Discontinued Levothyroxine Sodium [Synthroid] 50 mcg PO MOTUWETHFRSA Omeprazole [PriLOSEC] 40 mg PO AC-BRKFST clonazePAM [KlonoPIN] 0.5 mg PO HS HYDROcodone/APAP 10-325MG [Lantry 10-325] 1 tab PO QID PRN PRN Reason: Pain ondansetron HCL [Zofran] 4 mg PO BID PRN PRN Reason: Nausea And Vomiting Fluticasone Propionate [Flonase Allergy Relief] 2 spray EA NOSTRIL DAILY Simethicone Chew [Mylicon Chew] 80 mg PO Q6H PRN PRN Reason: GAS Docusate [Colace] 100 mg PO TID Levothyroxine Sodium [Synthroid] 100 mcg PO UMSA Simethicone 40 mg/0.6 ml Drops [Mylicon Drops] 40 mg PO Q6HR PRN #30 ml PRN Reason: Abdominal Distention Dicyclomine [Bentyl] 20 mg PO QID Follow up Appointment(s)/Referral(s): Nicolás Rose MD [Primary Care Provider] - 1-2 days Geovany Davis MD [STAFF PHYSICIAN] - 1 Week Activity/Diet/Wound Care/Special Instructions: Bartlett catheter to stay in place Discharge Disposition: HOME WITH HOSPICE
--- NOTE | 2021-10-26 14:03 | CDI ---
Documentation Clarification Form Date: 10/26/2021 01:31:17 PM From: Sultana Merino RN, CCDS Email: [email or web address] Admit Date: 09/24/2021 02:50:00 PM Patient Name: Marilin Aldana Visit Number: [id number] Discharge Date: 10/02/2021 05:48:00 PM ATTENTION: The Clinical Documentation Specialists (CDI) and [facility] Coding Staff appreciate your assistance in clarifying documentation. Please respond to the clarification below the line at the bottom and electronically sign. The CDI & [facility] Coding staff will review the response and follow-up if needed. Please note: Queries are made part of the Legal Health Record. If you have any questions, please contact the author of this message via ITS. Dr. Nicolás Rose Your patient went into multi-organ failure and . Based on this information and the findings below, is there an additional diagnosis that is clinically appropriate for this patient? Patient history/risk factors: came to the ED for abdominal discomfort and shortness of breath. Hx of COPD, GERD, osteoarthritis, bilateral vulva cancer, thyroid cancer, thalassemia, colitis, degenerative disc disease, kidney stones. Patient recently had PET scan that showed lung and ovarian mass that was being followed outpatient Clinical Indicators: WBC's 13.7-31.7, 09/28 Procalcitonin 3.09, 10/01 Cr 4.23, 09/27 LDH >21,500 09/24 VS: Temp 97.6, HR 105, RR 18, BP 97/67, pulse ox 86% room air 09/27 VS: Temp 93.4, HR 101, RR 26, BP 86/60 09/24 CT abd/pelvis: Newly seen sizable left pleural effusion with adjacent thick consolidation/lung lesion, associated infection/abscesses cannot be excluded 09/27 CXR: Congestive heart failure and left side diffuse pneumonia. Opacification left lower hemithorax improved compared to yesterday. 09/27 Procedure note: The cytology specimen from the thoracentesis resulted as suggestive of empyema with no malignant cells noted cytologically. 09/29 Cardiology: Non-STEMI likely type II mechanism related to shock. Acute kidney injury, may be cardiorenal versus related to ATN from shock. Acute on chronic respiratory failure. Necrotic-appearing lung lesion concerning for infection versus malignancy. Acute liver injury consistent with shock liver. 10/01 Pulmonary: There are signs of multisystem organ failure. 09/30 ID: patient with acute respiratory failure which is multifactorial in this patient possible component of pneumonia status post bronchoscopy, patient is currently covered with Zosyn, however in view of overall poor prognosis and multiorgan failure possible comfort care. Treatment: Intubated/ventilated. ICU care, IV antibiotics, IVF's and IV bolus, IV Dobutamine 09/28 ID: suspicious for empyema. Treat with IV Zosyn Is there an additional diagnosis that is clinically appropriate for this patient? [ X ] Sepsis POA [ ] Sepsis developed after admission [ ] No additional diagnosis [ ] Other, please specify [ ] Unable to determine (Template Last Reviewed: July 2020) MTDD
== END 2021-10-02 17:48 | disposition expired | DRG 870 ==
LOC: EC 11:05 → 5NMEDONC 14:50 → 2SICU 09-27 01:10 → 5NMEDONC 10-01 16:38
PROVIDERS: ADMIT Family Medicine; ATTEND Family Medicine
PROC: 0W9B3ZX Drainage of Left Pleural Cavity, Percutaneous Approach, Diagnostic (ICD-10-PCS; 2021-09-25)
PROC: 03HY32Z Insertion of Monitoring Device into Upper Artery, Percutaneous Approach (ICD-10-PCS; 2021-09-27)
PROC: 4A133B1 Monitoring of Arterial Pressure, Peripheral, Percutaneous Approach (ICD-10-PCS; 2021-09-27)
PROC: 4A133J1 Monitoring of Arterial Pulse, Peripheral, Percutaneous Approach (ICD-10-PCS; 2021-09-27)
PROC: 3E043XZ Introduction of Vasopressor into Central Vein, Percutaneous Approach (ICD-10-PCS; 2021-09-27)
PROC: 0BDJ8ZX Extraction of Left Lower Lung Lobe, Via Natural or Artificial Opening Endoscopic, Diagnostic (ICD-10-PCS; 2021-09-27)
PROC: 0BH17EZ Insertion of Endotracheal Airway into Trachea, Via Natural or Artificial Opening (ICD-10-PCS; 2021-09-27)
PROC: 30233N0 Transfusion of Autologous Red Blood Cells into Peripheral Vein, Percutaneous Approach (ICD-10-PCS; principal; 2021-09-27 07:30)
PROC: 5A1955Z Respiratory Ventilation, Greater than 96 Consecutive Hours (ICD-10-PCS; 2021-09-27 07:30)
PROC: 02HV33Z Insertion of Infusion Device into Superior Vena Cava, Percutaneous Approach (ICD-10-PCS; 2021-09-27 07:30)
DX: A41.9 Sepsis, unspecified organism (principal); J96.01 Acute respiratory failure with hypoxia; I21.A1 Myocardial infarction type 2; I50.23 Acute on chronic systolic (congestive) heart failure; K72.00 Acute and subacute hepatic failure without coma; J18.9 Pneumonia, unspecified organism; J86.9 Pyothorax without fistula; N17.0 Acute kidney failure with tubular necrosis; E87.1 Hypo-osmolality and hyponatremia; R64 Cachexia; Z68.1 Body mass index [BMI] 19.9 or less, adult; E44.0 Moderate protein-calorie malnutrition; J44.0 Chronic obstructive pulmonary disease with (acute) lower respiratory infection; J44.1 Chronic obstructive pulmonary disease with (acute) exacerbation; R57.9 Shock, unspecified; E87.4 Mixed disorder of acid-base balance; I42.9 Cardiomyopathy, unspecified; I11.0 Hypertensive heart disease with heart failure; R91.8 Other nonspecific abnormal finding of lung field; Z66 Do not resuscitate; Z51.5 Encounter for palliative care; D50.9 Iron deficiency anemia, unspecified; D75.839 Thrombocytosis, unspecified; E89.0 Postprocedural hypothyroidism; D56.3 Thalassemia minor; R54 Age-related physical debility; F17.200 Nicotine dependence, unspecified, uncomplicated; G89.29 Other chronic pain; F41.9 Anxiety disorder, unspecified; K21.9 Gastro-esophageal reflux disease without esophagitis; N83.201 Unspecified ovarian cyst, right side; K59.00 Constipation, unspecified; M19.90 Unspecified osteoarthritis, unspecified site; R11.2 Nausea with vomiting, unspecified; M81.0 Age-related osteoporosis without current pathological fracture; M50.30 Other cervical disc degeneration, unspecified cervical region; Z79.890 Hormone replacement therapy; Z79.899 Other long term (current) drug therapy; Z88.5 Allergy status to narcotic agent; Z88.8 Allergy status to other drugs, medicaments and biological substances; Z88.6 Allergy status to analgesic agent; Z91.011 Allergy to milk products; Z90.710 Acquired absence of both cervix and uterus; Z90.49 Acquired absence of other specified parts of digestive tract; Z98.51 Tubal ligation status; Z85.44 Personal history of malignant neoplasm of other female genital organs; Z98.890 Other specified postprocedural states; Z85.850 Personal history of malignant neoplasm of thyroid; Z87.442 Personal history of urinary calculi; Z80.6 Family history of leukemia
CPT/HCPCS: 31623; 31624; 31625; 31629; 31633; 36415; 36600; 71045; 71046; 71275; 74177; 76604; 80048; 80053; 81001; 82150; 82330; 82805; 82945; 83010; 83605; 83615; 83690; 83735; 83880; 84132; 84145; 84155; 84157; 84484; 85025; 85027; 85045; 85610; 85730; 86850; 86900; 86901; 86920; 87070; 87086; 87102; 87116; 87205; 87206; 87252; 87496; 87498; 87502; 87529; 87634; 87798; 88104; 88108; 88305; 89050; 93005; 93306; 94002; 94003; 94640; 96360; 96361; 99285